=== PATIENT | female | born 1960 | race African-American/Black ===

== ENCOUNTER → 2016-05-02 | Day surgery (SDC) | payer OTHER ==
[2016-04-26 07:40] VITALS: BMI 45.0
[~2016-05-02] VITALS: Ht 152.4 cm; Wt 113.5 kg
[~2016-05-02] MED LIST: ATOR10TA88 PO; GABA800T2 PO; GLC500 PO; HYDR-3124 PO; LIDOCAINE HCL 2% 2 ML VIAL (20MG/ML) ONE; LISI10TA PO; MIDAZOLAM HCL 1 MG/ML 2ML VIAL ONE; MORP30TA PO; OXYC-164 PO; PROPOFOL IV EMULSION 10 MG/ML 20 ML VIAL IV ONE; SODIUM CHLORIDE 0.9% 500ML 500 ML IV ONE; TRAV0.00 OPB
[2016-05-02 07:58] VITALS: Ht 152.4 cm; Wt 113.5 kg
[2016-05-02 08:17] VITALS: TEMP 36.1
--- NOTE | 2016-05-02 08:39 | Endo History and Physical ---
History & Physical Date of Service: May 02, 2016. Chief Complaint: SCREENING Referring Physician: DR. SANDOVAL History of Present Illness 55 yo AAF who presents for screening colonoscopy. Past Medical History Diabetes, Arthritis, High Cholesterol, Hypertension Past Surgical History Hx Cardiac Surgery: No Hx Internal Defibrillator: No Hx Pacemaker: No Hx Abdominal Surgery: Yes (HIATAL HERNIA REPAIR, HERNIA REPAIR X3, HYSTER, UTERINE MYOMECTOMY) Hx of Implantable Prosthesis: No Hx Post-Op Nausea and Vomiting: No Hx Cancer Surgery: No Hx Thoracic Surgery: Yes (CYST REMOVAL FROM "CHEST AREA") Hx Orthopedic: Yes (RT/LT HAMMER TOE SURGERY X2, LT FOOT SURGERY) Hx Urinary Tract Surgery: No Family History Colon CA Social History Smoking Status: Current Every Day Smoker Hx Substance Use: Yes (SEE MED LIST) Hx Alcohol Use: No Allergies Coded Allergies: No Known Allergies (Verified , 05/02/16) Current Medications Reported Home Medications Medications Dose Route/Sig Max Daily Dose Days Date Category Travatan Z (Travoprost) 0.004 % Obdulio 1 Drops OPB HS 04/26/16 Reported Atarax (Hydroxyzine Hcl) 25 Mg Tab 25 Mg PO HS PRN 04/26/16 Reported Morphine Sulfate Ir (Morphine Sulfate) 30 Mg Tab 30 Mg PO BID PRN 04/26/16 Reported Oxycodone Hcl 10 Mg Tab 1 Tab PO DAILY PRN 04/26/16 Reported Neurontin (Gabapentin) 800 Mg Tab 800 Mg PO HS 04/26/16 Reported Prinivil (Lisinopril) 10 Mg Tab 10 Mg PO QAM 03/29/15 Reported Metformin HCl 500 Mg Tab 500 Mg PO BID 01/09/15 Reported Lipitor (Atorvastatin Calcium) 10 Mg Tab 10 Mg PO QAM 11/08/14 Reported Vital Signs Weight (Kilograms): 113.5 Height (Feet): 5 Height (Inches): 0 Date Time Temp Pulse Resp B/P Pulse Ox O2 Delivery O2 Flow Rate FiO2 05/02/16 08:17 36.1 80 20 168/97 100 Room Air Physical Exam General Appearance: WD/WN, no apparent distress Respiratory/Chest: Auscultation: breath sounds normal Cardiovascular: Heart Auscultation: RRR Abdomen: Bowel Sounds: normal Inspection & Palpation: soft, non-distended, no tenderness, guarding & rebound Assessment and Plan Assessment: 55 yo AAF who presents for screening colonoscopy. Plan: Proceed with colonoscopy.
--- NOTE | 2016-05-02 09:30 | GI REPORT ---
Procedure Date: 05/02/2016 8:43 AM Procedure: Colonoscopy Indications: Screening for colorectal malignant neoplasm Medicines: Monitored Anesthesia Care Complications: No immediate complications. Estimated Blood Loss: Estimated blood loss: none. Procedure: Pre-Anesthesia Assessment: - Prior to the procedure, a History and Physical was performed, and patient medications and allergies were reviewed. The patient's tolerance of previous anesthesia was also reviewed. The risks and benefits of the procedure and the sedation options and risks were discussed with the patient. All questions were answered, and informed consent was obtained. Prior Anticoagulants: The patient has taken no previous anticoagulant or antiplatelet agents. ASA Grade Assessment: III - A patient with severe systemic disease. After reviewing the risks and benefits, the patient was deemed in satisfactory condition to undergo the procedure. After I obtained informed consent, the scope was passed under direct vision. Throughout the procedure, the patient's blood pressure, pulse, and oxygen saturations were monitored continuously. The On-site loaner was introduced through the anus and advanced to the cecum, identified by appendiceal orifice and ileocecal valve. The colonoscopy was performed without difficulty. The patient tolerated the procedure well. The quality of the bowel preparation was good. The ileocecal valve, appendiceal orifice, and rectum were photographed. Findings: Multiple small-mouthed diverticula were found in the sigmoid colon. Non-bleeding internal hemorrhoids were found during retroflexion. The hemorrhoids were small. Impression: - Diverticulosis in the sigmoid colon. - Non-bleeding internal hemorrhoids. - No specimens collected. Recommendation: - Resume previous diet. - Continue present medications. - Repeat colonoscopy in 10 years for surveillance. - Return to primary care physician as previously scheduled. Ilir Eid, DO 05/02/2016 9:29:53 AM This report has been signed electronically. Note Initiated On: 05/02/2016 8:43 AM I attest to the content of the Intraoperative Record and orders documented therein, exceptions below
--- NOTE | 2016-05-02 09:31 | Discharge Instructions ---
Endoscopy Patient Instructions Date / Procedure(s) Performed May 02, 2016. Colonoscopy Allergy Information Coded Allergies: No Known Allergies (Verified , 05/02/16) Discharge Date / Findings May 02, 2016. Diverticulosis Internal hemorrhoids Medication Instructions OK to resume all medications today as prescribed Reported Home Medications Medications Dose Route/Sig Max Daily Dose Days Date Category Travatan Z (Travoprost) 0.004 % Obdulio 1 Drops OPB HS 04/26/16 Reported Atarax (Hydroxyzine Hcl) 25 Mg Tab 25 Mg PO HS PRN 04/26/16 Reported Morphine Sulfate Ir (Morphine Sulfate) 30 Mg Tab 30 Mg PO BID PRN 04/26/16 Reported Oxycodone Hcl 10 Mg Tab 1 Tab PO DAILY PRN 04/26/16 Reported Neurontin (Gabapentin) 800 Mg Tab 800 Mg PO HS 04/26/16 Reported Prinivil (Lisinopril) 10 Mg Tab 10 Mg PO QAM 03/29/15 Reported Metformin HCl 500 Mg Tab 500 Mg PO BID 01/09/15 Reported Lipitor (Atorvastatin Calcium) 10 Mg Tab 10 Mg PO QAM 11/08/14 Reported Provider Instructions Activity Restrictions - No exercising or heavy lifting for 24 hours. - Do not drink alcohol the day of the procedure. - Do not drive a car or operate machinery until the day after the procedure. - Do not make any important decisions or sign important papers in 24 hours after the procedure. Following Day: - Return to full activity which may include returning to work/school. Diet Start your diet with liquids and light foods (jello, soup, juice, toast). Then eat your usual diet if not nauseated. Treatment For Common After Affects For mild abdominal pain, bloating, or excessive gas: - Rest - Eat lightly - Lie on right side Follow-Up Information Follow-up with DR. SANDOVAL as scheduled Anesthesia Information What You Should Know You have had a procedure that required some medicine to reduce anxiety and discomfort. This treatment is called moderate sedation. After receiving the treatment, you may be sleepy, but you will be able to breathe on your own. The effects of the treatment may last for several hours. Follow these instructions along with Activity/Diet recommendations noted above: * Do NOT do anything where dizziness or clumsiness would be dangerous. * Rest quietly at home today, then you can be up and about tomorrow. * Have a responsible person stay with you the rest of today. * You may have had an I.V. today. If so, you may take the dressing off later today. Recommendations Call your doctor if: * Trouble breathing * Continuous vomiting for more than 24 hours * Temperature above 101 degrees * Severe abdominal pain or bloating * Pain not relieved by pain medicine ordered * There is increased drainage or redness from any incision * A large amount of rectal bleeding greater than 2-3 tablespoons. (If you had a polyp/s removed or have hemorrhoids, a small amount of blood - from the rectum is to be expected.) * You have any unanswered questions or concerns. IN THE EVENT OF A SERIOUS EMERGENCY, GO TO THE NEAREST EMERGENCY ROOM Your discharge instructions were prepared by provider Ilir Eid. Patient Instructions Signature Page Tamela Weinberg Patient (or Guardian) Signature/Date: I have read and understand the instructions given to me by my caregivers. Caregiver/RN/Doctor Signature/Date: The above-named patient and/or guardian has received patient instructions on this date. + Original Patient Signature Page (only) stays with chart. Please make copy for patient.
[2016-05-02 09:44] VITALS: BP 116/62; PULSE 79; O2SAT 94
--- NOTE | 2016-05-02 15:19 | Anesthesiology Progress Note ---
Anesthesia Post Op Note Date & Time May 02, 2016 at 15:18 Vital Signs Pain Intensity: 0 Vital Signs Past 12 Hours Date Time Temp Pulse Resp B/P Pulse Ox O2 Delivery O2 Flow Rate FiO2 05/02/16 09:44 79 20 116/62 94 Room Air 05/02/16 09:36 92 20 110/56 96 Room Air 05/02/16 09:25 100 22 167/81 96 Nasal Cannula 05/02/16 08:17 36.1 80 20 168/97 100 Room Air Notes Mental Status: alert / awake / arousable, participated in evaluation Pt Amnestic to Procedure: Yes Nausea / Vomiting: adequately controlled Pain: adequately controlled Airway Patency, RR, SpO2: stable & adequate BP & HR: stable & adequate Hydration State: stable & adequate Anesthetic Complications: no major complications apparent
== END | disposition home or self-care (01) ==
LOC: C.GI 07:27
PROVIDERS: ATTEND Internal Medicine
DX: Z12.11 Encounter for screening for malignant neoplasm of colon (principal); K57.30 Diverticulosis of large intestine without perforation or abscess without bleeding; K64.8 Other hemorrhoids; I10 Essential (primary) hypertension; E11.9 Type 2 diabetes mellitus without complications; E78.00 Pure hypercholesterolemia, unspecified; H40.9 Unspecified glaucoma; M19.90 Unspecified osteoarthritis, unspecified site; Z98.890 Other specified postprocedural states; F17.200 Nicotine dependence, unspecified, uncomplicated; Z68.42 Body mass index [BMI] 45.0-49.9, adult; Z80.0 Family history of malignant neoplasm of digestive organs

== ENCOUNTER 2017-10-15 12:55 | Emergency (ER) | payer OTHER ==
[~2017-10-15] VITALS: Ht 152.4 cm; Wt 113.3 kg
[~2017-10-15 12:55] MED LIST changes: +ATOR10TA82 PO; -ATOR10TA88 PO; -LIDOCAINE HCL 2% 2 ML VIAL (20MG/ML) ONE; -MIDAZOLAM HCL 1 MG/ML 2ML VIAL ONE; -PROPOFOL IV EMULSION 10 MG/ML 20 ML VIAL IV ONE; -SODIUM CHLORIDE 0.9% 500ML 500 ML IV ONE
[2017-10-15 12:59] VITALS: TEMP 36.8; Ht 152.4 cm; Wt 113.3 kg
[2017-10-15] MEDS ORDERED: OPTIRAY 320 IV PRN (13:30)
[2017-10-15] MEDS ORDERED: KETOROLAC TROMETHAMINE 30 MG/ML VIAL IV STA (13:56)
[2017-10-15 14:05] LABS: HEMATOCRIT 44.5 % (37-47); HEMOGLOBIN 14.6 g/dL (12.0-16.0); MEAN CELL VOLUME 86.6 fL (80-100); MEAN CORPUSCULAR HEMOGLOBIN 28.4 pg (25-34); MEAN CORPUSCULAR HGB CONC 32.8 g/dl (32-36); MEAN PLATELET VOLUME 10.4 fL (7.4-10.4); PLATELET COUNT 299 K/uL (130-400); RED CELL DISTRIBUTION WIDTH CV 14.9 % (11.5-14.5); RED CELL DISTRIBUTION WIDTH SD 47.8 fL (36.4-46.3); WHITE BLOOD COUNT 7.97 K/uL (4.8-10.8)
[2017-10-15 14:24] LABS: CALCIUM 9.5 mg/dl (8.5-10.1); CREATININE 0.67 mg/dl (0.60-1.20)
[2017-10-15 14:26] LABS: POTASSIUM 4.3 mmol/L (3.5-5.1)
--- NOTE | 2017-10-15 14:55 | DIAGNOSTIC IMAGING REPORT ---
CT (CHEST) THORAX WITH CT DOSE: 1043.58 mGy.cm HISTORY: Pain severe L rib pain after fall. morb obese TECHNIQUE: Multiaxial CT images of the chest were performed following the intravenous administration of contrast. A dose lowering technique was utilized adhering to the principles of ALARA. COMPARISON: None. FINDINGS: There are several bilateral axillary nodes measuring up to 1.5 cm. The mediastinal and hilar regions show no significant nodes although pretracheal nodes measuring to 11 mm are present. There is no significant or bulky adenopathy. Lungs are clear. No focal infiltrate. Major vertebral bodies show no evidence for compression deformity. IMPRESSION: 1. No acute process of the chest. 2. No well-defined rib fractures or other anomaly. 3. Several indeterminate nodes in the axillary regions measuring up to 1.5 cm. The above report was generated using voice recognition software. It may contain grammatical, syntax or spelling errors. Electronically signed by: Howard Juares M.D. 10/15/2017 2:54 PM Dictated Date/Time: 10/15/2017 2:45 PM
[2017-10-15 15:23] VITALS: BP 127/97; PULSE 67; O2SAT 93
--- NOTE | 2017-10-15 17:27 | EMERGENCY ROOM VISIT NOTE ---
History Report prepared by Alisha: Srinath Castro Under the Supervision of: Dr. El Vasquez D.O. First contact with patient: 13:06 Chief Complaint: RIB PAIN Stated Complaint: RIB PAIN RAN INTO THE ARM OF CHAIR History of Present Illness The patient is a 57 year old female who presents to the Emergency Room with complaints of constant left-sided pain in the area of the ribs beginning after a fall last night. The patient reports that she fell into the hard arm of a chair, and notes that it hit her left side. The patient denies hitting her head or losing consciousness. She states that all of her pain is on her left side where it hit. She notes that the pain is worsened with movement. She notes that she does not take blood thinners. Pain worsens with breathing, twisting turning and palpation. Pain is sharp stabbing with palpation. If she does not move she does not have the pain. Pt denies headache, change in vision, fevers, chest pain, shortness of breath, nausea, vomiting, diarrhea, and pain with urination. Source of History: patient Onset: last night Position: other (left side in the area of the ribs) Quality: other (pain after fall) Modifying Factors (Worsening): movement Associated Symptoms: No LOC Review of Systems See HPI for pertinent positives & negatives. A total of 10 systems reviewed and were otherwise negative. Past Medical & Surgical Medical Problems: (1) Chronic back pain (2) Diabetes (3) Hypertension (4) Umbilical hernia Surgical Problems: (1) H/O foot surgery (2) H/O hernia repair (3) H/O: hysterectomy (4) History of ventricular septal myectomy Family History Cancer Diabetes mellitus Hypertension Kidney disease Kidney stones Social History Smoking Status: Current Every Day Smoker Alcohol Use: none Drug Use: none Marital Status: single Housing Status: lives with family Occupation Status: disabled Current/Historical Medications Scheduled Atorvastatin (Lipitor), 10 MG PO QAM Gabapentin (Neurontin), 800 MG PO TID Lisinopril (Prinivil), 10 MG PO QAM Metformin HCl (Metformin HCl), 500 MG PO BID Travoprost (Travatan Z), 1 DROPS OPB HS Scheduled PRN Hydroxyzine Hcl (Atarax), 25 MG PO HS PRN for INSOMNIA AND ITCHING Allergies Coded Allergies: No Known Allergies (Verified , 10/15/17) Physical Exam Vital Signs Date Time Temp Pulse Resp B/P (MAP) Pulse Ox O2 Delivery O2 Flow Rate FiO2 10/15/17 15:23 67 18 127/97 93 Room Air 10/15/17 12:59 36.8 79 12 98/65 99 Room Air Physical Exam GENERAL: Morbidly obese, sitting at bed, disheveled-appearing, non-toxic HEAD: normal cephalic, atraumatic EYE EXAM: normal conjunctiva, PERRL and EOM's grossly intact OROPHARYNX: no exudate, no erythema, lips, buccal mucosa, and tongue normal and mucous membranes are moist NECK: supple, no nuchal rigidity, no adenopathy, non-tender CHEST: stable to compression anteriorly and posteriorly, pain on palpation of the left ribs tracking under her breast. Skin is intact no bruising. LUNGS: clear to auscultation. Normal chest wall mechanics HEART: no murmurs, S1 normal and S2 normal ABDOMEN: abdomen soft, non-tender, normo-active bowel sounds, no masses, no rebound or guarding. PELVIS: stable to compression anteriorly and posteriorly BACK: Back is symmetrical on inspection and there is no deformity, no midline tenderness, no CVA tenderness. UPPER EXTREMITIES: full active and passive range of motion of all joints without tenderness to palpation LOWER EXTREMITIES: full active and passive range of motion of all joints without tenderness to palpation NEURO EXAM: Normal sensorium, cranial nerves II-XII grossly intact, normal speech, no gross weakness of arms, no gross weakness of legs. GCS: 15. Medical Decision & Procedures ER Provider Diagnostic Interpretation: Radiology results as stated below per my review and the radiologist's interpretation: CT (CHEST) THORAX WITH CT DOSE: 1043.58 mGy.cm HISTORY: Pain severe L rib pain after fall. morb obese TECHNIQUE: Multiaxial CT images of the chest were performed following the intravenous administration of contrast. A dose lowering technique was utilized adhering to the principles of ALARA. COMPARISON: None. FINDINGS: There are several bilateral axillary nodes measuring up to 1.5 cm. The mediastinal and hilar regions show no significant nodes although pretracheal nodes measuring to 11 mm are present. There is no significant or bulky adenopathy. Lungs are clear. No focal infiltrate. Major vertebral bodies show no evidence for compression deformity. IMPRESSION: 1. No acute process of the chest. 2. No well-defined rib fractures or other anomaly. 3. Several indeterminate nodes in the axillary regions measuring up to 1.5 cm. The above report was generated using voice recognition software. It may contain grammatical, syntax or spelling errors. Electronically signed by: Howard Juares M.D. 10/15/2017 2:54 PM Dictated Date/Time: 10/15/2017 2:45 PM Laboratory Results 10/15/17 13:54 Red Blood Count 5.14, Mean Corpuscular Volume 86.6, Mean Corpuscular Hemoglobin 28.4, Mean Corpuscular Hemoglobin Concent 32.8, Mean Platelet Volume 10.4 10/15/17 13:54 Test 10/15/17 13:54 White Blood Count 7.97 K/uL (4.8-10.8) Red Blood Count 5.14 M/uL (4.2-5.4) Hemoglobin 14.6 g/dL (12.0-16.0) Hematocrit 44.5 % (37-47) Mean Corpuscular Volume 86.6 fL (80-100) Mean Corpuscular Hemoglobin 28.4 pg (25-34) Mean Corpuscular Hemoglobin Concent 32.8 g/dl (32-36) Platelet Count 299 K/uL (130-400) Mean Platelet Volume 10.4 fL (7.4-10.4) RDW Standard Deviation 47.8 fL (36.4-46.3) RDW Coefficient of Variation 14.9 % (11.5-14.5) Neutrophils % (Manual) 35.7 % Lymphocytes % (Manual) 25.9 % Variant Lymphocytes % (manual) 26.8 % Monocytes % (Manual) 8.0 % Eosinophils % (Manual) 2.7 % Basophils % (Manual) 0.9 % Neutrophils # (Manual) 2.85 K/uL (1.4-6.5) Total Absolute Neutrophils 2.85 K/uL (1.4-6.5) Lymphocytes # (Manual) 2.06 K/uL (1.2-3.4) Absolute Variant Lymphocytes 2.14 K/uL Total Absolute Lymphocytes 4.20 K/uL (1.2-3.4) Monocytes # (Manual) 0.64 K/uL (0.11-0.59) Eosinophils # (Manual) 0.22 K/uL (0-0.5) Basophils # (Manual) 0.07 K/uL (0-0.2) Anion Gap 7.0 mmol/L (3-11) Est Creatinine Clear Calc Drug Dose 103.6 ml/min Estimated GFR () 111.5 Estimated GFR (Non- 96.2 BUN/Creatinine Ratio 12.6 (10-20) Calcium Level 9.5 mg/dl (8.5-10.1) Laboratory results per my review. Medications Administered Medications (Trade) Dose Ordered Sig/Iván Route Start Time Stop Time Status Last Admin Dose Admin Ketorolac Tromethamine (Toradol Inj) 30 mg NOW STAT IV 10/15/17 13:56 10/15/17 13:57 DC 10/15/17 14:01 30 MG ED Course ED COURSE: Vital signs were reviewed and showed normal vital signs The patients medical record was reviewed The above diagnostic studies were performed and reviewed. ED treatments and interventions as stated above. 1317: The patient was evaluated in room A4B. A complete history and physical examination was performed. 1528: Upon reevaluation, the patient is resting. I discussed my findings with the patient and she understands and agrees with the treatment plan. Based on the patients age, coexisting illnesses, exam and lab findings the decision to treat as an outpatient was made. The patient remained stable while under my care. The patient appeared well at the time of discharge. Medical Decision Differential diagnoses include major intracranial, cervical, spinal, thoracic, abdominal, pelvic and neurologic injury. Fracture, contusion, sprain, strain, laceration, abrasions included as well. Patient is a 57-year-old female after mechanical fall last night into an arm chair where she hit her left chest wall who presents for pain in the same spot. CBC and BMP was unremarkable. She takes no blood thinners. CT of the chest shows no rib fractures, or pleural effusion. Do favor symptoms are likely secondary to rib contusions. She was given IV Toradol and did have improvement of her symptoms. She is resting/sleeping on reevaluation. Instructed at bedside discharged to take Tylenol or Motrin as an outpatient. Discussed with Pt concerning signs and symptoms to watch out for. Pt was instructed to follow up with their PCP and discussed with the patient their option to return to the ED at anytime for persistent or worsening symptoms. The appropriate anticipatory guidance and out-patient management, including indications for return to the emergency department, were explained at length to the patient and understood. Medication Reconcilliation Current Medication List: was personally reviewed by me Blood Pressure Screening Patient's blood pressure: Normal blood pressure Blood pressure disposition: Did not require urgent referral Impression Primary Impression: Contusion of rib on left side Scribe Attestation The scribe's documentation has been prepared under my direction and personally reviewed by me in its entirety. I confirm that the note above accurately reflects all work, treatment, procedures, and medical decision making performed by me. Departure Information Dispostion Home / Self-Care Referrals Ana Figueredo D.O. (PCP) Forms HOME CARE DOCUMENTATION FORM, IMPORTANT VISIT INFORMATION, WORK / SCHOOL INSTRUCTIONS Patient Instructions My [facility] Additional Instructions Please follow up with your primary care doctor with in the next 24 hours. Any worsening of your symptoms, please return to the ED immediately. This includes any fevers greater than 100.4, worsening pain, chest pain, shortness breath, persistent nausea, vomiting, unable to eat or drink, or any other concerning signs or symptoms from your standpoint. Please take Motrin or Tylenol as needed for pain. Pain will continue over the course the next 2 weeks. Problem Qualifiers Primary Impression: Contusion of rib on left side Encounter type: initial encounter Qualified Codes: S20.212A - Contusion of left front wall of thorax, initial encounter
== END 2017-10-15 15:36 | disposition home or self-care (01) ==
LOC: C.EDB 12:57 → C.EDA 15:36
DX: S20.212A Contusion of left front wall of thorax, initial encounter (principal); W01.190A Fall on same level from slipping, tripping and stumbling with subsequent striking against furniture, initial encounter; E11.9 Type 2 diabetes mellitus without complications; I10 Essential (primary) hypertension; G89.29 Other chronic pain; F17.200 Nicotine dependence, unspecified, uncomplicated; Z79.84 Long term (current) use of oral hypoglycemic drugs

== ENCOUNTER 2019-01-08 17:04 | Inpatient (IN) ==
[2019-01-08] MEDS ORDERED: ASPIRIN CHEW 324 MG PO STA (17:28)
[2019-01-08 18:02] LABS: Basophils # (auto) 0.02 K/uL (0-0.2); Basophils % (auto) 0.2 %; Eosinophils # (auto) 0.08 K/uL (0-0.5); Hematocrit (blood only) 45.9 % (37-47); Hemoglobin 14.9 g/dL (12.0-16.0); Immature Granulocytes # (auto) 0.02 K/uL (0.00-0.02); Immature Granulocytes % (auto) 0.2 %; Lymphocytes # (auto) 3.15 K/uL (1.2-3.4); Lymphocytes % (auto) 38.2 %; Mean Corpuscular Hemoglobin 28.2 pg (25-34); Mean Corpuscular Hgb Conc 32.5 g/dL (32-36); Mean Corpuscular Volume 86.8 fL (80-100); Mean Platelet Volume 10.7 fL (7.4-10.4); Monocytes # (auto) 0.87 K/uL (0.11-0.59); Monocytes % (auto) 10.6 %; Neutrophils % (auto) 49.8 %; Platelet Count 240 K/uL (130-400); RDW Coefficient of Variation 14.9 % (11.5-14.5); RDW Standard Deviation 47.2 fL (36.4-46.3); Red Blood Count 5.29 M/uL (4.2-5.4); White Blood Count 8.24 K/uL (4.8-10.8)
[2019-01-08 18:06] LABS: Base Excess VBG 9.5 mEq/L; Oxygen Saturation VBG 62.3 %; pH VBG 7.42 (7.36-7.41)
[2019-01-08 18:19] LABS: Prothrombin Time 10.3 Seconds (9.0-12.0)
[2019-01-08 18:21] LABS: Albumin Level 3.5 gm/dl (3.4-5.0); BUN Creatinine Ratio 11.8 (10-20); Bilirubin Direct 0.2 mg/dl (0-0.2); Calcium 9.8 mg/dl (8.5-10.1); Creatinine Clr Calc Pharmacy 98.2 ml/min; Est GFR (African American) 105.5; Magnesium 2.1 mg/dl (1.8-2.4); Potassium 4.3 mmol/L (3.5-5.1)
[2019-01-08 18:26] LABS: Bilirubin,Total 0.5 mg/dl (0.2-1); Total Protein 8.3 gm/dl (6.4-8.2); Troponin I 0.032 ng/ml (0-0.045)
[2019-01-08 18:49] LABS: Influenza A virus by PCR Neg for Influ A (Neg); Influenza B virus by PCR Neg for Influ B (Neg)
--- NOTE | 2019-01-08 18:55 | XRay Report ---
TWO VIEW CHEST CLINICAL HISTORY: Cough and dyspnea. CHF. FINDINGS: PA and lateral chest radiographs are compared to study dated 08/07/2018 and correlated with c hest CT dated 10/15/2017. The PA view is degraded by patient rotation. The heart is enlarged noting at herosclerotic calcification of the thoracic aorta. There is mild pulmonary vascular congestion. No ai rspace consolidation or large pleural effusion is identified. Bibasilar atelectasis is noted. There i s no pneumothorax. The skeletal structures are osteopenic. The bony thorax appears intact. IMPRESSION: Cardiomegaly with evidence of mild congestive failure. Electronically signed by: Zoran Blount M.D. 01/08/2019 6:54 PM
[2019-01-08] MEDS ORDERED: FUROSEMIDE 40 MG/4 ML VIAL IV STA (19:37)
--- NOTE | 2019-01-08 20:52 | History & Physical Report ---
Date of Service January 08, 2019 Assessment & Plan (1) CHF (congestive heart failure): Ms. Weinberg is a 58 year old female with a past medical history of type 2 diabetes mellitus, hypertension, osteoarthritis, and lower back pain who presents to the emergency department due to left-sided flank pain and shortness of breath. ED course: 324 mg of p.o. aspirin, 40 mg IV Lasix Congestive heart failure -Admit to telemetry -Patient's chest x-ray shows cardiomegaly with evidence of mild congestive failure - this is a new diagnosis for the patient -Echo ordered -40 mg IV Lasix given in emergency department, monitor response -Daily weights, measure I/Os Elevated troponin -Troponin 0.032 -No chest pain, EKG without ischemic changes -Trend troponin every 6 hours -N.p.o. at midnight, in case cardiac intervention is necessary Left-sided flank pain -Improving by the time of my examination -UA negative -Potentially MSK in origin, continue to monitor. Consider further imaging if pain recurs Chronic cough/wheeze -Patient reports a history of long-standing cough and wheeze, and has a significant smoking history (1 pack/day for over 30 years) -Chest x-ray without evidence for infection, patient afebrile with normal white cell count -Saturating well on room air -Negative PCR for influenza -DuoNebs ordered as needed for wheeze -Recommend outpatient PFTs - patient likely has COPD -Also recommend outpatient sleep study Tobacco abuse -Nicotine patch ordered -Smoking cessation counseling Hypertension -Patient reports not taking lisinopril at home, however given elevated blood pressure, will restart this medication Type 2 diabetes mellitus -Patient reports she has not been taking her metformin at home -BSG AC/HS ordered with ISS -HbA1c ordered with AM labs Lower back pain -Patient has a history of chronic lower back pain, but states that she is not currently taking any medications for this at home (namely her celecoxib and Lyrica) -Continue PRN Tylenol with codeine CODE STATUS: Full DVT prophylaxis: Heparin 5000 units SQ twice daily Disposition: Admit to telemetry (2) Type 2 diabetes mellitus: (3) Lower back pain: (4) Exertional dyspnea: (5) Morbid obesity: (6) SOB (shortness of breath): (7) Osteoarthritis: History of Present Illness Chief Complaint: Left sided flank pain, SOB Primary Care Provider: Arielle Aguilar MD Ms. Weinberg is a 58 year old female with a past medical history of type 2 diabetes mellitus, hypertension, osteoarthritis, and lower back pain who presents to the emergency department due to left-sided flank pain and shortness of breath. With regards to the flank pain, she stated it started this morning, and came on gradually. She states the pain has occurred in waves, and has been as bad as 8/10. She does report improvement in her pain over the day. She denies associated fever, chills, dysuria, or hematuria. She states that she does not have a history of kidney stones. She does report chronic back pain, however states that this pain is different from her typical back pain. She does not report worsening pain with movement. With regards to her shortness of breath, she states that she has had shortness of breath with exertion for the past year. She was concerned due to the fact that she has recently been experiencing shortness of breath with lying flat, which she states is new. She does report that she has shortness of breath with minimal exertion, such as bending over to tie her shoes, or making a trip to the restroom. She denies any pain or swelling in her legs. She does report that she has gained approximately 50 pounds over the past few months. She does report that she is a smoker, and has smoked 1 pack/day for approx 30 years. She states that her last cigarette was 2 days ago. She reports that she has a chronic cough and wheeze, and a physician had suggested to her that she may have asthma, however she was never tested for this. She does not have any inhalers at home. She does report that she has been coughing more recently, and states that her nephew is also ill with a viral URI. With regards to her cardiac history, she has no prior history of CT or CHF. She was meant to have a stress test in the past, however never completed this. She denies any chest pain. She does note that she is no longer taking any of her prescribed medications, including her Metformin and lisinopril. She states that she was not having any side effects from these, however decided to stop taking them by herself. Allergies Allergy/AdvReac Type Severity Reaction Status Date / Time No Known Allergies Allergy Verified 01/08/19 17:57 Home Medications Home Medications Medication Instructions Recorded Confirmed Type hydroxyzine HCl 25 mg tablet 25 mg PO TID PRN tab 10/02/18 01/08/19 History lisinopril 10 mg tablet 10 mg PO DAILY 10/02/18 01/08/19 History metformin 500 mg tablet 500 mg PO DAILY tab 10/02/18 01/08/19 History trazodone 150 mg tablet 150 mg PO HS #90 tab 10/23/18 01/08/19 Rx gabapentin 800 mg tablet 800 mg PO TID #90 tab 11/25/18 01/08/19 Rx acetaminophen-codeine 1 tab PO TID PRN 01/08/19 01/08/19 History [Tylenol-Codeine #3] celecoxib [Celebrex] 200 mg PO QAM 01/08/19 01/08/19 History pregabalin 150 mg PO BID 01/08/19 01/08/19 History Past Med/Surg History Medical History Type 2 diabetes mellitus (Chronic) Glaucoma (Chronic) Diverticular disease (Chronic) H/O DIVERTICULITIS ~2yrs ago, [place] WITH ABX Internal hemorrhoid (Chronic) Insomnia (Chronic) Lower back pain (Chronic) Morbid obesity (Chronic) Hypertension (Chronic) Stable problem on Lisinopril Osteoarthritis (Chronic) Surgical History Hx of carpal tunnel repair right Hx of colonoscopy Hx of foot surgery left 10/2015 [facility]. MAC 3, ETT 7.0. ATRAUMATIC X 1. Hx of hernia repair 2015 [facility], NO ISSUES PER ANESTHESIA RECORD Hx of tooth extraction Family History Mother Family history of diabetes mellitus Arthritis Other Cancer Congestive heart failure FHx: breast cancer FHx: prostate cancer Social History Preferred Language: Serbian Communication Ability: Effective Visual Impairment: No Limitations Beliefs That Will Affect Care: None Current Living Situation: Family Other Information That Helps Us Care for You: No Feels Safe at Home: Yes Safety Concerns: Feels Safe At This Time Smoking Status: Former smoker Tobacco Type: cigarettes ; Cigarettes Per Day: 10 ; Smoking End Date: 01-05-19 ; Hx Alcohol Use: No Hx Substance Use: No Review of Systems Constitutional: + fatigue; no fever, no chills and no anorexia Ear, Nose, Mouth, Throat: + nasal congestion Respiratory: + cough, + chest congestion, + dyspnea on exertion and + wheezing; no dyspnea Cardiovascular: no chest pain, no palpitations, no syncope, no edema and no calf pain Gastrointestinal: no abdominal pain, no nausea, no vomiting and no change in bowel habits Genitourinary: + urinary frequency, + urinary incontinence and + flank pain; no dysuria, no difficulty urinating and no urinary urgency Integumentary: no rash and no lesions Dry skin, worst over bilateral legs Physical Exam Constitutional: WD/WN, vitals as above + morbidly obese; no acute distress Eyes: PERRL, conjunctivae normal, anicteric sclerae ENMT: external ear and nose normal, oropharynx normal Respiratory: no respiratory distress Auscultation: + diminished lung sounds, + crackles and + wheezes Cardiovascular: RRR, no murmur, no edema Gastrointestinal (Abdomen): Inspection/Auscultation: + abdomen distended Percussion/Palpation: abdomen soft; abdomen nontender, no guarding and abdomen not rigid Musculoskeletal: no cyanosis or clubbing, extremities motor strength 5/5 No flank pain bilaterally Skin: Dry skin on bilateral legs Neurologic: PERRL, EOMI, accommodation nl, no face palsy, no dysarthria moves all extremities; no focal motor deficits Gait normal Psychiatric: A+Ox3, euthymic affect Results & Data Vital Signs (Past 12 Hours) Vital Signs Temp Pulse Pulse Resp BP BP Pulse Ox 01/08/19 19:59 88 18 155/102 H 96 01/08/19 18:59 66 18 194/98 H 95 01/08/19 18:07 93 01/08/19 17:11 37.1 C 77 24 196/110 H 93 Code Status & VTE Plan VTE Prophylaxis Plan VTE Prophylaxis will be ordered: Yes Supervising Physician Co-Signing Physician Notes Patient was seen and examined by me personally. I reviewed the chart, the orders and discussed the case in detail with Dr. Batsheva Johnson MD . I read this H&P and agree with its contents to entirety. Resident Activity Tracking Resident Involvement: Resident Care Provided Care Provided: Adult Hospital Medicine (1) CHF (congestive heart failure) Heart failure chronicity: unspecified Heart failure type: unspecified Qualified Code(s): I50.9 - Heart failure, unspecified
[2019-01-08 21:18] LABS: Appearance Urine Cloudy (Clear); Bacteria Urine Automated Negative (Negative); Bilirubin Urine Negative (Negative); Blood Urine Negative (Negative); Cast Urine Automated 0 /lpf (0-5); Color Urine Yellow; Epithelial Cell Urine Auto 0-5 /lpf (0-5); Glucose Urine UA Negative (Negative); Ketones Urine Negative (Negative); Leukocyte Esterase Urine Negative (Negative); Nitrite Urine Negative (Negative); Protein Urine Negative (Negative); RBC Urine Automated 0-4 /hpf (0-4); Specific Gravity Urine 1.008 (1.000-1.030); Urobilinogen Urine Negative (Negative); WBC Urine Automated 0 /hpf (0-5)
[2019-01-08] MEDS ORDERED: ACETAMINOPHEN 325 MG TAB PO PRN (21:56)
[2019-01-08] MEDS ORDERED: MAGNESIUM HYDROXIDE SUSP 30 ML UDC PO PRN (21:56)
[2019-01-08] MEDS ORDERED: DEXTROSE 50% 50 ML SYRINGE IV PRN (21:56)
[2019-01-08] MEDS ORDERED: POLYETHYLENE (MIRALAX) 17 GM PACK PO PRN (21:56)
[2019-01-08] MEDS ORDERED: ALBUT/IPRATROP 3MG/0.5MG NEB 3 ML VIAL NEB PRN (21:56)
[2019-01-08] MEDS ORDERED: ONDANSETRON INJ 2 MG/ML 2 ML VIAL IV PRN (21:56)
[2019-01-08] MEDS ORDERED: GLUCOSE 40% GEL 15 GM TUBE PO PRN (21:56)
[2019-01-08] MEDS ORDERED: GLUCOSE 10 TABS/TUBE PO PRN (21:56)
[2019-01-08] MEDS ORDERED: GLUCAGON FOR INJ 1 MG VIAL SQ PRN (21:56)
[2019-01-08] MEDS ORDERED: CARBOHYDRATES FOR HYPOGLYCEMIA PO PRN (21:56)
[2019-01-08] MEDS ORDERED: ALUMINUM/MAGNESIUM SUSP 30 ML UDC PO PRN (21:56)
[2019-01-08] MEDS: NICOTINE 14 MG/24 HR PATCH TD SCH (23:15)
[2019-01-08] MEDS: HEPARIN SOD 5,000 UNIT/0.5 ML VIAL SQ SCH (23:19)
[2019-01-08] MEDS: INSULIN ASPART 100 UNITS/ML 3 ML PEN SC SCH (23:19)
--- NOTE | 2019-01-08 23:22 | Emergency Department Note ---
Entered by Rubi Sotelo acting as a scribe for History of Present Illness General Chief complaint: Flank Pain Stated complaint: LEFT SIDE PAIN Time Seen by Provider: 01/08/19 17:20 History of Present Illness Provider complaint: shortness of breath Onset (ago): day(s) 3 Pain Consistency: + other (episode) Maximum Pain Intensity: 9 Quality: + other (shortness of breath) Exacerbated By: + movement and + other (laying flat) Associated symptoms: + denies other symptoms (recent long travel, coughing up blood, recent surgeries, trauma) and + other (weight on chest is crushing her and makes it difficult to fall asleep, recent weight gain, left upper abdominal pain started today, struggling with maintainance of diabetes, wetting bed at night with "urine that feels like it has sugar in it"); no chest pain The patient is a 58 year old female who presents to the ED with complaints of an episode of shortness of breath that started 3 days ago. The patient states that the shortness of breath worsens when she is laying down flat or moving around. The patient notes that she has gained weight recently. The patient states that it feels like the weight on her chest is crushing her which makes it difficult to sleep. The patient states that she also has upper left sided abdominal pain that started today. The patient notes that she has been struggling with main taining her diabetes and has been wetting the bed at night with urine that feels like it has sugar in it. The patient denies chest pain, recent long travel, coughing up blood, and recent surgeries or trauma. She states she has no history of CHF however she does have a family history of many cardiac problems. Home Medications Home Medications Medication Instructions Recorded Confirmed Type hydroxyzine HCl 25 mg tablet 25 mg PO TID PRN tab 10/02/18 01/08/19 History lisinopril 10 mg tablet 10 mg PO DAILY 10/02/18 01/08/19 History metformin 500 mg tablet 500 mg PO DAILY tab 10/02/18 01/08/19 History trazodone 150 mg tablet 150 mg PO HS #90 tab 10/23/18 01/08/19 Rx gabapentin 800 mg tablet 800 mg PO TID #90 tab 11/25/18 01/08/19 Rx acetaminophen-codeine 1 tab PO TID PRN 01/08/19 01/08/19 History [Tylenol-Codeine #3] celecoxib [Celebrex] 200 mg PO QAM 01/08/19 01/08/19 History pregabalin 150 mg PO BID 01/08/19 01/08/19 History Allergies Allergy/AdvReac Type Severity Reaction Status Date / Time No Known Allergies Allergy Verified 01/08/19 17:57 Past Med/Surg History Medical History Type 2 diabetes mellitus (Chronic) Glaucoma (Chronic) Diverticular disease (Chronic) H/O DIVERTICULITIS ~2yrs ago, [place] WITH ABX Internal hemorrhoid (Chronic) Insomnia (Chronic) Lower back pain (Chronic) Morbid obesity (Chronic) Hypertension (Chronic) Stable problem on Lisinopril Osteoarthritis (Chronic) Surgical History Hx of carpal tunnel repair right Hx of colonoscopy Hx of foot surgery left 10/2015 [facility]. MAC 3, ETT 7.0. ATRAUMATIC X 1. Hx of hernia repair 2015 [facility], NO ISSUES PER ANESTHESIA RECORD Hx of tooth extraction Family History Mother Family history of diabetes mellitus Arthritis Other Cancer Congestive heart failure FHx: breast cancer FHx: prostate cancer Social History Preferred Language: Albanian Communication Ability: Effective Visual Impairment: No Limitations Beliefs That Will Affect Care: None Current Living Situation: Family Other Information That Helps Us Care for You: No Feels Safe at Home: Yes Safety Concerns: Feels Safe At This Time Smoking Status: Former smoker Tobacco Type: cigarettes ; Cigarettes Per Day: 10 ; Smoking End Date: 01-05-19 ; Hx Alcohol Use: No Hx Substance Use: No Review of Systems See HPI for pertinent positives & negatives. and A total of 10 systems reviewed and were otherwise negative Physical Exam Vital Signs Vital Signs - 24 hr 01/08/19 17:11 01/08/19 18:07 01/08/19 18:59 Temperature 37.1 C Temperature Source Oral Sepsis Recent Fever Within 48 Hours No Sepsis New/Unexplained Change in Mental Status No Sepsis Action Taken by Nursing No Action Required Pulse Rate 77 Pulse Rate [Finger] 66 Pulse Rhythm [Finger] Pulse Strength [Finger] Respiratory Rate 24 18 Respiratory Effort / Characteristics Non-Labored Spontaneous Respiratory Depth Normal Respiratory Pattern Regular Blood Pressure 196/110 H Blood Pressure [Right Arm] 194/98 H Blood Pressure Mean 138 Blood Pressure Mean [Right Arm] 130 Blood Pressure Position Sitting Blood Pressure Position [Right Arm] Pulse Oximetry 93 93 95 Oxygen Delivery Method Room Air Room Air 01/08/19 19:59 Temperature Temperature Source Sepsis Recent Fever Within 48 Hours Sepsis New/Unexplained Change in Mental Status Sepsis Action Taken by Nursing Pulse Rate Pulse Rate [Finger] 88 Pulse Rhythm [Finger] Regular Pulse Strength [Finger] Normal Respiratory Rate 18 Respiratory Effort / Characteristics Non-Labored Respiratory Depth Normal Respiratory Pattern Regular Blood Pressure Blood Pressure [Right Arm] 155/102 H Blood Pressure Mean Blood Pressure Mean [Right Arm] 119 Blood Pressure Position Blood Pressure Position [Right Arm] Lying Pulse Oximetry 96 Oxygen Delivery Method Room Air GENERAL: She is oriented to person, place, and time. She appears well-developed and well-nourished. She does not appear distressed. HENT: Exam performed. -Head: Normocephalic and atraumatic. -Right Ear: External ear normal. No mastoid tenderness. -Left Ear: External ear normal. No mastoid tenderness. -Mouth/Throat: The oropharynx is clear and moist. No trismus in the jaw. No dental abscesses or uvula swelling. No oropharyngeal exudate or tonsillar abscesses. EYES: Conjunctivae and EOM are normal. Pupils are equal, round, and reactive to light. Right eye exhibits no discharge. Left eye exhibits no discharge. No scleral icterus. NECK: Normal range of motion. Neck supple. No JVD present. No spinous process tenderness present. No carotid bruit present. No rigidity. No tracheal deviation and normal range of motion present. No Brudzinski's sign and no Kernig's sign noted. CV: Normal rate, regular rhythm, normal heart sounds and intact distal pulses. 1+ bilateral pitting edema. Palpable radial pulses bue. PULM/CHEST: Effort normal and breath sounds normal. No respiratory distress. No stridor. She has no wheezes. Rales present at base of lungs. 1+ bilateral pitting edema. Chest Wall: She exhibits no tenderness. ABD: The abdomen is soft. Bowel sounds are normal. She has no distension. No mass is present. There is no tenderness. There is no rebound, no guarding, no Craven's sign and no tenderness at McBurney's point. Rovsig negative MUSC/SKEL: Normal range of motion. There is no peripheral edema, tenderness or deformity. LYMPH: No cervical adenopathy. NEURO: She is alert and oriented to person, place, and time. She has normal strength. No cranial nerve deficit or sensory deficit. Coordination and gait normal. GCS eye subscore is 4. GCS verbal subscore is 5. GCS motor subscore is 6. cerbellar tests wnl. SKIN: Skin is warm and dry. She is not diaphoretic. PSYCH: She has a normal mood and affect. Her behavior is normal. Judgment and thought content normal. Course 1724: Past medical records reviewed. The patient was evaluated in room B02. A complete history and physical exam was performed. 190: Patient remains hypertensive in ED. She states that it is hard to lay flat or take a deep breath. Imaging shows cardiomegaly and fluid overload which is consistent with CHF. Patient notes that she has a family history of heart problems, diuresis, including CHF. I told her it would be in her best interest to stay for an echo, and cardiology consult. Patient states that she does not want to stay as she is raising her nephew at home. She states that she will call her family members now. 1935: Patient spoke with her family. She states that she is OK with admission but she wants a food and a shower. 1940: I discussed the patient's case with Dr. Reyes [facility] Hospitalist. He will evaluate the patient for further management. Consultations Consultation #1: I discussed the patient's case with Dr. Reyes [facility] Hospitalist. He will evaluate the patient for further management. Time: 19:40 Administered Medications Heparin Sodium (Porcine) (Heparin Sodium (Porcine)) 5,000 units SQ Q12 JUAN PABLO Stop: 02/07/19 22:29 Last Admin: 01/08/19 23:19 Dose: 5,000 units Documented by: [id number] Cosigned by: [id number] Insulin Aspart (Novolog Flexpen) 0 units SC ACHS JUAN PABLO Stop: 02/07/19 22:29 Last Admin: 01/08/19 23:19 Dose: Not Given Documented by: [id number] Cosigned by: [id number] Nicotine (Nicoderm Cq) 14 mg TD QAM JUAN PABLO Stop: 02/07/19 22:29 Last Admin: 11/06/19 23:15 Dose: 14 mg Documented by: [id number] Discontinued Medications Aspirin (Aspirin) 324 mg PO NOW STA Stop: 01/08/19 17:29 Last Admin: 01/08/19 18:02 Dose: 324 mg Documented by: [id number] Furosemide (Lasix) 40 mg IV NOW STA Stop: 01/08/19 19:38 Last Admin: 01/08/19 19:52 Dose: 40 mg Documented by: [id number] Medical Decision Making Medical Records Attestation: I reviewed the patient's medical records. Home Medications Current Medication List: was personally reviewed by [place] Laboratory Data Attestation: I reviewed the patient's lab results. Result diagrams: 01/08/19 17:53 01/08/19 17:51 Lab Results 01/08/19 01/08/19 01/08/19 Range/Units 17:51 17:51 17:53 WBC 8.24 (4.8-10.8) K/uL RBC 5.29 (4.2-5.4) M/uL Hgb 14.9 (12.0-16.0) g/dL Hct 45.9 (37-47) % MCV 86.8 (80-100) fL MCH 28.2 (25-34) pg MCHC 32.5 (32-36) g/dL RDW Std Deviation 47.2 H (36.4-46.3) fL RDW Coeff of Hiral 14.9 H (11.5-14.5) % Plt Count 240 (130-400) K/uL MPV 10.7 H (7.4-10.4) fL Immature Gran % (Auto) 0.2 % Neut % (Auto) 49.8 % Lymph % (Auto) 38.2 % Dickey % (Auto) 10.6 % Eos % (Auto) 1.0 % Baso % (Auto) 0.2 % Immature Gran # (Auto) 0.02 (0.00-0.02) K/uL Neut # (Auto) 4.10 (1.4-6.5) K/uL Lymph # (Auto) 3.15 (1.2-3.4) K/uL Dickey # (Auto) 0.87 H (0.11-0.59) K/uL Eos # (Auto) 0.08 (0-0.5) K/uL Baso # (Auto) 0.02 (0-0.2) K/uL PT (9.0-12.0) Seconds INR (0.9-1.1) APTT PTT Ratio VBG pH 7.42 H (7.36-7.41) VBG pCO2 57 H (38-50) mmHg VBG pO2 30 mmHg VBG HCO3 36 mmol/L VBG O2 Saturation 62.3 % VBG Base Excess 9.5 mEq/L Barometric Pressure 739.4 mm/Hg Sodium 137 (136-145) mmol/L Potassium 4.3 (3.5-5.1) mmol/L Chloride 101 (98-107) mmol/L Carbon Dioxide 33 H (21-32) mmol/L Anion Gap 3.0 (3-11) BUN 9 (7-18) mg/dl Creatinine 0.72 (0.6-1.2) mg/dl Est Cr Clr Drug Dosing 98.2 ml/min Est GFR ( Amer) 105.5 Est GFR (Non-Af Amer) 91.0 BUN/Creatinine Ratio 11.8 (10-20) Glucose 85 (70-99) mg/dl Calcium 9.8 (8.5-10.1) mg/dl Magnesium 2.1 (1.8-2.4) mg/dl Total Bilirubin 0.5 (0.2-1) mg/dl Direct Bilirubin 0.2 (0-0.2) mg/dl AST 21 (15-37) U/L ALT 27 (12-78) U/L Alkaline Phosphatase 131 H (45-117) U/L Troponin I 0.032 (0-0.045) ng/ml NT-Pro-B Natriuret Pep 126 (0-900) pg/ml Total Protein 8.3 H (6.4-8.2) gm/dl Albumin 3.5 (3.4-5.0) gm/dl Lipase 89 (73-393) U/L Influenza Type A (PCR) (Neg) Influenza Type B (PCR) (Neg) 01/08/19 01/08/19 01/08/19 Range/Units 17:53 17:53 18:09 WBC (4.8-10.8) K/uL RBC (4.2-5.4) M/uL Hgb (12.0-16.0) g/dL Hct (37-47) % MCV (80-100) fL MCH (25-34) pg MCHC (32-36) g/dL RDW Std Deviation (36.4-46.3) fL RDW Coeff of Hiral (11.5-14.5) % Plt Count (130-400) K/uL MPV (7.4-10.4) fL Immature Gran % (Auto) % Neut % (Auto) % Lymph % (Auto) % Dickey % (Auto) % Eos % (Auto) % Baso % (Auto) % Immature Gran # (Auto) (0.00-0.02) K/uL Neut # (Auto) (1.4-6.5) K/uL Lymph # (Auto) (1.2-3.4) K/uL Dickey # (Auto) (0.11-0.59) K/uL Eos # (Auto) (0-0.5) K/uL Baso # (Auto) (0-0.2) K/uL PT 10.3 (9.0-12.0) Seconds INR 1.0 (0.9-1.1) APTT Cancelled 26.0 PTT Ratio Cancelled 1.0 VBG pH (7.36-7.41) VBG pCO2 (38-50) mmHg VBG pO2 mmHg VBG HCO3 mmol/L VBG O2 Saturation % VBG Base Excess mEq/L Barometric Pressure mm/Hg Sodium (136-145) mmol/L Potassium (3.5-5.1) mmol/L Chloride (98-107) mmol/L Carbon Dioxide (21-32) mmol/L Anion Gap (3-11) BUN (7-18) mg/dl Creatinine (0.6-1.2) mg/dl Est Cr Clr Drug Dosing ml/min Est GFR ( Amer) Est GFR (Non-Af Amer) BUN/Creatinine Ratio (10-20) Glucose (70-99) mg/dl Calcium (8.5-10.1) mg/dl Magnesium (1.8-2.4) mg/dl Total Bilirubin (0.2-1) mg/dl Direct Bilirubin (0-0.2) mg/dl AST (15-37) U/L ALT (12-78) U/L Alkaline Phosphatase (45-117) U/L Troponin I (0-0.045) ng/ml NT-Pro-B Natriuret Pep (0-900) pg/ml Total Protein (6.4-8.2) gm/dl Albumin (3.4-5.0) gm/dl Lipase (73-393) U/L Influenza Type A (PCR) Neg for Influ A (Neg) Influenza Type B (PCR) Neg for Influ B (Neg) Imaging Data Radiologist's Impression: Radiology results as stated below per my review and the radiologist's interpretation: TWO VIEW CHEST CLINICAL HISTORY: Cough and dyspnea. CHF. FINDINGS: PA and lateral chest radiographs are compared to study dated 08/07/2018 and correlated with chest CT dated 10/15/2017. The PA view is degraded by patient rotation. The heart is enlarged noting atherosclerotic calcification of the thoracic aorta. There is mild pulmonary vascular congestion. No airspace consolidation or large pleural effusion is identified. Bibasilar atelectasis is noted. There is no pneumothorax. The skeletal structures are osteopenic. The bony thorax appears intact. IMPRESSION: Cardiomegaly with evidence of mild congestive failure. Electronically signed by: Zoran Blount M.D. 01/08/2019 6:54 PM ECG Data Attestation: I personally reviewed and interpreted this ECG as follows: Indication: + SOB/dyspnea Rate (beats per minute): 76 Rhythm: + sinus rhythm ECG Intervals/blocks: + Normal QRS ECG ST segments: no ST depression and no ST elevation ECG Findings: + Other (CA and QTC within normal limits) Blood Pressure Blood Pressure Findings: Elevated blood pressure Blood Pressure Disposition: further management by hospitalist [facility] Narrative 1724: Past medical records reviewed. The patient was evaluated in room B02. A complete history and physical exam was performed. 1909: Patient remains hypertensive in ED. She states that it is hard to lay flat or take a deep breath. Imaging shows cardiomegaly and fluid overload which is consistent with CHF. Patient notes that she has a family history of heart problems, diuresis, including CHF. I told her it would be in her best interest to stay for an echo, and cardiology consult. Patient states that she does not want to stay as she is raising her nephew at home. She states that she will call her family members now. 1936: Patient spoke with her family. She states that she is OK with admission but she wants a food and a shower. 1940: I discussed the patient's case with Dr. Chávez- [facility] Hospitalist. He will evaluate the patient for further management. Impression & Plan CHF (congestive heart failure) Discharge Plan Visit Data *Final* Discharge Date/Time: 01/08/19 21:24 Chief Complaint: Flank Pain Stated Complaint: LEFT SIDE PAIN ED Provider: Santana Bermeo Discharge Problem: CHF (congestive heart failure) Patient Disposition: Admitted As Inpatient Discharge Instructions Interventions: ED Discharge Assessment Last Done: 01/08/19 21:24 Discharge Problem: CHF (congestive heart failure) Qualifiers: Heart failure type: unspecified Heart failure chronicity: unspecified Qualified Code(s): I50.9 - Heart failure, unspecified The scribe's documentation has been prepared under my direction and personally r eviewed by me in its entirety. I confirm that the note above accurately reflects all work, treatment, procedures, and medical decision making performed by me.
[2019-01-09] MEDS ORDERED: HydrALAZINE HCL 20 MG/ML VIAL IV PRN (00:03)
[2019-01-09] MEDS: TRAZODONE HCL 50 MG TAB PO PRN ×2 (03:21→23:39)
[2019-01-09 07:38] LABS: Estimated Average Glucose 157 mg/dl; Hemoglobin A1C 7.1 % (4.5-5.6)
[2019-01-09] MEDS: NICOTINE 14 MG/24 HR PATCH TD SCH (07:57)
[2019-01-09] MEDS: HEPARIN SOD 5,000 UNIT/0.5 ML VIAL SQ SCH ×2 (07:57→20:34)
[2019-01-09] MEDS: LISINOPRIL 10 MG TAB PO SCH (07:57)
[2019-01-09] MEDS ORDERED: PERFLUTREN LIPID MICROSPHERE (DEFINITY) IV ONE (09:10)
[2019-01-09] MEDS: INSULIN ASPART 100 UNITS/ML 3 ML PEN SC SCH ×4 (09:25→20:39)
--- NOTE | 2019-01-09 16:24 | Billing Data ---
Coding Level of Care Code 15932 Initial Inpt Care Lvl 3
--- NOTE | 2019-01-09 16:49 | Hospitalist Progress Note ---
Date of Service January 09, 2019 Assessment & Plan (1) CHF (congestive heart failure): Admit to PCU on telemetry Vital signs every 4 hours Strict in and out Daily weight Low-sodium diet Free fluid restriction to 1200 cc p.o. daily Patient does not take diuretic at home, started Lasix 20 mg IV twice daily. Patient already received Lasix 40 mg IV in the ER. Monitor in and out and electrolytes Replenish electrolytes as needed Troponin x2 negative. 0.032, 0.022. Third troponin pending. DVT prophylaxis: Heparin sodium 5000 units subcu every 12 hours. Full code Present on Admission?: Yes (2) Type 2 diabetes mellitus: Hold metformin while patient is in the hospital due to possible hypoglycemic affect and kidney injury if patient is going to have CT study with contrast. Patient hemoglobin A1c is 7.1. Accu-Cheks before meals and at bedtime and sliding scale insulin. Glycemic control per pharmacy. Present on Admission?: Yes (3) Lower back pain: Resolved Present on Admission?: Yes (4) Exertional dyspnea: Resolved Present on Admission?: Yes (5) Morbid obesity: Advised to watch her diet and increase daily activity and exercises. Strongly recommend to join weight watchers and try to lose weight by other means. Patient BMI is 52.0 which puts her in the category of morbid obesity. Patient was also advised to follow-up with her PCP for possible consideration of gastric bypass surgery. Present on Admission?: Yes (6) SOB (shortness of breath): Resolved most likely due to CHF and COPD. Present on Admission?: Yes (7) Osteoarthritis: Chronic issue. Continue home medicine. Pregabalin 150 mg p.o. twice daily. Present on Admission?: Yes (8) Hypertension: Continue his lisinopril 10 mg p.o. daily Present on Admission?: Yes (9) Diabetic neuropathy: Continue gabapentin 800 mg p.o. 3 times daily. Pregabalin 150 mg p.o. twice daily. Present on Admission?: Yes (10) Acute exacerbation of COPD with asthma: (11) COPD with acute exacerbation: Continue duo nebs every 4 hours Symbicort 2 puffs twice a day Will not offer steroids at this time since patient also in CHF exacerbation. Patient advised to stop smoking and continue abstaining from smoking. Offered nicotine patch. Present on Admission?: Yes (12) Nicotine dependence: Patient advised to to continue abstaining from smoking. Offered nicotine patch. Present on Admission?: Yes Subjective Patient was seen and examined at the bedside. Patient says she is slowly improving and feels less short of breath patient is right now on room air above 91%. At that she stopped smoking 1 pack every 2 days 3 days ago. Patient denies at this time shortness of breath, fever, chills, chest pain, abdominal pain, frequency, urgency. Her left side and flank pain resolved. Patient is afebrile. Good p.o. intake. Review of Systems Review of Systems: All systems reviewed & are unremarkable except as noted in HPI & below Physical Exam Constitutional: WD/WN, vitals as above well developed and + morbidly obese Eyes: PERRL, conjunctivae normal, anicteric sclerae ENMT: external ear and nose normal, oropharynx normal Neck: trachea midline, no thyromegaly Respiratory: Auscultation: + wheezes Cardiovascular: Heart Sounds: normal S1 and normal S2 Palpation: + palpable S3 Vessels: + JVD and dorsalis pedis pulses present Extremities: + pedal edema Gastrointestinal (Abdomen): normal bowel sounds, soft, nontender, no hepatosplenomegaly Musculoskeletal: no cyanosis or clubbing, extremities motor strength 5/5 Skin: no rashes, warm and dry Neurologic: patellar DTR's 2+ bilat, sensation intact Psychiatric: A+Ox3, euthymic affect Lymphatic: no cervical or axillary lymphadenopathy Results & Data Vital Signs (Past 12 Hours) Vital Signs Temp Pulse Pulse Resp BP Pulse Ox 01/09/19 15:05 36.8 C 77 22 144/83 H 91 01/09/19 13:51 76 149/89 H 01/09/19 11:27 36.9 C 69 20 161/76 H 91 01/09/19 08:25 74 01/09/19 07:06 36.4 C L 75 20 174/96 H 92 PG Care Time/CCT Total # of Minutes Spent Total Time Spent with Patient: Total time spent is greater than 50% in coordination of care (as documented) at patient's floor/unit and/or counseling patient: (1) CHF (congestive heart failure) Heart failure chronicity: unspecified Heart failure type: unspecified Qualified Code(s): I50.9 - Heart failure, unspecified
[2019-01-09] MEDS ORDERED: NICOTINE 14 MG/24 HR PATCH TD PRN (17:27)
[2019-01-09 17:46] LABS: Thyroid Stimulating Hormone 3.5 uIu/ml (0.300-4.500)
[2019-01-09] MEDS ORDERED: PHARMACY GLYCEMIC MGMT CONSULT PRN (18:01)
[2019-01-09] MEDS: FUROSEMIDE 20 MG in SYRINGE 0 ML IV SCH (18:56)
[2019-01-09] MEDS: ASPIRIN 81 MG ECTAB PO SCH (18:56)
[2019-01-09] MEDS: ACETAMINOPHEN W/CODEINE #3 1 TAB PO PRN (18:59)
[2019-01-09] MEDS: METOPROLOL TARTRATE 25 MG TAB PO SCH (20:33)
[2019-01-09] MEDS: BUDESONIDE/FORMOTEROL FUMARATE 160/4.5 60 PUFFS/INHALER INH SCH (20:33)
[2019-01-10 07:32] LABS: Albumin Level 3.2 gm/dl (3.4-5.0); Calcium 9.4 mg/dl (8.5-10.1); Creatinine Clr Calc Pharmacy 85.1 ml/min; Est GFR (African American) 87.6; Est GFR (Non-African American) 75.5; Potassium 3.8 mmol/L (3.5-5.1)
[2019-01-10 07:34] LABS: Albumin Globulin Ratio 0.7 (0.9-2); Bilirubin,Total 0.8 mg/dl (0.2-1); Globulin 4.4 gm/dl (2.5-4.0); Total Protein 7.6 gm/dl (6.4-8.2)
[2019-01-10] MEDS: ACETAMINOPHEN W/CODEINE #3 1 TAB PO PRN ×2 (08:13→15:48)
[2019-01-10] MEDS: POTASSIUM CHLORIDE 20 MEQ TABCR PO SCH (08:14)
[2019-01-10] MEDS: ASPIRIN 81 MG ECTAB PO SCH (08:14)
[2019-01-10] MEDS: METOPROLOL TARTRATE 25 MG TAB PO SCH ×2 (08:15→20:42)
[2019-01-10] MEDS: NICOTINE 14 MG/24 HR PATCH TD SCH (08:15)
[2019-01-10] MEDS: LISINOPRIL 10 MG TAB PO SCH (08:16)
[2019-01-10] MEDS: FUROSEMIDE 20 MG in SYRINGE 0 ML IV SCH (08:16)
[2019-01-10] MEDS: BUDESONIDE/FORMOTEROL FUMARATE 160/4.5 60 PUFFS/INHALER INH SCH ×2 (08:16→20:40)
[2019-01-10] MEDS: INSULIN ASPART 100 UNITS/ML 3 ML PEN SC SCH ×4 (08:17→20:42)
[2019-01-10] MEDS: HEPARIN SOD 5,000 UNIT/0.5 ML VIAL SQ SCH ×2 (08:17→20:41)
--- NOTE | 2019-01-10 10:09 | Pharmacy Report ---
Glycemic Control Consultation - Date of Service January 10, 2019 - Scope Scope: Glycemic Pharmacist consulted for glycemic control and to write orders per [facility] inpatient glycemic control protocol - Objective Weight: 121 kg Accuchecks BSG (last 24hrs): 01/09/19 01/09/19 01/09/19 11:25 16:22 20:38 Glucose POC Glucose 131 H 87 87 01/10/19 01/10/19 06:36 07:25 Glucose 131 H POC Glucose 173 H Laboratory Data (last 24hrs): 01/10/19 06:36 Potassium 3.8 Carbon Dioxide 28 Anion Gap 5.0 Creatinine 0.84 Est Cr Clr Drug Dosing 85.1 HbA1c: Hemoglobin A1c 7.1 % (4.5-5.6) H 01/09/19 06:18 - Recent Pertinent Medications Outpatient Anti-diabetic Regimen: * metformin Risk Factors for Insulin Resistance: * Diet - Assessment & Plan Assessment & Plan: ASSESSMENT: * 58yo T2DM male with adequate outpatient control per A1c. Possible non- compliance with metformin as an outpatient- may need to explore other options for patient to increase adherence? * Pt is maintained on oral antidiabetic agents as an outpatient * Oral agents are not recommended for inpatient use d/t drug interactions, changing PO intake, and difficulty titrating for acute hyper/hypoglycemia. ADA recommends re-initiating outpatient oral agents 1-2 days prior to discharge if/when appropriate if they were held on admission. * Will hold oral agents for admission and utilize SQ basal bolus insulin regimen which is the recommended regimen for inpatient glycemic control. * Will initiate weight based insulin dosing for insulin corrina patient and titrate based on BSG trends. * Basal insulin may not be needed based on A1c and minimal risk factors for insulin resistance. Will initiate if BSG >180 and titrate based on BSG trends. PLAN FOR INPATIENT GLYCEMIC CONTROL: * Holding outpatient oral diabetes medications * Basal insulin * N/A for now, will initiate ~0.2 units/kg (adj BW d/t BMI >35) if BSG >180 * Bolus insulin * NovoLog per scale ACHS or Q6hrs while NPO * Goal Range: Low 110 mg/dL - High 140 mg/dL * Correction Factor: 35 mg/dL/unit * Nutritional / Prandial insulin per carb ratio of 1 unit per 12 grams CHO consumed * Please note that the plan above was derived based on current level of insulin resistance and hospital stress. These recommendations are appropriate for inpatient admission only. Plan of care upon discharge will need to be reassessed to avoid potential outpatient hypo/hyperglycemia. Thank you.
--- NOTE | 2019-01-10 11:09 | XRay Report ---
XR chest 1V portable CLINICAL HISTORY: left flank pain flank pain COMPARISON STUDY: 01/08/2019 FINDINGS: The bones soft tissues and hemidiaphragms are normal. The cardiomediastinal silhouette is n ormal. The lungs are clear. The pulmonary vasculature is normal. IMPRESSION: Negative chest. The above report was generated using voice recognition software. It may contain grammatical, syntax or spelling errors. Electronically signed by: Howard Juares M.D. 01/10/2019 11:07 AM
--- NOTE | 2019-01-10 11:10 | XRay Report ---
XR KUB/Abdomen 1 view CLINICAL HISTORY: left flank pain flank pain COMPARISON STUDY: 02/22/2015 FINDINGS: The soft tissues, psoas shadows, renal outlines and intestinal gas pattern appear normal. T here is no evidence for bowel obstruction. No abnormal abdominal calcifications are seen. IMPRESSION: Negative study within body habitus limitations. The above report was generated using voice recognition software. It may contain grammatical, syntax or spelling errors. Electronically signed by: Howard Juares M.D. 01/10/2019 11:08 AM
--- NOTE | 2019-01-10 17:33 | Hospitalist Progress Note ---
Date of Service January 10, 2019 Assessment & Plan (1) Fever of unknown origin: Continue admit to PCU on telemetry Patient had fever of 37.7 today Unknown origin of infection. Ordered lactic acid, procalcitonin, blood cultures and urine analysis. Given Tylenol. Started ceftriaxone 2 g IV every 24 and doxycycline 100 mg twice daily p.o. empirically. Present on Admission?: Yes (2) COPD with acute exacerbation: Continue duo nebs every 4 hours Symbicort 2 puffs twice a day Patient advised to stop smoking and continue abstaining from smoking. Offered nicotine patch. (3) Cardiomyopathy: Patient does not appear to have congestive heart failure but rather cardiomyopathy. Appears to be euvolemic. Started metoprolol tartrate 12.5 mg p.o. twice daily. Vital signs every 4 hours Discontinue Lasix 20 mg p.o. IV. Need to follow-up with cardiology as an outpatient for cardiomyopathy. Monitor in and out and electrolytes Replenish electrolytes as needed Troponin x3 negative. DVT prophylaxis: Heparin sodium 5000 units subcu every 12 hours. Full code Present on Admission?: Yes (4) Lower back pain: Be repeated today because patient was complaining of left flank pain. After receiving Tylenol with codeine pain resolved. (5) Type 2 diabetes mellitus: Hold metformin while patient is in the hospital due to possible hypoglycemic affect and kidney injury if patient is going to have CT study with contrast. Patient hemoglobin A1c is 7.1. Accu-Cheks before meals and at bedtime and sliding scale insulin. Glycemic control per pharmacy. (6) Exertional dyspnea: Resolved (7) Morbid obesity: Advised to watch her diet and increase daily activity and exercises. Strongly recommend to join weight watchers and try to lose weight by other means. Patient BMI is 52.0 which puts her in the category of morbid obesity. Patient was also advised to follow-up with her PCP for possible consideration of gastric bypass surgery. (8) SOB (shortness of breath): Resolved most likely due to CHF and COPD. (9) Osteoarthritis: Chronic issue. Continue home medicine. Pregabalin 150 mg p.o. twice daily. (10) Hypertension: Continue his lisinopril 10 mg p.o. daily (11) Diabetic neuropathy: Continue gabapentin 800 mg p.o. 3 times daily. Pregabalin 150 mg p.o. twice daily. (12) Nicotine dependence: Patient advised to to continue abstaining from smoking. Offered nicotine patch. Subjective Patient was seen and examined at the bedside. Oxygenate patient says breathing is much better and shortness of breath improved. She is now 93% on room air. She does not need any supplemental oxygen to oxygenate above 92%. Patient had fever today 37.7. It is not clear origin we did chest x-rays with were uneventful. KUB also did not show any inflammatory process. Urine analysis pending blood cultures are pending and procalcitonin including lactic acid. Patient was avid tobacco smoker. Patient says she will never smoke again. Patient denies at this time shortness of breath, fever, chills, chest pain, abdominal pain, frequency, urgency.Good p.o. intake. Review of Systems Review of Systems: All systems reviewed & are unremarkable except as noted in HPI & below Physical Exam Constitutional: WD/WN, vitals as above well developed and + morbidly obese Eyes: PERRL, conjunctivae normal, anicteric sclerae ENMT: external ear and nose normal, oropharynx normal Neck: trachea midline, no thyromegaly Respiratory: Auscultation: + wheezes Cardiovascular: Heart Sounds: normal S1 and normal S2 Palpation: + palpable S3 Vessels: + JVD and dorsalis pedis pulses present Extremities: + pedal edema Gastrointestinal (Abdomen): normal bowel sounds, soft, nontender, no hepatosplenomegaly Musculoskeletal: no cyanosis or clubbing, extremities motor strength 5/5 Skin: no rashes, warm and dry Neurologic: patellar DTR's 2+ bilat, sensation intact Psychiatric: A+Ox3, euthymic affect Lymphatic: no cervical or axillary lymphadenopathy Results & Data Vital Signs (Past 12 Hours) Vital Signs Temp Pulse Resp BP BP Pulse Ox 01/10/19 16:00 93 01/10/19 15:29 37.7 C H 75 20 123/76 86 L 01/10/19 11:09 36.8 C 72 20 138/72 90 01/10/19 09:48 36.9 C 01/10/19 07:28 38.5 C H 92 H 22 134/84 95 PG Care Time/CCT Total # of Minutes Spent Total Time Spent with Patient: Total time spent is greater than 50% in coordination of care (as documented) at patient's floor/unit and/or counseling patient:
[2019-01-10] MEDS ORDERED: cefTRIAXone SODIUM 2,000 MG/70 ML BAG IV STA (17:34)
[2019-01-10] MEDS: DOXYCYCLINE HYCLATE 100 MG CAP PO SCH (19:37)
[2019-01-10] MEDS: BACLOFEN 10 MG TAB PO SCH (20:42)
[2019-01-10 20:56] LABS: Appearance Urine Clear (Clear); Bacteria Urine Automated Negative (Negative); Bilirubin Urine Negative (Negative); Blood Urine Negative (Negative); Color Urine Dark Yellow; Epithelial Cell Urine Auto >30 /lpf (0-5); Glucose Urine UA Negative (Negative); Ketones Urine Trace (Negative); Leukocyte Esterase Urine Trace (Negative); Nitrite Urine Negative (Negative); Protein Urine Negative (Negative); RBC Urine Automated 0-4 /hpf (0-4); Specific Gravity Urine 1.025 (1.000-1.030); Urobilinogen Urine Negative (Negative); pH Urine 6.5 (4.5-7.5)
[2019-01-11 06:53] LABS: Hematocrit (blood only) 47.6 % (37-47); Hemoglobin 15.3 g/dL (12.0-16.0); Mean Corpuscular Hemoglobin 27.6 pg (25-34); Mean Corpuscular Hgb Conc 32.1 g/dL (32-36); Mean Corpuscular Volume 85.9 fL (80-100); Mean Platelet Volume 10.7 fL (7.4-10.4); Platelet Count 227 K/uL (130-400); RDW Coefficient of Variation 15.3 % (11.5-14.5); RDW Standard Deviation 47.6 fL (36.4-46.3); Red Blood Count 5.54 M/uL (4.2-5.4)
[2019-01-11 07:25] LABS: Albumin Level 3.1 gm/dl (3.4-5.0); BUN Creatinine Ratio 11.1 (10-20); Calcium 9.5 mg/dl (8.5-10.1); Creatinine Clr Calc Pharmacy 75.3 ml/min; Est GFR (African American) 76.4; Est GFR (Non-African American) 65.9; Potassium 3.8 mmol/L (3.5-5.1)
[2019-01-11 07:28] LABS: Albumin Globulin Ratio 0.7 (0.9-2); Bilirubin,Total 0.3 mg/dl (0.2-1); Globulin 4.6 gm/dl (2.5-4.0); Total Protein 7.7 gm/dl (6.4-8.2)
[2019-01-11 08:13] LABS: Albumin Level 3.1 gm/dl (3.4-5.0); Bilirubin Direct 0.1 mg/dl (0-0.2); Bilirubin,Total 0.3 mg/dl (0.2-1); Total Protein 7.8 gm/dl (6.4-8.2)
[2019-01-11] MEDS: DOXYCYCLINE HYCLATE 100 MG CAP PO SCH ×2 (09:11→21:03)
[2019-01-11] MEDS: METOPROLOL TARTRATE 25 MG TAB PO SCH ×2 (09:11→21:02)
[2019-01-11] MEDS: ASPIRIN 81 MG ECTAB PO SCH (09:12)
[2019-01-11] MEDS: LISINOPRIL 10 MG TAB PO SCH (09:12)
[2019-01-11] MEDS: BACLOFEN 10 MG TAB PO SCH ×2 (09:12→21:02)
[2019-01-11] MEDS: NICOTINE 14 MG/24 HR PATCH TD SCH (09:13)
[2019-01-11] MEDS: HEPARIN SOD 5,000 UNIT/0.5 ML VIAL SQ SCH ×2 (09:14→21:01)
[2019-01-11] MEDS: POTASSIUM CHLORIDE 20 MEQ TABCR PO SCH (09:14)
[2019-01-11] MEDS: INSULIN ASPART 100 UNITS/ML 3 ML PEN SC SCH ×4 (09:14→21:02)
[2019-01-11] MEDS: BUDESONIDE/FORMOTEROL FUMARATE 160/4.5 60 PUFFS/INHALER INH SCH ×2 (09:15→21:03)
[2019-01-11] MEDS: ACETAMINOPHEN W/CODEINE #3 1 TAB PO PRN ×2 (09:27→21:16)
--- NOTE | 2019-01-11 14:07 | Ultrasound Report ---
US liver CLINICAL HISTORY: transaminitis COMPARISON STUDY: CT scan dated 11/29/2017 FINDINGS: Visualization of the pancreas is limited due to the patient's large body habitus. The gallbladder appears sonographically normal. There is no ductal dilatation. The common bile duct measured 6 mm. The liver was increased hepatic echogenicity a nonspecific finding most often secondary to hepatic st eatosis IMPRESSION: 1. Technically difficult study due to the patient's large body habitus 2. Increased hepatic echogenicity, a nonspecific finding most often seen in hepatic steatosis 3. No gallstones identified. No ductal dilatation. Electronically signed by: Preston Toribio M.D. 01/11/2019 2:05 PM
--- NOTE | 2019-01-11 16:26 | Hospitalist Progress Note ---
Date of Service January 11, 2019 Assessment & Plan (1) Fever of unknown origin: Continue admit to PCU on telemetry Fever of unknown origin resolved. Labs negative: Ordered lactic acid 1.4, procalcitonin negative, blood cultures pending so far and urine analysis trace LE, but not a clean catch, a lots of epithelial cells. Patient denies any dysuria. Given Tylenol. Plan to complete 48 hours of ceftriaxone 2 g IV every 24 and doxycycline 100 mg twice daily p.o. empirically, since still not clear what caused the fever. (2) COPD with acute exacerbation: Continue duo nebs every 4 hours Symbicort 2 puffs twice a day Patient advised to stop smoking and continue abstaining from smoking. Offered nicotine patch. (3) Cardiomyopathy: Patient does not appear to have congestive heart failure but rather cardi omyopathy. Appears to be euvolemic. Started metoprolol tartrate 12.5 mg p.o. twice daily. Vital signs every 4 hours Discontinue Lasix 20 mg p.o. IV. Need to follow-up with cardiology as an outpatient for cardiomyopathy. Monitor in and out and electrolytes Replenish electrolytes as needed Troponin x3 negative. DVT prophylaxis: Heparin sodium 5000 units subcu every 12 hours. Full code (4) Lower back pain: Be repeated today because patient was complaining of left flank pain. After receiving Tylenol with codeine pain resolved. (5) Type 2 diabetes mellitus: Hold metformin while patient is in the hospital due to possible hypoglycemic affect and kidney injury if patient is going to have CT study with contrast. Patient hemoglobin A1c is 7.1. Accu-Cheks before meals and at bedtime and sliding scale insulin. Glycemic control per pharmacy. (6) Exertional dyspnea: Resolved (7) Morbid obesity: Advised to watch her diet and increase daily activity and exercises. Strongly recommend to join weight watchers and try to lose weight by other means. Patient BMI is 52.0 which puts her in the category of morbid obesity. Patient was also advised to follow-up with her PCP for possible consideration of gastric bypass surgery. (8) SOB (shortness of breath): Resolved most likely due to CHF and COPD. (9) Osteoarthritis: Chronic issue. Continue home medicine. Pregabalin 150 mg p.o. twice daily. (10) Hypertension: Continue his lisinopril 10 mg p.o. daily (11) Diabetic neuropathy: Continue gabapentin 800 mg p.o. 3 times daily. Pregabalin 150 mg p.o. twice daily. (12) Nicotine dependence: Patient advised to to continue abstaining from smoking. Offered nicotine patch. (13) Transaminitis: AST 72, ALT 47, mildly elevated AST. Trend down liver enzymes. Liver so no significant for hepatic steatosis. No gallstones identified. No actual dilatation. Hepatitis panel pending Present on Admission?: Yes Subjective Patient was seen and examined at the bedside. Oxygenate patient says breathing is much better and shortness of breath improved. She is now 93% on room air. She does not need any supplemental oxygen to oxygenate above 92%.Pt is afebrile .Patient was avid tobacco smoker. Patient says she will never smoke again. Patient denies at this time shortness of breath, fever, chills, chest pain, abdominal pain, frequency, urgency.Good p.o. intake. Review of Systems Review of Systems: All systems reviewed & are unremarkable except as noted in HPI & below Physical Exam Constitutional: WD/WN, vitals as above well developed and + morbidly obese Eyes: PERRL, conjunctivae normal, anicteric sclerae ENMT: external ear and nose normal, oropharynx normal Neck: trachea midline, no thyromegaly Respiratory: Auscultation: + wheezes Cardiovascular: Heart Sounds: normal S1 and normal S2 Palpation: + palpable S3 Vessels: + JVD and dorsalis pedis pulses present Extremities: + pedal edema Gastrointestinal (Abdomen): normal bowel sounds, soft, nontender, no hepatosplenomegaly Musculoskeletal: no cyanosis or clubbing, extremities motor strength 5/5 Skin: no rashes, warm and dry Neurologic: patellar DTR's 2+ bilat, sensation intact Psychiatric: A+Ox3, euthymic affect Lymphatic: no cervical or axillary lymphadenopathy Results & Data Vital Signs (Past 12 Hours) Vital Signs Temp Pulse Resp BP BP Pulse Ox 01/11/19 15:32 36.6 C 66 18 120/79 93 01/11/19 11:28 36.7 C 82 18 159/80 H 93 01/11/19 07:38 37.4 C 78 18 150/92 H 100 PG Care Time/CCT Total # of Minutes Spent Total Time Spent with Patient: Total time spent is greater than 50% in coordination of care (as documented) at patient's floor/unit and/or counseling patient:
[2019-01-12] MEDS: ACETAMINOPHEN W/CODEINE #3 1 TAB PO PRN (05:20)
[2019-01-12 06:43] LABS: BUN Creatinine Ratio 14.3 (10-20); Calcium 9.7 mg/dl (8.5-10.1); Creatinine Clr Calc Pharmacy 73.8 ml/min; Est GFR (African American) 74.5; Est GFR (Non-African American) 64.3; Potassium 3.5 mmol/L (3.5-5.1)
[2019-01-12 06:46] LABS: Albumin Globulin Ratio 0.7 (0.9-2); Bilirubin,Total 0.3 mg/dl (0.2-1); Globulin 4.5 gm/dl (2.5-4.0); Total Protein 7.5 gm/dl (6.4-8.2)
[2019-01-12] MEDS: INSULIN ASPART 100 UNITS/ML 3 ML PEN SC SCH ×3 (08:29→16:50)
[2019-01-12] MEDS: DOXYCYCLINE HYCLATE 100 MG CAP PO SCH (08:30)
[2019-01-12] MEDS: LISINOPRIL 10 MG TAB PO SCH (08:30)
[2019-01-12] MEDS: ASPIRIN 81 MG ECTAB PO SCH (08:30)
[2019-01-12] MEDS: BACLOFEN 10 MG TAB PO SCH (08:31)
[2019-01-12] MEDS: METOPROLOL TARTRATE 25 MG TAB PO SCH (08:32)
[2019-01-12] MEDS: BUDESONIDE/FORMOTEROL FUMARATE 160/4.5 60 PUFFS/INHALER INH SCH (08:33)
[2019-01-12] MEDS: HEPARIN SOD 5,000 UNIT/0.5 ML VIAL SQ SCH (08:33)
[2019-01-12] MEDS: POTASSIUM CHLORIDE 20 MEQ TABCR PO SCH (08:33)
[2019-01-12] MEDS: NICOTINE 14 MG/24 HR PATCH TD SCH (08:33)
[2019-01-12] MEDS ORDERED: LANTUS PER UNIT CHARGE SQ SCH (09:00)
[2019-01-12 11:22] LABS: Basophils # (auto) 0.01 K/uL (0-0.2); Basophils % (auto) 0.1 %; Eosinophils % (auto) 1.4 %; Hematocrit (blood only) 47.6 % (37-47); Hemoglobin 15.3 g/dL (12.0-16.0); Lymphocytes # (auto) 3.19 K/uL (1.2-3.4); Lymphocytes % (auto) 45.5 %; Mean Corpuscular Hemoglobin 27.7 pg (25-34); Mean Corpuscular Volume 86.1 fL (80-100); Mean Platelet Volume 11.2 fL (7.4-10.4); Monocytes % (auto) 14.3 %; Neutrophils # (auto) 2.71 K/uL (1.4-6.5); Neutrophils % (auto) 38.7 %; Platelet Count 246 K/uL (130-400); RDW Coefficient of Variation 15.2 % (11.5-14.5); RDW Standard Deviation 48.1 fL (36.4-46.3); Red Blood Count 5.53 M/uL (4.2-5.4); White Blood Count 7.01 K/uL (4.8-10.8)
[2019-01-12 11:25] LABS: Mean Corpuscular Hgb Conc 32.1 g/dL (32-36)
[2019-01-12 12:06] LABS: Albumin Globulin Ratio 0.7 (0.9-2); Albumin Level 3.2 gm/dl (3.4-5.0); BUN Creatinine Ratio 17.1 (10-20); Bilirubin,Total 0.3 mg/dl (0.2-1); Calcium 10.1 mg/dl (8.5-10.1); Creatinine Clr Calc Pharmacy 85.3 ml/min; Est GFR (African American) 88.8; Est GFR (Non-African American) 76.6; Globulin 4.6 gm/dl (2.5-4.0); Potassium 4.1 mmol/L (3.5-5.1); Total Protein 7.8 gm/dl (6.4-8.2)
--- NOTE | 2019-01-12 14:29 | Pharmacy Report ---
Glycemic Control Progress Note - Date of Service January 12, 2019 - Scope Glycemic Pharmacist consulted for glycemic control to write orders per [facility] inpatient glycemic control protocol. - Objective Accuchecks BSG(last 24 hours):: 01/11/19 01/11/19 01/12/19 16:18 20:17 05:58 Glucose 177 H POC Glucose 162 H 109 H 01/12/19 01/12/19 01/12/19 07:27 11:09 11:25 Glucose 105 H POC Glucose 74 98 HbA1c:: Hemoglobin A1c 7.1 % (4.5-5.6) H 01/09/19 06:18 - Recent Pertinent Medications The patient is currently receiving: * Basal insulin: Lantus -- units every -- hours * Correctional Insulin: Novolog Correction per scale ACHS Goal Range: Low 110 mg/dL - High 140 mg/dL Correction Factor: 35 mg/dL/unit * Prandial insulin: Per carb ratio of 1 unit per 15 grams CHO consumed - Outpatient Anti-Diabetic Meds noncompliant - Assessment & Plan ASSESSMENT: * See progress note from 01/10/19 for more background info, in short: * Pt receiving SQ basal bolus insulin regimen for hyperglycemia secondary to baseline DM (outpatient regimen on hold). Patient admitted with HF exacerbation. * Patient is currently receiving an average of 5 units of insulin per day * 0 units of basal insulin * 5 units of prandial/correctional insulin * BSGs ranging 82 - 162 mg/dl over the past 24hrs * Changes needed to insulin regimen: * AM Fasting BSG = 177 mg/dl on PRP and 74 mg/dL on POC. Goal for patient is between 110-140 mg/dL so per the PRP the patient's fasting is above goal range. Fasting continues to climb (131 mg/dL on 01/10; 155 mg/dL on 01/11/19; 177 mg/dL on 01/12/19) therefore give small dose of 5 units of Lantus (as this is all the patient received yesterday). Unsure if CHF status is affecting the POC which is 100 points lower than PRP. * Post-prandial BSGs appear well controlled to continue current regimen. * Total daily dose = <10 units. PLAN FOR INPATIENT GLYCEMIC CONTROL: * STARTING Lantus 5 units SQ qAM x1 * Continuing correction factor of 35 mg/dl/unit * Continuing carb ratio of 1 unit per 12 grams CHO consumed * Continuing goal range of Low 110 mg/dL - High 140 mg/dL RECOMMENDATIONS FOR DISCHARGE: * First line therapy recommend for diabetes is metformin. * if this is not tolerated and patient has HF then recommend SFLT2 inhibitor which can help reduce HF progression. Can choose agent on the patient's insurance formulary. * Please note that the plan above was derived based on current level of insulin resistance and hospital stress. These recommendations are appropriate for inpatient admission only. Plan of care upon discharge will need to be reassessed to avoid potential outpatient hypo/hyperglycemia. Thank you.
[2019-01-12 15:20] VITALS: PULSE 66; TEMP 97.9; O2SAT 94
--- NOTE | 2019-01-12 16:30 | Hospitalist Progress Note ---
Date of Service January 12, 2019 Assessment & Plan (1) Fever of unknown origin: Patient requested to be discharged home. Her shortness of breath is significantly improve and she is right now on room air. Patient agrees to follow-up with her primary care physician within 7 days. She also agrees to have labs done at that time specifically CMP for transaminases and CBC. She agrees that she will follow-up with sleep study of the study and cardiology for stress echocardiogram. She will also follow-up with cardiology for her cardiomyopathy. Patient with follow-up with her PCP for diabetes mellitus type 2 and hemoglobin A1c of 7.1. Patient was advised to lose at least 10 pounds which would improve her diabetes as well as fatty liver. Patient advised to continue abstaining from tobacco smoking. She understands that she is going home with doxycycline 100 mg p.o. twice a day and cefdinir 300 mg p.o. twice a day for 5 days and inhalers as directed. (2) COPD with acute exacerbation: As above (3) Cardiomyopathy: As above (4) Lower back pain: Resolved (5) Type 2 diabetes mellitus: As discussed. (6) Exertional dyspnea: Resolved (7) Morbid obesity: Advised to watch her diet and increase daily activity and exercises. Str ongly recommend to join weight watchers and try to lose weight by other means. Patient BMI is 52.0 which puts her in the category of morbid obesity. Patient was also advised to follow-up with her PCP for possible consideration of gastric bypass surgery. (8) SOB (shortness of breath): Resolved most likely due acute COPD. (9) Osteoarthritis: Chronic issue. Continue home medicine. Pregabalin 150 mg p.o. twice daily. (10) Hypertension: Continue his lisinopril 10 mg p.o. daily (11) Diabetic neuropathy: Continue gabapentin 800 mg p.o. 3 times daily. Pregabalin 150 mg p.o. twice daily. (12) Nicotine dependence: Patient advised to to continue abstaining from smoking. Offered nicotine patch. (13) Transaminitis: AST mildly elevated 42-->47. ALT normal. Hepatitis panel results pending. Patient advised to follow-up with her primary care physician with the results. Subjective Patient was seen and examined at the bedside. Patient requested to be discharged home. Her shortness of breath is significantly improve and she is right now on room air. Patient agrees to follow-up with her primary care physician within 7 days. She also agrees to have labs done at that time specifically CMP for transaminases and CBC. She agrees that she will follow-up with sleep study of the study and cardiology for stress echocardiogram. She will also follow-up with cardiology for her cardiomyopathy. Patient with follow-up with her PCP for diabetes mellitus type 2 and hemoglobin A1c of 7.1. Patient was advised to lose at least 10 pounds which would improve her diabetes as well as fatty liver. Patient advised to continue abstaining from tobacco smoking. She understands that she is going home with doxycycline 100 mg p.o. twice a day and cefdinir 300 mg p.o. twice a day for 5 days and inhalers as directed. Patient denies at this time shortness of breath, fever, chills, chest pain, abdominal pain, frequency, urgency.Good p.o. intake. Review of Systems Review of Systems: All systems reviewed & are unremarkable except as noted in HPI & below Physical Exam Constitutional: WD/WN, vitals as above well developed and + morbidly obese Eyes: PERRL, conjunctivae normal, anicteric sclerae ENMT: external ear and nose normal, oropharynx normal Neck: trachea midline, no thyromegaly Respiratory: normal respiratory effort, lungs clear to auscultation Cardiovascular: Heart Sounds: normal S1 and normal S2 Palpation: + palpable S3 Vessels: dorsalis pedis pulses present Gastrointestinal (Abdomen): normal bowel sounds, soft, nontender, no hepatosplenomegaly Musculoskeletal: no cyanosis or clubbing, extremities motor strength 5/5 Skin: no rashes, warm and dry Neurologic: patellar DTR's 2+ bilat, sensation intact Psychiatric: A+Ox3, euthymic affect Lymphatic: no cervical or axillary lymphadenopathy Results & Data Vital Signs (Past 12 Hours) Vital Signs Temp Pulse Pulse Resp BP BP Pulse Ox 01/12/19 15:19 36.6 C 66 18 167/99 H 94 01/12/19 11:27 36.5 C 67 22 136/86 97 01/12/19 08:00 71 01/12/19 07:15 36.5 C 71 18 115/74 94 PG Care Time/CCT Total # of Minutes Spent Total Time Spent with Patient: Total time spent is greater than 50% in coordination of care (as documented) at patient's floor/unit and/or counseling patient:
[2019-01-12 16:50] LABS: Hepatitis B Surface Antigen Neg (Neg)
--- NOTE | 2019-01-12 16:52 | Discharge Summary ---
Date of Service January 12, 2019 Admission HPI Per Admitting Provider Ms. Weinberg is a 58 year old female with a past medical history of type 2 diabetes mellitus, hypertension, osteoarthritis, and lower back pain who presents to the emergency department due to left-sided flank pain and shortness of breath. With regards to the flank pain, she stated it started this morning, and came on gradually. She states the pain has occurred in waves, and has been as bad as 8/10. She does report improvement in her pain over the day. She denies associated fever, chills, dysuria, or hematuria. She states that she does not have a history of kidney stones. She does report chronic back pain, however states that this pain is different from her typical back pain. She does not report worsening pain with movement. With regards to her shortness of breath, she states that she has had shortness of breath with exertion for the past year. She was concerned due to the fact that she has recently been experiencing shortness of breath with lying flat, which she states is new. She does report that she has shortness of breath with minimal exertion, such as bending over to tie her shoes, or making a trip to the restroom. She denies any pain or swelling in her legs. She does report that s he has gained approximately 50 pounds over the past few months. She does report that she is a smoker, and has smoked 1 pack/day for approx 30 years. She states that her last cigarette was 2 days ago. She reports that she has a chronic cough and wheeze, and a physician had suggested to her that she may have asthma, however she was never tested for this. She does not have any inhalers at home. She does report that she has been coughing more recently, and states that her nephew is also ill with a viral URI. With regards to her cardiac history, she has no prior history of NC or CHF. She was meant to have a stress test in the past, however never completed this. She denies any chest pain. She does note that she is no longer taking any of her prescribed medications, including her Metformin and lisinopril. She states that she was not having any side effects from these, however decided to stop taking them by herself. Principal Diagnosis none Discharge Exam Constitutional WD/WN, vitals as above well developed and + morbidly obese Eyes PERRL, conjunctivae normal, anicteric sclerae ENMT external ear and nose normal, oropharynx normal Neck trachea midline, no thyromegaly Respiratory normal respiratory effort, lungs clear to auscultation Cardiovascular Heart Sounds: normal S1 and normal S2 Palpation: + palpable S3 Vessels: dorsalis pedis pulses present Extremities: + pedal edema Gastrointestinal (Abdomen) normal bowel sounds, soft, nontender, no hepatosplenomegaly Musculoskeletal no cyanosis or clubbing, extremities motor strength 5/5 Skin no rashes, warm and dry Neurologic patellar DTR's 2+ bilat, sensation intact Psychiatric A+Ox3, euthymic affect Lymphatic no cervical or axillary lymphadenopathy Discharge Data Allergies Allergy/AdvReac Type Severity Reaction Status Date / Time No Known Allergies Allergy Verified 01/08/19 17:57 Consultations 01/08/19 19:37 ED Decision to Admit Stat Ordered Studies 01/11/19 07:26 US liver Stat Hospital Course (1) Fever of unknown origin: Patient requested to be discharged home. Her shortness of breath is significantly improve and she is right now on room air. Patient agrees to follow-up with her primary care physician within 7 days. She also agrees to have labs done at that time specifically CMP for transaminases and CBC. She agrees that she will follow-up with sleep study of the study and cardiology for stress echocardiogram. She will also follow-up with cardiology for her cardiomyopathy. Patient with follow-up with her PCP for diabetes mellitus type 2 and hemoglobin A1c of 7.1. Patient was advised to lose at least 10 pounds wh ich would improve her diabetes as well as fatty liver. Patient advised to continue abstaining from tobacco smoking. She understands that she is going home with doxycycline 100 mg p.o. twice a day and cefdinir 300 mg p.o. twice a day for 5 days and inhalers as directed. (2) COPD with acute exacerbation: As above (3) Cardiomyopathy: As above (4) Lower back pain: Resolved (5) Type 2 diabetes mellitus: As discussed. (6) Exertional dyspnea: Resolved (7) Morbid obesity: Advised to watch her diet and increase daily activity and exercises. Candelario ayala recommend to join weight watchers and try to lose weight by other means. Patient BMI is 52.0 which puts her in the category of morbid obesity. Patient was also advised to follow-up with her PCP for possible consideration of gastric bypass surgery. (8) SOB (shortness of breath): Resolved most likely due acute COPD. (9) Osteoarthritis: Chronic issue. Continue home medicine. Pregabalin 150 mg p.o. twice daily. (10) Hypertension: Continue his lisinopril 10 mg p.o. daily (11) Diabetic neuropathy: Continue gabapentin 800 mg p.o. 3 times daily. Pregabalin 150 mg p.o. twice daily. (12) Nicotine dependence: Patient advised to to continue abstaining from smoking. Offered nicotine patch. (13) Transaminitis: AST mildly elevated 42-->47. ALT normal. Hepatitis panel results pending. Patient advised to follow-up with her primary care physician with the results. Total Time Total Time Spent Total Time Spent (In Minutes): over 30 min Discharge Plan Discharge Items Patient Disposition: Home - Self-Care Reason For Visit: CHF, ELEVATED TROP, LEFT FLANK PAIN Discharge Diagnosis: COPD, LEFT FLANK PAIN Condition on Discharge: Good Activity: As commented below Lifting: Gradually increase as tolerated Non-emergency contact: Primary Care Provider, Specialist and Grounds Cleaner Call non-emergency contact if: you have any medication questions, your symptoms worsen, your pain is not controlled, your pain is worsening, your pain is unusual for you, your pain is concerning for you, you have a fever, your temperature is above 101, your temperature is above 101.5 and your wound has increased redness Follow-up/Referrals: Arielle Aguilar MD [Primary Care Provider] - 01/17/19 2:00 pm (You are scheduled for a hospital follow-up appointment with Dr. Arielle Aguilar on 01/17/2019 at 2:00pm. If this date and time does not work for you or if you have any questions, please call their office #[phone].) Diet: Carb Consistent or DM2, Heart Healthy and Low Sodium (2gm) Addtl Attending Provider Instructions: Please follow-up with automobile body worker for echo stress test as an outpatient in 1 to 2 weeks and appointment with automobile body worker for cardiomyopathy. We recommend to have sleep study at your earliest convenience for possible obstructive sleep apnea. Your hemoglobin A1c is 7.1. We recommend to follow-up follow-up your A1c in 3 months with your primary care physician, to have appointment with dietitian, lose at least 10 pounds. Your Hepatitis panel is still pending. Please follow up result with your PCP and also recheck your CMP for elevated liver enzymes.You will continue Cefdinir 300 mg PO BID and Doxycycline 100 mg PO BID for 5 more days for pneumonia. Continue abstaining from smoking tobacco.Continue inhalers as directed. Pending Studies at Discharge: Yes Studies:: Hepatitis panel Stand-Alone Forms: My [facility], Smoking Cessation Medications and DC Order Prescriptions: New doxycycline hyclate 100 mg Capsule 100 mg PO BID Qty: 10 RF: 0 nicotine 7 mg/24 hr Patch 24 Hour 14 mg transdermal QAM Qty: 14 RF: 0 metoprolol tartrate 25 mg Tablet 12.5 mg PO BID Qty: 60 RF: 0 aspirin [Ecotrin Low Strength] 81 mg Tablet,Delayed Release (Dr/Ec) 81 mg PO DAILY Qty: 30 RF: 0 Symbicort 160-4.5 mcg/actuation Hfa Aerosol Inhaler 2 puff inhalation BID Qty: 10.2 RF: 0 cefdinir 300 mg capsule 300 mg PO BID 5 Days Qty: 10 RF: 0 albuterol sulfate 90 mcg/actuation aerosol powdr breath activated 2 puffs INH Q6H PRN (Reason: shortness of breath or wheezing) Qty: 1 RF: 0 Continued lisinopril 10 mg tablet 10 mg PO DAILY RF: 0 metformin 500 mg tablet 500 mg PO DAILY RF: 0 trazodone 150 mg tablet 150 mg PO HS Qty: 90 RF: 3 gabapentin 800 mg tablet 800 mg PO TID Qty: 90 RF: 2 celecoxib [Celebrex] 200 mg capsule 200 mg PO QAM RF: 0 acetaminophen-codeine [Tylenol-Codeine #3] 300-30 mg tablet 1 tab PO TID PRN (Reason: Pain) RF: 0 pregabalin 150 mg capsule 150 mg PO BID RF: 0 hydroxyzine HCl 25 mg tablet 25 mg PO TID PRN (Reason: Itching) RF: 0 Discharge Orders: Discharge Order (Routine); Ordered 01/12/19 Ordered By: Manuel Scott/Other Patient Handouts: Diabetes [facility] Complications, Diabetes Resources, Diabetes Healthy Meals, Diabetes Exercise Benefits, Diabetes Activity Tips Admission Data Admit Date/Time: 01/08/19 20:51 Attending Provider: Manuel Solomon Admit Provider: Batsheva Johnson Primary Care Provider: Arielle Aguilar Other Providers: Yung Chávez
[2019-01-12 16:55] VITALS: BP 115/74
[2019-01-12 17:01] LABS: Hepatitis C IgG 13Yrs+Old_Rflx Neg (Neg)
[2019-01-14 04:45] LABS: Hepatitis A Antibody IgM NON-REACTIVE (NON-REACTIVE); Hepatitis B Core Antibody IgM NON-REACTIVE (NON-REACTIVE)
== END 2019-01-12 17:40 | disposition home or self-care (01) | DRG 191 ==
LOC: ED 17:04 → SUATTDRO 20:51 → 2S 20:51

== ENCOUNTER 2019-03-23 21:30 | Inpatient (IN) ==
[2019-03-23 22:01] LABS: Basophils # (auto) 0.02 K/uL (0-0.2); Basophils % (auto) 0.2 %; Eosinophils # (auto) 0.07 K/uL (0-0.5); Eosinophils % (auto) 0.6 %; Hematocrit (blood only) 43.8 % (37-47); Hemoglobin 14.3 g/dL (12.0-16.0); Immature Granulocytes # (auto) 0.03 K/uL (0.00-0.02); Immature Granulocytes % (auto) 0.3 %; Lymphocytes # (auto) 3.52 K/uL (1.2-3.4); Lymphocytes % (auto) 31.9 %; Mean Corpuscular Hemoglobin 27.7 pg (25-34); Mean Corpuscular Hgb Conc 32.6 g/dL (32-36); Mean Corpuscular Volume 84.9 fL (80-100); Mean Platelet Volume 10.8 fL (7.4-10.4); Monocytes # (auto) 0.81 K/uL (0.11-0.59); Monocytes % (auto) 7.3 %; Neutrophils # (auto) 6.58 K/uL (1.4-6.5); Neutrophils % (auto) 59.7 %; Platelet Count 261 K/uL (130-400); RDW Coefficient of Variation 16.8 % (11.5-14.5); RDW Standard Deviation 51.8 fL (36.4-46.3); Red Blood Count 5.16 M/uL (4.2-5.4); White Blood Count 11.03 K/uL (4.8-10.8)
[2019-03-23 22:11] LABS: Partial Thromboplastin Ratio 0.9; Partial Thromboplastin Time 24.4 Seconds (21.0-31.0); Prothrombin Time 10.5 Seconds (9.0-12.0)
[2019-03-23 22:18] LABS: Albumin Level 3.2 gm/dl (3.4-5.0); BUN Creatinine Ratio 8.4 (10-20); Calcium 9.7 mg/dl (8.5-10.1); Creatinine Clr Calc Pharmacy 76.9 ml/min; Est GFR (African American) 76.4; Est GFR (Non-African American) 65.9; Potassium 3.7 mmol/L (3.5-5.1)
[2019-03-23 22:21] LABS: Albumin Globulin Ratio 0.7 (0.9-2); Bilirubin,Total 0.5 mg/dl (0.2-1); Globulin 4.6 gm/dl (2.5-4.0); Total Protein 7.8 gm/dl (6.4-8.2)
--- NOTE | 2019-03-23 23:51 | History & Physical Report ---
Date of Service March 23, 2019 Assessment & Plan (1) Diverticulitis: 58 yo F with PMH of DM2 w/ neuropathy, HTN, HLD, osteoarthritis, COPD, morbid obesity re-presents with concerns of ongoing BRBPR found to have diverticulosis of the proximal sigmoid colon on initial CT Abd/Pelvis and small external hemorrhoids on PE. Diverticulosis/LGIB -Abd/Pelvis CT: No direct CT evidence of gastrointestinal hemorrhage. Mild diverticulosis of the proximal sigmoid colon -FOBT Positive -CBC q8h. H/H has been stable -Not diverticulitis so deferring coverage of gram-negative rods and anaerobic organisms at present -IVF NSS at 100 -Pain control with Tylenol. Well controlled at present -NPO in case of any GI intervention -Appreciate GI Consult HTN/?HLD -Cont diltiazem 120 mg once daily , Lisinopril 10 mg -Lipid Panel in AM DM2 -holding home Metformin -BSG AC/HS ordered with ISS -A1C in AM Asymmetric left ventricular hypertrophy -Concerning for possible hypertrophic cardiomyopathy without obstruction on ECHO Jan 2019 -EF >70% -Cardiac MRI recommended for further evaluation, pt to get done at [facility] -Given that LV was significantly hyperdynamic, Cardiology recommend diltiazem 120 mg once daily as above Tobacco abuse/Probable COPD -Saturating well on room air -Recommend outpatient PFTs -Cont home albuterol/symbicort -DuoNebs ordered as needed for wheeze -significant smoking history (1 pack/day for over 30 years) -Nicotine patch ordered -Smoking cessation counseling Insomnia/Daytime Hypersomnia/Probable KIEL - outpatient sleep study in the works, per pt -cont trazodone 150 mg Lower back pain/Neuropathy -Gabapentin 800 mg TID. Hold Celecoxib 200 mg -Continue PRN Tylenol with codeine FEN/GI: NSS at 100. NPO DVT Prophylaxis: Defer pharmacologic tx 2/2 GI bleed. SCD's. Full Code Dispo: Med Tele History of Present Illness Chief Complaint: GI bleeding Primary Care Provider: Arielle Aguilar MD 58 yo F with PMH of DM2 w/ neuropathy, HTN, HLD, osteoarthritis, COPD, morbid obesity presents to [facility] with concerns of ongoing GI bleeding. Pt was seen and discharged earlier today from the ED. Around 1PM, pt had an episode of a rectal bleed. Pt notes that she got out of bed, and on the way to the bathroom thought she had passed gas. When she went to take her PJ's off, she noticed that there was BRB already there. She further notes there was blood on the toilet paper and in her toilet. In ER, noted small external hemorrhoids. Pt given Cipro/Flagyl 500 mg PO x1 in the ER and NSS and discharged home on Augmentin 875 mgBID x7 days. When pt got home, she ate dinner around 7 PM and then around 8 PM had another episode of BRBPR. Both instances similar, with clots. Pt otherwise denies any F/N/V/D, chills, consitipation, decreased appetite, rectal pain, abd pain, sick contacts, intake of any suspicious foods, CP, SOB, AGUSTIN, lightheadedness/dizziness, weakness, cough. Pt further denies a history of rectal bleeding and blood transfusions. Pt with no other acute concerns or complaints. EKG: Normal sinus rhythm. When compared with ECG of 08-JAN-2019 no significant changes found Abd/Pelvis CT (from initial ER visit): No direct CT evidence of gastrointestinal hemorrhage. Mild diverticulosis of the proximal sigmoid colon. Labs: Largely Unremarkable No significant ER Course Family Hx: Mother- DM, Arthritis. FHx: breast/prostate cancer Social: Current every day smoker; Cigarettes Per Day: 10. Denies alcohol/illicit drug use. Surgical Hx: Carpal tunnel repair, foot surgery, hernia repair Allergies Allergy/AdvReac Type Severity Reaction Status Date / Time No Known Allergies Allergy Verified 03/23/19 22:15 Home Medications Home Medications Medication Instructions Recorded Confirmed Type celecoxib [Celebrex] 200 mg PO QAM 01/08/19 03/23/19 History trazodone 150 mg tablet 150 mg PO HS #90 tab 01/16/19 03/23/19 Rx acetaminophen 300 mg-codeine 30 mg 1 tab PO TID PRN #90 tab 01/21/19 03/23/19 Rx tablet albuterol sulfate 90 mcg/actuation 2 puffs INH Q6H PRN #18 gm 01/23/19 03/23/19 Rx aerosol inhaler gabapentin 800 mg tablet 800 mg PO TID #90 tab 03/03/19 03/23/19 Rx amoxicillin-pot clavulanate 1 tab PO BID #14 tab 03/23/19 03/23/19 Rx [Augmentin] aspirin [Ecotrin Low Strength] 81 mg PO QAM 03/23/19 03/23/19 History budesonide-formoterol [Symbicort] 2 puff INHALATION BID PRN 03/23/19 03/23/19 History diltiazem HCl [DILT-XR] 120 mg PO QAM 03/23/19 03/23/19 History hydroxyzine HCl 25 mg PO HS 03/23/19 03/23/19 History lisinopril 10 mg PO QAM 03/23/19 03/23/19 History metformin 500 mg PO QAM 03/23/19 03/23/19 History Past Med/Surg History Medical History Asthma Asymmetric septal hypertrophy COPD (chronic obstructive pulmonary disease) Diabetic neuropathy Diverticular disease (Resolved) H/O DIVERTICULITIS ~2yrs ago, TX WITH ABX Glaucoma (Chronic) Hypertension Insomnia (Chronic) Internal hemorrhoid (Inactive) Lower back pain (Chronic) Morbid obesity (Chronic) Osteoarthritis (Chronic) Type 2 diabetes mellitus (Chronic) Surgical History Hx of carpal tunnel repair right Hx of colonoscopy Hx of foot surgery left 10/2015 [facility]. MAC 3, ETT 7.0. ATRAUMATIC X 1. Hx of hernia repair 2015 [facility], NO ISSUES PER ANESTHESIA RECORD Hx of tooth extraction Family History Mother Family history of diabetes mellitus Arthritis Other Cancer Congestive heart failure FHx: breast cancer FHx: prostate cancer Social History Preferred Language: Somali Communication Ability: Effective Visual Impairment: No Limitations Beliefs That Will Affect Care: None Current Living Situation: Family Other Information That Helps Us Care for You: No Feels Safe at Home: Yes Safety Concerns: Feels Safe At This Time Smoking Status: Current every day smoker Tobacco Type: cigarettes ; Cigarettes Per Day: 10 ; Hx Alcohol Use: No Hx Substance Use: No Review of Systems Review of Systems: All systems reviewed & are unremarkable except as noted in HPI & below Physical Exam Constitutional: WD/WN, vitals as above + morbidly obese Eyes: PERRL, conjunctivae normal, anicteric sclerae ENMT: external ear and nose normal, oropharynx normal Respiratory: normal respiratory effort, lungs clear to auscultation Cardiovascular: RRR, no murmur, no edema Gastrointestinal (Abdomen): normal bowel sounds, soft, nontender, no hepatosplenomegaly Skin: no rashes, warm and dry Psychiatric: A+Ox3, euthymic affect Results & Data Vital Signs (Past 12 Hours) Vital Signs Temp Pulse Pulse Resp BP BP Pulse Ox 03/23/19 22:53 84 18 149/87 H 99 03/23/19 21:50 95 03/23/19 21:32 36.7 C 98 H 24 203/118 H 91 Laboratory Results Laboratory Results - last 24 hr 03/23/19 03/23/19 03/23/19 21:48 21:48 21:48 WBC 11.03 H RBC 5.16 Hgb 14.3 Hct 43.8 MCV 84.9 MCH 27.7 MCHC 32.6 RDW Std Deviation 51.8 H RDW Coeff of Hiral 16.8 H Plt Count 261 MPV 10.8 H Immature Gran % (Auto) 0.3 Neut % (Auto) 59.7 Lymph % (Auto) 31.9 [place] % (Auto) 7.3 Eos % (Auto) 0.6 Baso % (Auto) 0.2 Immature Gran # (Auto) 0.03 H Neut # (Auto) 6.58 H Lymph # (Auto) 3.52 H [place] # (Auto) 0.81 H Eos # (Auto) 0.07 Baso # (Auto) 0.02 PT 10.5 INR 1.0 APTT 24.4 PTT Ratio 0.9 Sodium 140 Potassium 3.7 Chloride 103 Carbon Dioxide 34 H Anion Gap 3.0 BUN 8 Creatinine 0.94 Est Cr Clr Drug Dosing 76.9 Est GFR ( Amer) 76.4 Est GFR (Non-Af Amer) 65.9 BUN/Creatinine Ratio 8.4 L Glucose 118 H Calcium 9.7 Total Bilirubin 0.5 AST 16 ALT 17 Alkaline Phosphatase 115 Total Protein 7.8 Albumin 3.2 L Globulin 4.6 H Albumin/Globulin Ratio 0.7 L POC Stool Occult Blood 03/23/19 21:50 WBC RBC Hgb Hct MCV MCH MCHC RDW Std Deviation RDW Coeff of Hiral Plt Count MPV Immature Gran % (Auto) Neut % (Auto) Lymph % (Auto) [place] % (Auto) Eos % (Auto) Baso % (Auto) Immature Gran # (Auto) Neut # (Auto) Lymph # (Auto) [place] # (Auto) Eos # (Auto) Baso # (Auto) PT INR APTT PTT Ratio Sodium Potassium Chloride Carbon Dioxide Anion Gap BUN Creatinine Est Cr Clr Drug Dosing Est GFR ( Amer) Est GFR (Non-Af Amer) BUN/Creatinine Ratio Glucose Calcium Total Bilirubin AST ALT Alkaline Phosphatase Total Protein Albumin Globulin Albumin/Globulin Ratio POC Stool Occult Blood Positive A Supervising Physician Co-Signing Physician Notes Patient seen and examined, chart reviewed, case discussed with Dr. Conner and I agree with his assessment and plan as documented above. Briefly, patient is a 58yo AA female with history of DM/HTN/COPD/morbid obesity and diverticulosis presenting with LGIB. Patient reports passing bright red blood multiple times today. Denies pain with BM, diarrhea, fevers/chills/abdominal pain. Denies CP/palpitations/SOB/dizziness. On exam she is afebrile, hypertensive otherwise HD stable, NAD, resting comfortably in bedside chair Skin - warm, dry, intact, no rashes/lesions HEENT- NC/AT, PERRL, EOMI, MMM, neck supple Heart - +S1/S2, regular, no m/r/g Lungs - CTA, no rales/rhonchi/wheezes Abd - obese, soft, NT/ND Ext - warm, 2+ pulses, no clubbing/cyanosis/edema Neuro - nonfocal Labs and images reviewed. Hgb=14.3, Hct=43.8. BUN normal at 8. FOBT+ CT with diverticulosis Assessment/Plan - 58yo AA female presenting with LGIB. Suspect diverticular source vs hemorrhoidal bleed. She is hemodynamically stable, H/H acceptable -Admit to medical floor -Trend H/H -NPO for now -GI consultation appreciated -Remainder of plan as above Resident Activity Tracking Resident Involvement: Resident Care Provided Care Provided: Adult Hospital Medicine
--- NOTE | 2019-03-24 00:46 | Emergency Department Note ---
Entered by Celena Peterson acting as a scribe for Beau Burgos MD History of Present Illness General Chief complaint: Rectal Bleed Stated complaint: RECTAL BLEEDING Time Seen by Provider: 03/23/19 21:36 Source: patient History of Present Illness Onset (ago): hour(s) (just prior to arrival) Location: abdomen Severity: similar to prior episodes Pain Consistency: + other (worsening) Quality: + other (rectal bleeding) Associated symptoms: + denies other symptoms The patient is a 58 year old female who presents to the Emergency Room with complaints of worsening rectal bleeding that began just prior to arrival. The patient states that she was in the ED earlier today for similar symptoms, but states that after going home and having dinner she had an episode of rectal bleeding that was much worse than her previous. The patient states that she was found to have diverticulitis when in the ED earlier today. She states that she last had a colonoscopy 4 years ago. Home Medications Home Medications Medication Instructions Recorded Confirmed Type celecoxib [Celebrex] 200 mg PO QAM 01/08/19 03/23/19 History trazodone 150 mg tablet 150 mg PO HS #90 tab 01/16/19 03/23/19 Rx acetaminophen 300 mg-codeine 30 mg 1 tab PO TID PRN #90 tab 01/21/19 03/23/19 Rx tablet albuterol sulfate 90 mcg/actuation 2 puffs INH Q6H PRN #18 gm 01/23/19 03/23/19 Rx aerosol inhaler gabapentin 800 mg tablet 800 mg PO TID #90 tab 03/03/19 03/23/19 Rx amoxicillin-pot clavulanate 1 tab PO BID #14 tab 03/23/19 03/23/19 Rx [Augmentin] aspirin [Ecotrin Low Strength] 81 mg PO QAM 03/23/19 03/23/19 History budesonide-formoterol [Symbicort] 2 puff INHALATION BID PRN 03/23/19 03/23/19 History diltiazem HCl [DILT-XR] 120 mg PO QAM 03/23/19 03/23/19 History hydroxyzine HCl 25 mg PO HS 03/23/19 03/23/19 History lisinopril 10 mg PO QAM 03/23/19 03/23/19 History metformin 500 mg PO QAM 03/23/19 03/23/19 History Allergies Allergy/AdvReac Type Severity Reaction Status Date / Time No Known Allergies Allergy Verified 03/23/19 22:15 Past Med/Surg History Medical History Asthma Asymmetric septal hypertrophy COPD (chronic obstructive pulmonary disease) Diabetic neuropathy Diverticular disease (Resolved) H/O DIVERTICULITIS ~2yrs ago, [place] WITH ABX Glaucoma (Chronic) Hypertension Insomnia (Chronic) Internal hemorrhoid (Inactive) Lower back pain (Chronic) Morbid obesity (Chronic) Osteoarthritis (Chronic) Type 2 diabetes mellitus (Chronic) Surgical History Hx of carpal tunnel repair right Hx of colonoscopy Hx of foot surgery left 10/2015 [facility]. MAC 3, ETT 7.0. ATRAUMATIC X 1. Hx of hernia repair 2015 [facility], NO ISSUES PER ANESTHESIA RECORD Hx of tooth extraction Family History Mother Family history of diabetes mellitus Arthritis Other Cancer Congestive heart failure FHx: breast cancer FHx: prostate cancer Social History Preferred Language: Setswana Communication Ability: Effective Visual Impairment: No Limitations Beliefs That Will Affect Care: None Current Living Situation: Family Other Information That Helps Us Care for You: No Feels Safe at Home: Yes Safety Concerns: Feels Safe At This Time Smoking Status: Current every day smoker Tobacco Type: cigarettes ; Cigarettes Per Day: 10 ; Hx Alcohol Use: No Hx Substance Use: No Review of Systems See HPI for pertinent positives & negatives. and A total of 10 systems reviewed and were otherwise negative Physical Exam Vital Signs Vital Signs - 24 hr 03/23/19 21:32 03/23/19 21:50 03/23/19 22:53 Temperature 36.7 C Temperature Source Oral Pulse Rate 98 H Pulse Rate [Right Finger] 84 Respiratory Rate 24 18 Respiratory Effort / Characteristics Non-Labored Spontaneous Non-Labored Spontaneous Respiratory Depth Normal Normal Respiratory Pattern Regular Blood Pressure 203/118 H Blood Pressure [Right Arm] 149/87 H Blood Pressure Mean 146 Blood Pressure Mean [Right Arm] 107 Blood Pressure Position [Right Arm] Lying Pulse Oximetry 91 95 99 Oxygen Delivery Method Room Air Room Air Room Air Sepsis Action Taken by Nursing No Action Required GENERAL: Awake, alert, well-appearing, in no acute distress HENT: Normocephalic, atraumatic. Oropharynx unremarkable. EYES: Normal conjunctiva. Sclera non-icteric. NECK: Supple. No nuchal rigidity. FROM. No JVD. RESPIRATORY: Clear to auscultation. CARDIAC: Regular rate, normal rhythm. Extremities warm and well perfused. Pulses equal. ABDOMEN: Soft, non-distended. No tenderness to palpation. No rebound or guarding. No masses. RECTAL: Bright red blood per rectum. MUSCULOSKELETAL: Chest examination reveals no tenderness. The back is symmetrical on inspection without obvious abnormality. There is no CVA tenderness to palpation. No joint edema. LOWER EXTREMITIES: Calves are equal size bilaterally and non-tender. No edema. No discoloration. NEURO: Normal sensorium. No sensory or motor deficits noted. SKIN: No rash or jaundice noted. Course Course 2146: Past medical records reviewed. The patient was evaluated in room B10. A complete history and physical exam was performed. 2240: I discussed the case with Dr. Heath-[facility] Hospitalist who accepts the patient for further evaluation. Administered Medications Acetaminophen/Codeine Phosphate (Tylenol W/Codeine #3) 1 tab PO TID PRN PRN Reason: Pain Stop: 04/23/19 02:47 Last Admin: 03/24/19 21:45 Dose: 1 tab Documented by: [id number] Admin: 03/24/19 03:04 Dose: 1 tab Documented by: [id number] Diltiazem HCl (Dilacor Xr) 120 mg PO DAILY [facility] Stop: 04/23/19 08:59 Last Admin: 03/24/19 09:32 Dose: 120 mg Documented by: [id number] Fluticasone/Vilanterol (Breo Ellipta 200/25 Mcg Inh) 1 puffs INH DAILY [facility] Stop: 04/23/19 08:59 Last Admin: 03/24/19 09:31 Dose: 1 puffs Documented by: [id number] Gabapentin (Neurontin) 800 mg PO TID [facility] Stop: 04/23/19 02:47 Last Admin: 03/24/19 21:46 Dose: 800 mg Documented by: [id number] Admin: 03/24/19 13:57 Dose: 800 mg Documented by: [id number] Admin: 03/24/19 09:40 Dose: 800 mg Documented by: [id number] Admin: 03/24/19 03:18 Dose: 800 mg Documented by: [id number] Hydrocortisone (Proctozone Hc 2.5%) 1 appln EXT BID [facility] Stop: 04/23/19 20:59 Last Admin: 03/24/19 21:46 Dose: 1 appln Documented by: [id number] Hydroxyzine HCl (Vistaril) 25 mg PO HS [facility] Stop: 04/23/19 20:59 Last Admin: 03/24/19 21:46 Dose: 25 mg Documented by: [id number] Insulin Aspart (Novolog Flexpen) 0 units SC ACHS [facility] Stop: 04/23/19 07:29 Last Admin: 03/24/19 20:30 Dose: Not Given Documented by: [id number] Cosigned by: [id number] Admin: 03/24/19 17:36 Dose: 17 units Documented by: [id number] Cosigned by: [id number] Admin: 03/24/19 13:00 Dose: Not Given Documented by: [id number] Cosigned by: [id number] Admin: 03/24/19 09:32 Dose: Not Given Documented by: [id number] Cosigned by: [id number] Lisinopril (Zestril) 10 mg PO QAM [facility] Stop: 04/23/19 08:59 Last Admin: 03/24/19 09:31 Dose: 10 mg Documented by: [id number] Miscellaneous (Remove Nicoderm Patch) 1 ea N/A DAILY@0859 [facility] Stop: 04/23/19 08:58 Last Admin: 03/24/19 09:32 Dose: Not Given Documented by: [id number] Nicotine (Nicoderm Cq) 14 mg TD QAM [facility] Stop: 04/23/19 08:59 Last Admin: 03/24/19 09:31 Dose: 14 mg Documented by: [id number] Trazodone HCl (Desyrel) 150 mg PO [facility] Stop: 04/23/19 20:59 Last Admin: 03/24/19 21:46 Dose: 150 mg Documented by: [id number] Discontinued Medications Sodium Chloride (Nss 1000ml) 1,000 mls @ 100 mls/hr IV .Q10H [facility] Stop: 04/23/19 02:47 Last Infusion: 03/24/19 19:37 Dose: 0 mls/hr Documented by: [id number] Admin: 03/24/19 13:56 Dose: 100 mls/hr Documented by: [id number] Infusion: 03/24/19 13:05 Dose: 100 mls/hr Documented by: [id number] Admin: 03/24/19 03:05 Dose: 100 mls/hr Documented by: [id number] Insulin Glargine (Lantus Solostar Pen) 21 units SC BID [facility] Stop: 04/23/19 08:59 Last Admin: 03/24/19 09:34 Dose: Not Given Documented by: [id number] Insulin Glargine (Lantus Per Unit) 15 units SQ 0945 ONE Stop: 03/24/19 09:46 Last Admin: 03/24/19 09:44 Dose: 15 units Documented by: [id number] Cosigned by: [id number] Medical Decision Making Differential Diagnosis Differential diagnosis includes etiologies such as diverticulosis, AVM, coagulopathy, colitis, inflammatory bowel disease, malignancy, Rose-Wright tear, esophagitis, peptic ulcer disease, variceal bleed, gastritis, epistaxis, fissure, hemorrhoids, as well as others were entertained. Medical Records Attestation: I reviewed the patient's medical records. Home Medications Current Medication List: was personally reviewed by me Laboratory Data Attestation: I reviewed the patient's lab results. Result diagrams: 03/24/19 21:47 03/24/19 06:09 Lab Results 03/23/19 03/23/19 03/23/19 Range/Units 21:48 21:48 21:48 WBC 11.03 H (4.8-10.8) K/uL RBC 5.16 (4.2-5.4) M/uL Hgb 14.3 (12.0-16.0) g/dL Hct 43.8 (37-47) % MCV 84.9 (80-100) fL MCH 27.7 (25-34) pg MCHC 32.6 (32-36) g/dL RDW Std Deviation 51.8 H (36.4-46.3) fL RDW Coeff of Hiral 16.8 H (11.5-14.5) % Plt Count 261 (130-400) K/uL MPV 10.8 H (7.4-10.4) fL Immature Gran % (Auto) 0.3 % Neut % (Auto) 59.7 % Lymph % (Auto) 31.9 % Churchill % (Auto) 7.3 % Eos % (Auto) 0.6 % Baso % (Auto) 0.2 % Immature Gran # (Auto) 0.03 H (0.00-0.02) K/uL Neut # (Auto) 6.58 H (1.4-6.5) K/uL Lymph # (Auto) 3.52 H (1.2-3.4) K/uL Churchill # (Auto) 0.81 H (0.11-0.59) K/uL Eos # (Auto) 0.07 (0-0.5) K/uL Baso # (Auto) 0.02 (0-0.2) K/uL PT 10.5 (9.0-12.0) Seconds INR 1.0 (0.9-1.1) APTT 24.4 (21.0-31.0) Seconds PTT Ratio 0.9 Sodium 140 (136-145) mmol/L Potassium 3.7 (3.5-5.1) mmol/L Chloride 103 (98-107) mmol/L Carbon Dioxide 34 H (21-32) mmol/L Anion Gap 3.0 (3-11) BUN 8 (7-18) mg/dl Creatinine 0.94 (0.6-1.2) mg/dl Est Cr Clr Drug Dosing 76.9 ml/min Est GFR ( Amer) 76.4 Est GFR (Non-Af Amer) 65.9 BUN/Creatinine Ratio 8.4 L (10-20) Glucose 118 H (70-99) mg/dl Calcium 9.7 (8.5-10.1) mg/dl Total Bilirubin 0.5 (0.2-1) mg/dl AST 16 (15-37) U/L ALT 17 (12-78) U/L Alkaline Phosphatase 115 (45-117) U/L Total Protein 7.8 (6.4-8.2) gm/dl Albumin 3.2 L (3.4-5.0) gm/dl Globulin 4.6 H (2.5-4.0) gm/dl Albumin/Globulin Ratio 0.7 L (0.9-2) POC Stool Occult Blood (Negative) 03/23/19 Range/Units 21:50 WBC (4.8-10.8) K/uL RBC (4.2-5.4) M/uL Hgb (12.0-16.0) g/dL Hct (37-47) % MCV (80-100) fL MCH (25-34) pg MCHC (32-36) g/dL RDW Std Deviation (36.4-46.3) fL RDW Coeff of Hiral (11.5-14.5) % Plt Count (130-400) K/uL MPV (7.4-10.4) fL Immature Gran % (Auto) % Neut % (Auto) % Lymph % (Auto) % Churchill % (Auto) % Eos % (Auto) % Baso % (Auto) % Immature Gran # (Auto) (0.00-0.02) K/uL Neut # (Auto) (1.4-6.5) K/uL Lymph # (Auto) (1.2-3.4) K/uL Churchill # (Auto) (0.11-0.59) K/uL Eos # (Auto) (0-0.5) K/uL Baso # (Auto) (0-0.2) K/uL PT (9.0-12.0) Seconds INR (0.9-1.1) APTT (21.0-31.0) Seconds PTT Ratio Sodium (136-145) mmol/L Potassium (3.5-5.1) mmol/L Chloride (98-107) mmol/L Carbon Dioxide (21-32) mmol/L Anion Gap (3-11) BUN (7-18) mg/dl Creatinine (0.6-1.2) mg/dl Est Cr Clr Drug Dosing ml/min Est GFR ( Amer) Est GFR (Non-Af Amer) BUN/Creatinine Ratio (10-20) Glucose (70-99) mg/dl Calcium (8.5-10.1) mg/dl Total Bilirubin (0.2-1) mg/dl AST (15-37) U/L ALT (12-78) U/L Alkaline Phosphatase (45-117) U/L Total Protein (6.4-8.2) gm/dl Albumin (3.4-5.0) gm/dl Globulin (2.5-4.0) gm/dl Albumin/Globulin Ratio (0.9-2) POC Stool Occult Blood Positive A (Negative) ECG Data Attestation: I personally reviewed and interpreted this ECG as follows: Indication: + abdominal pain Rate (beats per minute): 90 Rhythm: + normal sinus ECG Intervals/blocks: + Normal QT-c (459) ECG [place]: + Normal ECG ST segments: no ST depression and no ST elevation Blood Pressure Blood Pressure Findings: Elevated blood pressure Blood Pressure Disposition: further management by hospitalist MDM Narrative This is a 58-year-old female who presents back to the emergency department over concerns of more rectal bleeding. Patient was diagnosed with diverticulitis earlier today. Her hemoglobin is stable however the patient does not wish to be discharged back home. I therefore did discuss the case with the hospitalist service who did agree to admit the patient. Patient family were in agreement with the treatment plan. Impression & Plan Lower gastrointestinal hemorrhage, Diverticulitis Discharge Plan Visit Data *Final* Discharge Date/Time: 03/24/19 01:40 Chief Complaint: Rectal Bleed Stated Complaint: RECTAL BLEEDING ED Provider: Beau Burgos Discharge Problem: Lower gastrointestinal hemorrhage, Diverticulitis Patient Disposition: Admitted As Inpatient Discharge Instructions Interventions: ED Discharge Assessment Last Done: 03/24/19 01:40 The scribe's documentation has been prepared under my direction and personally reviewed by me in its entirety. I confirm that the note above accurately reflects all work, treatment, procedures, and medical decision making performed by me.
[2019-03-24] MEDS ORDERED: ONDANSETRON INJ 2 MG/ML 2 ML VIAL IV PRN (02:48)
[2019-03-24] MEDS ORDERED: GLUCAGON FOR INJ 1 MG VIAL SQ PRN (02:48)
[2019-03-24] MEDS ORDERED: CARBOHYDRATES FOR HYPOGLYCEMIA PO PRN (02:48)
[2019-03-24] MEDS ORDERED: DEXTROSE 50% 50 ML SYRINGE IV PRN (02:48)
[2019-03-24] MEDS ORDERED: GLUCOSE 40% GEL 15 GM TUBE PO PRN (02:48)
[2019-03-24] MEDS ORDERED: ALBUT/IPRATROP 3MG/0.5MG NEB 3 ML VIAL NEB PRN (02:48)
[2019-03-24] MEDS ORDERED: ALUMINUM/MAGNESIUM SUSP 30 ML UDC PO PRN (02:48)
[2019-03-24] MEDS ORDERED: GLUCOSE 10 TABS/TUBE PO PRN (02:48)
[2019-03-24] MEDS ORDERED: ALBUTEROL HFA 8 GM INHALER INH PRN (02:48)
[2019-03-24] MEDS: ACETAMINOPHEN W/CODEINE #3 1 TAB PO PRN ×2 (03:04→21:45)
[2019-03-24] MEDS: SODIUM CHLORIDE 0.9% 1000ML 1,000 ML IV SCH ×2 (03:05→13:56)
[2019-03-24] MEDS: GABAPENTIN 800 MG TAB PO SCH ×4 (03:18→21:46)
--- NOTE | 2019-03-24 05:33 | Billing Data ---
Date of Service March 24, 2019 Coding Level of Care Code 06602 Initial Inpt Care Lvl 3
[2019-03-24 06:25] LABS: Basophils # (auto) 0.02 K/uL (0-0.2); Basophils % (auto) 0.2 %; Eosinophils # (auto) 0.09 K/uL (0-0.5); Eosinophils % (auto) 0.8 %; Hematocrit (blood only) 41.8 % (37-47); Hemoglobin 13.3 g/dL (12.0-16.0); Immature Granulocytes # (auto) 0.01 K/uL (0.00-0.02); Immature Granulocytes % (auto) 0.1 %; Lymphocytes # (auto) 3.91 K/uL (1.2-3.4); Lymphocytes % (auto) 36.5 %; Mean Corpuscular Hemoglobin 27.1 pg (25-34); Mean Corpuscular Hgb Conc 31.8 g/dL (32-36); Mean Corpuscular Volume 85.1 fL (80-100); Mean Platelet Volume 10.6 fL (7.4-10.4); Monocytes # (auto) 0.83 K/uL (0.11-0.59); Monocytes % (auto) 7.8 %; Neutrophils # (auto) 5.84 K/uL (1.4-6.5); Neutrophils % (auto) 54.6 %; Platelet Count 264 K/uL (130-400); RDW Standard Deviation 52.5 fL (36.4-46.3); Red Blood Count 4.91 M/uL (4.2-5.4)
[2019-03-24 06:51] LABS: BUN Creatinine Ratio 13.2 (10-20); Calcium 9.3 mg/dl (8.5-10.1); Creatinine Clr Calc Pharmacy 122.3 ml/min; Est GFR (African American) 115.5; Est GFR (Non-African American) 99.6; Potassium 3.6 mmol/L (3.5-5.1)
[2019-03-24 06:56] LABS: Estimated Average Glucose 163 mg/dl; Hemoglobin A1C 7.3 % (4.5-5.6)
[2019-03-24] MEDS ORDERED: FLUTICASONE/VILANTEROL 200/25MCG 14 PUFFS/INHALER INH ONE (09:00)
[2019-03-24] MEDS ORDERED: INSULIN GLARGINE SOLOSTAR 100 UNITS/ML 3 ML PEN SC SCH (09:00)
[2019-03-24] MEDS: lisinopriL 10 MG TAB PO SCH (09:31)
[2019-03-24] MEDS: FLUTICASONE/VILANTEROL 200/25MCG 14 PUFFS/INHALER INH SCH (09:31)
[2019-03-24] MEDS: NICOTINE 14 MG/24 HR PATCH TD SCH (09:31)
[2019-03-24] MEDS: INSULIN ASPART 100 UNITS/ML 3 ML PEN SC SCH ×4 (09:32→20:30)
[2019-03-24] MEDS ORDERED: LANTUS PER UNIT CHARGE SQ ONE (09:45)
--- NOTE | 2019-03-24 13:04 | Gastrointestinal Consultation ---
Date of Consultation March 24, 2019 Assessment & Plan (1) BRBPR (bright red blood per rectum): likely related to her hemorrhoids and diverticulosis. currently with normal vitals and hgb and BUN. last colonoscopy with Dr. Eid without any polyps. Recs: 1. anusol cream BID for her hemorrhoids 2. strict avoidance of NSAIDs as these can precipitate recurrent diverticular bleeding 3. supportive care, advance diet as tolerated 4. no plans for endoscopic procedures at this time 5.patient can follow up with Dr. Eid as an outpatient after discharge Thank you for allowing me to participate in the care of this patient. (2) Hemorrhoids: (3) Diverticulosis: History of Present Illness Attending Physician: Tulio Nix MD 58 yo female with hx DM2 with neuropathy, HTN, HLD, COPD, obesity who is here for evaluation of GI bleeding. She was in the ER yesterday with hematochezia and discharged when hgb found to be normal, returned as she continued to have bleeding. She notes hematochezia with clots, painless without any fevers, chills, abdominal pains, diarrhea, n/v. Has never had rectal bleeding before. She denies NSAID use. Last colonoscopy was done by Dr. Eid 5 years ago without any polyps at the time. Patient has a family hx of colon cancer in her uncle at unknown age of diagnosis. She denies syncope nor dizziness. CT A/P showed mild sigmoid diverticulosis and hepatic steatosis. Labs reviewed, hgb wnl as well as BUN. Allergies Allergy/AdvReac Type Severity Reaction Status Date / Time No Known Allergies Allergy Verified 03/23/19 22:15 Home Medications Home Medications Medication Instructions Recorded Confirmed Type celecoxib [Celebrex] 200 mg PO QAM 01/08/19 03/23/19 History trazodone 150 mg tablet 150 mg PO HS #90 tab 01/16/19 03/23/19 Rx acetaminophen 300 mg-codeine 30 mg 1 tab PO TID PRN #90 tab 01/21/19 03/23/19 Rx tablet albuterol sulfate 90 mcg/actuation 2 puffs INH Q6H PRN #18 gm 01/23/19 03/23/19 Rx aerosol inhaler gabapentin 800 mg tablet 800 mg PO TID #90 tab 03/03/19 03/23/19 Rx amoxicillin-pot clavulanate 1 tab PO BID #14 tab 03/23/19 03/23/19 Rx [Augmentin] aspirin [Ecotrin Low Strength] 81 mg PO QAM 03/23/19 03/23/19 History budesonide-formoterol [Symbicort] 2 puff INHALATION BID PRN 03/23/19 03/23/19 History diltiazem HCl [DILT-XR] 120 mg PO QAM 03/23/19 03/23/19 History hydroxyzine HCl 25 mg PO HS 03/23/19 03/23/19 History lisinopril 10 mg PO QAM 03/23/19 03/23/19 History metformin 500 mg PO QAM 03/23/19 03/23/19 History Patient History Medical History Asthma Asymmetric septal hypertrophy COPD (chronic obstructive pulmonary disease) Diabetic neuropathy Diverticular disease (Resolved) H/O DIVERTICULITIS ~2yrs ago, [place] WITH ABX Glaucoma (Chronic) Hypertension Insomnia (Chronic) Internal hemorrhoid (Inactive) Lower back pain (Chronic) Morbid obesity (Chronic) Osteoarthritis (Chronic) Type 2 diabetes mellitus (Chronic) Surgical History Hx of carpal tunnel repair right Hx of colonoscopy Hx of foot surgery left 10/2015 [facility]. MAC 3, ETT 7.0. ATRAUMATIC X 1. Hx of hernia repair 2015 [facility], NO ISSUES PER ANESTHESIA RECORD Hx of tooth extraction Family History Mother Family history of diabetes mellitus Arthritis Other Cancer Congestive heart failure FHx: breast cancer FHx: prostate cancer Social History Preferred Language: Tajik Communication Ability: Effective Visual Impairment: No Limitations Beliefs That Will Affect Care: None Current Living Situation: Family Other Information That Helps Us Care for You: No Feels Safe at Home: Yes Safety Concerns: Feels Safe At This Time Smoking Status: Current every day smoker Tobacco Type: cigarettes ; Cigarettes Per Day: 10 ; Hx Alcohol Use: No Hx Substance Use: No Review of Systems Constitutional: no fever, no chills and no weight loss Eyes: as per Subjective / HPI Ear, Nose, Mouth, Throat: as per Subjective / HPI Respiratory: no dyspnea and no dyspnea on exertion Cardiovascular: no chest pain and no palpitations Gastrointestinal: as per Subjective / HPI Musculoskeletal: no joint pain and no swelling Integumentary: no rash and no lesions Neurologic: no numbness and no paresthesia Psychiatric: no depression and no anxiety Endocrine: no fatigue Hematologic / Lymphatic: no easy bleeding and no easy bruising Physical Exam Constitutional: WD/WN, vitals as above Eyes: EOM intact bilaterally Neck: normal visual inspection Respiratory: normal respiratory effort, lungs clear to auscultation Cardiovascular: RRR, no murmur, no edema Gastrointestinal (Abdomen): Inspection/Auscultation: abdomen normal to inspection; abdomen not distended Percussion/Palpation: abdomen soft; abdomen nontender and no hepatosplenomegaly external hemorrhoids on rectal exam Musculoskeletal: Extremities: no cyanosis Gait: normal gait Skin: no rashes, warm and dry Neurologic: moves all extremities Psychiatric: A+Ox3, euthymic affect Results & Data Vital Signs (Past 12 Hours) Vital Signs Temp Pulse Pulse Resp BP BP Pulse Ox 03/24/19 11:31 36.6 C 83 18 154/67 H 90 03/24/19 08:45 36.9 C 78 19 169/73 H 90 03/24/19 07:00 80 03/24/19 04:14 79 03/24/19 02:48 36.7 C 84 20 164/96 H 94 03/24/19 01:50 36.9 C 81 18 172/110 H 96 03/24/19 01:40 94 H 18 132/85 97 PG Care Time/CCT Total # of Minutes Spent Total Time Spent with Patient: Total time spent is greater than 50% in coordination of care (as documented) at patient's floor/unit and/or counseling patient:
[2019-03-24 14:09] LABS: Basophils # (auto) 0.02 K/uL (0-0.2); Basophils % (auto) 0.2 %; Eosinophils % (auto) 1.2 %; Hematocrit (blood only) 42.8 % (37-47); Immature Granulocytes # (auto) 0.01 K/uL (0.00-0.02); Immature Granulocytes % (auto) 0.1 %; Lymphocytes # (auto) 3.76 K/uL (1.2-3.4); Lymphocytes % (auto) 43.9 %; Mean Corpuscular Hemoglobin 27.8 pg (25-34); Mean Corpuscular Hgb Conc 32.7 g/dL (32-36); Mean Corpuscular Volume 85.1 fL (80-100); Mean Platelet Volume 10.6 fL (7.4-10.4); Monocytes # (auto) 0.71 K/uL (0.11-0.59); Monocytes % (auto) 8.3 %; Neutrophils # (auto) 3.97 K/uL (1.4-6.5); Neutrophils % (auto) 46.3 %; Platelet Count 272 K/uL (130-400); RDW Coefficient of Variation 17.1 % (11.5-14.5); RDW Standard Deviation 52.8 fL (36.4-46.3); Red Blood Count 5.03 M/uL (4.2-5.4); White Blood Count 8.57 K/uL (4.8-10.8)
--- NOTE | 2019-03-24 15:46 | Hospitalist Progress Note ---
Date of Service March 24, 2019 Assessment & Plan (1) Diverticulosis: No diverticulitis; just diverticulosis. - Seen by GI with feeling her bleeding is hemorrhoids/diverticulosis - Monitor hgb - Anusol for hemorrhoids - Avoid NSAIDs (2) COPD (chronic obstructive pulmonary disease): Wheezing on exam today, but she reports she is at her baseline. - Continue home Breo - DuoNebs PRN (3) Hypertension: BP ok today. - Continue home meds (4) Type 2 diabetes mellitus: A1c was 7.3% this admission. - Sliding scale insulin - Continue gabapentin (5) DVT prophylaxis: SCDs - Low DVT risk per admission calculator & also for bleeding Subjective Feels like she is doing well overall. No further BMs. Notes she only has blood when she has a BM. Reports no fevers/chills, chest pain, shortness of breath, abdominal pain, nausea, or vomiting. Physical Exam Constitutional: WD/WN, vitals as above + obese Eyes: EOM intact bilaterally; no conjunctival abnormality ENMT: external ear and nose normal, oropharynx normal Neck: trachea midline, no thyromegaly normal visual inspection Respiratory: no respiratory distress and no labored breathing Auscultation: + wheezes (Diffuse, mild) Cardiovascular: RRR, no murmur, no edema Gastrointestinal (Abdomen): Inspection/Auscultation: abdomen normal to inspection; abdomen not distended Musculoskeletal: no cyanosis or clubbing, extremities motor strength 5/5 Skin: no rashes, warm and dry Neurologic: moves all extremities and awake Psychiatric: Orientation: alert, oriented to person and cooperative Results & Data Vital Signs (Past 12 Hours) Vital Signs Temp Pulse Pulse Resp BP BP Pulse Ox 03/24/19 15:20 36.8 C 77 20 125/67 93 03/24/19 11:31 36.6 C 83 18 154/67 H 90 03/24/19 08:45 36.9 C 78 19 169/73 H 90 03/24/19 07:00 80 03/24/19 04:14 79 PG Care Time/CCT Total # of Minutes Spent Total Time Spent with Patient: Total time spent is greater than 50% in coordination of care (as documented) at patient's floor/unit and/or counseling patient:
[2019-03-24] MEDS ORDERED: TRAZODONE HCL 50 MG TAB PO SCH (21:00)
[2019-03-24] MEDS: HYDROCORTISONE HC 2.5% CRM 30GM TUBE EXT SCH (21:46)
[2019-03-24 21:59] LABS: Basophils # (auto) 0.01 K/uL (0-0.2); Basophils % (auto) 0.1 %; Hematocrit (blood only) 42.5 % (37-47); Hemoglobin 13.7 g/dL (12.0-16.0); Immature Granulocytes # (auto) 0.02 K/uL (0.00-0.02); Immature Granulocytes % (auto) 0.2 %; Lymphocytes # (auto) 3.53 K/uL (1.2-3.4); Lymphocytes % (auto) 35.7 %; Mean Corpuscular Hemoglobin 27.6 pg (25-34); Mean Corpuscular Hgb Conc 32.2 g/dL (32-36); Mean Corpuscular Volume 85.5 fL (80-100); Mean Platelet Volume 10.4 fL (7.4-10.4); Monocytes # (auto) 0.83 K/uL (0.11-0.59); Monocytes % (auto) 8.4 %; Neutrophils # (auto) 5.39 K/uL (1.4-6.5); Neutrophils % (auto) 54.6 %; Platelet Count 267 K/uL (130-400); RDW Coefficient of Variation 17.2 % (11.5-14.5); RDW Standard Deviation 53.4 fL (36.4-46.3); Red Blood Count 4.97 M/uL (4.2-5.4); White Blood Count 9.88 K/uL (4.8-10.8)
--- NOTE | 2019-03-24 22:09 | Electrocardiogram Report ---
Test Reason : Blood Pressure : / mmHG Vent. Rate : 090 BPM Atrial Rate : 090 BPM P-R Int : 146 ms QRS Dur : 086 ms QT Int : 376 ms P-R-T Axes : 070 073 074 degrees QTc Int : 459 ms Normal sinus rhythm Normal ECG When compared with ECG of 23-MAR-2019 15:01, No significant change was found Confirmed by Jeff Antoine ([id number]) on 03/24/2019 10:08:49 PM Referred By: REFERRED SELF Confirmed By:Jeff Antoine
[2019-03-25 05:45] LABS: Hematocrit (blood only) 42.6 % (37-47); Hemoglobin 13.7 g/dL (12.0-16.0); Mean Corpuscular Hemoglobin 27.6 pg (25-34); Mean Corpuscular Hgb Conc 32.2 g/dL (32-36); Mean Corpuscular Volume 85.9 fL (80-100); Mean Platelet Volume 10.6 fL (7.4-10.4); Platelet Count 259 K/uL (130-400); RDW Coefficient of Variation 17.2 % (11.5-14.5); RDW Standard Deviation 53.7 fL (36.4-46.3); Red Blood Count 4.96 M/uL (4.2-5.4); White Blood Count 8.15 K/uL (4.8-10.8)
[2019-03-25] MEDS: ACETAMINOPHEN W/CODEINE #3 1 TAB PO PRN (08:04)
[2019-03-25] MEDS: NICOTINE 14 MG/24 HR PATCH TD SCH (08:05)
[2019-03-25] MEDS: GABAPENTIN 800 MG TAB PO SCH (08:05)
[2019-03-25] MEDS: lisinopriL 10 MG TAB PO SCH (08:07)
[2019-03-25] MEDS: FLUTICASONE/VILANTEROL 200/25MCG 14 PUFFS/INHALER INH SCH (08:07)
[2019-03-25] MEDS: HYDROCORTISONE HC 2.5% CRM 30GM TUBE EXT SCH (08:46)
[2019-03-25] MEDS: INSULIN ASPART 100 UNITS/ML 3 ML PEN SC SCH (09:12)
--- NOTE | 2019-03-25 15:44 | Discharge Summary ---
Date of Service March 25, 2019 Admission HPI Per Admitting Provider 58 yo F with PMH of DM2 w/ neuropathy, HTN, HLD, osteoarthritis, COPD, morbid obesity presents to [facility] with concerns of ongoing GI bleeding. Pt was seen and discharged earlier today from the ED. Around 1PM, pt had an episode of a rectal bleed. Pt notes that she got out of bed, and on the way to the bathroom thought she had passed gas. When she went to take her PJ's off, she noticed that there was BRB already there. She further notes there was blood on the toilet paper and in her toilet. In ER, noted small external hemorrhoids. Pt given Cipro/Flagyl 500 mg PO x1 in the ER and NSS and discharged home on Augmentin 875 mgBID x7 days. When pt got home, she ate dinner around 7 PM and then around 8 PM had another episode of BRBPR. Both instances similar, with clots. Pt otherwise denies any F/N/V/D, chills, consitipation, decreased appetite, rectal pain, abd pain, sick contacts, intake of any suspicious foods, CP, SOB, AGUSTIN, lightheadedness/dizziness, weakness, cough. Pt further denies a history of rectal bleeding and blood transfusions. Pt with no other acute concerns or complaints. EKG: Normal sinus rhythm. When compared with ECG of 08-JAN-2019 no significant changes found Abd/Pelvis CT (from initial ER visit): No direct CT evidence of gastrointestinal hemorrhage. Mild diverticulosis of the proximal sigmoid colon. Labs: Largely Unremarkable No significant ER Course Family Hx: Mother- DM, Arthritis. FHx: breast/prostate cancer Social: Current every day smoker; Cigarettes Per Day: 10. Denies alcohol/illicit drug use. Surgical Hx: Carpal tunnel repair, foot surgery, hernia repair Principal Diagnosis Diverticular bleed Discharge Exam Constitutional WD/WN, vitals as above Eyes EOM intact bilaterally; no conjunctival abnormality ENMT external ear and nose normal, oropharynx normal Neck trachea midline, no thyromegaly normal visual inspection Respiratory normal respiratory effort, lungs clear to auscultation no respiratory distress Cardiovascular RRR, no murmur, no edema Gastrointestinal (Abdomen) Inspection/Auscultation: abdomen normal to inspection; abdomen not distended Musculoskeletal no cyanosis or clubbing, extremities motor strength 5/5 Skin no rashes, warm and dry Neurologic moves all extremities and awake Psychiatric Orientation: alert, oriented to person and cooperative Discharge Data Allergies Allergy/AdvReac Type Severity Reaction Status Date / Time No Known Allergies Allergy Verified 03/23/19 22:15 Consultations 03/24/19 00:35 ED Decision to Admit Stat 03/24/19 02:48 Consult Gastroenterology Routine Hospital Course (1) Diverticulosis: No diverticulitis; just diverticulosis. - Seen by GI with feeling her bleeding is hemorrhoids/diverticulosis - Monitor hgb - Stable at 13.7 on discharge. This is lower than her baseline of ~15, but not by much. - Anusol for hemorrhoids - Avoid NSAIDs - Follow up with Dr. Eid for colonoscopy in 4-6 weeks. (2) COPD (chronic obstructive pulmonary disease): Wheezing on exam today, but she reports she is at her baseline. - Continued home Breo - DuoNebs PRN (3) Hypertension: BP ok while inpatient. Was 150/70 on discharge. - Continue home meds (4) Type 2 diabetes mellitus: A1c was 7.3% this admission. - Sliding scale insulin - Continue gabapentin (5) DVT prophylaxis: SCDs - Low DVT risk per admission calculator & also for bleeding Total Time Total Time Spent Total Time Spent (In Minutes): 35 Discharge Plan Discharge Items Patient Disposition: Home - Self-Care Reason For Visit: GI BLEED Discharge Diagnosis: Diverticulosis bleed and hemorrhoids Activity: Resume your previous activity Non-emergency contact: Primary Care Provider Call non-emergency contact if: your symptoms worsen Follow-up/Referrals: Ilir Eid DO [Physician] - 04/14/19 2:45 pm (Please, follow up at Dr. Eid's office with his associate, Sherin FOFANA, on SundayApril 14 at 2:45 pm. *If you need to change this appointment, call the office at [phone].) Arielle Aguilar MD [Primary Care Provider] - 04/01/19 2:00 pm (Please, follow up with Dr. Aguilar on SundayApril 01 at 2:00 pm. *If you need to change this appointment, call the office at [phone].) Diet: Carb Consistent or DM2 and Heart Healthy Addtl Attending Provider Instructions: You were admitted to the hospital with bleeding when you had a bowel movement. The GI doctor saw you and felt this was due to 2 causes. First, you have some hemorrhoids that can bleed when passing stool. Second, you have some small diverticuli (out pouchings) of your large intestine (colon) which can sometimes bleed a little. The good thing is that both of these issues are usually non-life threatening. Your bleeding was mild enough that your red blood cells (hemoglobin) was stable the entire time you were in the hospital. Dr. Platt put you on hemorrhoid cream to help shrink the hemorrhoids and keep them from bleeding again. He also req uests that you *not* use any ibuprofen, Motrin, Aleve, naproxen, or other NSAIDs to prevent bleeding. For pain, please use Tylenol or acetaminophen instead. Please hold your aspirin for 1 week and see your PCP before restarting it. Please hold your Celebrex and talk with your PCP about alternative pain medications that will not increase your risk of bleeding. Please follow up with Dr. Eid in 3-4 weeks or sooner if you have more bleeding. Pending Studies at Discharge: No Stand-Alone Forms: My [facility] Comply[employer], Smoking Cessation Medications and DC Order Prescriptions: New hydrocortisone [Proctosol HC] 2.5 % Cream With Perineal Applicator 1 applic EXT BID Qty: 28 RF: 0 Continued trazodone 150 mg tablet 150 mg PO HS Qty: 90 RF: 3 acetaminophen-codeine [Tylenol-Codeine #3] 300-30 mg tablet 1 tab PO TID PRN (Reason: Pain) Qty: 90 RF: 2 albuterol sulfate [Ventolin HFA] 90 mcg/actuation HFA aerosol inhaler 2 puffs INH Q6H PRN (Reason: shortness of breath or wheezing) Qty: 18 RF: 3 gabapentin 800 mg tablet 800 mg PO TID Qty: 90 RF: 3 metformin 500 mg tablet 500 mg PO QAM RF: 0 lisinopril 10 mg tablet 10 mg PO QAM RF: 0 diltiazem HCl [DILT-XR] 120 mg capsule,ext.rel 24h degradable 120 mg PO QAM RF: 0 Symbicort 160-4.5 mcg/actuation HFA aerosol inhaler 2 puff inhalation BID PRN (Reason: Shortness Of Breath Or Wheezing) RF: 0 hydroxyzine HCl 25 mg tablet 25 mg PO HS RF: 0 Discontinued celecoxib [Celebrex] 200 mg capsule 200 mg PO QAM RF: 0 aspirin [Ecotrin Low Strength] 81 mg tablet,delayed release (DR/EC) 81 mg PO QAM RF: 0 amoxicillin-pot clavulanate [Augmentin] 875-125 mg tablet 1 tab PO BID Qty: 14 RF: 0 No Action (DME) OneTouch Verio Strip See Rx Instructions .ROUTE .MEDSUPPLY Qty: 50 RF: 3 (DME) lancets Misc See Rx Instructions .ROUTE .MEDSUPPLY Qty: 50 RF: 2 Discharge Orders: Discharge Order (Routine); Ordered 03/25/19 Ordered By: Tulio Scott/Other Patient Handouts: Diabetes Type 2 Coping, Diabetes Healthy Meals, Diabetes Meal Planning Admission Data Admit Date/Time: 03/24/19 00:52 Attending Provider: Tulio Nix Admit Provider: David Conner Primary Care Provider: Arielle Aguilar Other Providers: Ilir Eid ; Tulio Nix Other Interventions: Discharge Summary Assessment (RN) Last Done: 03/25/19 10:49 DC Date/Time DO NOT enter until pt leaves facility: 03/25/19 11:33
== END 2019-03-25 11:33 | disposition home or self-care (01) | DRG 378 ==
LOC: ED 21:30 → 2N 03-24 00:52 → SUATTDRO 03-24 00:52 → 2N 03-24 01:40

== ENCOUNTER 2019-05-14 14:54 | Inpatient (IN) ==
[2019-05-14] MEDS ORDERED: ALBUT/IPRATROP 3MG/0.5MG NEB 3 ML VIAL NEB STA (15:22)
--- NOTE | 2019-05-14 15:28 | Emergency Department Note ---
History of Present Illness General Chief Complaint: Swelling/Edema to Extremity Stated Complaint: LT FOOT INTO KNEE AND LITTLE IN LT ARM Source: patient Mode of arrival: ambulatory Limitations: no limitations History of Present Illness Provider Complaint: shortness of breath Onset (ago): week(s) (2-3) Severity: moderate Consistency/Duration: + progressively worsening Maximum Pain Intensity: 7 Current Pain Intensity: 7 Relieved By: + upright position Exacerbated By: + lying flat, + exertion, + movement and + deep breaths Context: + recent illness (hospital admission for COPD) Known history of: COPD and diabetes Associated symptoms: + cough, + wheezing, + orthopnea and + lower extremity pain Treatment prior to arrival: none HPI Narrative: This 58-year-old female patient with significant past medical history of diabetes, COPD, hypertension, and obesity, recently admitted to the hospital for COPD, presents to the emergency today, ambulatory, complaining of dyspnea, left lower extremity pain and swelling, as well as left arm pain. The patient reports some swelling in the right leg, but has noticed the left has been much worse. She states 1 month ago, she was admitted for with was initially thought to be CHF, but later turned out to be COPD. The patient has followed with Dr. Conley and is scheduled to have a sleep study completed in July. The patient states she is getting out of breath with dressing herself. She has noticed some orthopnea for the past 3 to 4 months, and sleeps on 3-4 pillows every night. She states she feels that the dyspnea has been progressively worsening over the past few weeks. She has taken no medications, but does take "a heart pill and a fluid pill". The patient states she is also on inhalers, which she has been using as prescribed. She denies any chest pain or productive cough. She denies any hemoptysis. She denies any history of DVT or PE. She denies any numbness, tingling, weakness, nausea, vomiting, abdominal pain, or flank pain. Related Data Home oxygen amount: none Home Medications Home Medications Medication Instructions Recorded Confirmed Type trazodone 150 mg tablet 150 mg PO HS #90 tab 01/16/19 05/14/19 Rx albuterol sulfate 90 mcg/actuation 2 puffs INH Q6H PRN #18 gm 01/23/19 05/14/19 Rx aerosol inhaler gabapentin 800 mg tablet 800 mg PO TID #90 tab 12/30/19 03/11/20 Rx budesonide-formoterol [Symbicort] 2 puff INHALATION BID PRN 03/23/19 05/14/19 History diltiazem HCl [DILT-XR] 120 mg PO QAM 03/23/19 05/14/19 History hydroxyzine HCl 25 mg PO HS 03/23/19 05/14/19 History lisinopril 10 mg PO QAM 03/23/19 05/14/19 History metformin 500 mg PO QAM 03/23/19 05/14/19 History hydrocortisone [Proctosol HC] 1 applic EXT BID #28 gm 03/25/19 05/14/19 Rx furosemide 20 mg tablet 20 mg PO DAILY #30 tab 04/15/19 05/14/19 Rx tiotropium bromide 2.5 2 puffs INH DAILY #4 gm 04/15/19 05/14/19 Rx mcg/actuation mist for inhalation acetaminophen-codeine 1 tab PO TID PRN 05/14/19 05/14/19 History [Tylenol-Codeine #3] Allergies Allergy/AdvReac Type Severity Reaction Status Date / Time No Known Allergies Allergy Verified 05/14/19 19:37 Past Med/Surg History Medical History Asthma Asymmetric septal hypertrophy COPD (chronic obstructive pulmonary disease) Diabetic neuropathy Diverticular disease (Resolved) H/O DIVERTICULITIS ~2yrs ago, [place] WITH ABX Glaucoma (Chronic) Hemorrhoids Hyperlipidemia (Acute) Hypertension Insomnia (Chronic) Lower back pain (Chronic) Morbid obesity (Chronic) Nicotine dependence Osteoarthritis (Chronic) Type 2 diabetes mellitus (Chronic) Urinary incontinence Surgical History Hx of carpal tunnel repair right Hx of colonoscopy Hx of foot surgery left 10/2015 [facility]. MAC 3, ETT 7.0. ATRAUMATIC X 1. Hx of hernia repair 2015 [facility], NO ISSUES PER ANESTHESIA RECORD Hx of tooth extraction Social History Preferred Language: Norwegian Communication Ability: Effective Visual Impairment: No Limitations Inseam Trimmer Required: No Beliefs That Will Affect Care: None Current Living Situation: Family Other Information That Helps Us Care for You: No Feels Safe at Home: Yes Safety Concerns: Feels Safe At This Time Smoking Status: Current every day smoker Tobacco Type: cigarettes ; Cigarettes Per Day: 10 ; Do You Dip or Chew Tobacco: No ; Second Hand Exposure: Yes ; Tobacco Cessation Education Requested by Patient: No Hx Alcohol Use: No Hx Substance Use: No Review of Systems A total of 10 systems reviewed and were otherwise negative Physical Exam Vital Signs: Vital Signs - 24 hr 05/14/19 15:00 05/14/19 15:23 05/14/19 15:40 Temperature 36.6 C Temperature Source Oral Pulse Rate 95 H 86 Pulse Rate from Sp O2 Sensor Respiratory Rate 20 22 24 Respiratory Effort / Characteristics Non-Labored Respiratory Depth Normal Blood Pressure 195/93 H 181/99 H Blood Pressure Monse n 127 123 Pulse Oximetry 93 96 Oxygen Delivery Me thod Room Air Room Air Oxygen Flow Rate Sepsis Recent Feve r Within 48 Hours No Sepsis Action Take n by Nursing No Action Required 05/14/19 15:42 05/14/19 15:44 05/14/19 15:51 Temperature Temperature Source Pulse Rate 86 Pulse Rate from Sp O2 Sensor Respiratory Rate 28 H 22 Respiratory Effort / Characteristics Respiratory Depth Blood Pressure Blood Pressure Monse n Pulse Oximetry 98 97 Oxygen Delivery Me thod Room Air Oxygen Flow Rate 3 Sepsis Recent Feve r Within 48 Hours Sepsis Action Take n by Nursing 05/14/19 16:00 05/14/19 17:10 05/14/19 18:00 Temperature Temperature Source Pulse Rate 83 Pulse Rate from Sp O2 Sensor 91 H 90 84 Respiratory Rate 22 Respiratory Effort / Characteristics Respiratory Depth Blood Pressure Blood Pressure Monse n Pulse Oximetry 93 97 89 L Oxygen Delivery Me thod Oxygen Flow Rate Sepsis Recent Feve r Within 48 Hours Sepsis Action Take n by Nursing 05/14/19 18:10 Temperature Temperature Source Pulse Rate 87 Pulse Rate from Sp O2 Sensor Respiratory Rate 32 H Respiratory Effort / Characteristics Respiratory Depth Blood Pressure 180/88 H Blood Pressure Monse n 118 Pulse Oximetry 98 Oxygen Delivery Me thod Oxygen Flow Rate Sepsis Recent Feve r Within 48 Hours Sepsis Action Take n by Nursing Physical Exam: VITALS: Vitals are noted on the nurse's note and reviewed by myself. Patient is hypertensive, borderline tachycardic with a heart rate at 95, and borderline hypoxic with an O2 saturation of 93%. GENERAL: This is a 58-year-old obese black female, sitting upright, unable to lie flat, in no acute distress, nondiaphoretic, well-developed well-nourished. SKIN: The skin was without rashes, erythema, edema, or bruising. There is no tenting of the skin. Capillary refill less than 2 seconds. HEAD: Normocephalic atraumatic. EARS: External auditory canals clear, tympanic membranes pearly torrez without erythema or effusion bilaterally. EYES: Pupils equal round and reactive to light and accommodation. Conjunctivae without injection, sclerae without icterus. NOSE: Patent, turbinates without inflammation or discharge. No sinus tenderness. MOUTH: Mucous membranes moist. Tonsils are not enlarged. Pharynx without erythema or exudate. Uvula midline. Airway patent. Tongue does not deviate. NECK: Supple without nuchal rigidity. No lymphadenopathy. Cervical spine is nontender. No JVD. HEART: Regular rate and rhythm without murmurs gallops or rubs. LUNGS: Diffuse wheezing throughout. No retractions or accessory muscle use. ABDOMEN: Positive bowel sounds x 4. Normal tympanic percussion. Soft, nontender, without masses or organomegaly. No guarding or rebound tenderness. No CVA tenderness bilaterally. MUSCULOSKELETAL: 1+ pitting edema in the right lower extremity. 2+ pitting edema in the left lower extremity. Positive Homans sign on the left. Otherwise, no muscle atrophy, erythema, or edema noted. Full range of motion without joint tenderness in all extremities. No tenderness to palpation. Normal gait. Strength 5/5 throughout. NEURO: Patient was alert and oriented to person place and time. Normal sensation to light and sharp touch. Deep tendon reflexes 2+ throughout. No focal neurological deficits. Course Course The patient was seen and evaluated as above. Pt. placed on continuous child monitor which showed a normal sinus rhythm at a rate of 85 bpm. IV access obtained, labs drawn. Patient medicated with DuoNeb treatment. Imaging performed and reviewed by myself and radiologist as noted. Labs reviewed by myself. I discussed the findings with the patient at bedside. She was feeling better. Lung sounds have improved. I discussed the case with the manager poker. Discussed the case with the [facility], Dr. Castillo for admission. I then discussed the case with Abby Dominguez PA-C with the [facility] service. She did agree to see and evaluate the patient. Please see her dictation regarding ongoing management care of this patient. Administered Medications Acetaminophen/Codeine Phosphate (Tylenol W/Codeine #3) 1 tab PO TID PRN PRN Reason: Pain Stop: 06/13/19 21:40 Last Admin: 05/14/19 22:08 Dose: 1 tab Documented by: [id number] Gabapentin (Neurontin) 800 mg PO TID JUAN PABLO Stop: 06/13/19 20:59 Last Admin: 05/14/19 20:55 Dose: 800 mg Documented by: [id number] Heparin Sodium (Porcine) (Heparin Sodium (Porcine)) 5,000 units SQ Q8 JUAN PABLO Stop: 06/13/19 21:59 Last Admin: 05/14/19 20:58 Dose: 5,000 units Documented by: [id number] Cosigned by: [id number] Hydroxyzine HCl (Vistaril) 25 mg PO HS JUAN PABLO Stop: 06/13/19 20:59 Last Admin: 05/14/19 20:55 Dose: 25 mg Documented by: [id number] Insulin Aspart (Novolog Flexpen) 0 units SC ACHS JUAN PABLO Stop: 06/13/19 20:59 Last Admin: 05/14/19 20:57 Dose: 6 units Documented by: [id number] Cosigned by: [id number] Trazodone HCl (Desyrel) 150 mg PO HS JUAN PABLO Stop: 06/13/19 20:59 Last Admin: 05/14/19 22:08 Dose: 150 mg Documented by: [id number] Discontinued Medications Albuterol (Duoneb) 3 ml NEB NOW STA Stop: 05/14/19 15:23 Last Admin: 05/14/19 15:49 Dose: 3 ml Documented by: [id number] Furosemide (Lasix) Confirm Administered Dose 40 mg IV .STK-MED ONE Stop: 05/14/19 19:33 Last Admin: 05/14/19 19:34 Dose: 40 mg Documented by: [id number] Ioversol (Optiray 320 125ml) 120 ml IV ONCE PRN PRN Reason: Interaction Checking Stop: 05/18/19 17:10 Last Admin: 05/14/19 17:12 Dose: 120 ml Documented by: [id number] Medical Decision Making Differential Diagnosis + acute exacerbation of chronic obstructive airways disease, + congestive heart failure, + community acquired pneumonia, + asthma with exacerbation, + pulmonary embolism, + COPD, + bronchitis, + pneumothorax, + pneumonia, + pleural effusion, + CHF, + ACS and + aspiration Home Medications Current Medication List: was personally reviewed by me Laboratory Data Attestation: I reviewed the patient's lab results. No leukocytosis, anemia, thrombocytopenia. Renal, hepatic function, and electrolytes without significant abnormality. Coags normal. Troponin elevated 0.057. BNP 89. Lipase 147. Result diagrams: 05/14/19 15:40 05/14/19 15:40 Lab Results 05/14/19 05/14/19 05/14/19 Range/Units 15:40 15:40 15:40 WBC 9.27 (4.8-10.8) K/uL RBC 5.32 (4.2-5.4) M/uL Hgb 13.8 (12.0-16.0) g/dL Hct 45.0 (37-47) % MCV 84.6 (80-100) fL MCH 25.9 (25-34) pg MCHC 30.7 L (32-36) g/dL RDW Std Deviation 52.1 H (36.4-46.3) fL RDW Coeff of Hiral 16.9 H (11.5-14.5) % Plt Count 336 (130-400) K/uL MPV 9.9 (7.4-10.4) fL Immature Gran % (Auto) 0.4 % Neut % (Auto) 52.8 % Lymph % (Auto) 36.7 % Daniels % (Auto) 8.8 % Eos % (Auto) 1.1 % Baso % (Auto) 0.2 % Immature Gran # (Auto) 0.04 H (0.00-0.02) K/uL Neut # (Auto) 4.89 (1.4-6.5) K/uL Lymph # (Auto) 3.40 (1.2-3.4) K/uL Daniels # (Auto) 0.82 H (0.11-0.59) K/uL Eos # (Auto) 0.10 (0-0.5) K/uL Baso # (Auto) 0.02 (0-0.2) K/uL Absolute Nucleated RBC 0.02 H (0-0) K/uL Nucleated RBC % (auto) 0.2 % PT 10.3 (9.0-12.0) Seconds INR 1.0 (0.9-1.1) APTT 26.2 (21.0-31.0) Seconds PTT Ratio 0.9 Sodium 141 (136-145) mmol/L Potassium 4.0 (3.5-5.1) mmol/L Chloride 104 (98-107) mmol/L Carbon Dioxide 37 H (21-32) mmol/L Anion Gap -1.0 L (3-11) BUN 6 L (7-18) mg/dl Creatinine 0.66 (0.6-1.2) mg/dl Est Cr Clr Drug Dosing Not Reportable Est GFR ( Amer) 111.3 Est GFR (Non-Af Amer) 96.0 BUN/Creatinine Ratio 9.0 L (10-20) Glucose 114 H (70-99) mg/dl Calcium 9.4 (8.5-10.1) mg/dl Magnesium 2.3 (1.8-2.4) mg/dl Total Bilirubin 0.2 (0.2-1) mg/dl AST 13 L (15-37) U/L ALT 17 (12-78) U/L Alkaline Phosphatase 115 (45-117) U/L Troponin I 0.057 H* (0-0.045) ng/ml NT-Pro-B Natriuret Pep 89 (0-900) pg/ml Total Protein 8.2 (6.4-8.2) gm/dl Albumin 3.1 L (3.4-5.0) gm/dl Globulin 5.1 H (2.5-4.0) gm/dl Albumin/Globulin Ratio 0.6 L (0.9-2) Lipase 147 (73-393) U/L Imaging Data Radiologist's Impression: XR chest 1V portable CLINICAL HISTORY: 58 years-old Female presenting with dyspnea. TECHNIQUE: Portable upright AP view of the chest was obtained. COMPARISON: 01/10/2019. FINDINGS: Atherosclerosis of the aortic arch. Cardiac silhouette enlarged. Pulmonary vascular prominence new from prior. Mild interstitial prominence. Added density at the lung bases most focally at the right paramediastinal lung base. No large effusion or pneumothorax. Degenerative changes of the thoracic spine. Upper abdomen normal. IMPRESSION: 1. Megaly with volume overload and congestive change. Suspected developing/mild pulmonary edema. ACT 112: Negative or not required by law. Electronically signed by: Porfirio Ortega M.D. 05/14/2019 4:10 PM US venous doppler LE LT CLINICAL HISTORY: left calf pain/swelling PAIN. EDEMA. COMPARISON STUDY: No previous studies for comparison. FINDINGS: Real-time and color flow Doppler imaging were performed. Flow was seen within the femoral, popliteal and calf veins with no intraluminal thrombus demonstrated. The saphenous vein is patent. IMPRESSION: No evidence of deep venous thrombosis. ACT 112: Negative or not required by law. The above report was generated using voice recognition software. It may contain grammatical, syntax or spelling errors. Electronically signed by: Howard Juares M.D. 05/14/2019 4:[address] angio chest PE protocol CLINICAL HISTORY: 58 years-old Female presenting with atypical chest pain, dyspnea, leg swelling, clinical concern for pulmonary embolus. TECHNIQUE: Multidetector CT angiography of the chest was performed after administration of intravenous contrast. 3-D volumetric and/or maximum intensity projection (MIP) images were subsequently reconstructed for review. IV contrast: 120 mL of Optiray 320. One or more dose lowering techniques were used consistent with the principles of ALARA (as low as reasonably achievable), including automatic exposure control, mA or kV adjustment to individual patient size, and/or use of iterative reconstruction. COMPARISON: Contrast-enhanced chest CT from 10/15/2017. CT DOSE (mGy.cm): The estimated cumulative dose is 534.62 mGycm. FINDINGS: Spray Gun Operator topogram: Unremarkable. Pulmonary vasculature: The study is suboptimal for the assessment of the pulmonary vascular tree secondary to timing of the contrast bolus and patient body habitus. Allowing for limited image quality, no central filling defect to suggest pulmonary embolus. Main pulmonary artery is not enlarged. No flattening of the interventricular septum. No intracardiac filling defect. Reflux of contrast into the IVC and hepatic veins. This likely indicates elevated right heart pressure. Remaining chest: Soft tissues: Several nodules within the thyroid gland. No axillary, supraclavicular, mediastinal, or hilar lymphadenopathy. Normal aorta. Normal heart size. No pericardial or pleural effusion. Upper abdomen normal. Lungs and airways: No pneumothorax. Central airways patent. Pulmonary arteries are not significantly enlarged relative to adjacent bronchi. No interlobular septal thickening. Minimal dependent changes likely atelectasis. Musculoskeletal: Normal osseous structures. IMPRESSION: 1. Allowing for suboptimal image quality, no evidence of pulmonary embolus. No acute intrathoracic pathology. 2. Reflux of contrast into the hepatic veins may suggest elevated right heart pressure. ACT 112: Negative or not required by law. Electronically signed by: Porfirio Ortega M.D. 05/14/2019 5:16 PM ECG Data Attestation: I personally reviewed and interpreted this ECG as follows: Prior ECG tracings: available for review Interpretation: Normal sinus rhythm with a ventricular rate of [address] elevation or depression. No T wave inversion. No acute ischemic change. No significant change when compared to EKG performed March 2019. Blood Pressure Blood Pressure Findings: Elevated blood pressure MDM Narrative This 58-year-old female patient presents to the emergency department today for evaluation of edema, arm pain, and dyspnea. Symptoms have been progressively worsening over the past several months, but more particularly over the past 2 to 3 weeks. She was recently admitted to the hospital. I was concerned initially for DVT/PE, prompting the work-up with ultrasound and CTA. Ultrasound did not show any evidence of DVT. She does have coarse lung sounds with diffuse wheezing. There is some edema in the bilateral lower extremities, left greater than right. Work-up here in the ED shows an elevated troponin. Concerning signs for right heart strain on imaging studies. Cardiomegaly with volume overload and congestive changes on x-ray. Given the new right heart strain and patient's history, I did recommend admission to the hospitalist service for further evaluation and management. Please see their dictation regarding ongoing care. The chart was completed utilizing [employer] Speech voice recognition software. Grammatical errors, random word insertions, pronoun errors, and incomplete sentences are an occasional consequence of this system due to software limitations, ambient noise, and hardware issues. Any formal questions or concerns about the content, text, or information contained within the body of this dictation should be directly addressed to the provider for clarification. Impression & Plan Shortness of breath, COPD (chronic obstructive pulmonary disease), LVH (left ventricular hypertrophy), Edema Discharge Plan Visit Data *Final* Discharge Date/Time: 05/14/19 20:11 Chief Complaint: Swelling/Edema to Extremity Stated Complaint: LT FOOT INTO KNEE AND LITTLE IN LT ARM ED Provider: Mishock,Beau ED Midlevel Provider: Rachael Harper Discharge Problem: Shortness of breath, COPD (chronic obstructive pulmonary disease), LVH (left ventricular hypertrophy), Edema Patient Disposition: Admitted As Inpatient Discharge Instructions Interventions: ED Discharge Assessment Last Done: 05/14/19 20:11
[2019-05-14 15:48] LABS: Basophils # (auto) 0.02 K/uL (0-0.2); Basophils % (auto) 0.2 %; Eosinophils % (auto) 1.1 %; Hemoglobin 13.8 g/dL (12.0-16.0); Immature Granulocytes # (auto) 0.04 K/uL (0.00-0.02); Immature Granulocytes % (auto) 0.4 %; Lymphocytes % (auto) 36.7 %; Mean Corpuscular Hemoglobin 25.9 pg (25-34); Mean Corpuscular Hgb Conc 30.7 g/dL (32-36); Mean Corpuscular Volume 84.6 fL (80-100); Mean Platelet Volume 9.9 fL (7.4-10.4); Monocytes # (auto) 0.82 K/uL (0.11-0.59); Monocytes % (auto) 8.8 %; Neutrophils # (auto) 4.89 K/uL (1.4-6.5); Neutrophils % (auto) 52.8 %; Nucleated RBC # (auto) 0.02 K/uL (0-0); Nucleated RBC % (auto) 0.2 %; Platelet Count 336 K/uL (130-400); RDW Coefficient of Variation 16.9 % (11.5-14.5); RDW Standard Deviation 52.1 fL (36.4-46.3); Red Blood Count 5.32 M/uL (4.2-5.4); White Blood Count 9.27 K/uL (4.8-10.8)
[2019-05-14 15:59] LABS: Partial Thromboplastin Ratio 0.9; Partial Thromboplastin Time 26.2 Seconds (21.0-31.0); Prothrombin Time 10.3 Seconds (9.0-12.0)
[2019-05-14 16:06] LABS: Alanine Aminotransferase 17 U/L (12-78); Albumin Level 3.1 gm/dl (3.4-5.0); Aspartate Aminotransferase 13 U/L (15-37); Blood Urea Nitrogen 6 mg/dl (7-18); Calcium 9.4 mg/dl (8.5-10.1); Carbon Dioxide 37 mmol/L (21-32); Chloride 104 mmol/L (98-107); Est GFR (African American) 111.3; Glucose 114 mg/dl (70-99); Lipase 147 U/L (73-393); Magnesium 2.3 mg/dl (1.8-2.4); Sodium 141 mmol/L (136-145)
--- NOTE | 2019-05-14 16:12 | XRay Report ---
XR chest 1V portable CLINICAL HISTORY: 58 years-old Female presenting with dyspnea. TECHNIQUE: Portable upright AP view of the chest was obtained. COMPARISON: 01/10/2019. FINDINGS: Atherosclerosis of the aortic arch. Cardiac silhouette enlarged. Pulmonary vascular prominence new fr om prior. Mild interstitial prominence. Added density at the lung bases most focally at the right par amediastinal lung base. No large effusion or pneumothorax. Degenerative changes of the thoracic spine . Upper abdomen normal. IMPRESSION: 1. Megaly with volume overload and congestive change. Suspected developing/mild pulmonary edema. ACT 112: Negative or not required by law. Electronically signed by: Porfirio Ortega M.D. 05/14/2019 4:10 PM
[2019-05-14 16:18] LABS: Albumin Globulin Ratio 0.6 (0.9-2); Alkaline Phosphatase 115 U/L (45-117); Bilirubin,Total 0.2 mg/dl (0.2-1); Globulin 5.1 gm/dl (2.5-4.0); NT Pro B Type Natriuretic Pept 89 pg/ml (0-900); Total Protein 8.2 gm/dl (6.4-8.2); Troponin I 0.057 ng/ml (0-0.045)
--- NOTE | 2019-05-14 16:27 | Electrocardiogram Report ---
Test Reason : Blood Pressure : / mmHG Vent. Rate : 083 BPM Atrial Rate : 083 BPM P-R Int : 148 ms QRS Dur : 082 ms QT Int : 374 ms P-R-T Axes : 052 053 039 degrees QTc Int : 439 ms Normal sinus rhythm Normal ECG When compared with ECG of 23-MAR-2019 22:00, No significant change Confirmed by Julian Grissom ([id number]) on 05/14/2019 4:27:22 PM Referred By: Confirmed By:Julian Grissom
--- NOTE | 2019-05-14 16:41 | Ultrasound Report ---
US venous doppler LE LT CLINICAL HISTORY: left calf pain/swelling PAIN. EDEMA. COMPARISON STUDY: No previous studies for comparison. FINDINGS: Real-time and color flow Doppler imaging were performed. Flow was seen within the femoral, popliteal and calf veins with no intraluminal thrombus demonstrated. The saphenous vein is patent. IMPRESSION: No evidence of deep venous thrombosis. ACT 112: Negative or not required by law. The above report was generated using voice recognition software. It may contain grammatical, syntax or spelling errors. Electronically signed by: Howard Juares M.D. 05/14/2019 4:40 PM
[2019-05-14] MEDS ORDERED: OPTIRAY 320 125ml IV PRN (17:11)
--- NOTE | 2019-05-14 17:17 | CT Scan Report ---
CT angio chest PE protocol CLINICAL HISTORY: 58 years-old Female presenting with atypical chest pain, dyspnea, leg swelling, cli nical concern for pulmonary embolus. TECHNIQUE: Multidetector CT angiography of the chest was performed after administration of intravenou s contrast. 3-D volumetric and/or maximum intensity projection (MIP) images were subsequently reconst ructed for review. IV contrast: 120 mL of Optiray 320. One or more dose lowering techniques were used consistent with the principles of ALARA (as low as reasonably achievable), including automatic expos ure control, mA or kV adjustment to individual patient size, and/or use of iterative reconstruction. COMPARISON: Contrast-enhanced chest CT from 10/15/2017. CT DOSE (mGy.cm): The estimated cumulative dose is 534.62 mGycm. FINDINGS: Conservation Assistant topogram: Unremarkable. Pulmonary vasculature: The study is suboptimal for the assessment of the pulmonary vascular tree secondary to timing of the contrast bolus and patient body habitus. Allowing for limited image quality, no central filling defec t to suggest pulmonary embolus. Main pulmonary artery is not enlarged. No flattening of the intervent ricular septum. No intracardiac filling defect. Reflux of contrast into the IVC and hepatic veins. Th is likely indicates elevated right heart pressure. Remaining chest: Soft tissues: Several nodules within the thyroid gland. No axillary, supraclavicular, mediastinal, or hilar lymphadenopathy. Normal aorta. Normal heart size. No pericardial or pleural effusion. Upper ab domen normal. Lungs and airways: No pneumothorax. Central airways patent. Pulmonary arteries are not significantly enlarged relative to adjacent bronchi. No interlobular septal thickening. Minimal dependent changes l ikely atelectasis. Musculoskeletal: Normal osseous structures. IMPRESSION: 1. Allowing for suboptimal image quality, no evidence of pulmonary embolus. No acute intrathoracic p athology. 2. Reflux of contrast into the hepatic veins may suggest elevated right heart pressure. ACT 112: Negative or not required by law. Electronically signed by: Porfirio Ortega M.D. 05/14/2019 5:16 PM
--- NOTE | 2019-05-14 18:18 | History & Physical Report ---
Date of Service May 14, 2019 Assessment & Plan (1) Shortness of breath: - Admit to med surg with tele - Has followed with Dr. Antoine as an outpatient, cardiology -Concern for Possible Hypertrophic cardiomyopathy without obstruction on recent echo. Cardiac MRI recommended for further evaluation.-Appears that this has not been done yet -Cardiology consulted -Does not wear O2 at baseline-working with PCP to get oxygen arranged, CM to assist during hospital stay -Continues to use tobacco products but reports she has cut down to 1/2 PPD compared to 1 PPD -EKG reviewed as above -Last echocardiogram done 01/09/2019: Normal left ventricular size and hyperdynamic systolic function, EF >70%. No regional wall motion abnormalities. Severe asymmetric hypertrophy of the anterior septum. Mild concentric LVH. No significant valvular abnormalities. Normal estimated right ventricular systolic pressure -Repeat echo -Troponin slightly elevated today at 0.057, trend x2 more sets -XR reviewed showing mild pulmonary edema, will administer Lasix IV 40 mg now, strict I's/O's, daily weights, fluid restriction of 1500 mL/day -Venous Dopplers conducted negative for DVT -CTA conducted negative for PE -Hold lisinopril and metformin with contrast given as well as aggressive diuresis (2) LVH (left ventricular hypertrophy): -Follow repeat echo -Cardiology consulted (3) Hypertension: -Continue on diltiazem 120 mg daily, lisinopril 10 mg daily -Lasix 20 mg daily (giving IV dose now, monitor fluid status and possibly order IV vs po) (4) Type 2 diabetes mellitus: -Last A1c = 7.3 on 03/24/2019 -ISS with Accu-Cheks AC at bedtime -Hold metformin (5) Morbid obesity: -BMI 58.6, diet and exercise to be encouraged upon discharge -Heart healthy/diabetic diet (6) COPD (chronic obstructive pulmonary disease): -Patient scheduled to have sleep study conducted-has seen Dr. Regan as an outpatient -It was thought that she would likely have a mixed restrictive/obstructive changes on PFTs. Likely that she would need BiPAP at night and may also need oxygen at baseline. (7) Tobacco abuse: -Cessation encouraged, nicotine patch offered, patient reports reducing smoking to one half PPD -Continue Symbicort, Tiotropium bromide -Received DuoNeb in the ER, did not notice significant symptom improvement, will work on diuresis, can consider addition of DuoNebs as needed (8) DVT prophylaxis: -Teds, heparin subcu CODE STATUS: Disposition: Patient from home, to assist with discharge planning History of Present Illness Primary Care Provider: Arielle Aguilar MD This is a 58 yo F with PMHx of DM2 w/ neuropathy, HTN, HLD, osteoarthritis, COPD, morbid obesity, tobacco abuse who presents with increased edema in bilateral LE, specifically the left, and shortness of breath. The patient was recently admitted at the end of March for suspected CHF exacerbation but then turned out to be COPD exacerbation. At that point in time she was placed on oral Lasix. She reports that she has gained approximately 10 pounds within the last 2 days as she has been weighing herself daily.She reports a low salt diet however admits to large amounts of snacking. She has not been limiting her fluid intake at all. She reports that she was unable to take 10 steps today without becoming significantly winded. She used a nebulizer once getting to the ER however provided minimal symptom relief. She took all her morning antihypertensives including Lasix 20 mg p.o. Patient has followed with Dr. Antoine as an outpatient with work-up for possible hypertrophic cardiomyopathy. She has also in the process of getting supplemental O2 at home by her PCP. She recently has seen Dr. Conley and a sleep study has been ordered however not completed yet. Allergies Allergy/AdvReac Type Severity Reaction Status Date / Time No Known Allergies Allergy Verified 03/23/19 22:15 Home Medications Home Medications Medication Instructions Recorded Confirmed Type trazodone 150 mg tablet 150 mg PO HS #90 tab 01/16/19 03/26/19 Rx albuterol sulfate 90 mcg/actuation 2 puffs INH Q6H PRN #18 gm 01/23/19 03/26/19 Rx aerosol inhaler gabapentin 800 mg tablet 800 mg PO TID #90 tab 03/03/19 03/26/19 Rx Symbicort 2 puff INHALATION BID PRN 03/23/19 03/26/19 History diltiazem HCl [DILT-XR] 120 mg PO QAM 03/23/19 03/26/19 History hydroxyzine HCl 25 mg PO HS 03/23/19 03/26/19 History lisinopril 10 mg PO QAM 03/23/19 03/26/19 History metformin 500 mg PO QAM 03/23/19 03/26/19 History blood sugar diagnostic #50 ea 03/25/19 03/26/19 Rx hydrocortisone [Proctosol HC] 1 applic EXT BID #28 gm 03/25/19 03/26/19 Rx lancets #50 ea 03/25/19 03/26/19 Rx acetaminophen 300 mg-codeine 30 mg 1 tab PO QID PRN #120 tab 03/26/19 03/26/19 Rx tablet furosemide 20 mg tablet 20 mg PO DAILY #30 tab 04/15/19 04/15/19 Rx tiotropium bromide 2.5 2 puffs INH DAILY #4 gm 04/15/19 04/15/19 Rx mcg/actuation mist for inhalation Past Med/Surg History Medical History Asthma Asymmetric septal hypertrophy COPD (chronic obstructive pulmonary disease) Diabetic neuropathy Diverticular disease (Resolved) H/O DIVERTICULITIS ~2yrs ago, [place] WITH ABX Glaucoma (Chronic) Hemorrhoids Hyperlipidemia (Acute) Hypertension Insomnia (Chronic) Lower back pain (Chronic) Morbid obesity (Chronic) Nicotine dependence Osteoarthritis (Chronic) Type 2 diabetes mellitus (Chronic) Urinary incontinence Surgical History Hx of carpal tunnel repair right Hx of colonoscopy Hx of foot surgery left 10/2015 [facility]. MAC 3, ETT 7.0. ATRAUMATIC X 1. Hx of hernia repair 2015 [facility], NO ISSUES PER ANESTHESIA RECORD Hx of tooth extraction Social History Preferred Language: Norwegian Communication Ability: Effective Visual Impairment: No Limitations Beliefs That Will Affect Care: None Current Living Situation: Family Feels Safe at Home: Yes Smoking Status: Current every day smoker Tobacco Type: cigarettes ; Cigarettes Per Day: 10 ; Hx Alcohol Use: No Hx Substance Use: No Review of Systems Review of Systems: Constitutional: No fever, sweats or chills Eyes: No diplopia, no worsening or blurred vision ENT: normal hearing, no trouble swallowing Respiratory: + DAVIS, + orthopnea, sleeps with head against the headboard of her bed, no sputum, cannot walk more than 10 feet without SOB. Cardiovascular: No chest pain, tightness or palpitations Abdomen: No pain, nausea, vomiting, diarrhea or constipation Musculoskeletal: No joint pain, calf pain, + bilateral lower leg swelling, left is worse than the right Neurologic: No weakness, numbness/tingling, or balance problems Psychiatric: No anxiety or depression Skin: No rash or itch Physical Exam Physical Exam: General: awake, alert, no apparent distress, + -H[place] female, BMI 58.6 Head: Normocephalic, atraumatic ENT: PERRL, EOMI, no pharyngeal exudate, mucous membranes moist Chest: Clear to auscultation, on room air, no adventitious breath sounds Cardiac: Regular rate and rhythm, no murmur, JVD is unable to be assessed secondary to body habitus,, normal peripheral pulses, good capillary refill Abdominal: NABS x 4 quadrants, soft, nondistended, nontender to palpation, no rebound, guarding or tenderness Extremities: Normal inspection, + 2 pitting peripheral edema BLE, left greater than right, no erythema, calfs nontender to palpation Psych: Normal mood and affect Neuro: AAO x 3, strength intact bilaterally and rated 5/5, no motor deficits, speech is clear, no peripheral sensory deficits Skin: no rash or erythema Constitutional: WD/WN, vitals as above Eyes: normal visual rodriguez by confrontation and + anicteric sclerae Neck: normal visual inspection and trachea midline Respiratory: normal respiratory effort; no respiratory distress Auscultation: + crackles (scant in bases); no wheezes Cardiovascular: Rate/Rhythm: regular rate and regular rhythm Gastrointestinal (Abdomen): Inspection/Auscultation: abdomen not distended Percussion/Palpation: abdomen soft; abdomen nontender Musculoskeletal: Head/Neck/Chest: normocephalic and head atraumatic 2+ pitting edema peripheral LE edema, + pedal pulses Skin: no rashes, warm and dry Neurologic: awake; not confused Speech / Cognition: normal speech Psychiatric: A+Ox3, euthymic affect Lymphatic: Exam as done by Ayana Castillo DO Results & Data Vital Signs (Past 12 Hours) Vital Signs Temp Pulse Resp BP Pulse Ox 05/14/19 15:51 22 97 05/14/19 15:23 22 96 05/14/19 15:00 36.6 C 95 H 20 195/93 H 93 Diagnostic Findings US venous doppler LE LT CLINICAL HISTORY: left calf pain/swelling PAIN. EDEMA. COMPARISON STUDY: No previous studies for comparison. FINDINGS: Real-time and color flow Doppler imaging were performed. Flow was seen within the femoral, popliteal and calf veins with no intraluminal thrombus demonstrated. The saphenous vein is patent. IMPRESSION: No evidence of deep venous thrombosis. ACT 112: Negative or not required by law. The above report was generated using voice recognition software. It may contain grammatical, syntax or spelling errors. Electronically signed by: Howard Juares M.D. 05/14/2019 4:[address] angio chest PE protocol CLINICAL HISTORY: 58 years-old Female presenting with atypical chest pain, dyspnea, leg swelling, clinical concern for pulmonary embolus. TECHNIQUE: Multidetector CT angiography of the chest was performed after administration of intravenous contrast. 3-D volumetric and/or maximum intensity projection (MIP) images were subsequently reconstructed for review. IV contrast: 120 mL of Optiray 320. One or more dose lowering techniques were used consistent with the principles of ALARA (as low as reasonably achievable), including automatic exposure control, mA or kV adjustment to individual patient size, and/or use of iterative reconstruction. COMPARISON: Contrast-enhanced chest CT from 10/15/2017. CT DOSE (mGy.cm): The estimated cumulative dose is 534.62 mGycm. 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 Pulmonary vasculature: The study is suboptimal for the assessment of the pulmonary vascular tree secondary to timing of the contrast bolus and patient body habitus. Allowing for limited image quality, no central filling defect to suggest pulmonary embolus. Main pulmonary artery is not enlarged. No flattening of the interventricular septum. No intracardiac filling defect. Reflux of contrast into the IVC and hepatic veins. This likely indicates elevated right heart pressure. Remaining chest: Soft tissues: Several nodules within the thyroid gland. No axillary, supraclavicular, mediastinal, or hilar lymphadenopathy. Normal aorta. Normal heart size. No pericardial or pleural effusion. Upper abdomen normal. Lungs and airways: No pneumothorax. Central airways patent. Pulmonary arteries are not significantly enlarged relative to adjacent bronchi. No interlobular septal thickening. Minimal dependent changes likely atelectasis. Musculoskeletal: Normal osseous structures. IMPRESSION: 1. Allowing for suboptimal image quality, no evidence of pulmonary embolus. No acute intrathoracic pathology. 2. Reflux of contrast into the hepatic veins may suggest elevated right heart pressure. ACT 112: Negative or not required by law. Electronically signed by: Porfirio Ortega M.D. 05/14/2019 5:16 PM XR chest 1V portable CLINICAL HISTORY: 58 years-old Female presenting with dyspnea. TECHNIQUE: Portable upright AP view of the chest was obtained. COMPARISON: 01/10/2019. FINDINGS: Atherosclerosis of the aortic arch. Cardiac silhouette enlarged. Pulmonary vascular prominence new from prior. Mild interstitial prominence. Added density at the lung bases most focally at the right paramediastinal lung base. No large effusion or pneumothorax. Degenerative changes of the thoracic spine. Upper abdomen normal. IMPRESSION: 1. Megaly with volume overload and congestive change. Suspected developing/mild pulmonary edema. ACT 112: Negative or not required by law. Electronically signed by: Porfirio Ortega M.D. 05/14/2019 4:10 PM ECG Additional Comments: 14-MAY-2019 15:32:38 [facility]-EDSTAT ROUTINE RETRIEVAL Normal sinus rhythm Normal ECG When compared with ECG of 23-MAR-2019 22:00, No significant change Confirmed by Julian Grissom ([id number]) on 05/14/2019 4:27:22 PM 25mm/s 10mm/mV 150Hz 9.0.9 12SL 241 BING: 15 Confirmed By: Julian Nguyen. rate 83 BPM [place] interval 148 ms QRS duration 82 ms QT/QTc 374/439 ms P-R-T axes 52 53 39 Code Status & VTE Plan Code Status Full code-discussed with the patient at bedside Supervising Physician Co-Signing Physician Notes Pt seen and examined by me. Denies chest pain. Tolerating PO without issue. States she has been sleeping in a recliner the last 3 weeks. States she was started on lasix either this week or last and it was a new medication for her. Pt states she feels her breathing is improved s/p current interventions, but still does not feel that she can lie flat. Agree with HPI/ROS as noted by PA See above for my exam in PE section Agree with plan as outlined above LE swelling, SOB Neg for DVT/PE CHF exacerbation ECHO 01/2019, now with R heart strain on CTA Repeat ECHO Has been working with Dr. Antoine on possible hypertrophic cardiomyopathy, awaiting cardiac MRI Holter 04/22/2019 neg for acute States increased life stressors recently Trop 0.057, serials pending EKG neg for acute PG Care Time/CCT Total # of Minutes Spent Total Time Spent with Patient: Total time spent is greater than 50% in coor dination of care (as documented) at patient's floor/unit and/or counseling patient: Coding Level of Care Code 47646 Initial Inpt Care Lvl 3 Diagnoses Shortness of breath R06.02 LVH (left ventricular hypertrophy) I51.7 Hypertension I10 Type 2 diabetes mellitus E11.9 Morbid obesity E66.01 COPD (chronic obstructive pulmonary disease) J44.9 Tobacco abuse Z72.0 DVT prophylaxis Z29.9
[2019-05-14] MEDS ORDERED: FUROSEMIDE 40 MG/4 ML VIAL IV STA (18:43)
[2019-05-14] MEDS ORDERED: FUROSEMIDE 40 MG/4 ML VIAL IV ONE (19:32)
[2019-05-14 19:56] LABS: Appearance Urine Clear (Clear); Bilirubin Urine Negative (Negative); Blood Urine Negative (Negative); Color Urine Yellow; Glucose Urine UA Negative (Negative); Ketones Urine Negative (Negative); Leukocyte Esterase Urine Negative (Negative); Nitrite Urine Negative (Negative); Protein Urine Negative (Negative); Specific Gravity Urine 1.022 (1.000-1.030); Urobilinogen Urine Negative (Negative); pH Urine 7.5 (4.5-7.5)
[2019-05-14] MEDS ORDERED: GLUCOSE 40% GEL 15 GM TUBE PO PRN (20:12)
[2019-05-14] MEDS ORDERED: ALBUTEROL HFA 8 GM INHALER INH PRN (20:12)
[2019-05-14] MEDS ORDERED: ACETAMINOPHEN 325 MG TAB PO PRN (20:12)
[2019-05-14] MEDS ORDERED: CARBOHYDRATES FOR HYPOGLYCEMIA PO PRN (20:12)
[2019-05-14] MEDS ORDERED: GLUCOSE 10 TABS/TUBE PO PRN (20:12)
[2019-05-14] MEDS ORDERED: DEXTROSE 50% 50 ML SYRINGE IV PRN (20:12)
[2019-05-14] MEDS ORDERED: ONDANSETRON INJ 2 MG/ML 2 ML VIAL IV PRN (20:12)
[2019-05-14] MEDS ORDERED: GLUCAGON FOR INJ 1 MG VIAL SQ PRN (20:12)
[2019-05-14] MEDS: GABAPENTIN 800 MG TAB PO SCH (20:55)
[2019-05-14] MEDS: INSULIN ASPART 100 UNITS/ML 3 ML PEN SC SCH (20:57)
[2019-05-14] MEDS: HEPARIN SOD 5,000 UNIT/0.5 ML VIAL SQ SCH (20:58)
[2019-05-14] MEDS: ACETAMINOPHEN W/CODEINE #3 1 TAB PO PRN (22:08)
[2019-05-14] MEDS: TRAZODONE HCL 50 MG TAB PO SCH (22:08)
[2019-05-15] MEDS: HEPARIN SOD 5,000 UNIT/0.5 ML VIAL SQ SCH ×3 (05:44→20:07)
[2019-05-15 05:49] LABS: Hematocrit (blood only) 44.7 % (37-47); Hemoglobin 13.5 g/dL (12.0-16.0); Mean Corpuscular Hemoglobin 25.9 pg (25-34); Mean Corpuscular Hgb Conc 30.2 g/dL (32-36); Mean Corpuscular Volume 85.8 fL (80-100); Mean Platelet Volume 9.9 fL (7.4-10.4); Platelet Count 313 K/uL (130-400); RDW Coefficient of Variation 16.9 % (11.5-14.5); RDW Standard Deviation 53.6 fL (36.4-46.3); Red Blood Count 5.21 M/uL (4.2-5.4); White Blood Count 8.67 K/uL (4.8-10.8)
[2019-05-15 06:26] LABS: BUN Creatinine Ratio 9.3 (10-20); Creatinine Clr Calc Pharmacy 110.1 ml/min; Est GFR (African American) 110.7; Est GFR (Non-African American) 95.5; Potassium 3.7 mmol/L (3.5-5.1)
[2019-05-15 06:31] LABS: Albumin Globulin Ratio 0.6 (0.9-2); Bilirubin,Total 0.4 mg/dl (0.2-1); Globulin 4.7 gm/dl (2.5-4.0); Total Protein 7.7 gm/dl (6.4-8.2); Troponin I 0.06 ng/ml (0-0.045)
[2019-05-15] MEDS ORDERED: FUROSEMIDE 20 MG in SYRINGE 0 ML IV ONE ×2 (08:14→16:15)
[2019-05-15] MEDS ORDERED: FLUTICASONE/VILANTEROL 100/25MCG 14 PUFFS/INHALER INH PRN (09:00)
[2019-05-15] MEDS: GABAPENTIN 800 MG TAB PO SCH ×3 (09:01→20:07)
[2019-05-15] MEDS: INSULIN ASPART 100 UNITS/ML 3 ML PEN SC SCH ×4 (09:02→20:48)
[2019-05-15] MEDS: POTASSIUM CHLORIDE 20 MEQ TABCR PO SCH ×2 (09:05→20:07)
[2019-05-15] MEDS: ACETAMINOPHEN W/CODEINE #3 1 TAB PO PRN ×2 (09:11→19:38)
--- NOTE | 2019-05-15 12:19 | XCELERA ---
[id number] \\[email or web address]\[id number]}___[id number]
--- NOTE | 2019-05-15 12:33 | Cardiology Consultation ---
Date of Consultation May 15, 2019 Assessment & Plan (1) Elevated troponin: Minor troponin elevation with flat curve (no peak and decay) and normal ECG in patient with no chest pain is most consistent with supply/demand mismatch due to the physiologic stress of acute respiratory distress/bronchospasm. Treatment is management of her underlying pulmonary disease as well as blood pressure control. Case discussed with Dr. Hirsch. (2) Hypervolemia: She does appear mildly hypervolemic and this may be contributing to her bronchospasm through an irritative process with mild pulmonary edema. Right heart findings on echocardiogram are not dramatic, therefore suspect she would tolerate volume unloading well and might note decreased respiratory effort. Agree with routine furosemide to achieve a 3 to 5 pound weight loss with volume unloading. Upon discharge, recommend sliding scale diuretic regimen based on her daily weight. Had a long discussion with her regarding the importance of salt abstinence/sodium restriction. (3) Acute bronchospasm: Multifactorial. As noted, volume unloading may be helpful, but doubt that congestion is the primary cause of her respiratory decompensation. 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 (5) Severe left ventricular hypertrophy: To my eye, review of the echocardiogram today suggest concentric left ventricular hypertrophy rather than an asymmetric septal process consistent with hypertrophic cardiomyopathy. Specifically, the marked septal thickening appears to be in part due to right ventricular trabecular attachments rather than actual left ventricular septal hypertrophy (best seen on views with Definity contrast). Either way, she has not been demonstrating any obstructive phenomenon. (6) Morbid obesity: (7) Hypertension: Monitor BP as she is volume unloaded, if it remains elevated and she is not bradycardic could increase her dosing of long-acting diltiazem. History of Present Illness Reason for Consultation: Right heart strain. Requesting Physician: Abiodun Hirsch Attending Physician: Abiodun Hirsch History of Present Illness 58-year-old woman with hypertension/severe left ventricular hypertrophy, morbid obesity (BMI 58.6), and mixed restrictive/obstructive pulmonary disease (still smoking), but no known coronary disease or dysrhythmias, who was admitted 05/14/2019 with progressive dyspnea on exertion, wheezing, and increasing leg ed paco. She chronically sleeps sitting up, denies any paroxysmal nocturnal dyspnea. No chest pain at any time. No subjective palpitations, presyncope, or syncope. Her cardiac history is notable for an earlier echocardiogram suggesting asymmetric septal hypertrophy and thereby raising the possibility of hypertrophic cardiomyopathy. There was no suggestion of obstructive cardiomyopathy. Cardiac MRI was recommended. However, on her current echocardiogram she appears to have only severe concentric left ventricular hypertrophy. Although there is marked thickening of the septum in some views, i t appears to be due to right ventricular trabeculae (particularly on the Definity injection studies, since the density appears different than the left ventricular wall). As noted, no other cardiac history. At the time of my evaluation this morning, the patient had no complaints at rest. She did note dyspnea with minimal exertion and had ongoing wheezing. Allergies Allergy/AdvReac Type Severity Reaction Status Date / Time No Known Allergies Allergy Verified 05/14/19 19:37 Home Medications Home Medications Medication Instructions Recorded Confirmed Type trazodone 150 mg tablet 150 mg PO HS #90 tab 01/16/19 05/14/19 Rx albuterol sulfate 90 mcg/actuation 2 puffs INH Q6H PRN #18 gm 01/23/19 05/14/19 Rx aerosol inhaler gabapentin 800 mg tablet 800 mg PO TID #90 tab 03/03/19 05/14/19 Rx budesonide-formoterol [Symbicort] 2 puff INHALATION BID PRN 03/23/19 05/14/19 History diltiazem HCl [DILT-XR] 120 mg PO QAM 03/23/19 05/14/19 History hydroxyzine HCl 25 mg PO HS 03/23/19 05/14/19 History lisinopril 10 mg PO QAM 03/23/19 05/14/19 History metformin 500 mg PO QAM 03/23/19 05/14/19 History hydrocortisone [Proctosol HC] 1 applic EXT BID #28 gm 03/25/19 05/14/19 Rx furosemide 20 mg tablet 20 mg PO DAILY #30 tab 04/15/19 05/14/19 Rx tiotropium bromide 2.5 2 puffs INH DAILY #4 gm 04/15/19 05/14/19 Rx mcg/actuation mist for inhalation acetaminophen-codeine 1 tab PO TID PRN 05/14/19 05/14/19 History [Tylenol-Codeine #3] Patient History Medical History Asthma Asymmetric septal hypertrophy COPD (chronic obstructive pulmonary disease) (Acute) Diabetic neuropathy Diverticular disease (Resolved) H/O DIVERTICULITIS ~2yrs ago, [place] WITH ABX Glaucoma (Chronic) Hemorrhoids Hypertension Insomnia (Chronic) Lower back pain (Chronic) Morbid obesity (Chronic) Nicotine dependence Osteoarthritis (Chronic) Type 2 diabetes mellitus (Chronic) Urinary incontinence Surgical History Hx of carpal tunnel repair right Hx of colonoscopy Hx of foot surgery left 10/2015 [facility]. MAC 3, ETT 7.0. ATRAUMATIC X 1. Hx of hernia repair 2015 [facility], NO ISSUES PER ANESTHESIA RECORD Hx of tooth extraction Family History FHx: prostate cancer FHx: breast cancer Family history of diabetes mellitus Mother Congestive heart failure Arthritis Mother Cancer Social History Preferred Language: Kinyarwanda Communication Ability: Effective Visual Impairment: No Limitations Chief Enterprise Architect Required: No Beliefs That Will Affect Care: None Current Living Situation: Family Other Information That Helps Us Care for You: No Feels Safe at Home: Yes Safety Concerns: Feels Safe At This Time Smoking Status: Current every day smoker Tobacco Type: cigarettes ; Cigarettes Per Day: 10 ; Do You Dip or Chew Tobacco: No ; Second Hand Exposure: Yes ; Tobacco Cessation Education Requested by Patient: No Hx Alcohol Use: No Hx Substance Use: No Review of Systems Constitutional: + fatigue and + weight gain; no fever, no chills and no weight loss Eyes: no problem reported Ear, Nose, Mouth, Throat: no problem reported Respiratory: + dyspnea; no cough Cardiovascular: as per Subjective / HPI Gastrointestinal: no abdominal pain and no change in stools Genitourinary: no problem reported Musculoskeletal: no myalgia Integumentary: no rash and no new lesions Neurologic: no falls and no syncope Psychiatric: no problem reported Hematologic / Lymphatic: no easy bleeding and no easy bruising Physical Exam Physical Exam: Morbidly obese middle-aged black female in no distress. BP mild to moderately hypertensive. Pulse 60-98 bpm. Respirations 1832/min. Skin: No ecchymoses or generalized lesions. HEENT: Unremarkable. Neck: Jugular venous pulse with increased respiratory variation, appears to be two th[address] the way to the angle of the jaw at 70 degrees. No carotid bruits. Lungs: Diffuse expiratory wheezing. No obvious crackles. No nasal flaring, intercostal retraction, or abdominal paradox. Cardiac: Regular rhythm with increased pulmonic component to S2, 2/6 left upper sternal border systolic murmur which is nonradiating. No diastolic murmur or S3 gallop. Abdomen: Soft and nontender. Extremities: 1+ partially pitting pretibial edema. Peripheral pulses intact. Neurologic: Pleasant affect, grossly nonfocal. Results & Data ([facility]) Laboratory Results 05/14/19 05/14/19 05/15/19 15:40 20:56 05:35 BUN 6 L Creatinine 0.67 Troponin I 0.057 H* 0.064 H* 0.060 H* Diagnostic Findings ECG on admission showed sinus rhythm at 83 bpm and was completely unremarkable. Chest x-ray showed cardiomegaly with mild interstitial prominence consistent with volume overload/congestive change. Chest CT showed no pulmonary embolism. There was minimally dependent changes which were likely atelectatic. Echocardiogram today (05/15/2019) was mildly technically limited but showed normal left ventricular size with severe concentric LVH, normal systolic function (EF 65 to 70%), and no regional wall motion abnormalities. The right ventricle is mildly dilated with mildly reduced systolic function and moderate pulmonary hypertension was seen. Compared with January 2019 study, right heart now appears mildly dilated with mildly reduced systolic function and moderate pulmonary hypertension is now seen. Otherwise no significant change. PG Care Time/CCT Total # of Minutes Spent Total Time Spent with Patient: Total time spent is greater than 50% in coordination of care (as documented) at patient's floor/unit and/or counseling patient: Coding Level of Care Code 66836 Inpt Consult Level 4 Diagnoses Elevated troponin R79.89 Hypervolemia E87.70 Acute bronchospasm J98.01 Mixed restrictive and obstructive lung disease J43.9; J98.4 Severe left ventricular hypertrophy I51.7 Morbid obesity E66.01 Hypertension I10
[2019-05-15] MEDS: UMECLIDINIUM BROMIDE 62.5MCG/BLISTER 7 PUFFS/INHALER INH SCH (14:20)
[2019-05-15] MEDS: TRAZODONE HCL 50 MG TAB PO SCH (20:07)
[2019-05-15] MEDS ORDERED: TRAZODONE HCL 50 MG TAB PO SCH (21:00)
--- NOTE | 2019-05-15 21:42 | Hospitalist Progress Note ---
Date of Service May 15, 2019 Assessment & Plan (1) Acute right ventricular heart failure: echo reviewed. RV systolic dysfunction present with pulmonary HTN. this may be 2nd to her significant COPD. she appears decompensated. continue lasix 20mg IV BID. appreciate cardiology consultation. BP control needed. agree with cardiology recs. daily BMP. counseled re: dietary compliance (low salt), etc. 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 long-standing smoker add duonebs q6h mucinex BID consider steroids systemically if wheezing persists (some wheezing could be from pulm edema) (4) Tobacco abuse: baby counselor to quit (5) Snoring: sleep study needed consider overnight oximetry study while here (6) COPD (chronic obstructive pulmonary disease): see above in "mixed restrictive/obstruction..." cont inhalers pulmonary toilet nebs consider steroids (7) Asymmetric septal hypertrophy: (8) Hypertension: increase diltiazem to 180mg daily add back her lisinopril 10mg daily (9) Type 2 diabetes mellitus: BSGs acceptable cont novolog ac/hs low threshold for basal coverage (10) Morbid obesity: BMI 53 (11) DVT prophylaxis: heparin 5000 TID Admission and Anticipated Discharge Date Admission Date: May 14, 2019 Subjective patient reports 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 still quite dyspneic but improved relative to yesterday. ongoing cough/congestion. has upcoming sleep study in July - wants something done sooner than that though. no fever. good appetite. moving bowels. tele overnight wnl. Review of Systems Constitutional: no fever and no chills Respiratory: + cough, + dyspnea, + dyspnea on exertion and + wheezing Cardiovascular: + orthopnea; no chest pain Gastrointestinal: no abdominal pain Physical Exam Constitutional: + morbidly obese; no acute distress and no altered mental status ENMT: external ear and nose normal, oropharynx normal Respiratory: no respiratory distress Auscultation: + crackles (b/l basilar) and + wheezes (extensive - b/l ) Cardiovascular: Rate/Rhythm: regular rate and regular rhythm Heart Sounds: normal S1 and normal S2; no murmur Vessels: + JVD, posterior tibial pulses present and dorsalis pedis pulses present Extremities: no edema Gastrointestinal (Abdomen): normal bowel sounds, soft, nontender, no hepatospl enomegaly Psychiatric: A+Ox3, euthymic affect Results & Data ([facility]) Vital Signs (Past 12 Hours) Vital Signs Temp Pulse Pulse Resp BP Pulse Ox 05/15/19 19:47 37.1 C 80 20 161/114 H 90 05/15/19 16:43 72 05/15/19 15:00 36.5 C 78 20 154/84 H 91 05/15/19 12:00 36.8 C 61 20 163/90 H 98 labs reviewed - CBC, BMP wnl Cr wnl PG Care Time/CCT Total # of Minutes Spent Total Time Spent with Patient: Total time spent is greater than 50% in coordination of care (as documented) at patient's floor/unit and/or counseling patient: Coding Level of Care Code 94997 Subseq Hosp Care Lvl 2 Diagnoses Acute right ventricular heart failure I50.811 Acute diastolic CHF (congestive heart failure) I50.31 Mixed restrictive and obstructive lung disease J43.9; J98.4 Tobacco abuse Z72.0 Snoring R06.83 COPD (chronic obstructive pulmonary disease) J44.9 COPD type: unspecified COPD Asymmetric septal hypertrophy I42.2 Hypertension I10 Hypertension type: essential hypertension Type 2 diabetes mellitus E11.9 Morbid obesity E66.01 DVT prophylaxis Z29.9 (1) COPD (chronic obstructive pulmonary disease) COPD type: unspecified COPD Qualified Code(s): J44.9 - Chronic obstructive pulmonary disease, unspecified (2) Hypertension Hypertension type: essential hypertension Qualified Code(s): I10 - Essential (primary) hypertension
[2019-05-16] MEDS: HEPARIN SOD 5,000 UNIT/0.5 ML VIAL SQ SCH ×3 (06:00→20:40)
[2019-05-16 07:12] LABS: Hematocrit (blood only) 46.5 % (37-47); Hemoglobin 14.5 g/dL (12.0-16.0); Mean Corpuscular Hemoglobin 26.2 pg (25-34); Mean Corpuscular Hgb Conc 31.2 g/dL (32-36); Mean Corpuscular Volume 84.1 fL (80-100); Mean Platelet Volume 10.4 fL (7.4-10.4); Platelet Count 358 K/uL (130-400); RDW Coefficient of Variation 16.9 % (11.5-14.5); RDW Standard Deviation 51.9 fL (36.4-46.3); Red Blood Count 5.53 M/uL (4.2-5.4); White Blood Count 9.19 K/uL (4.8-10.8)
[2019-05-16 07:48] LABS: Albumin Globulin Ratio 0.7 (0.9-2); Albumin Level 3.2 gm/dl (3.4-5.0); BUN Creatinine Ratio 11.6 (10-20); Bilirubin,Total 0.6 mg/dl (0.2-1); Calcium 9.4 mg/dl (8.5-10.1); Creatinine Clr Calc Pharmacy 100.8 ml/min; Est GFR (African American) 105.5; Globulin 4.8 gm/dl (2.5-4.0); Potassium 3.8 mmol/L (3.5-5.1)
[2019-05-16] MEDS: ALBUT/IPRATROP 3MG/0.5MG NEB 3 ML VIAL NEB SCH ×4 (08:21→19:41)
[2019-05-16] MEDS: FUROSEMIDE 20 MG in SYRINGE 0 ML IV SCH ×2 (08:45→16:53)
[2019-05-16] MEDS: UMECLIDINIUM BROMIDE 62.5MCG/BLISTER 7 PUFFS/INHALER INH SCH (08:45)
[2019-05-16] MEDS: INSULIN ASPART 100 UNITS/ML 3 ML PEN SC SCH ×4 (08:46→20:36)
[2019-05-16] MEDS: POTASSIUM CHLORIDE 20 MEQ TABCR PO SCH ×2 (08:48→20:38)
[2019-05-16] MEDS: GABAPENTIN 800 MG TAB PO SCH ×3 (08:48→20:38)
[2019-05-16] MEDS: guaiFENesin 600 MG TABCR PO SCH ×2 (08:52→20:37)
[2019-05-16] MEDS: lisinopriL 10 MG TAB PO SCH (08:52)
[2019-05-16] MEDS: dilTIAZem HCL 180 MG CAPCR PO SCH (08:53)
[2019-05-16] MEDS: methylPREDNISolone 60 MG in SYRINGE 0 ML IV SCH ×2 (10:07→20:39)
[2019-05-16] MEDS: INSULIN GLARGINE SOLOSTAR 100 UNITS/ML 3 ML PEN SC SCH ×2 (10:07→20:37)
--- NOTE | 2019-05-16 12:09 | Cardiology Progress Note ---
Date of Service May 16, 2019 Assessment & Plan (1) Acute diastolic CHF (congestive heart failure): As previously noted, her primary respiratory difficulty appears to be bronchospasm superimposed on restrictive/obstructive lung disease. However, suspect there is a significant volume component which would benefit from diuresis as well as follow-up in heart failure clinic. Patient met Judy Stewart PA-C today, and the patient did express an interest in regular follow-up to have her volume status reassessed. Emphasized once again the importance of a no salt/low sodium diet. Agree with ongoing diuresis, she still appears hypervolemic. (2) Acute bronchospasm: (3) Mixed restrictive and obstructive lung disease: (4) Severe left ventricular hypertrophy: As previously noted, suspect severe LVH rather than hypertrophic cardiomyopathy. No evidence of obstructive phenomenon. (5) Hypertension: Continue to monitor BP as she volume unloads and her physiologic stress of respiratory difficulty diminishes. Minor hypertension currently is expected and does not require aggressive titration of medications. Admission and Anticipated Discharge Date Admission Date: May 14, 2019 Subjective Notes that she had a rough night, still has difficulty breathing. Needs to sit upright, otherwise short of breath. No chest pain, palpitations, or lightheadedness. States that her breathing is about the same as yesterday, still short of breath. Weight down 4 pounds. BP mildly hypertensive, heart rate 65-88 bpm, respirations 1820/minute. Physical Exam Physical Exam: Appears uncomfortable but not acutely distressed. Vitals as noted in HPI. Skin: No ecchymoses or generalized lesions. HEENT: Unremarkable. Neck: Jugular venous pulse with increased respiratory variation, appears to be near the angle of the jaw at 90 degrees. No carotid bruits. Lungs: Decreased breath sounds but fairly clear on quiet respiration, however marked wheezing on forced exhalation. No obvious crackles. No nasal flaring, intercostal retraction, or abdominal paradox. Cardiac: Regular rhythm with increased pulmonic component to S2, 2/6 left upper sternal border systolic murmur which is nonradiating. No diastolic murmur or S3 gallop. Abdomen: Soft and nontender. Extremities: 1+ partially pitting pretibial edema. Peripheral pulses intact. Neurologic: Normal affect, grossly nonfocal. Results & Data ([facility]) Laboratory Results 05/16/19 06:56 BUN 8 Creatinine 0.72 PG Care Time/CCT Total # of Minutes Spent Total Time Spent with Patient: Total time spent is greater than 50% in coordination of care (as documented) at patient's floor/unit and/or counseling patient: Coding Level of Care Code 30195 Subseq Hosp Care Lvl 3 Diagnoses Acute diastolic CHF (congestive heart failure) I50.31 Acute bronchospasm J98.01 Mixed restrictive and obstructive lung disease J43.9; J98.4 Severe left ventricular hypertrophy I51.7 Hypertension I10 Hypertension type: essential hypertension (1) Hypertension Hypertension type: essential hypertension Qualified Code(s): I10 - Essential (primary) hypertension
[2019-05-16] MEDS: ACETAMINOPHEN W/CODEINE #3 1 TAB PO PRN ×2 (14:07→22:21)
--- NOTE | 2019-05-16 18:32 | Hospitalist Progress Note ---
Date of Service May 16, 2019 Assessment & Plan (1) Acute right ventricular heart failure: echo reviewed. RV systolic dysfunction present with pulmonary HTN. latter may be 2nd to her significant COPD. improving, but still appears hypervolemic. continue lasix 20mg IV BID. daily BMP; daily weight. appreciate cardiology consultation. titrate meds for BP control. needs formal sleep study as outpatient. 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 (5) Snoring: sleep study needed consider overnight oximetry study prior to d/c (6) COPD (chronic obstructive pulmonary disease): see above in "mixed restrictive/obstruction..." cont inhalers pulmonary toilet nebs add steroids as above (7) Asymmetric septal hypertrophy: prior concern about hypertrophic cardiomyopathy (8) Hypertension: increased her diltiazem to 180mg daily added back her lisinopril 10mg daily BPs slowly improving may need additional titration (9) Type 2 diabetes mellitus: BSGs acceptable cont novolog ac/hs add basal coverage since she will be on steroids and hyperglycemia is likely (10) Morbid obesity: BMI 53 (11) DVT prophylaxis: heparin 5000 TID progressing Admission and Anticipated Discharge Date Admission Date: May 14, 2019 Subjective maybe feels a "bit better." still coughing, wheezing and having orthopnea. tele stable overnight. no new complaints. Review of Systems Constitutional: no fever, no chills and no anorexia Respiratory: + dyspnea on exertion; no hemoptysis Cardiovascular: + orthopnea, + paroxysmal nocturnal dyspnea and + edema; no chest pain Gastrointestinal: no abdominal pain Physical Exam Constitutional: + morbidly obese; no acute distress and no altered mental status ENMT: external ear and nose normal, oropharynx normal Respiratory: no respiratory distress Auscultation: + crackles (b/l basilar but improved) and + wheezes (extensive - b/l - no change) Cardiovascular: Rate/Rhythm: regular rate and regular rhythm Heart Sounds: normal S1 and normal S2; no murmur Vessels: + JVD (improved today, however), posterior tibial pulses present and dorsalis pedis pulses present Extremities: + edema (<1+ b/l ) Gastrointestinal (Abdomen): normal bowel sounds, soft, nontender, no hepatosplenomegaly Psychiatric: A+Ox3, euthymic affect Results & Data ([facility]) Vital Signs (Past 12 Hours) Vital Signs Temp Pulse Pulse Resp BP BP Pulse Ox 05/16/19 15:59 81 18 93 05/16/19 15:29 36.6 C 76 18 176/84 H 90 05/16/19 11:11 36.6 C 86 18 153/97 H 100 05/16/19 10:42 71 18 91 05/16/19 08:21 88 18 97 05/16/19 07:37 36.7 C 79 20 178/95 H 90 05/16/19 07:33 77 Laboratory Results Laboratory Results - last 24 hr 05/16/19 05/16/19 05/16/19 06:56 06:56 07:22 WBC 9.19 RBC 5.53 H Hgb 14.5 Hct 46.5 MCV 84.1 MCH 26.2 MCHC 31.2 L RDW Std Deviation 51.9 H RDW Coeff of Hiral 16.9 H Plt Count 358 MPV 10.4 Sodium 138 Potassium 3.8 Chloride 101 Carbon Dioxide 35 H Anion Gap 2.0 L BUN 8 Creatinine 0.72 Est Cr Clr Drug Dosing 100.8 Est GFR ( Amer) 105.5 Est GFR (Non-Af Amer) 91.0 BUN/Creatinine Ratio 11.6 Glucose 142 H POC Glucose 138 H Calcium 9.4 Total Bilirubin 0.6 AST 11 L ALT 16 Alkaline Phosphatase 118 H Total Protein 8.0 Albumin 3.2 L Globulin 4.8 H Albumin/Globulin Ratio 0.7 L 05/16/19 05/16/19 05/16/19 11:38 16:49 20:24 WBC RBC Hgb Hct MCV MCH MCHC RDW Std Deviation RDW Coeff of Hiral Plt Count MPV Sodium Potassium Chloride Carbon Dioxide Anion Gap BUN Creatinine Est Cr Clr Drug Dosing Est GFR ( Amer) Est GFR (Non-Af Amer) BUN/Creatinine Ratio Glucose POC Glucose 115 H 167 H 214 H Calcium Total Bilirubin AST ALT Alkaline Phosphatase Total Protein Albumin Globulin Albumin/Globulin Ratio PG Care Time/CCT Total # of Minutes Spent Total Time Spent with Patient: Total time spent is greater than 50% in coordination of care (as documented) at patient's floor/unit and/or counseling patient: Coding Level of Care Code 40916 Subseq Hosp Care Lvl 2 Diagnoses Acute right ventricular heart failure I50.811 Acute diastolic CHF (congestive heart failure) I50.31 Mixed restrictive and obstructive lung disease J43.9; J98.4 Tobacco abuse Z72.0 Snoring R06.83 COPD (chronic obstructive pulmonary disease) J44.9 COPD type: unspecified COPD Asymmetric septal hypertrophy I42.2 Hypertension I10 Hypertension type: essential hypertension Type 2 diabetes mellitus E11.9 Morbid obesity E66.01 DVT prophylaxis Z29.9 (1) COPD (chronic obstructive pulmonary disease) COPD type: unspecified COPD Qualified Code(s): J44.9 - Chronic obstructive pulmonary disease, unspecified (2) Hypertension Hypertension type: essential hypertension Qualified Code(s): I10 - Essential (primary) hypertension
[2019-05-16] MEDS: TRAZODONE HCL 50 MG TAB PO SCH (20:39)
[2019-05-17] MEDS: HEPARIN SOD 5,000 UNIT/0.5 ML VIAL SQ SCH ×3 (05:40→22:42)
[2019-05-17 06:04] LABS: Hematocrit (blood only) 46.9 % (37-47); Hemoglobin 14.7 g/dL (12.0-16.0); Mean Corpuscular Hemoglobin 26.3 pg (25-34); Mean Corpuscular Hgb Conc 31.3 g/dL (32-36); Mean Corpuscular Volume 83.8 fL (80-100); Mean Platelet Volume 10.5 fL (7.4-10.4); Platelet Count 385 K/uL (130-400); RDW Coefficient of Variation 16.8 % (11.5-14.5); RDW Standard Deviation 52.1 fL (36.4-46.3); White Blood Count 13.77 K/uL (4.8-10.8)
[2019-05-17 06:41] LABS: Albumin Level 3.2 gm/dl (3.4-5.0); BUN Creatinine Ratio 17.4 (10-20); Calcium 9.9 mg/dl (8.5-10.1); Creatinine Clr Calc Pharmacy 91.8 ml/min; Est GFR (African American) 94.3; Est GFR (Non-African American) 81.4; Potassium 4.8 mmol/L (3.5-5.1)
[2019-05-17 06:42] LABS: Albumin Globulin Ratio 0.6 (0.9-2); Bilirubin,Total 0.5 mg/dl (0.2-1); Globulin 5.2 gm/dl (2.5-4.0); Total Protein 8.4 gm/dl (6.4-8.2)
[2019-05-17] MEDS: ALBUT/IPRATROP 3MG/0.5MG NEB 3 ML VIAL NEB SCH ×4 (07:26→19:14)
[2019-05-17] MEDS: UMECLIDINIUM BROMIDE 62.5MCG/BLISTER 7 PUFFS/INHALER INH SCH (09:02)
[2019-05-17] MEDS: GABAPENTIN 800 MG TAB PO SCH ×3 (09:03→22:40)
[2019-05-17] MEDS: POTASSIUM CHLORIDE 20 MEQ TABCR PO SCH ×2 (09:04→22:41)
[2019-05-17] MEDS: FUROSEMIDE 20 MG in SYRINGE 0 ML IV SCH ×2 (09:04→18:01)
[2019-05-17] MEDS: guaiFENesin 600 MG TABCR PO SCH ×2 (09:05→22:40)
[2019-05-17] MEDS: methylPREDNISolone 60 MG in SYRINGE 0 ML IV SCH (09:05)
[2019-05-17] MEDS: dilTIAZem HCL 180 MG CAPCR PO SCH (09:06)
[2019-05-17] MEDS: lisinopriL 10 MG TAB PO SCH (09:06)
[2019-05-17] MEDS: INSULIN GLARGINE SOLOSTAR 100 UNITS/ML 3 ML PEN SC SCH ×2 (09:07→22:43)
[2019-05-17] MEDS: INSULIN ASPART 100 UNITS/ML 3 ML PEN SC SCH ×4 (09:08→22:43)
--- NOTE | 2019-05-17 16:12 | Cardiology Progress Note ---
Date of Service May 17, 2019 Assessment & Plan (1) Acute diastolic CHF (congestive heart failure): She does seem to be responding to volume unloading, in the absence of hypotension or azotemia would continue current regimen. Upon discharge, would utilize sliding scale diuretic based on weight and have her follow-up in heart failure clinic. . (2) Acute bronchospasm: Markedly improved today. (3) Mixed restrictive and obstructive lung disease: (4) Severe left ventricular hypertrophy: As previously noted, suspect severe LVH rather than hypertrophic cardiomyopathy. No evidence of obstructive phenomenon. (5) Hypertension: BP improving with volume unloading. Admission and Anticipated Discharge Date Admission Date: May 14, 2019 Subjective Patient slept much better last night, sat upright (as she does habitually) but had no paroxysmal nocturnal dyspnea. No chest pain, palpitations, or lightheadedness. States that her breathing is significantly improved today. Weight down 3 pounds further. BP still mildly hypertensive but improving, heart rate 60-80 bpm, respirations 1820/minute. Physical Exam Physical Exam: Appears more comfortable today. Vitals as noted in HPI. Skin: No ecchymoses or generalized lesions. HEENT: Unremarkable. Neck: Jugular venous pulse improved, only chcf to the angle of the jaw at 90 degrees. No carotid bruits. Lungs: Decreased breath sounds but fairly clear on quiet respiration, wheezing again noted on forced exhalation. No obvious crackles. No nasal flaring, intercostal retraction, or abdominal paradox. Cardiac: Regular rhythm with increased pulmonic component to S2, 2/6 left upper sternal border systolic murmur which is nonradiating. No diastolic murmur or S3 gallop. Abdomen: Soft and nontender. Extremities: 1+ partially pitting pretibial edema. Peripheral pulses intact. Neurologic: Normal affect, grossly nonfocal. PG Care Time/CCT Total # of Minutes Spent Total Time Spent with Patient: Total time spent is greater than 50% in coordination of care (as documented) at patient's floor/unit and/or counseling patient: Coding Level of Care Code 22772 Subseq Hosp Care Lvl 3 Diagnoses Acute diastolic CHF (congestive heart failure) I50.31 Acute bronchospasm J98.01 Mixed restrictive and obstructive lung disease J43.9; J98.4 Severe left ventricular hypertrophy I51.7 Hypertension I10 Hypertension type: essential hypertension (1) Hypertension Hypertension type: essential hypertension Qualified Code(s): I10 - Essential (primary) hypertension
--- NOTE | 2019-05-17 19:40 | Hospitalist Progress Note ---
Date of Service May 17, 2019 Assessment & Plan (1) Acute right ventricular heart failure: improving with intact BUN and Cr. continue lasix 20mg IV BID. daily BMP; daily weight. appreciate cardiology consultation. Blood pressure control much improved. Cor pulmonale - 2nd to significant COPD? 2nd to untreated KIEL? both? needs formal sleep study as outpatient. (2) Acute diastolic CHF (congestive heart failure): see above in RV CHF improving cont lasix BMP am (3) Mixed restrictive and obstructive lung disease: COPD with exacerbation long-standing smoker cont duonebs q6h mucinex BID cont solumedrol but lower dose to 40mg IV q12h (4) Tobacco abuse: patient stated today that "she has quit!" I congratulated her (5) Snoring: formal sleep study needed consider overnight oximetry study prior to d/c (6) COPD (chronic obstructive pulmonary disease): see above in "mixed restrictive/obstruction..." with exacerbation cont inhalers pulmonary toilet nebs IV steroids as above (7) Asymmetric septal hypertrophy: prior concern about hypertrophic cardiomyopathy (8) Hypertension: cont cardizem 180mg daily cont lisinopril 10mg daily BPs improved (9) Type 2 diabetes mellitus: uncontrolled 2nd steroids increase lantus titrate novolog coverage (10) Morbid obesity: BMI 52 (11) DVT prophylaxis: heparin 5000 TID progressing nicely Admission and Anticipated Discharge Date Admission Date: May 14, 2019 Anticipated date of discharge: 05/19/19 Subjective "I feel so much better" orthopnea improved cough/wheezing improved DAVIS also better eating fine tele normal she is pleased by her forward progress Review of Systems Constitutional: no fever Respiratory: + wheezing; no hemoptysis Cardiovascular: + edema (but improving ); no chest pain, no orthopnea and no paroxysmal nocturnal dyspnea Gastrointestinal: no abdominal pain Physical Exam Constitutional: + morbidly obese; no acute distress and no altered mental status ENMT: external ear and nose normal, oropharynx normal Respiratory: no respiratory distress Auscultation: + crackles (minimal bases ) and + wheezes (much improved today ) Cardiovascular: Rate/Rhythm: regular rate and regular rhythm Heart Sounds: normal S1 and normal S2; no murmur Vessels: posterior tibial pulses present and dorsalis pedis pulses present; no JVD Extremities: + edema (trace R; <1+ L ) Gastrointestinal (Abdomen): normal bowel sounds, soft, nontender, no hepatosplenomegaly Psychiatric: A+Ox3, euthymic affect Results & Data ([facility]) Vital Signs (Past 12 Hours) Vital Signs Temp Pulse Pulse Pulse Resp BP Pulse Ox 05/17/19 19:16 80 16 95 05/17/19 16:29 71 05/17/19 15:16 79 20 96 05/17/19 15:14 36.7 C 64 20 146/73 H 94 05/17/19 11:23 36.7 C 82 18 131/66 94 05/17/19 10:53 20 93 05/17/19 08:00 75 Laboratory Results Laboratory Results - last 24 hr 05/16/19 05/17/19 05/17/19 20:24 05:24 05:24 WBC 13.77 H RBC 5.60 H Hgb 14.7 Hct 46.9 MCV 83.8 MCH 26.3 MCHC 31.3 L RDW Std Deviation 52.1 H RDW Coeff of Hiral 16.8 H Plt Count 385 MPV 10.5 H Sodium 136 Potassium 4.8 D Chloride 101 Carbon Dioxide 33 H Anion Gap 2.0 L BUN 14 D Creatinine 0.79 Est Cr Clr Drug Dosing 91.8 Est GFR ( Amer) 94.3 Est GFR (Non-Af Amer) 81.4 BUN/Creatinine Ratio 17.4 Glucose 189 H POC Glucose 214 H Calcium 9.9 Total Bilirubin 0.5 AST 10 L ALT 16 Alkaline Phosphatase 118 H Total Protein 8.4 H Albumin 3.2 L Globulin 5.2 H Albumin/Globulin Ratio 0.6 L 05/17/19 05/17/19 05/17/19 07:46 11:36 17:07 WBC RBC Hgb Hct MCV MCH MCHC RDW Std Deviation RDW Coeff of Hiral Plt Count MPV Sodium Potassium Chloride Carbon Dioxide Anion Gap BUN Creatinine Est Cr Clr Drug Dosing Est GFR ( Amer) Est GFR (Non-Af Amer) BUN/Creatinine Ratio Glucose POC Glucose 160 H 244 H 168 H Calcium Total Bilirubin AST ALT Alkaline Phosphatase Total Protein Albumin Globulin Albumin/Globulin Ratio PG Care Time/CCT Total # of Minutes Spent Total Time Spent with Patient: Total time spent is greater than 50% in coordination of care (as documented) at patient's floor/unit and/or counseling patient: Coding Level of Care Code 90091 Subseq Hosp Care Lvl 2 Diagnoses Acute right ventricular heart failure I50.811 Acute diastolic CHF (congestive heart failure) I50.31 Mixed restrictive and obstructive lung disease J43.9; J98.4 Tobacco abuse Z72.0 Snoring R06.83 COPD (chronic obstructive pulmonary disease) J44.9 COPD type: unspecified COPD Asymmetric septal hypertrophy I42.2 Hypertension I10 Hypertension type: essential hypertension Type 2 diabetes mellitus E11.9 Morbid obesity E66.01 DVT prophylaxis Z29.9 (1) COPD (chronic obstructive pulmonary disease) COPD type: unspecified COPD Qualified Code(s): J44.9 - Chronic obstructive pulmonary disease, unspecified (2) Hypertension Hypertension type: essential hypertension Qualified Code(s): I10 - Essential (primary) hypertension
[2019-05-17] MEDS: methylPREDNISolone 40 MG in SYRINGE 0 ML IV SCH (22:40)
[2019-05-17] MEDS: TRAZODONE HCL 50 MG TAB PO SCH (22:41)
[2019-05-18 06:23] LABS: BUN Creatinine Ratio 22.9 (10-20); Calcium 9.9 mg/dl (8.5-10.1); Est GFR (African American) 86.3; Est GFR (Non-African American) 74.5; Magnesium 2.6 mg/dl (1.8-2.4); Potassium 5.3 mmol/L (3.5-5.1)
[2019-05-18] MEDS: HEPARIN SOD 5,000 UNIT/0.5 ML VIAL SQ SCH ×3 (06:38→22:05)
[2019-05-18] MEDS: ALBUT/IPRATROP 3MG/0.5MG NEB 3 ML VIAL NEB SCH ×4 (07:33→19:54)
[2019-05-18] MEDS: INSULIN ASPART 100 UNITS/ML 3 ML PEN SC SCH ×4 (09:40→22:05)
[2019-05-18] MEDS: INSULIN GLARGINE SOLOSTAR 100 UNITS/ML 3 ML PEN SC SCH ×2 (11:12→21:59)
[2019-05-18] MEDS: dilTIAZem HCL 180 MG CAPCR PO SCH (11:13)
[2019-05-18] MEDS: guaiFENesin 600 MG TABCR PO SCH ×2 (11:13→22:01)
[2019-05-18] MEDS: lisinopriL 10 MG TAB PO SCH (11:13)
[2019-05-18] MEDS: FUROSEMIDE 20 MG in SYRINGE 0 ML IV SCH ×2 (11:14→18:00)
[2019-05-18] MEDS: UMECLIDINIUM BROMIDE 62.5MCG/BLISTER 7 PUFFS/INHALER INH SCH (11:14)
[2019-05-18] MEDS: GABAPENTIN 800 MG TAB PO SCH ×3 (11:14→22:03)
[2019-05-18] MEDS: methylPREDNISolone 40 MG in SYRINGE 0 ML IV SCH (11:14)
--- NOTE | 2019-05-18 11:19 | Hospitalist Progress Note ---
Date of Service May 18, 2019 Assessment & Plan (1) Acute right ventricular heart failure: continues to improve. BUN/Cr largely unchanged. continue lasix 20mg IV BID. suspect we are approaching euvolemia and can transition to PO lasix tomorrow, perhaps on prn basis as recommended by Dr Grissom. daily BMP; daily weight. appreciate cardiology consultation. Blood pressure control much improved. Cor pulmonale - 2nd to significant COPD? 2nd to untreated KIEL? both? needs formal sleep study as outpatient. (2) Acute diastolic CHF (congestive heart failure): see above in RV CHF improving cont lasix IV until tomorrow then reassess for ongoing diuresis BMP am (3) Hypercarbia: 2nd to COPD/untreated (suspected) KIEL. BIPAP for naps/HS use. Will attempt to qualify her for home BIPAP with overnight oximetry study and AM ABG. Patient is on trazodone/gabapentin chronically - these can sedate - but again has been on them chronically. 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 long-standing smoker cont duonebs q6h mucinex BID cont solumedrol but lower dose to 30mg IV q12h; suspect we can transition to PO prednisone on Sunday (5) Tobacco abuse: patient vowed to remain smoke-free post-discharge (6) Snoring: formal sleep study needed however, in light of hypercarbia on VBG in setting of severe COPD will attempt to qualify her for BIPAP perform overnight oximetry study tonight ABG in am (7) COPD (chronic obstructive pulmonary disease): see above in "mixed restrictive/obstruction..." with exacerbation cont inhalers pulmonary toilet nebs IV steroids as above wean again today (8) Asymmetric septal hypertrophy: prior concern about hypertrophic cardiomyopathy (9) Hypertension: cont cardizem 180mg daily cont lisinopril 10mg daily BPs improved (10) Type 2 diabetes mellitus: control improved with lantus/novolog adjustments (11) Morbid obesity: BMI 52 (12) DVT prophylaxis: heparin 5000 TID progressing nicely home tomorrow if felt to be euvolemic?? Admission and Anticipated Discharge Date Admission Date: May 14, 2019 Anticipated date of discharge: 05/19/19 Subjective patient quite sleepy today. staff report she was up until 3am talking on the phone. I was able to arouse her and she could answer all questions. she said "I'm feeling so much better". orthopnea markedly improved. following my visit I ordered VBG - this showed mild resp acidosis / hypercarbia. BIPAP ordered. she wore it most of the afternoon. I went and visited her at 7pm tonight - she was awake, alert, oriented at baseline. she tolerated the BIPAP w/o difficulty. she again reiterated how good she is feeling. Review of Systems Constitutional: no fever and no chills Respiratory: + cough and + wheezing; no hemoptysis and no sputum production Cardiovascular: no chest pain Gastrointestinal: no abdominal pain, no nausea and no vomiting Physical Exam Constitutional: + morbidly obese; no acute distress sleepy, but oriented x 3 ENMT: external ear and nose normal, oropharynx normal Respiratory: no respiratory distress Auscultation: + crackles (minimal bases ) and + wheezes (again improved today ) Cardiovascular: Rate/Rhythm: regular rate and regular rhythm Heart Sounds: normal S1 and normal S2; no murmur Vessels: posterior tibial pulses present and dorsalis pedis pulses present; no JVD Extremities: no edema Gastrointestinal (Abdomen): normal bowel sounds, soft, nontender, no hepatosplenomegaly Psychiatric: A+Ox3, euthymic affect Results & Data ([facility]) Vital Signs (Past 12 Hours) Vital Signs Temp Pulse Pulse Resp BP BP Pulse Ox 05/18/19 11:06 74 20 190/83 H 91 05/18/19 07:45 37.0 C 69 20 161/83 H 91 05/18/19 07:36 67 18 98 05/18/19 07:27 75 05/18/19 04:00 37.1 C 74 20 160/83 H 92 Laboratory Results Laboratory Results - last 24 hr 05/17/19 05/17/19 05/17/19 11:36 17:07 20:18 Sodium Potassium Chloride Carbon Dioxide Anion Gap BUN Creatinine Est Cr Clr Drug Dosing Est GFR ( Amer) Est GFR (Non-Af Amer) BUN/Creatinine Ratio Glucose POC Glucose 244 H 168 H 159 H Calcium Magnesium 05/18/19 05/18/19 05/18/19 05:37 07:42 11:12 Sodium 134 L Potassium 5.3 H Chloride 101 Carbon Dioxide 33 H Anion Gap 0 L BUN 20 H Creatinine 0.85 Est Cr Clr Drug Dosing 85.0 Est GFR ( Amer) 86.3 Est GFR (Non-Af Amer) 74.5 BUN/Creatinine Ratio 22.9 H Glucose 186 H POC Glucose 158 H 173 H Calcium 9.9 Magnesium 2.6 H PG Care Time/CCT Total # of Minutes Spent Total Time Spent with Patient: Total time spent is greater than 50% in coordination of care (as documented) at patient's floor/unit and/or counseling patient: Coding Level of Care Code 47747 Subseq Hosp Care Lvl 3 Diagnoses Acute right ventricular heart failure I50.811 Acute diastolic CHF (congestive heart failure) I50.31 Hypercarbia R06.89 Mixed restrictive and obstructive lung disease J43.9; J98.4 Tobacco abuse Z72.0 Snoring R06.83 COPD (chronic obstructive pulmonary disease) J44.9 COPD type: unspecified COPD Asymmetric septal hypertrophy I42.2 Hypertension I10 Hypertension type: essential hypertension Type 2 diabetes mellitus E11.9 Morbid obesity E66.01 DVT prophylaxis Z29.9 (1) COPD (chronic obstructive pulmonary disease) COPD type: unspecified COPD Qualified Code(s): J44.9 - Chronic obstructive pulmonary disease, unspecified (2) Hypertension Hypertension type: essential hypertension Qualified Code(s): I10 - Essential (primary) hypertension
[2019-05-18 13:04] LABS: BUN Creatinine Ratio 23.4 (10-20); Calcium 9.7 mg/dl (8.5-10.1); Creatinine Clr Calc Pharmacy 83.1 ml/min; Est GFR (African American) 83.9; Est GFR (Non-African American) 72.4; Potassium 4.8 mmol/L (3.5-5.1)
[2019-05-18 13:18] LABS: Base Excess VBG 8.7 mEq/L; HCO3 VBG 38 mmol/L; Oxygen Saturation VBG < 60.0 %; PCO2 VBG 75 mmHg (38-50); PO2 VBG 30 mmHg; pH VBG 7.32 (7.36-7.41)
--- NOTE | 2019-05-18 18:56 | Cardiology Progress Note ---
Date of Service May 18, 2019 Assessment & Plan (1) Acute diastolic CHF (congestive heart failure): Continued clinical improvement, approaching euvolemia, in the absence of hypotension or azotemia would continue current regimen. Upon discharge, would utilize sliding scale diuretic based on weight and have her follow-up in heart failure clinic. . (2) Acute bronchospasm: Resolved. (3) Mixed restrictive and obstructive lung disease: (4) Severe left ventricular hypertrophy: As previously noted, suspect severe LVH rather than hypertrophic cardiomyopathy. No evidence of obstructive phenomenon. Defer further evaluation to her primary roof fixer, Dr. Antoine. (5) Hypertension: BP still elevated despite volume unloading, consider increasing lisinopril from 10 mg daily to 20 mg daily. Admission and Anticipated Discharge Date Admission Date: May 14, 2019 Anticipated date of discharge: 05/19/19 Subjective Patient feeling significantly better, slept well. Walking short distances without dyspnea. No dyspnea at rest. No chest pain. Input/output negative 2 L but weight up 2 lb. Still hypertensive. Telemetry benign. Physical Exam Physical Exam: Appears comfortable today. Skin: No ecchymoses or generalized lesions. HEENT: Unremarkable. Neck: Jugular venous pulse improved, only 1[address] the angle of the jaw at 90 degrees. No carotid bruits. Lungs: Mildly decreased breath sounds, clear. No obvious crackles. No nasal flaring, intercostal retraction, or abdominal paradox. Cardiac: Regular rhythm with increased pulmonic component to S2, 2/6 left upper sternal border systolic murmur which is nonradiating. No diastolic murmur or S3 gallop. Abdomen: Soft and nontender. Extremities: Trace partially pitting pretibial edema. Peripheral pulses intact. Neurologic: Normal affect, grossly nonfocal. Results & Data ([facility]) Vital Signs (Past 12 Hours) Vital Signs Temp Pulse Pulse Resp BP BP Pulse Ox 05/18/19 16:36 81 05/18/19 15:21 80 20 149/78 H 91 05/18/19 14:57 20 91 05/18/19 11:36 84 19 97 05/18/19 11:06 74 20 190/83 H 91 05/18/19 07:45 98.6 F 69 20 161/83 H 91 05/18/19 07:36 67 18 98 05/18/19 07:27 75 PG Care Time/CCT Total # of Minutes Spent Total Time Spent with Patient: Total time spent is greater than 50% in coordination of care (as documented) at patient's floor/unit and/or counseling patient: Coding Level of Care Code 20814 Subseq Hosp Care Lvl 3 Diagnoses Acute diastolic CHF (congestive heart failure) I50.31 Acute bronchospasm J98.01 Mixed restrictive and obstructive lung disease J43.9; J98.4 Severe left ventricular hypertrophy I51.7 Hypertension I10 Hypertension type: essential hypertension (1) Hypertension Hypertension type: essential hypertension Qualified Code(s): I10 - Essential (primary) hypertension
[2019-05-18] MEDS: TRAZODONE HCL 50 MG TAB PO SCH (21:58)
[2019-05-18] MEDS: methylPREDNISolone 30 MG in SYRINGE 0 ML IV SCH (22:08)
[2019-05-19] MEDS: HEPARIN SOD 5,000 UNIT/0.5 ML VIAL SQ SCH ×2 (06:52→12:49)
[2019-05-19] MEDS: ALBUT/IPRATROP 3MG/0.5MG NEB 3 ML VIAL NEB SCH ×3 (07:03→15:09)
[2019-05-19 07:23] LABS: Base Excess ABG 7.8 mEq/L (-9-1.8); HCO3 ABG 36 mmol/L (19-24); Oxygen Saturation ABG 93.4 % (90-95); PCO2 ABG 65 mmHg (35-46); PO2 ABG 68 mmHg (80-95); pH ABG 7.36 (7.35-7.45)
[2019-05-19 07:30] LABS: Allen Test Pos (Pos)
[2019-05-19 07:46] LABS: BUN Creatinine Ratio 27.5 (10-20); Calcium 10.1 mg/dl (8.5-10.1); Creatinine Clr Calc Pharmacy 84.5 ml/min; Est GFR (African American) 85.1; Est GFR (Non-African American) 73.4; Potassium 4.6 mmol/L (3.5-5.1)
[2019-05-19] MEDS: FUROSEMIDE 20 MG in SYRINGE 0 ML IV SCH (08:08)
[2019-05-19] MEDS: lisinopriL 10 MG TAB PO SCH (08:08)
[2019-05-19] MEDS: dilTIAZem HCL 180 MG CAPCR PO SCH (08:08)
[2019-05-19] MEDS: UMECLIDINIUM BROMIDE 62.5MCG/BLISTER 7 PUFFS/INHALER INH SCH (08:08)
[2019-05-19] MEDS: methylPREDNISolone 30 MG in SYRINGE 0 ML IV SCH (08:08)
[2019-05-19] MEDS: GABAPENTIN 800 MG TAB PO SCH ×2 (08:08→12:49)
[2019-05-19] MEDS: INSULIN ASPART 100 UNITS/ML 3 ML PEN SC SCH ×2 (08:09→12:48)
[2019-05-19] MEDS: INSULIN GLARGINE SOLOSTAR 100 UNITS/ML 3 ML PEN SC SCH (08:10)
[2019-05-19] MEDS: guaiFENesin 600 MG TABCR PO SCH (08:11)
--- NOTE | 2019-05-19 11:17 | Cardiology Progress Note ---
Date of Service May 19, 2019 Assessment & Plan (1) Acute diastolic CHF (congestive heart failure): Approaching euvolemic volume status, since she is breathing well could use her current weight as a target for sliding scale diuretic use as outpatient. Discharge on furosemide 40 mg daily, Melody Stewart PA-C will be in touch with the patient for daily further sliding scale adjustments based on the patient's weight. . (2) Acute bronchospasm: Resolved. (3) Mixed restrictive and obstructive lung disease: (4) Severe left ventricular hypertrophy: (5) Hypertension: Admission and Anticipated Discharge Date Admission Date: May 14, 2019 Anticipated date of discharge: 05/19/19 Subjective Doing well, breathing better than at any time since admission. She will go home on supplemental oxygen with BiPAP. Input/output is negative by 1600 cc. Weight down 5 pounds further (down about 12 pounds from admission). BP normal to mildly hypertensive, heart rate appropriate. Patient was comfortable with no complaint. Physical Exam Physical Exam: Appears comfortable today. Skin: No ecchymoses or generalized lesions. HEENT: Unremarkable. Neck: Jugular venous pulse improved, less than 1/[address] to the angle of the jaw at 90 degrees. No carotid bruits. Lungs: Mildly decreased breath sounds, clear. No obvious crackles. No nasal flaring, intercostal retraction, or abdominal paradox. Cardiac: Regular rhythm with increased pulmonic component to S2, 2/6 left upper sternal border systolic murmur which is nonradiating. No diastolic murmur or S3 gallop. Abdomen: Soft and nontender. Extremities: Trace partially pitting pretibial edema. Peripheral pulses intact. Neurologic: Normal affect, grossly nonfocal. Results & Data ([facility]) Laboratory Results 05/19/19 07:10 BUN 24 H Creatinine 0.86 PG Care Time/CCT Total # of Minutes Spent Total Time Spent with Patient: Total time spent is greater than 50% in coordination of care (as documented) at patient's floor/unit and/or counseling patient: Coding Level of Care Code 61569 Subseq Hosp Care Lvl 3 Diagnoses Acute diastolic CHF (congestive heart failure) I50.31 Acute bronchospasm J98.01 Mixed restrictive and obstructive lung disease J43.9; J98.4 Severe left ventricular hypertrophy I51.7 Hypertension I10 Hypertension type: essential hypertension (1) Hypertension Hypertension type: essential hypertension Qualified Code(s): I10 - Essential (primary) hypertension
--- NOTE | 2019-05-19 14:19 | Heart Failure Progress Note ---
Date of Service May 19, 2019 Assessment & Plan (1) Acute diastolic CHF (congestive heart failure): Patient as been referred to the [facility] heart failure program for more intense volume management and counseling. She was evaluated today for discharge planning. She will be discharged on Lasix [address] Grissom's recommendations. She was instructed to begin consistent, daily standing weights at home. She should notify the heart failure program of 2+ lb weight gain overnight or 5+ lb in 1 week. She should follow a low sodium diet, less than 2,000 mg daily. She should notify the heart failure program of any worsening symptoms. Follow up with the heart failure program has been arranged for 05/23/19 at 12:00 pm. Subjective Patient is feeling improved today. Her breathing is more consistent with her typical baseline. She denies worsening orthopnea, PND, or edema. She is diuresing adequately on Lasix 20 mg IV BID. She is net negative 6 L. Discharge is anticipated for later today. Results & Data Vital Signs (Past 12 Hours) Vital Signs Temp Pulse Pulse Pulse Pulse Pulse Resp 05/19/19 11:28 98.1 F 62 20 05/19/19 11:07 90 94 H 75 05/19/19 11:05 86 18 05/19/19 08:00 75 05/19/19 07:34 98.4 F 66 16 05/19/19 07:24 70 18 05/19/19 07:03 85 18 05/19/19 05:13 76 05/19/19 04:00 98.4 F 05/19/19 03:51 74 Resp Resp Resp BP BP Pulse Ox Pulse Ox 05/19/19 11:28 136/85 98 05/19/19 11:07 21 19 16 89 L 05/19/19 11:05 97 05/19/19 08:00 05/19/19 07:34 121/77 95 05/19/19 07:24 92 05/19/19 07:03 91 05/19/19 05:13 05/19/19 04:00 168/93 H 05/19/19 03:51 Pulse Ox Pulse Ox 05/19/19 11:28 05/19/19 11:07 98 96 05/19/19 11:05 05/19/19 08:00 05/19/19 07:34 05/19/19 07:24 05/19/19 07:03 05/19/19 05:13 91 05/19/19 04:00 05/19/19 03:51 95 PG Care Time/CCT Total # of Minutes Spent Total Time Spent with Patient: Total time spent is greater than 50% in coordination of care (as documented) at patient's floor/unit and/or counseling patient: Coding Level of Care Code None Diagnoses Acute diastolic CHF (congestive heart failure) I50.31
--- NOTE | 2019-05-19 15:20 | Discharge Summary ---
Date of Service May 19, 2019 Admission HPI Per Admitting Provider This is a 58 yo F with PMHx of DM2 w/ neuropathy, HTN, HLD, osteoarthritis, COPD, morbid obesity, tobacco abuse who presents with increased edema in bilateral LE, specifically the left, and shortness of breath. The patient was recently admitted at the end of March for suspected CHF exacerbation but then turned out to be COPD exacerbation. At that point in time she was placed on oral Lasix. She reports that she has gained approximately 10 pounds within the last 2 days as she has been weighing herself daily.She reports a low salt diet however admits to large amounts of snacking. She has not been limiting her fluid intake at all. She reports that she was unable to take 10 steps today without becoming significantly winded. She used a nebulizer once getting to the ER however provided minimal symptom relief. She took all her morning antihypertensives including Lasix 20 mg p.o. Patient has followed with Dr. Antoine as an outpatient with work-up for possible hypertrophic cardiomyopathy. She has also in the process of getting supplemental O2 at home by her PCP. She recently has seen Dr. Conley and a sleep study has been ordered however not completed yet. Principal Diagnosis Acute on chronic right sided and diastolic heart failure Discharge Exam Constitutional WD/WN, vitals as above + overweight Eyes PERRL, conjunctivae normal, anicteric sclerae ENMT external ear and nose normal, oropharynx normal Neck trachea midline, no thyromegaly Respiratory normal respiratory effort, lungs clear to auscultation Cardiovascular RRR, no murmur, no edema Gastrointestinal (Abdomen) normal bowel sounds, soft, nontender, no hepatosplenomegaly Musculoskeletal no cyanosis or clubbing, extremities motor strength 5/5 Skin no rashes, warm and dry Neurologic patellar DTR's 2+ bilat, sensation intact and PERRL, EOMI, accommodation nl, no face palsy, no dysarthria Psychiatric A+Ox3, euthymic affect Lymphatic no cervical or axillary lymphadenopathy Discharge Data Allergies Allergy/AdvReac Type Severity Reaction Status Date / Time No Known Allergies Allergy Verified 05/14/19 19:37 Consultations 05/14/19 17:44 ED Decision to Admit Stat 05/14/19 20:12 Consult Cardiology Routine Consult Case Management - Discharge Planning Routine Ordered Studies 05/14/19 15:22 US venous doppler LE LT Stat 05/14/19 15:23 CT angio chest PE protocol Stat Hospital Course (1) Acute right ventricular heart failure: markedly improved with diuresis BUN/Cr largely unchanged. treated with lasix 20mg IV BID for several days (home dose was Lasix 20mg PO d aily) approaching euvolemia and can transition to PO lasix on discharge will d/c home on Lasix 40mg PO daily weight is down 13lb, negative 6.5 liters provided with detailed CHF instructions, asked her to weigh herself daily close follow up arranged with heart failure clinic Cor pulmonale - 2nd to significant COPD? 2nd to untreated KIEL? both? needs formal sleep study as outpatient. (2) Acute diastolic CHF (congestive heart failure): see above in RV CHF much improved, close to euvolemic d/c home on Lasix 40mg PO daily blood pressure control CHF clinic follow up (3) Hypercarbia: 2nd to COPD/untreated (suspected) KIEL. BIPAP for naps/HS use. Will attempt to qualify her for home BIPAP with overnight oximetry study and AM ABG. unfortunately she did not qualify based on her numbers Patient is on trazodone/gabapentin chronically - these can sedate - but again has been on them chronically. should have dedicated sleep study as outpatient 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 long-standing smoker cont duonebs q6h mucinex BID treated with solumedrol, minimal wheezing, no distress change to Prednisone 30mg, quick taper over 6 days follow up arranged with the COPD clinic needs PFT, sleep study (5) Tobacco abuse: patient vowed to remain smoke-free post-discharge (6) Snoring: formal sleep study needed perform overnight oximetry study tonight ABG in am did not qualify for home BIPAP at this time (7) COPD (chronic obstructive pulmonary disease): see above in "mixed restrictive/obstruction..." with exacerbation cont inhalers pulmonary toilet nebs Prednisone on discharge (8) Asymmetric septal hypertrophy: prior concern about hypertrophic cardiomyopathy (9) Hypertension: cont cardizem 180mg daily (increased dose) cont lisinopril 10mg daily BPs improved (10) Type 2 diabetes mellitus: control improved with lantus/novolog adjustments (11) Morbid obesity: BMI 52 Total Time Total Time Spent Total Time Spent (In Minutes): 36 minutes Total Time Includes: Examination of the Patient, Discharge Planning, Medication Reconciliation and Communication With Other Providers (Dr. Grissom) Discharge Plan Discharge Items Patient Disposition: Home - Home Health Services Reason For Visit: SHORTNESS OF BREATH,EDEMA,R HEART STRAIN Discharge Diagnosis: Acute on chronic right heart failure COPD/restrictive lung disease Acute hypoxic respiratory failure, resolved Condition on Discharge: Good Goals: control heart failure by checking weight EVERY morning follow up closely with Kristi Stewart with the heart failure clinic follow up with the COPD clinic Activity: Resume your previous activity Non-emergency contact: Primary Care Provider and Global Implementation Manager Call non-emergency contact if: you have any medication questions, your symptoms worsen and you have a fever Follow-up/Referrals: Arielle Aguilar MD [Primary Care Provider] - 05/21/19 2:00 pm (WITH RORY FOFANA) Giuliana Chase CRNP [Nurse Practitioner] - 05/27/19 2:00 pm (Please, follow up at [facility] Pulmonology Office with Giuliana FOFANA on SundayMay 26 at 2:00 pm. *The office is located in [address] of [facility], next to [facility]. If you need to change this appointment, call the office at [phone].) Kristi Stewart PA-C [Physician Die Fitter] - 05/23/19 12:00 pm (Please, follow up at the [facility] Cardiology Office with Melody Stewart PA-C on SundayMay 22 at 12:00 noon. *The office is located in [address] of [facility], next to [facility]. If you need to change this appointment, call the office at [phone].) Diet: Carb Consistent or DM2, Heart Healthy and Low Sodium (2gm) Fluids: 1800ml (7 cups) Addtl Attending Provider Instructions: Medications: - FUROSEMIDE: dose increased to 40mg daily from 20mg daily Kristi Stewart will give you further instruction on dosing based on weight - DILTIAZEM: dose increased to 180mg from 120mg, new script provided - MUCINEX: take for 7 more days - PREDNISONE: follow a brief taper, 30mg (three tablets) daily x 2 days, 20mg daily x 2 days and 10mg daily x 2 days then stop Acute on chronic right heart failure, diastolic heart failure improved with Lasix IV, negative 6.5 liters and weight down 13 lbs will continue with increased dose of Lasix 40mg daily on discharge see the CHF instructions below please weigh yourself EVERY morning and record the weight Kristi DUONG will contact you to discuss dosing of Lasix please follow a fluid restriction of 1800mL daily (this is all fluid) please follow a sodium restriction of less than 2gm a day, read food labels closely COPD, restrictive lung disease, bronchospasm you were treated with nebulizers and Solu Medrol IV change to Prednisone on discharge with very quick taper, 6 days follow up arranged with the COPD clinic you did not qualify for home BiPAP at this time but you may need a dedicated sleep study to better determine your nighttime needs Call 911 and go to the Emergency Room if: * You have tightness or pain in your chest that does not go away with rest or Nitroglycerin * You are very short of breath even with rest Call your doctor if any of the following symptoms or problems start or get worse: * Shortness of breath or difficulty breathing * Wake up at night short of breath * Chest pain * Cough * Swelling of your hands, fee, or legs * More fatigued or tired with your normal activity * Palpitations - sudden fast heart beats WEIGHT * Weigh yourself every morning after using the bathroom. * Use the same scale. * Wear the same amount of clothing. * Write your weight down on your chart. * Call your doctor if you gain more than 2-3 pounds in 1-2 days. MEDICATIONS * Use this discharge instruction sheet for instructions. * Take your medications at the time your doctor ordered. * Do not skip a dose of your medicines. * If you miss a dose of medicine, take as soon as possible, but DO NOT DOUBLE A DOSE. * Read your medicine information when you get home. * Know all of the side effects of your medicine. * Call your doctor's office if you have any side effects. * Be sure all of your doctors know what medicine and herbs you take (including cold, flu, and herbal medicine). * Pain Medicine: If you do not get relief from your pain, please call your doctor for help. Take the following with you to your follow-up doctor appointments: * Weight Chart * Medication List * List of questions Do not drink excessive alcohol, beer or wine. Pending Studies at Discharge: No Stand-Alone Forms: [facility] RunAlong, Smoking Cessation Medications and DC Order Prescriptions: New diltiazem HCl 180 mg Capsule,Extended Release 24hr 180 mg PO QAM 30 Days Qty: 30 RF: 1 guaifenesin [Mucinex] 600 mg Tablet Extended Release 12hr 1,200 mg PO Q12 7 Days Qty: 28 RF: 0 furosemide 40 mg tablet 40 mg PO DAILY Qty: 30 RF: 1 prednisone 10 mg tablet 10 mg PO UD 6 Days Qty: 12 RF: 0 Continued trazodone 150 mg tablet 150 mg PO HS Qty: 90 RF: 3 albuterol sulfate [Ventolin HFA] 90 mcg/actuation HFA aerosol inhaler 2 puffs INH Q6H PRN (Reason: shortness of breath or wheezing) Qty: 18 RF: 3 gabapentin 800 mg tablet 800 mg PO TID Qty: 90 RF: 3 Spiriva Respimat 2.5 mcg/actuation mist 2 puffs INH DAILY Qty: 4 RF: 2 metformin 500 mg tablet 500 mg PO QAM RF: 0 lisinopril 10 mg tablet 10 mg PO QAM RF: 0 budesonide-formoterol [Symbicort] 160-4.5 mcg/actuation HFA aerosol inhaler 2 puff inhalation BID PRN (Reason: Shortness Of Breath Or Wheezing) RF: 0 hydroxyzine HCl 25 mg tablet 25 mg PO HS RF: 0 hydrocortisone [Proctosol HC] 2.5 % Cream With Perineal Applicator 1 applic EXT BID Qty: 28 RF: 0 acetaminophen-codeine [Tylenol-Codeine #3] 300-30 mg tablet 1 tab PO TID PRN (Reason: Pain) RF: 0 Discontinued furosemide [Lasix] 20 mg tablet 20 mg PO DAILY Qty: 30 RF: 0 diltiazem HCl [DILT-XR] 120 mg capsule,ext.rel 24h degradable 120 mg PO QAM RF: 0 Discharge Orders: Discharge Order (Routine); Ordered 05/19/19 Ordered By: Juan Manuel Lewis Admission Data Admit Date/Time: 05/14/19 18:25 Attending Provider: Juan Manuel Lewis Admit Provider: Ayana Castillo Primary Care Provider: Arielle Aguilar Other Providers: Ayana Castillo ; Fabricio Martell ; Arthur,Home [facility] Other Interventions: Discharge Summary Assessment (RN) Last Done: 05/19/19 15:28 DC Date/Time DO NOT enter until pt leaves facility: 05/19/19 16:38 Coding Level of Care Code D/C Day Management >30 mins Diagnoses Acute right ventricular heart failure I50.811 Acute diastolic CHF (congestive heart failure) I50.31 Hypercarbia R06.89 Mixed restrictive and obstructive lung disease J43.9; J98.4 Tobacco abuse Z72.0 Snoring R06.83 COPD (chronic obstructive pulmonary disease) J44.9 COPD type: unspecified COPD Asymmetric septal hypertrophy I42.2 Hypertension I10 Hypertension type: essential hypertension Type 2 diabetes mellitus E11.9 Morbid obesity E66.01
== END 2019-05-19 16:38 | disposition home health service (06) | DRG 292 ==
LOC: ED 14:54 → 2N 18:25 → SUATTDRO 18:25 → 2N 20:11

== ENCOUNTER 2021-10-26 05:13 | Observation (INO) ==
--- NOTE | 2021-09-26 09:39 | PAT Medication Instructions ---
Medication Instructions Date of Service September 26, 2021 Home Medications Medication Instructions Recorded albuterol sulfate 90 mcg/actuation 2 puffs inhalation Q6H PRN 08/27/19 aerosol inhaler (Ventolin HFA) shortness of breath or wheezing #18 grams Oxygen Home #1 ea 08/28/19 nebulizers (Compact Compressor #1 ea 08/28/19 Nebulizer) Miscellaneous Pulmonary Supply #1 ea 09/01/19 CPAP Machine #1 ea 10/09/19 Portable Oxygen #1 ea 10/14/19 trazodone 150 mg tablet 150 mg PO HS #90 tabs 12/09/20 nystatin 100,000 unit/gram topical 1 applic topical BID #60 grams 02/10/21 powder metformin 1,000 mg tablet 1,000 mg PO BID #180 tabs 02/16/21 gabapentin 800 mg tablet 800 mg PO TID #90 tabs 02/21/21 Wheeled Walker #1 ea 03/17/21 nicotine 21 mg/24 hr daily 1 patch transdermal DAILY #28 ea 03/30/21 transdermal patch acetaminophen 300 mg-codeine 30 mg 1 tab PO TID PRN Pain #120 tabs 04/28/21 tablet hydroxyzine pamoate 100 mg capsule 100 mg PO HS #60 caps 06/06/21 bupropion HCl 150 mg 24 hr tablet, 150 mg PO QAM #90 tabs 07/15/21 extended release clindamycin phosphate 1 % topical 1 applic topical BID #30 grams 07/27/21 gel doxycycline hyclate 100 mg capsule 100 mg PO BID #14 caps 07/27/21 cyclobenzaprine 10 mg tablet 10 mg PO TID PRN muscle spasm #90 08/17/21 tabs 3-in-1 Commode #1 ea 09/01/21 Wheeled Walker #1 ea 09/01/21 3-in-1 Commode #1 ea 09/08/21 Wheeled Walker #1 ea 09/08/21 hydrocortisone acetate 25 mg 25 mg ND BID 2 weeks #12 ea 09/25/21 rectal suppository (Anusol-HC) albuterol sulfate 90 mcg/actuation aerosol inhaler (Ventolin HFA) 2 puffs inhalation Q6H PRN Oxygen Home nebulizers (Compact Compressor Nebulizer) Miscellaneous Pulmonary Supply CPAP Machine Portable Oxygen trazodone 150 mg tablet 150 mg PO HS nystatin 100,000 unit/gram topical powder 1 applic topical BID metformin 1,000 mg tablet 1,000 mg PO BID gabapentin 800 mg tablet 800 mg PO TID Wheeled Walker nicotine 21 mg/24 hr daily transdermal patch 1 patch transdermal DAILY acetaminophen 300 mg-codeine 30 mg tablet 1 tab PO TID PRN hydroxyzine pamoate 100 mg capsule 100 mg PO HS bupropion HCl 150 mg 24 hr tablet, extended release 150 mg PO QAM clindamycin phosphate 1 % topical gel 1 applic topical BID doxycycline hyclate 100 mg capsule 100 mg PO BID cyclobenzaprine 10 mg tablet 10 mg PO TID PRN 3-in-1 Commode Wheeled Walker 3-in-1 Commode Wheeled Walker hydrocortisone acetate 25 mg rectal suppository (Anusol-HC) 25 mg ND BID amlodipine 5 mg tablet 5 mg PO QAM fluoxetine 10 mg tablet 10 mg PO QAM furosemide 20 mg tablet (Lasix) 20 mg PO UD PRN ipratropium 0.5 mg-albuterol 3 mg (2.5 mg base)/3 mL nebulization soln 3 ml inhalation UD PRN lorazepam 0.5 mg tablet 0.5 - 1 mg PO UD PRN meloxicam 7.5 mg tablet 7.5 - 15 mg PO UD PRN miconazole nitrate 2 % topical powder 1 applic topical UD PRN Continue as directed doxycycline hyclate 100 mg capsule 100 mg PO BID ASK your surgeon for instructions meloxicam 7.5 mg tablet 7.5 - 15 mg PO UD PRN ASK your prescriber and surgeon nicotine 21 mg/24 hr daily transdermal patch 1 patch transdermal DAILY STOP taking 24 hours before surgery nystatin 100,000 unit/gram topical powder 1 applic topical BID clindamycin phosphate 1 % topical gel 1 applic topical BID miconazole nitrate 2 % topical powder 1 applic topical UD PRN DO NOT take the morning of surgery metformin 1,000 mg tablet 1,000 mg PO BID cyclobenzaprine 10 mg tablet 10 mg PO TID PRN hydrocortisone acetate 25 mg rectal suppository (Anusol-HC) 25 mg ND BID furosemide 20 mg tablet (Lasix) 20 mg PO UD PRN Take morning of surgery With a small sip of water, OTHERWISE NOTHING TO EAT OR DRINK AFTER MIDNIGHT: albuterol sulfate 90 mcg/actuation aerosol inhaler (Ventolin HFA) 2 puffs inhalation Q6H PRN(use if needed; please bring with you to hospital day of surgery if possible) gabapentin 800 mg tablet 800 mg PO TID acetaminophen 300 mg-codeine 30 mg tablet 1 tab PO TID PRN(if needed) bupropion HCl 150 mg 24 hr tablet, extended release 150 mg PO QAM amlodipine 5 mg tablet 5 mg PO QAM fluoxetine 10 mg tablet 10 mg PO QAM ipratropium 0.5 mg-albuterol 3 mg (2.5 mg base)/3 mL nebulization soln 3 ml inhalation UD PRN(if needed) lorazepam 0.5 mg tablet 0.5 - 1 mg PO UD PRN(if needed) Take evening before surgery albuterol sulfate 90 mcg/actuation aerosol inhaler (Ventolin HFA) 2 puffs inhalation Q6H PRN(if needed) trazodone 150 mg tablet 150 mg PO HS metformin 1,000 mg tablet 1,000 mg PO BID gabapentin 800 mg tablet 800 mg PO TID acetaminophen 300 mg-codeine 30 mg tablet 1 tab PO TID PRN(if needed) hydroxyzine pamoate 100 mg capsule 100 mg PO HS cyclobenzaprine 10 mg tablet 10 mg PO TID PRN(if needed) hydrocortisone acetate 25 mg rectal suppository (Anusol-HC) 25 mg ND BID Other Notes If you have any questions please call us at [phone] or [phone] or [phone] or [phone]
--- NOTE | 2021-09-29 13:45 | Anesthesiology Consultation ---
Date of Service September 29, 2021 Assessment & Plan (1) Encounter for pre-operative examination: - COVID screening: Per assessment on 09/29: No known COVID-19 positive contacts or current COVID-19 related symptoms. Travel screen- returned from travel 09/25 (Visiting [facility], [place]- Everyone vaccinated. No large groups or gathering). Patient vaccinated. Surgeon arranging preop COVID testing. Awaiting results. - Check BSG AM DOS - Case reviewed with Dr. Knapp. He feels patient acceptable risk to proceed with given surgery without further evaluation and/or testing prior to surgery from this perspective. Chart Review Chart Review: Acceptable Risk for Surgery (pending evaluation AM DOS) and Patient seen in Pre Admission Testing Teaching & Discussion Pre-Anesthesia Teaching/Discussion Notes: Instructed NPO after midnight before surgery,except medications with 15 cc of water. Medication instructions provided according to the PAT guidelines. History Surgery Operation Date: 10/18/21 09:00 Proposed Procedures p Right Total Knee Replacement - Fadi Heath MD Height/Weight Height: 5 ft Weight: 122.7 kg Allergies Allergy/AdvReac Type Severity Reaction Status Date / Time No Known Allergies Allergy Verified 09/26/21 08:27 Medications Home Medications Medication Instructions Recorded Confirmed Last Taken albuterol sulfate 90 mcg/actuation 2 puffs inhalation Q6H PRN 08/27/19 09/26/21 Unknown aerosol inhaler (Ventolin HFA) shortness of breath or wheezing #18 grams Oxygen Home #1 08/28/19 09/01/21 Unknown nebulizers (Compact Compressor #1 08/28/19 09/01/21 Unknown Nebulizer) Miscellaneous Pulmonary Supply #1 09/01/19 09/01/21 Unknown CPAP Machine #1 ea 10/09/19 09/01/21 Unknown Portable Oxygen #1 ea 10/14/19 09/01/21 Unknown trazodone 150 mg tablet 150 mg PO HS #90 tabs 12/09/20 09/26/21 Unknown nystatin 100,000 unit/gram topical 1 applic topical BID #60 grams 02/10/21 09/26/21 Unknown powder metformin 1,000 mg tablet 1,000 mg PO BID #180 tabs 02/16/21 09/26/21 Unknown gabapentin 800 mg tablet 800 mg PO TID #90 tabs 02/21/21 09/26/21 Unknown Wheeled Walker #1 ea 03/17/21 09/01/21 Unknown nicotine 21 mg/24 hr daily 1 patch transdermal DAILY #28 ea 03/30/21 09/26/21 Unknown transdermal patch acetaminophen 300 mg-codeine 30 mg 1 tab PO TID PRN Pain #120 tabs 04/28/21 09/26/21 Unknown tablet hydroxyzine pamoate 100 mg capsule 100 mg PO HS #60 caps 06/06/21 09/26/21 Unknown bupropion HCl 150 mg 24 hr tablet, 150 mg PO QAM #90 tabs 07/15/21 09/26/21 Unknown extended release clindamycin phosphate 1 % topical 1 applic topical BID #30 grams 07/27/21 09/26/21 Unknown gel doxycycline hyclate 100 mg capsule 100 mg PO BID #14 caps 07/27/21 09/26/21 Unknown cyclobenzaprine 10 mg tablet 10 mg PO TID PRN muscle spasm #90 08/17/21 09/26/21 Unknown tabs 3-in-1 Commode #1 ea 09/01/21 09/01/21 Unknown Wheeled Walker #1 ea 09/01/21 09/01/21 Unknown 3-in-1 Commode #1 ea 09/08/21 Unknown Wheeled Walker #1 ea 09/08/21 Unknown hydrocortisone acetate 25 mg 25 mg AR BID 2 weeks #12 ea 09/25/21 09/26/21 Unknown rectal suppository (Anusol-HC) amlodipine 5 mg tablet 5 mg PO QAM 09/26/21 09/26/21 Unknown fluoxetine 10 mg tablet 10 mg PO QAM 09/26/21 09/26/21 Unknown furosemide 20 mg tablet (Lasix) 20 mg PO UD PRN swelling 09/26/21 09/26/21 Unknown ipratropium 0.5 mg-albuterol 3 mg 3 ml inhalation UD PRN Wheezing 09/26/21 09/26/21 Unknown (2.5 mg base)/3 mL nebulization soln lorazepam 0.5 mg tablet 0.5 - 1 mg PO UD PRN anxiety 09/26/21 09/26/21 Unknown meloxicam 7.5 mg tablet 7.5 - 15 mg PO UD PRN pain 09/26/21 09/26/21 Unknown miconazole nitrate 2 % topical 1 applic topical UD PRN breast 07/25/22 07/25/22 Unknown powder fold cysts 3-in-1 Commode #1 ea 09/30/21 Unknown Wheeled Walker #1 ea 09/30/21 Unknown Past Medical History Medical History Chronic diastolic congestive heart failure COPD (chronic obstructive pulmonary disease) Stable Diabetic neuropathy Diverticular disease Hx diverticulitis approximately 2 years ago (tx with abx) Generalized anxiety disorder Glaucoma Hypertension Lower gastrointestinal hemorrhage 2 years ago Mixed restrictive and obstructive lung disease Morbid obesity Nocturnal hypoxemia Rectal bleeding [facility] ED 09/25. Pt reports felt r/t hemorrhoids- now resolved as of PAT visit 09/29/21. Severe obstructive sleep apnea CPAP (compliant) Type 2 diabetes mellitus NIDDM Exercise / Class Metabolic Activity II 4-5 Yardwork/Stairs/Walk up hill (one FS (no CP, no SOB)) Past Family History Family History Mother Family history of diabetes mellitus Arthritis Cancer Other Congestive heart failure FHx: breast cancer FHx: prostate cancer Past Surgical History Surgical History Hx of carpal tunnel repair Right Hx of colonoscopy Hx of foot surgery Left Hx of hernia repair 2015, 2017 Ventral hernia repair (01/10/18): Grade 2 view, MAC#3, ETT 7.5 at [facility]. No issues noted per post-op anesthesia progress note. Hx of tooth extraction Past Anesthesia History No Hx of Anesthesia Complications and No Family Hx of Anesthesia Complications History of PONV No Hx of PONV and No Hx of Motion Sickness Social History Smoking Status: Former smoker tobacco type: cigarettes Smoking cigarettes per day: Quit years ago Do You Dip or Chew Tobacco: No Smoking End Date: Quit years ago Hx Alcohol Use: No Hx Substance Use: No Review of Systems Patient denies chest pain, shortness of breath, dyspnea on exertion, fever, chills, cough, wheezing, palpitations. Physical Exam Vital Signs VITALS BP 163/87 P 84 TEMP 98.6 SP02 95%RA RESP 16 PHYSICAL Full cervical extension range of motion. Full TMJ range of motion. TMD 4 finger breaths Mallampati Score 1 (crowded airway/large tonsils) Dentition: upper/lower full dentures Lungs: clear throughout to auscultation Cardiac: regular rate and rhythm, no murmurs noted Spine: normal Carotid arteries: negative bruit Extremities: no edema Short neck Lab Results Anesthesia Preop Results Results Anesthesia Widget: WBC 8.59 K/ul (4.8-10.8) 09/29/21 Hgb 13.7 g/dl (12.0-16.0) 09/29/21 Hct 42.4 % (34.1-44.9) 09/29/21 Plt 267 K/uL (130-400) 09/29/21 Na 136 mmol/L (136-145) 09/25/21 K 3.8 mmol/L (3.5-5.1) 09/25/21 Cl 98 mmol/L (98-107) 09/25/21 CO2 33 mmol/L (21-32) H 09/25/21 BUN 7 mg/dl (6-23) 09/25/21 Creat 0.63 mg/dl (0.6-1.2) 09/25/21 Glucose Level 157 mg/dl (70-99(Fasting)) H 09/25/21 PT 10.7 Seconds (9.0-12.0) 09/25/21 PTT 27.3 Seconds (21.0-31.0) 09/25/21 INR 1.0 (0.9-1.1) 09/25/21 HA1c 8.8 % (4.5-5.6) H 09/29/21 Blood Type O Positive 09/25/21 Antibody Screen NEGATIVE 09/25/21 Testing Laboratory Results Surgeon's office made aware of elevated hgba1c* Electrocardiogram Date: 09/25/21 Sinus rhythm at 94 bpm. Nonspecific T wave abnormality. No significant change compared to 07/22/2020 per airline pilot flight instructor review. *Poor data quality. Echocardiogram Date: 05/15/19 EF 65-70%. No regional motion abnormality. Mild RVD. Mildly reduced RV systolic function. Mild TR. RVSP elevated at 40-50 mmHg. Severe concentric LVH. Other Testing Chest CT (03/30/21) Interval enlargement of bilateral axillary lymph nodes, of uncertain etiology. Lungs and pleura: A few scattered blebs are seen. There is atelectasis in the lingula. No suspicious pulmonary nodules are seen.
--- NOTE | 2021-10-15 11:24 | History and Physical Report ---
CHIEF COMPLAINT: Bilateral knee pain and discomfort, right side greater than left. HISTORY OF PRESENT ILLNESS: The patient is a 61-year-old female who presents for surgical treatment of her right knee. She has got a 10+ year history of bilateral knee pain and discomfort, right side being a bit worse than the left. We actually scheduled her for surgery in the past, but it was cance led. She has been to various medical managements of her knees without much relief recently. Pain is all the time. The more she is up and on her knees, the more they hurt and the more she limps. She is done with conservative care and would like to consider surgical intervention. PAST MEDICAL HISTORY: Significant for, 1. Sleep apnea with CPAP machine. 2. Asthma. 3. Diabetes x7 years. 4. Hypertension. 5. Obesity with a BMI of 52. PAST SURGICAL HISTORY: Includes, 1. Herniorrhaphy. 2. Left foot surgery. ALLERGIES: None. CURRENT MEDICATIONS: 1. Furosemide. 2. Amlodipine. 3. Meloxicam. 4. Cyclobenzaprine. 5. Gabapentin. 6. Tylenol. 7. Metformin. 8. Trazodone. 9. Hydroxyzine. SOCIAL HISTORY: A 61-year-old female. She is single. She lives with an adult child. Rare alcohol intake. Does not smoke. FAMILY HISTORY: Significant for diabetes. REVIEW OF SYSTEMS: Significant for diabetes. It has been fairly poorly controlled in the past, but she is trying to get this under better control. No chest pain or shortness of breath. No history of DVT or PE. No bleeding problems. PHYSICAL EXAMINATION: GENERAL: Shows a pleasant middle-aged black female. She looks to be in reasonably good health. HEENT: Benign. NECK: Supple. No lymphadenopathy. LUNGS: Clear to auscultation. HEART: Regular rate and rhythm. ABDOMEN: Soft, nontender, nondistended. EXTREMITIES: Grossly neurovascularly intact except as follows: Examination of the right knee reveal ed the patient ambulates with a waddling gait. Examination of the right knee reveals varus alignment to her knee. Moderate soft tissue envelope. She is tender with medial joint line. Range of motion about 5-115. No pain with hip motion. Negative straight leg raise. No instability. X-RAYS: X-rays of the right knee reveal advanced right knee DJD. She has complete loss of her media l joint space. She has a little bit of tibiofemoral subluxation. She has got tricompartment disease . ASSESSMENT: A 61-year-old female with multiple medical problems including obesity, diabetes, sleep a pnea, asthma, and hypertension with bilateral knee degenerative joint disease. She has failed conser vative treatment. She would like to proceed with right knee replacement. She had been scheduled pre viously, but canceled and now would like to proceed. PLAN: We will take her to the operating room and do right total knee replacement. The risks and mimi efits of this procedure were explained to the patient and include, but not limited to, DVT, PE, , infection, neurological injury, vascular injury, bleeding problem, pain, limited range of motion, s tiffness, failure to relieve her symptoms, incomplete relief of symptoms, need for further surgery in the future, etc. The patient understands and desires to proceed. Informed consent was obtained. As far as discharge plans, she is hoping to go to [facility]. She lives by herself with an adult chil d, will need some help. Will likely use oxycodone for pain control. She will bring her CPAP machine to the hospital. Job ID: [id number]
[~2021-10-26 05:13] MED LIST changes: +ACETAMINOPHEN 500 MG TAB PO SCH; -ATOR10TA82 PO; +BUPIVACAINE LIPOSOME/PF 266 MG, BUPIVACAINE/EPINEPHRINE 50 ML, SODIUM CHLORIDE 0.9% 30 ... INFIL SCH; +CeleBREX 200 MG CAP PO SCH; +FAMOTIDINE 20 MG TAB PO SCH; -GABA800T2 PO; -GLC500 PO; -HYDR-3124 PO; -LISI10TA PO; +LR 500ML BOLUS, THEN 15ML/HR IV SCH; +LR 60ML/HR IV SCH; -MORP30TA PO; -OXYC-164 PO; +Scopolamine 1 MG TDSY TD SCH; +Scopolamine CHECK PATCH PLACEMENT SCH; +TRANEXAMIC ACID 1,000 MG **IV Intra-op IV SCH; -TRAV0.00 OPB
[2021-10-26] MEDS ORDERED: ACETAMINOPHEN 500 MG TAB PO SCH (06:00)
[2021-10-26] MEDS ORDERED: LR 500ML BOLUS, THEN 15ML/HR IV SCH (06:00)
[2021-10-26] MEDS ORDERED: FAMOTIDINE 20 MG TAB PO SCH (06:00)
[2021-10-26] MEDS ORDERED: TRANEXAMIC ACID 1,000 MG **IV Intra-op IV SCH (06:00)
[2021-10-26] MEDS ORDERED: CeleBREX 200 MG CAP PO SCH (06:00)
[2021-10-26] MEDS ORDERED: ceFAZolin 2000MG 2,000 MG/15 ML SYR IV SCH (06:00)
[2021-10-26] MEDS ORDERED: BUPIVACAINE LIPOSOME/PF 266 MG, BUPIVACAINE/EPINEPHRINE 50 ML, SODIUM CHLORIDE 0.9% 30 ... INFIL SCH (06:00)
[2021-10-26] MEDS ORDERED: Scopolamine 1 MG TDSY TD SCH (06:00)
[2021-10-26] MEDS ORDERED: LR 60ML/HR IV SCH (06:00)
[2021-10-26] MEDS ORDERED: BUPIVACAINE 0.25% 30 ML VIAL ONE (06:26)
[2021-10-26] MEDS ORDERED: BUPIVACAINE 0.5 % 5 MG/1 ML PF 10ML VIAL ONE (06:26)
[2021-10-26] MEDS ORDERED: EPINEPHrine INJ 1 MG/ML AMP ONE (06:26)
[2021-10-26] MEDS ORDERED: DEXAMETHASONE SOD INJ 4 MG/ML VIAL ONE (06:26)
[2021-10-26] MEDS ORDERED: fentaNYL citrate 100 MCG/2 ML VIAL ONE (06:42)
[2021-10-26] MEDS ORDERED: MIDAZOLAM HCL 1 MG/ML 2ML VIAL ONE ×2 (06:42)
[2021-10-26] MEDS ORDERED: KETAMINE 50 MG/5 ML SYRINGE ONE (06:43)
--- NOTE | 2021-10-26 06:56 | History & Physical Bridge Note ---
Date of Service October 26, 2021 History & Physical Bridge Note I have examined the patient, reviewed the History & Physical and in the interval since the performance of the History & Physical I have noted the following changes of clinical significance: no changes noted
[2021-10-26] MEDS ORDERED: BUPIVACAINE/EPINEPHRINE 0.25% 1:200,000 30 ML VIAL ONE (06:57)
[2021-10-26] MEDS ORDERED: BUPIVACAINE LIPOSOME 1.3% 266 MG/20 ML VIAL ONE (06:58)
[2021-10-26] MEDS ORDERED: SODIUM CHLORIDE 0.9% PF 50 ML VIAL ONE (06:58)
[2021-10-26] MEDS ORDERED: ATROPINE SULFATE 0.1 MG/ML 10ML SYR IV PRN (07:34)
[2021-10-26] MEDS ORDERED: ONDANSETRON INJ 2 MG/ML 2 ML VIAL IV PRN ×2 (07:34→11:11)
[2021-10-26] MEDS ORDERED: ePHEDrine sulfate 50 MG/ML AMP IV PRN (07:34)
[2021-10-26] MEDS ORDERED: PROPOFOL IV EMULSION 10 MG/ML 20 ML VIAL IV ONE (07:53)
[2021-10-26] MEDS ORDERED: GLYCOPYRROLATE 0.2 MG/ML VIAL ONE (07:53)
[2021-10-26] MEDS ORDERED: ONDANSETRON INJ 2 MG/ML 2 ML VIAL ONE (07:53)
[2021-10-26] MEDS ORDERED: LIDOCAINE 2% MPF LOCAL 5 ML VIAL INFIL ONE (07:53)
[2021-10-26] MEDS ORDERED: PHENYLEPHRINE 100MCG/ML 5ML SYR ONE (08:05)
--- NOTE | 2021-10-26 09:16 | Operative Report ---
PG Post Operative Report Pre & Post Diagnosis Operation Date: 10/18/21 07:00 <No data on this case meets the specified criteria> Operation Date: 10/26/21 07:15 Pre-Op Diagnosis: Right Knee Osteoarthritis Post-Op Diagnosis: Right Knee Osteoarthritis I identified the patient and participated in the time-out.: Yes Procedure Operation Date: 10/18/21 07:00 <No data on this case meets the specified criteria> Operation Date: 10/26/21 07:15 Actual Procedures p Right Total Knee Arthroplasty(Right) - Fadi Heath MD Surgeon Fadi Heath MD Warehouse Unloader Venu Salcido PA-C Estimated Blood Loss 50 Findings Consistent with Post-Op Diagnosis Operative findings revealed advanced right knee DJD. She had extensive grade 4 [id number] disease of the medial and patellofemoral compartments. She had a varus deformity to her knee. Moderate soft tissue envelope. Moderate-sized knee effusion. Fluids 1500 cc Specimens Right knee sent for pathology Drains None Anesthesia Type Spinal MAC Complications none Disposition Accompanied Patient To Recovery: No Indications Patient is 61-year-old female female said a several year history of gradually progressive increasing right knee pain and discomfort is become less responsive conservative care over time. X-rays show advanced medial compartment arthritis. She elected proceed with surgical management. Description of Procedure Operative implants consist of: 1 Biomet Vanguard size 60 right posterior stabilized femoral component. 2. Biomet size 67 tibial tray. 3. 10 mm posterior stabilized polyethylene insert. 4. 28 x 8 all polypatella. The patient was taken the operating, identified, and placed on the operating table supine position protectors were properly padded. IV antibiotics tried by anesthesia team. Spinal anesthetic and abductor canal block had been provided in the holding area. Peters catheter was placed in sterile fashion. Right Tetrick was then placed in the right lower extremities then prepped and draped in usual sterile fashion. The right leg was elevated exsanguinated with use of an Esmarch and the tourniquet was set at 300 mmHg. An anterior approach of the right knee was then performed to longitudinal incision centered over the patella. Sharp dissection was carried through subcutaneous tissue down to the extensor mechanism. A medial parapatellar arthrotomy incision was made. Some subperiosteal still dissection was carried out medially. The fat pad was resected from Neath patella tendon. The lateral patellofemoral ligament was released. Patella subluxated laterally and the knee was flexed. The osteophyte taken off distal femur. ACL and PCL then released from the distal femur the tibia subluxated anteriorly. The external treatment line jig was then placed in the interface the tibia and adjusted 14 mm medially. The proximal tibial cut was made removed by a millimeter or 2 of bone from most deficient aspect medial tibial plateau. Some osteophytes taken off medial and posterior medially. The tibia sized to a size 67. Attention drawn the femur. The distal femur 0 the sharp drop with intramedullary canal was suction. A right 5 degree valgus cutting guide was placed. Distal femoral cutting block was pinned in place. Distal femoral cut was made to take an additional 3 mm bone off distal femur. The femur was then sized to a size 60. The AP cutting block was pinned parallel to the epicondylar axis which was 3 degrees of external rotation. Anterior cut, anterior chamfer, posterior cut, posterior chamfer cuts were made. The box cutting guide was placed in the just slight lateral box cut was made. The knee was flexed. The remnants of the medial and lateral menisci were excised. The osteophytes were taken off the posterior aspect of femur. A trial femoral component was placed. The tibial tray was pinned in maximum external rotation and the drill and stem punch used to create defect in proximal tibia for the tibial tray. Knee was then trialed and the 10 mm insert fit most appropriately. Attention drawn the patella. The patella was cleaned of all soft tissue. Patella thickness measured about 16 mm in thickness was cut down to 12. It was sized to a size 28 patella. The lug holes were drilled for the 28 patella. The lateral osteophyte was removed. Patella button was placed. Knee was taken through range of motion and the patella tracked nicely with no thumbs test. Attention drawn to placing permanent components. Nupathe all trial components removed. Bone plug was placed in the distal femur limit blood loss. A double batch Palacos G cement was mixed. Biomet Vanguard size 60 right posterior stabilized femoral component, a size 67 tibial tray, a 10 mm posterior stabilized polyethylene insert, and a 28 x 8 all Paller patella then cemented in place. Knee was bro ught out into full extension total cement hardened. Final cement check was then performed. Pericapsular tissues were injected with a total of 100 cc of combination of 20 cc of Exparel, 30 cc normal saline, 50 cc of quarter percent Marcaine with epinephrine. Patient did receive 1 g tranexamic acid. The tourniquet was then let down for final tourniquet time 53 minutes. Hemostasis reduced electrocautery. Extensor mechanism closed with combination 1 PDS suture and then 1 Vicryl suture in a [id number] fashion. Extensor mechanism checked found to be intact the subcutaneous tissue then closed with 2 Dexon suture in a buried interrupted fashion skin was closed skin michoacano. Legs then cleaned and dried a sterile dressing was Xeroform, 4 x 4's, sterile cast padding, Jeremiah bandage were applied. Patient then transferred to the recovery room in stable condition. Patient tolerated procedure well and there are no complications. Venu Salcido, my physician miner assistant, was present for the entire procedure. His assistance was essential and required for appropriate patient positioning, prepping and draping, surgical exposure, performing the technical details of the operation, placement the implants, closure of the wound, and placement of the sterile bandage. I attest to the content of the Intraoperative Record and any orders documented therein. Any exceptions are noted below.
--- NOTE | 2021-10-26 10:10 | XRay Report ---
XR knee RT 1 or 2V routine CLINICAL HISTORY: Postoperative evaluation. COMPARISON: Knee radiographs September 01, 2021. FINDINGS: Alignment of the total right knee arthroplasty is anatomic. There is no periprosthetic fra cture or unexpected radiopaque foreign body. There are skin michoacano. IMPRESSION: Expected findings following total right knee arthroplasty. ACT 112: Negative or not required by law. Electronically signed by: Stu Aguilar M.D. 10/26/2021 10:09 AM
[2021-10-26] MEDS: fentaNYL citrate 100 MCG/2 ML VIAL IV PRN ×3 (10:51→11:30)
[2021-10-26] MEDS ORDERED: GLUCOSE 10 TAB/TUBE PO PRN (11:11)
[2021-10-26] MEDS ORDERED: ALUMINUM/MAGNESIUM SUSP 30 ML UDC PO PRN (11:11)
[2021-10-26] MEDS ORDERED: CARBOHYDRATES FOR HYPOGLYCEMIA PO PRN (11:11)
[2021-10-26] MEDS ORDERED: DEXTROSE 50% 50 ML SYRINGE IV PRN (11:11)
[2021-10-26] MEDS ORDERED: diphenhydrAMINE Capsule 25 MG CAP PO PRN (11:11)
[2021-10-26] MEDS ORDERED: ALBUT/IPRATROP 3MG/0.5MG NEB 3 ML VIAL INH PRN (11:11)
[2021-10-26] MEDS ORDERED: METOCLOPRAMIDE HCL INJ 5 MG/ML 2 ML VIAL IV PRN (11:11)
[2021-10-26] MEDS ORDERED: LORazepam 0.5 MG TAB PO PRN (11:11)
[2021-10-26] MEDS ORDERED: NALOXONE HCL 0.4 MG/1 ML VIAL/CARP IV PRN (11:11)
[2021-10-26] MEDS ORDERED: HYDROmorphone INJ 0.5 MG/0.5 ML SYR IV PRN (11:11)
[2021-10-26] MEDS ORDERED: ALBUTEROL HFA 8 GM INHALER INH PRN (11:11)
[2021-10-26] MEDS ORDERED: CYCLOBENZAPRINE HCL 10 MG TAB PO PRN (11:11)
[2021-10-26] MEDS ORDERED: PHARMACY GLYCEMIC MGMT CONSULT PRN (11:11)
[2021-10-26] MEDS ORDERED: GLUCAGON FOR INJ 1 MG VIAL SQ PRN (11:11)
[2021-10-26] MEDS ORDERED: FUROSEMIDE 20 MG TAB PO PRN (11:11)
[2021-10-26] MEDS ORDERED: GLUCOSE 40% GEL 15 GM TUBE PO PRN (11:11)
[2021-10-26] MEDS ORDERED: MAGNESIUM HYDROXIDE SUSP 30 ML UDC PO PRN (11:11)
[2021-10-26] MEDS ORDERED: bisacodyL 10 MG SUPP PR PRN (11:11)
--- NOTE | 2021-10-26 11:53 | Pharmacy Report ---
Pharmacy Glycemic Short Note 2 - Date of Service October 26, 2021 - Glycemic Short BSG Results (Last 24 hours): 10/26/21 10/26/21 05:42 09:10 POC Glucose 158 H 157 H OUTPATIENT ANTIDIABETIC REGIMEN: * Metformin 1 gram PO BID * A1c 8.8% 09/29/21 ASSESSMENT: * 61 year old female, s/p Right TKA, confirmed w/ MACHINE ENGINEER, pt did NOT receive any IV Dexamethasone * Pt is maintained on oral antidiabetic agents as an outpatient * Oral agents are not recommended for inpatient use d/t drug interactions, changing PO intake, and difficulty titrating for acute hyper/hypoglycemia. ADA recommends re-initiating outpatient oral agents 1-2 days prior to discharge if/when appropriate if they were held on admission. * Hold oral agents for admission and utilize SQ basal bolus insulin regimen which is the recommended regimen for inpatient glycemic control. * Will initiate weight based insulin dosing for insulin corrina patient and titrate based on BSG trends. * Euglycemic at this time while NPO, starting diet at lunch, will add basal if BSGs elevate > 180mg/dl PLAN FOR INPATIENT GLYCEMIC CONTROL: * Hold outpatient oral diabetes medications * Basal insulin * Lantus 10 units SQ BID for BSG > 180mg/dl * Bolus insulin * NovoLog per scale ACHS or Q6hrs while NPO * Goal Range: Low 110 mg/dL - High 140 mg/dL * Correction Factor: 20 mg/dL/unit * Nutritional / Prandial insulin per carb ratio of 1 unit per 7 grams CHO consumed
[2021-10-26] MEDS: INSULIN ASPART PER UNIT SC SCH ×3 (12:35→21:14)
[2021-10-26] MEDS: SODIUM CHLORIDE 0.9% 1000ML 1,000 ML IV SCH ×2 (13:01→23:06)
[2021-10-26] MEDS: buPROPion XL 150 MG TABCR PO SCH (13:02)
[2021-10-26] MEDS: amLODIPine BESYLATE 5 MG TAB PO SCH (13:02)
[2021-10-26] MEDS: GABAPENTIN 800 MG TAB PO SCH ×3 (13:03→20:39)
[2021-10-26] MEDS: oxyCODONE HCL IR 5 MG TAB (IMMEDIATE RELEASE) PO PRN ×2 (13:12→19:39)
--- NOTE | 2021-10-26 13:27 | Anesthesiology Progress Note ---
Date of Service October 26, 2021 Anesthesia Post Procedure Vital Signs Vital Signs: Temp Pulse Pulse Resp BP BP Pulse Ox 10/26/21 13:07 36.3 C L 85 18 160/95 H 97 10/26/21 12:00 36.9 C 84 18 155/95 H 100 10/26/21 11:30 91 H 12 149/90 H 100 10/26/21 11:00 93 H 23 129/93 100 10/26/21 10:30 95 H 16 148/80 H 99 10/26/21 10:15 91 H 24 152/88 H 98 10/26/21 10:05 90 23 156/87 H 99 10/26/21 09:55 95 H 18 158/88 H 98 10/26/21 09:45 100 H 23 150/87 H 100 10/26/21 09:35 36.7 C 99 H 24 163/93 H 100 10/26/21 09:25 100 H 24 179/90 H 100 10/26/21 09:15 108 H 22 165/90 H 100 10/26/21 09:09 36.6 C 113 H 17 120/67 100 10/26/21 05:54 37.3 C 96 H 20 158/91 H 99 O2 Del Method O2 Flow Rate 10/26/21 13:07 Room Air 10/26/21 12:00 Room Air 10/26/21 11:30 Room Air 10/26/21 11:00 Room Air 10/26/21 10:30 Room Air 10/26/21 10:15 Room Air 10/26/21 10:05 Room Air 10/26/21 09:55 Room Air 10/26/21 09:45 Room Air 10/26/21 09:35 Room Air 10/26/21 09:25 Oxymask 3 10/26/21 09:15 Oxymask 6 10/26/21 09:09 Oxymask 6 10/26/21 05:54 Room Air Pain Intensity Right Knee: Pain Intensity: 9 Transfer of Care Handoff Completed per policy Notes Mental Status: alert / awake / arousable Patient Amnestic to Procedure: Yes Nausea / Vomiting: adequately controlled Pain: adequately controlled Airway Patency, RR, SpO2: stable & adequate BP & HR: stable & adequate Hydration State: stable & adequate Neuraxial Anesthesia: was administered and sensory block is resolving Anesthetic Complications: no major complications apparent and Pt Satisfied with anesthetic care
[2021-10-26] MEDS: ACETAMINOPHEN 500 MG TAB PO SCH ×2 (15:15→21:15)
[2021-10-26] MEDS ORDERED: TRANEXAMIC ACID / 0.7% NACL 1,000 MG/100 ML BAG IV SCH (15:30)
[2021-10-26] MEDS: Scopolamine CHECK PATCH PLACEMENT SCH (17:13)
[2021-10-26] MEDS: ceFAZolin 2000MG 2,000 MG/15 ML SYR IV SCH (17:14)
[2021-10-26] MEDS: ASCORBIC ACID 500 MG TAB PO SCH (18:19)
[2021-10-26] MEDS: KETOROLAC 30 MG/ML VIAL IV SCH (18:20)
[2021-10-26] MEDS: SENNA 8.6 MG TAB PO SCH (20:39)
[2021-10-26] MEDS: ASPIRIN 81 MG ECTAB PO SCH (20:40)
[2021-10-26] MEDS: DOCUSATE SODIUM 100 MG CAP PO SCH (20:44)
[2021-10-26] MEDS: TAPENTADOL HCL ER 50 MG TABCR PO SCH (20:44)
[2021-10-26] MEDS: traZODone HCL 50 MG TAB PO SCH (20:45)
[2021-10-26] MEDS: hydrOXYzine HCl 25 MG TAB PO SCH (20:45)
[2021-10-26] MEDS ORDERED: LANTUS PER UNIT CHARGE SQ SCH (21:00)
[2021-10-27] MEDS: KETOROLAC 30 MG/ML VIAL IV SCH ×5 (00:12→23:57)
[2021-10-27] MEDS: Scopolamine CHECK PATCH PLACEMENT SCH ×4 (00:12→23:55)
[2021-10-27] MEDS: ceFAZolin 2000MG 2,000 MG/15 ML SYR IV SCH (00:12)
[2021-10-27] MEDS: ACETAMINOPHEN 500 MG TAB PO SCH ×3 (06:19→22:00)
[2021-10-27 07:32] LABS: Hematocrit (blood only) 39.9 % (34.1-44.9); Hemoglobin 12.9 g/dl (12.0-16.0); Mean Corpuscular Hemoglobin 26.8 pg (25.0-34.0); Mean Corpuscular Hgb Conc 32.3 g/dL (32.0-36.0); Mean Corpuscular Volume 82.8 fL (80.0-100.0); Mean Platelet Volume 10.8 fL (9.4-12.3); Platelet Count 262 K/uL (130-400); RDW Coefficient of Variation 15.3 % (11.5-14.5); RDW Standard Deviation 46.5 fL (36.4-46.3); Red Blood Count 4.82 M/uL (3.93-5.22); White Blood Count 13.99 K/ul (4.8-10.8)
[2021-10-27 07:52] LABS: BUN Creatinine Ratio 16.5 (10-20); Calcium 9.8 mg/dl (8.5-10.1); Creatinine Clr Calc Pharmacy 86.3 ml/min; Est GFR (African American) 92.3 ml/min; Est GFR (Non-African American) 79.7 ml/min; Potassium 4.1 mmol/L (3.5-5.1)
[2021-10-27] MEDS: INSULIN ASPART PER UNIT SC SCH ×4 (08:57→22:03)
[2021-10-27] MEDS ORDERED: LANTUS PER UNIT CHARGE SQ SCH ×2 (09:00→21:00)
[2021-10-27] MEDS: NICOTINE 21 MG/24 HR TDSY TD SCH (09:03)
[2021-10-27] MEDS: amLODIPine BESYLATE 5 MG TAB PO SCH (09:04)
[2021-10-27] MEDS: GABAPENTIN 800 MG TAB PO SCH ×3 (09:04→21:55)
[2021-10-27] MEDS: FLUoxetine HCL 10 MG CAP PO SCH (09:05)
[2021-10-27] MEDS: ASPIRIN 81 MG ECTAB PO SCH ×2 (09:05→21:55)
[2021-10-27] MEDS: MULTIVITAMIN TAB PO SCH (09:05)
[2021-10-27] MEDS: buPROPion XL 150 MG TABCR PO SCH (09:05)
[2021-10-27] MEDS: ASCORBIC ACID 500 MG TAB PO SCH ×2 (09:06→16:39)
[2021-10-27] MEDS: FUROSEMIDE 20 MG TAB PO SCH (09:33)
[2021-10-27] MEDS: TAPENTADOL HCL ER 50 MG TABCR PO SCH ×2 (09:33→22:00)
[2021-10-27] MEDS: DOCUSATE SODIUM 100 MG CAP PO SCH ×2 (09:33→22:00)
--- NOTE | 2021-10-27 12:44 | Progress Notes ---
DATE OF SERVICE: 10/27/2021. SUBJECTIVE: A 61-year-old female postoperative day 1 from a right knee replacement. She is doing pr giuseppe well. Some pain, but manageable. No chest pain or shortness of breath. Not feeling dizzy or l ightheaded. OBJECTIVE: VITAL SIGNS: Temperature 36.5. Vital signs are stable. PHYSICAL EXAMINATION: GENERAL: Shows a pleasant middle-aged female. She is sitting up in her bedside, looks pretty comfor table. LUNGS: Clear to auscultation. HEART: Regular rate and rhythm. ABDOMEN: Soft, nontender, nondistended. EXTREMITIES: Grossly neurovascularly intact except as follows: Examination of the right leg reveals the dressing to be clean, dry and intact. No drainage. She can do a straight leg raise with some effort. She can dorsiflex and plantarflex her foot appropriately. She is neurologically intact. LABORATORY DATA: Hemoglobin 12.9. Hematocrit 39.9. Electrolytes are stable. ASSESSMENT: A 61-year-old female postoperative day 1 from right knee replacement, doing reasonably w ell. Pain is controlled. She is neurologically intact. She is hoping to go to rehabilitation. PLAN: 1. DVT prophylaxis includes thigh-high TEDs, SCDs, and aspirin twice a day. 2. PT, OT, weightbear as tolerated. Right total knee protocol. 3. Pain control, doing okay with current pain regimen. 4. Disposition: Plan is to discharge her to likely rehabilitation. She is hoping to go to [facility]. We are working on rehabilitation placement. Job ID: [id number]
--- NOTE | 2021-10-27 14:20 | Pharmacy Report ---
Pharmacy Glycemic Short Note 2 - Date of Service October 27, 2021 - Glycemic Short BSG Results (Last 24 hours): 10/26/21 10/26/21 10/27/21 16:55 20:41 06:53 Glucose 190 H POC Glucose 275 H 258 H 10/27/21 10/27/21 08:18 11:47 Glucose POC Glucose 192 H 253 H OUTPATIENT ANTIDIABETIC REGIMEN: * Metformin 1 gram PO BID * A1c 8.8% 09/29/21 ASSESSMENT: 10/27/21: * Patient received total of 31 units of insulin yesterday (10 units basal + 21 units bolus). * BSGs yesterday were [phone] mg/dl. Post prandial BSGs were all elevated above 200 mg/dl. * Fasting BSG today was 190 mg/dl. Basal insulin dose increased to 15 units this AM and added extra basal dose at HS depending on BSG. * Novolog parameters were tightened this AM to stress of 3 but since pre-lunch BSG was still elevated at 253 mg/dl, carb ratio tightened slightly again for lunch. Plan to loosen this if BSG trends down too much at pre-dinner. Background 10/26/21: * 61 year old female, s/p Right TKA, confirmed w/ OCCUPATIONAL MEDICINE SPECIALIST, pt did NOT receive any IV Dexamethasone * Pt is maintained on oral antidiabetic agents as an outpatient * Oral agents are not recommended for inpatient use d/t drug interactions, changing PO intake, and difficulty titrating for acute hyper/hypoglycemia. ADA recommends re-initiating outpatient oral agents 1-2 days prior to discharge if/when appropriate if they were held on admission. * Hold oral agents for admission and utilize SQ basal bolus insulin regimen which is the recommended regimen for inpatient glycemic control. * Will initiate weight based insulin dosing for insulin corrina patient and titrate based on BSG trends. * Euglycemic at this time while NPO, starting diet at lunch, will add basal if BSGs elevate > 180mg/dl PLAN FOR INPATIENT GLYCEMIC CONTROL: * Hold outpatient oral diabetes medications * Basal insulin * Lantus 15 units SQ QAM * Lantus 10-20 units SQ dose scale based on BSG at HS * Bolus insulin * NovoLog per scale ACHS or Q6hrs while NPO * Goal Range: Low 110 mg/dL - High 140 mg/dL * Correction Factor: 15 mg/dL/unit * Nutritional / Prandial insulin per carb ratio of 1 unit per 4.5 grams CHO consumed
[2021-10-27] MEDS: SENNA 8.6 MG TAB PO SCH (21:55)
[2021-10-27] MEDS: traZODone HCL 50 MG TAB PO SCH (22:00)
[2021-10-27] MEDS: hydrOXYzine HCl 25 MG TAB PO SCH (22:01)
[2021-10-28] MEDS: oxyCODONE HCL IR 5 MG TAB (IMMEDIATE RELEASE) PO PRN ×2 (04:36→13:30)
[2021-10-28] MEDS: ACETAMINOPHEN 500 MG TAB PO SCH (06:44)
[2021-10-28] MEDS: KETOROLAC 30 MG/ML VIAL IV SCH ×2 (06:46→13:11)
[2021-10-28 07:25] VITALS: BP 136/85; PULSE 94; TEMP 99.3; O2SAT 93
--- NOTE | 2021-10-28 08:08 | Progress Notes ---
DATE OF SERVICE: 10/28/2021. SUBJECTIVE: A 61-year-old female now postop day 2 from a right knee replacement. She is doing prett y well. Had a rough night, but doing a bit better this morning. No chest pain or shortness of breat h. Not feeling dizzy or lightheaded. Hoping to go to [facility]. OBJECTIVE: VITAL SIGNS: Temperature 36.9. Vital signs are stable. PHYSICAL EXAMINATION: GENERAL: Shows a pleasant middle-aged female. She is lying in bed, looks pretty comfortable this mo rning. EXTREMITIES: Examination of the right leg reveals the incision to be clean, dry and intact. Really fairly minimal swelling. No drainage. Calf is soft and supple. She is neurologically intact. ASSESSMENT: A 61-year-old female postop day 2 from right knee replacement, doing pretty well. She i s having intermittent bouts of pretty significant pain, which are not unusual. She seems to respond to the pain meds. She is neurologically intact. She does live by herself and would greatly benefit from some assistance. PLAN: 1. DVT prophylaxis includes thigh-high TEDs, SCDs, and aspirin twice a day. 2. PT, OT, weightbear as tolerated. Right total knee protocol. 3. Pain control, doing okay with current pain regimen. 4. Disposition: She is going to be discharged to [facility]. We are hoping to get approval garcia arreola. Job ID: [id number]
[2021-10-28] MEDS ORDERED: LANTUS PER UNIT CHARGE SQ SCH (09:00)
[2021-10-28] MEDS: TAPENTADOL HCL ER 50 MG TABCR PO SCH (09:23)
[2021-10-28] MEDS: INSULIN ASPART PER UNIT SC SCH ×2 (09:23→13:31)
[2021-10-28] MEDS: GABAPENTIN 800 MG TAB PO SCH (09:24)
[2021-10-28] MEDS: FUROSEMIDE 20 MG TAB PO SCH (09:24)
[2021-10-28] MEDS: ASPIRIN 81 MG ECTAB PO SCH (09:24)
[2021-10-28] MEDS: FLUoxetine HCL 10 MG CAP PO SCH (09:24)
[2021-10-28] MEDS: MULTIVITAMIN TAB PO SCH (09:24)
[2021-10-28] MEDS: buPROPion XL 150 MG TABCR PO SCH (09:24)
[2021-10-28] MEDS: amLODIPine BESYLATE 5 MG TAB PO SCH (09:24)
[2021-10-28] MEDS: ASCORBIC ACID 500 MG TAB PO SCH (09:24)
[2021-10-28] MEDS: DOCUSATE SODIUM 100 MG CAP PO SCH (09:26)
[2021-10-28] MEDS: Scopolamine CHECK PATCH PLACEMENT SCH (09:27)
[2021-10-28] MEDS: NICOTINE 21 MG/24 HR TDSY TD SCH (09:28)
--- NOTE | 2021-10-28 11:24 | Pharmacy Report ---
Pharmacy Glycemic Short Note 2 - Date of Service October 28, 2021 - Glycemic Short BSG Results (Last 24 hours): 10/27/21 10/27/21 10/27/21 11:47 17:15 20:45 POC Glucose 253 H 99 160 H 10/28/21 08:22 POC Glucose 172 H OUTPATIENT ANTIDIABETIC REGIMEN: * Metformin 1 gram PO BID * A1c 8.8% 09/29/21 ASSESSMENT: 10/28: * Tamela received 70 units of insulin yesterday (30 units basal + 40 units bolus). BSGs were labile: 420-556-19-160 mg/dL. * Fasting BSG was 172 mg/dL this AM which is improved but still above goal. Will increase basal by 30% today. * Tightened Novolog at breakfast this AM given persistent lunchtime hyperglycemia. May need to loosen coverage at lunch as patient had a BSG below goal at dinner last evening likely related to Novolog stacking. 10/27: * Patient received total of 31 units of insulin yesterday (10 units basal + 21 units bolus). * BSGs yesterday were [phone] mg/dl. Post prandial BSGs were all elevated above 200 mg/dl. * Fasting BSG today was 190 mg/dl. Basal insulin dose increased to 15 units this AM and added extra basal dose at HS depending on BSG. * Novolog parameters were tightened this AM to stress of 3 but since pre-lunch BSG was still elevated at 253 mg/dl, carb ratio tightened slightly again for lunch. Plan to loosen this if BSG trends down too much at pre-dinner. PLAN FOR INPATIENT GLYCEMIC CONTROL: * Hold outpatient oral diabetes medications * Basal insulin * Lantus 20 units SC BID * Bolus insulin * NovoLog per scale ACHS or Q6hrs while NPO * Goal Range: Low 110 mg/dL - High 140 mg/dL * Correction Factor: 15 mg/dL/unit * Nutritional / Prandial insulin per carb ratio of 1 unit per 5 grams CHO consumed
--- NOTE | 2021-10-31 10:26 | Discharge Summary ---
Date of Service October 31, 2021 Discharge Data Procedures Performed Operation Date: 10/18/21 07:00 <No data on this case meets the specified criteria> Operation Date: 10/26/21 07:15 Actual Procedures p Right Total Knee Arthroplasty(Right) - Fadi Heath MD Hospital Course (1) Status post total right knee replacement: This is a 61 year old patient admitted on 10/26/21 and underwent total knee arthroplasty. She tolerated the procedure well and there were no complications. Transferred to the PACU post op and later to the orthopedic floor for further care. She was given ancef for antibiotic prophylaxis. She was also given WAYNE stockings, SCDs, and aspirin for DVT prophylaxis. Hemoglobin, hematocrit, and vital signs were monitored during her hospital stay and remained stable. Did not require any blood transfusions. There were no complications during her hospital stay. By post op day #2 the patient was tolerating a diabetic diet, pain was reasonably controlled with oral pain medicine, and she was participating in physical therapy. On post op day #2 the patient was discharged home. She was given printed discharge instructions including prescriptions for extra strength tylenol, aspirin, zofran, and oxycodone. Continue physical therapy, weight bearing as tolerated. Continue WAYNE stockings. Follow up approximately 2 weeks post op or sooner if there are problems or concerns. Coding Level of Care Code None Diagnoses Status post total right knee replacement Z96.651
== END 2021-10-28 13:55 | disposition home or self-care (01) ==
LOC: PACUINP 05:13 → ASU 05:13 → 3E 12:40
DX: M17.11 Unilateral primary osteoarthritis, right knee; Z79.899 Other long term (current) drug therapy; Z79.84 Long term (current) use of oral hypoglycemic drugs; M17.12 Unilateral primary osteoarthritis, left knee

== ENCOUNTER 2024-11-23 14:31 | Inpatient (IN) ==
--- NOTE | 2024-11-23 14:53 | Emergency Department Note ---
History of Present Illness General Chief complaint: Pain (Generalized) Stated complaint: SHAKEY, BODY ACHES,THROW UP CLEAR LIQUIDS Time Seen by Provider: 11/23/24 14:39 History of Present Illness Provider complaint: Illness Maximum Pain Intensity: 9 64-year-old female presents emergency department for illness. Patient reports that for the last 2 days she has been feeling ill. She reports nausea vomiting. She reports vomiting clear liquid. She reports no hematemesis coffee-ground emesis or bilious vomiting. She reports body aches and chills. She reports chest pain in her left chest rating to her left arm. Home Medications Medication Instructions Recorded Confirmed Type Oxygen Home #1 ea 08/28/19 11/11/24 Rx nebulizers (Compact Compressor #1 ea 08/28/19 11/11/24 Rx Nebulizer) Miscellaneous Pulmonary Supply #1 ea 09/01/19 11/11/24 Rx pen needle, diabetic 32 gauge x #50 ea 08/04/22 11/11/24 Rx 1/4" (Novofine 32) blood sugar diagnostic (Accu-Chek #100 ea 05/08/23 11/11/24 Rx Guide test strips) lancets (Accu-Chek Fastclix Lancet #100 ea 05/08/23 11/11/24 Rx Drum) lancing device (lancing device #1 ea 05/08/23 11/11/24 Rx with lancets) blood-glucose meter (Accu-Chek #1 ea 05/28/23 11/11/24 Rx Guide Glucose Meter) lancing device with lancets kit #1 ea 05/28/23 11/11/24 Rx (Accu-Chek Softclix Lancing Device+Lancets kit) amlodipine 10 mg tablet 10 mg PO DAILY #90 tabs 04/22/24 11/11/24 Rx semaglutide 2 mg/dose (8 mg/3 mL) 2 mg (0.75 mL) subcut Q7D 90 days 07/10/24 11/11/24 Rx subcutaneous pen injector #9.75 mL meloxicam 7.5 mg tablet 7.5 - 15 mg (1 - 2 x 7.5 mg) PO 08/28/24 11/11/24 Rx DAILY PRN pain #180 tabs linaclotide 145 mcg capsule 145 mcg PO DAILY #30 caps 09/22/24 11/11/24 Rx (Linzess) gabapentin 800 mg tablet 800 mg PO TID #270 tabs 10/22/24 11/11/24 Rx rosuvastatin 5 mg tablet 5 mg PO DAILY #90 tabs 10/22/24 11/11/24 Rx tramadol 50 mg tablet 50 mg PO BID PRN pain #60 tabs 10/22/24 11/11/24 Rx cholecalciferol (vitamin D3) 125 125 mcg PO DAILY #30 caps 10/31/24 11/11/24 Rx mcg (5,000 unit) capsule eszopiclone 3 mg tablet (Lunesta) 3 mg PO HS PRN sleep #30 tabs 11/06/24 11/11/24 Rx CPAP Machine #1 ea 11/11/24 11/11/24 Rx Allergies Allergy/AdvReac Type Severity Reaction Status Date / Time No Known Allergies Allergy Verified 11/11/24 14:29 Past Med/Surg History Problem List (Updated 11/23/24 @ 20:47 by Callum Dubose MD) Diverticulitis large intestine MARGUERITE (acute kidney injury) Diverticular disease of intestine with perforation and abscess Sepsis (Acute) Chronic constipation (Chronic) Vitamin D deficiency (Chronic) Insomnia (Chronic) DODD (nonalcoholic steatohepatitis) (Chronic) Circadian rhythm sleep disorder, irregular sleep wake type (Chronic) Severe obstructive sleep apnea (Chronic) CPAP (compliant) Chronic diastolic congestive heart failure (Chronic) 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 Heath @ [facility] Hx of colonoscopy Hx of tooth extraction Hx of carpal tunnel repair Right Hx of hernia repair 2015, 2018 Ventral hernia repair (01/10/18): Grade 2 view, MAC#3, ETT 7.5 at [facility]. No issues noted per post-op anesthesia progress note. Hx of foot surgery Left Family History Mother Family history of diabetes mellitus Arthritis Cancer Other Congestive heart failure FHx: breast cancer FHx: prostate cancer Social History Smoking Status: Former smoker Tobacco Type: Cigarettes Age Started Using Tobacco: 16; packs per day: 1; Cigarettes Per Day: 10; Smoking End Date: 11/16/24; Second Hand Exposure: No; Do You Dip or Chew Tobacco: No; Tobacco Cessation Education Requested by Patient: No Hx Alcohol Use: Yes Alcohol type: wine Hx Substance Use: No Preferred Language: Romanian Communication Ability: Effective Visual Impairment: No Limitations Knife Edger Required: No Beliefs That Will Affect Care: None Current Living Situation: Family Current Living Situation Comment: lives with son Other Information That Helps Us Care for You: No Feels Safe at Home: Yes Safety Concerns: Feels Safe At This Time Diet: regular caffeine: No Physical Activity Frequency: Daily Physical Activity Frequency Comment: Walking Seatbelt Use: always Sunscreen Use: No Assistive Devices: CPAP and Glasses Physical Exam Vital Signs Vital Signs - 24 hr 11/23/24 14:33 11/23/24 14:45 11/23/24 14:48 Temperature 36.3 C L Temperature Source Temporal Artery Scan Pulse Rate 82 89 89 Pulse Rate from SpO2 Sensor 85 Respiratory Rate 16 20 Respiratory Effort / Characteristics Non-Labored Spontaneous Respiratory Depth Normal Respiratory Pattern Regular Blood Pressure 73/50 L 81/59 L Blood Pressure Mean 57 66 Pulse Oximetry 98 94 Oxygen Delivery Method Room Air Room Air Sepsis Recent Fever Within 48 Hours Yes Sepsis New/Unexplained Change in Mental Status N/A Sepsis Action Taken by Nursing No Action Required 11/23/24 15:07 11/23/24 15:15 11/23/24 15:19 Temperature Temperature Source Pulse Rate Pulse Rate from SpO2 Sensor Respiratory Rate 20 Respiratory Effort / Characteristics Non-Labored Respiratory Depth Normal Respiratory Pattern Blood Pressure 82/51 L Blood Pressure Mean 61 Pulse Oximetry 98 Oxygen Delivery Method Room Air Sepsis Recent Fever Within 48 Hours Sepsis New/Unexplained Change in Mental Status Sepsis Action Taken by Nursing 11/23/24 15:21 11/23/24 15:27 11/23/24 15:30 Temperature Temperature Source Pulse Rate 81 79 84 Pulse Rate from SpO2 Sensor 83 81 Respiratory Rate 18 21 18 Respiratory Effort / Characteristics Respiratory Depth Respiratory Pattern Blood Pressure 85/39 L 80/43 L 82/61 L Blood Pressure Mean 54 55 68 Pulse Oximetry 97 97 Oxygen Delivery Method Room Air Room Air Sepsis Recent Fever Within 48 Hours Sepsis New/Unexplained Change in Mental Status Sepsis Action Taken by Nursing 11/23/24 15:31 11/23/24 15:33 11/23/24 15:35 Temperature Temperature Source Pulse Rate 81 Pulse Rate from SpO2 Sensor 81 Respiratory Rate 21 Respiratory Effort / Characteristics Respiratory Depth Respiratory Pattern Blood Pressure 82/61 L 97/66 L Blood Pressure Mean 65 69 Pulse Oximetry 93 Oxygen Delivery Method Room Air Sepsis Recent Fever Within 48 Hours Sepsis New/Unexplained Change in Mental Status Sepsis Action Taken by Nursing 11/23/24 15:40 11/23/24 15:45 11/23/24 15:50 Temperature Temperature Source Pulse Rate 83 Pulse Rate from SpO2 Sensor Respiratory Rate 16 Respiratory Effort / Characteristics Respiratory Depth Respiratory Pattern Blood Pressure 89/54 L 93/63 L 97/59 L Blood Pressure Mean 72 69 62 Pulse Oximetry 93 Oxygen Delivery Method Room Air Sepsis Recent Fever Within 48 Hours Sepsis New/Unexplained Change in Mental Status Sepsis Action Taken by Nursing 11/23/24 16:01 11/23/24 16:06 11/23/24 16:17 Temperature Temperature Source Pulse Rate 86 88 86 Pulse Rate from SpO2 Sensor Respiratory Rate 22 24 25 H Respiratory Effort / Characteristics Respiratory Depth Respiratory Pattern Blood Pressure 95/52 L 85/53 L 94/61 L Blood Pressure Mean 71 65 72 Pulse Oximetry 96 98 97 Oxygen Delivery Method Room Air Room Air Room Air Sepsis Recent Fever Within 48 Hours Sepsis New/Unexplained Change in Mental Status Sepsis Action Taken by Nursing 11/23/24 16:25 11/23/24 16:31 11/23/24 16:36 Temperature Temperature Source Pulse Rate 78 81 81 Pulse Rate from SpO2 Sensor Respiratory Rate 16 20 22 Respiratory Effort / Characteristics Respiratory Depth Respiratory Pattern Blood Pressure 84/64 L 92/70 L 87/63 L Blood Pressure Mean 66 83 69 Pulse Oximetry 98 100 97 Oxygen Delivery Method Room Air Room Air Room Air Sepsis Recent Fever Within 48 Hours Sepsis New/Unexplained Change in Mental Status Sepsis Action Taken by Nursing 11/23/24 16:40 11/23/24 16:45 11/23/24 17:06 Temperature Temperature Source Pulse Rate 80 80 Pulse Rate from SpO2 Sensor 78 Respiratory Rate 16 18 Respiratory Effort / Characteristics Respiratory Depth Respiratory Pattern Blood Pressure 96/54 L 94/66 L 98/66 L Blood Pressure Mean 57 75 79 Pulse Oximetry 94 Oxygen Delivery Method Room Air Sepsis Recent Fever Within 48 Hours Sepsis New/Unexplained Change in Mental Status Sepsis Action Taken by Nursing 11/23/24 17:11 11/23/24 17:17 11/23/24 17:25 Temperature Temperature Source Pulse Rate 83 79 Pulse Rate from SpO2 Sensor Respiratory Rate 16 20 Respiratory Effort / Characteristics Respiratory Depth Respiratory Pattern Blood Pressure 84/69 L 91/68 L 98/67 L Blood Pressure Mean 74 75 72 Pulse Oximetry Oxygen Delivery Method Sepsis Recent Fever Within 48 Hours Sepsis New/Unexplained Change in Mental Status Sepsis Action Taken by Nursing 11/23/24 17:36 11/23/24 17:40 11/23/24 17:50 Temperature Temperature Source Pulse Rate 94 H 84 Pulse Rate from SpO2 Sensor Respiratory Rate 22 25 H Respiratory Effort / Characteristics Respiratory Depth Respiratory Pattern Blood Pressure 112/66 115/84 111/75 Blood Pressure Mean 73 90 87 Pulse Oximetry Oxygen Delivery Method Sepsis Recent Fever Within 48 Hours Sepsis New/Unexplained Change in Mental Status Sepsis Action Taken by Nursing 11/23/24 17:56 11/23/24 18:00 11/23/24 18:08 Temperature Temperature Source Pulse Rate 80 78 78 Pulse Rate from SpO2 Sensor 79 Respiratory Rate 22 18 17 Respiratory Effort / Characteristics Respiratory Depth Respiratory Pattern Blood Pressure 108/61 93/75 L Blood Pressure Mean 77 80 Pulse Oximetry 94 97 97 Oxygen Delivery Method Room Air Room Air Sepsis Recent Fever Within 48 Hours Sepsis New/Unexplained Change in Mental Status Sepsis Action Taken by Nursing 11/23/24 18:16 11/23/24 18:17 Temperature Temperature Source Pulse Rate 80 79 Pulse Rate from SpO2 Sensor 79 Respiratory Rate 21 Respiratory Effort / Characteristics Respiratory Depth Respiratory Pattern Blood Pressure 101/74 Blood Pressure Mean 83 Pulse Oximetry 91 Oxygen Delivery Method Sepsis Recent Fever Within 48 Hours Sepsis New/Unexplained Change in Mental Status Sepsis Action Taken by Nursing Physical Exam HENT: Exam performed. -Head: Normocephalic and atraumatic. -Right Ear: External ear normal. No mastoid erythema -Left Ear: External ear normal. No mastoid erythema -Mouth/Throat: The oropharynx is clear and moist. No trismus in the jaw. No dental abscesses or uvula swelling. No oropharyngeal exudate or tonsillar abscesses. EYES: Conjunctivae and EOM are normal. Pupils are equal, round, and reactive to light. Right eye exhibits no discharge. Left eye exhibits no discharge. No scleral icterus. NECK: Normal range of motion. Neck supple. No JVD present. No rigidity. No tracheal deviation and normal range of motion present. CV: Normal rate, regular rhythm, normal heart sounds and intact distal pulses. There is no peripheral edema. Palpable radial pulses bue. PULM/CHEST: Effort normal and breath sounds normal. No respiratory distress. No stridor. She has no wheezes. She has no rales. ABD: The abdomen is soft. Obese. There is no tenderness. There is no rebound, no guarding MUSC/SKEL: Normal range of motion. There is no peripheral edema, tenderness or deformity. LYMPH: No cervical adenopathy. NEURO: Motor and sensation grossly intact. Course Course 1439: The patient was evaluated in room A9. A complete history and physical exam was performed Cardiac monitoring: An order was placed for continuous cardiac monitoring. The monitor shows a rate of 80 with sinus rhythm interpreted by wv 1521: Patient's blood pressure is improving with IV fluids. Patient's lactic acid 3.3. 2 L normal saline ordered for the patient to accomplish 30 cc/kg normal saline bolus. Patient be treated with cefepime 2 g. Peters catheter will be placed on the patient. Creatinine is elevated. Will obtain CT of the abdomen pelvis without contrast. 1605: Vital signs improved with IV fluids. Labs are significant for leukocytosis 25.52. Procalcitonin greater than 100. High-sensitivity troponin 301. Lactic acid 3.3. Creatinine 3.26. Baseline creatinine usually runs around 0.6. Grossly urine appears infected and urine dip is also concerning. Chest x-ray is unremarkable. CT of the abdomen pelvis does make mention about a 4.2 cm structure in the left adnexa which could be prior diverticulitis or fistula or ovarian vein thrombosis sequela or possible ovarian neoplasm. Radiology recommended ultrasound. Patient's blood pressure is just improving and is not thought to be related to her sepsis. Patient will be admitted to the inpatient team and further imaging and workup on this ovarian lesion can be done while inpatient and being treated for her urosepsis. Discussed this with Dr. Nix who will evaluate the patient for admission. 1642: Vital signs stable. Urinalysis confirms urine being source of infection. [facility]. Administered Medications Norepinephrine Bitartrate (Levophed/D5w) 4 mg in 250 mls @ 3.548 mls/hr IV .Q24H JUAN PABLO; Protocol Stop: 12/23/24 18:59 Last Titration: 11/23/24 20:15 Dose: 0.01 mcg/kg/min, 3.5 mls/hr Documented By: [email or web address] Co-signed By: GEOFFREY Titration: 11/23/24 20:05 Dose: 0.03 mcg/kg/min, 10.6 mls/hr Documented By: rmt Co-signed By: GEOFFREY Admin: 11/23/24 19:04 Dose: 0.05 mcg/kg/min, 17.7 mls/hr Documented By: ANDREEA Co-signed By: JOE Miscellaneous (Icu Protocol For Hyperglycemia) 1 each N/A Q4H JUAN PABLO Stop: 11/25/24 19:29 Last Admin: 11/23/24 21:11 Dose: Not Given Documented By: [email or web address] Discontinued Medications Sodium Chloride (Nss) 1,000 mls @ 999 mls/hr IV .Q1H1M JUAN PABLO Stop: 11/23/24 15:45 Last Infusion: 11/23/24 15:49 Dose: Infused Documented By: Admin: 11/23/24 15:04 Dose: 999 mls/hr Documented By: ANDREEA Cefepime HCl (Maxipime 2000mg) 2,000 mg in 20 mls @ 5 mls/min IV NOW STA; Protocol Stop: 11/23/24 15:25 Last Admin: 11/23/24 15:43 Dose: 5 mls/min Documented By: ANDREEA Sodium Chloride (Nss) 1,000 mls @ 999 mls/hr IV .Q1H1M ONE Stop: 11/23/24 16:22 Last Infusion: 11/23/24 16:25 Dose: Infused Documented By: Admin: 11/23/24 15:37 Dose: 999 mls/hr Documented By: ANDREEA Sodium Chloride (Nss) 1,000 mls @ 125 mls/hr IV .Q8H JUAN PABLO Stop: 11/26/24 15:44 Last Admin: 11/23/24 15:54 Dose: 125 mls/hr Documented By: ANDREEA Sodium Chloride (Nss) 1,000 mls @ 999 mls/hr IV .Q1H1M JUAN PABLO Stop: 11/23/24 19:50 Last Admin: 11/23/24 18:59 Dose: 999 mls/hr Documented By: ANDREEA Piperacillin Sod/Tazobactam Sod (Zosyn) 4.5 gm in 100 mls @ 200 mls/hr IV NOW STA; Protocol Stop: 11/23/24 19:44 Last Admin: 11/23/24 19:22 Dose: 200 mls/hr Documented By: [email or web address] Co-signed By: JOE Lactated Ringer's (Lr) 500 mls @ 999 mls/hr IV .Q31M ONE Stop: 11/23/24 21:27 Last Admin: 11/23/24 21:06 Dose: 999 mls/hr Documented By: lalita Critical Care Time Critical Care Time: Yes Total Critical Care Time: 66 I have personally spent greater than 66 minutes of critical care time in the direct management of this patient. This includes bedside care, interpretation of diagnostic studies, and testing, discussion with consultants, patient, and family members, and other required patient management activities. This 66 minutes is in excess of all separately billable procedures. Medical Decision Making Medical Records Attestation: I reviewed the patient's medical records. Medical records reviewed. Echo from 2019 showed an ejection fraction of 65 to 70% with a normal left ventricular systolic function. There is a reduced systolic function on the right and moderate pulmonary hypertension. Laboratory Data Attestation: I reviewed the patient's lab results. 11/23/24 14:46 11/23/24 14:46 Lab Results 11/23/24 11/23/24 11/23/24 Range/Units 14:46 15:00 15:02 WBC 25.52 H (4.8-10.8) K/ul RBC 4.38 (4.20-5.40) M/uL Hgb 12.5 (12.0-16.0) g/dl POC Hgb 13.3 (12.0-16.0) g/dl Hct 36.6 L (37.0-47.0) % POC Hct 39 (37-47) % MCV 83.6 (80.0-100.0) fL MCH 28.5 (25.0-34.0) pg MCHC 34.2 (32.0-36.0) g/dL RDW Std Deviation 43.1 (36.4-46.3) fL RDW Coeff of Hiral 14.2 (11.5-14.5) % Plt Count 199 (130-400) K/uL MPV 10.8 (9.4-12.4) fL Immature Gran % (Auto) 0.7 % Neut % (Auto) 91.4 % Lymph % (Auto) 4.2 % Luce % (Auto) 2.9 % Eos % (Auto) 0.4 % Baso % (Auto) 0.4 % Neut # (Auto) 23.33 H (1.40-6.50) K/uL Lymph # (Auto) 1.07 L (1.20-3.40) K/uL Luce # (Auto) 0.75 H (0.11-0.59) K/uL Eos # (Auto) 0.09 (0.00-0.50) K/uL Baso # (Auto) 0.09 (0.00-0.20) K/uL Immature Gran # (Auto) 0.19 (0.01-0.20) K/uL Polychromasia 1+ PT 11.5 (9.0-12.0) Seconds INR 1.1 (0.9-1.1) APTT 35 H (21-31) Seconds PTT Ratio 1.3 VBG pH 7.38 (7.36-7.41) VBG pCO2 39 (38-50) mmHg VBG pO2 51 mmHg VBG HCO3 23 mmol/L VBG O2 Saturation 85.1 % VBG Base Excess -1.8 mEq/L POC Sodium 132 L (135-144) mmol/L Sodium 130 L (136-145) mmol/L POC Potassium 3.8 (3.3-5.0) mmol/L Potassium TNP POC Chloride 100 L (101-112) mmol/L Chloride 96 L (98-107) mmol/L Carbon Dioxide 22 (21-32) mmol/L POC Total CO2 22 L (24-31) mmol/L Anion Gap 12 H (3-11) POC Anion Gap 15.0 L (16-25) mmol/L POC BUN 35 H (7-18) mg/dl BUN 28 H (6-23) mg/dl Creatinine 3.26 H (0.6-1.2) mg/dl POC Creatinine 3.9 H (0.6-1.3) mg/dl Est Cr Clr Drug Dosing 17.5 ml/min eGFR 15.05 BUN/Creatinine Ratio 8.6 L (10-20) Glucose 151 H (70-99(Fasting)) mg/dl POC Glucose (other) 155 H (70-99) mg/dl Lactate 3.3 H* (0.4-2.0) mmol/L Calcium 10.0 (8.6-10.3) mg/dl POC Ioniz Calcium Kristy 1.17 (1.12-1.32) mmol/l Phosphorus (2.5-4.9) mg/dl Magnesium 2.0 (1.7-2.4) mg/dl Total Bilirubin 2.1 H (0.2-1.0) mg/dl Direct Bilirubin TNP AST TNP ALT 40 (7-52) U/L Alkaline Phosphatase 161 H (34-104) U/L Troponin I High Sens 301.5 H* (0-14) pg/ml Total Protein 7.7 (6.0-8.3) gm/dl Albumin 3.2 L (3.4-5.0) gm/dl Lipase 15 (11-82) U/L Procalcitonin > 100.00 H (0-0.5) ng/ml Urine Color Urine Appearance (Clear) Urine pH (4.5-7.5) Ur Specific Orma (1.000-1.030) Urine Protein (Negative) Urine Glucose (UA) (Negative) Urine Ketones (Negative) Urine Blood (Negative) Urine Nitrite (Negative) Urine Bilirubin (Negative) Urine Urobilinogen (Negative) Ur Leukocyte Esterase (Negative) Urine WBC (Auto) (0-5) /hpf Urine RBC (Auto) (0-2) /hpf U Hyaline Cast (Auto) (0-2) /lpf U Epithel Cells (Auto) (0-2) /hpf Urine Bacteria (Auto) (None Seen) Calcium Oxalate Crystal (None Prsent) Urine Comment Adenovirus (PCR) (NotDetected) B. pertussis DNA (PCR) (NotDetected) B.parapertussis DNA PCR (NotDetected) C. pneumoniae DNA (PCR) (NotDetected) Coronavirus OC43 (PCR) (NotDetected) Coronavirus HKU1 (PCR) (NotDetected) Coronavirus 229E (PCR) (NotDetected) SARS-CoV-2 (PCR) (NotDetected) Coronavirus NL63 (PCR) (NotDetected) Human Metapneumovir PCR (NotDetected) Influenza Type A (PCR) (NotDetected) Influenza Type B (PCR) (NotDetected) M. pneumoniae (PCR) (NotDetected) Parainfluenza 1 (PCR) (NotDetected) Parainfluenza 2 (PCR) (NotDetected) Parainfluenza 3 (PCR) (NotDetected) Parainfluenza 4 (PCR) (NotDetected) RSV (PCR) (NotDetected) Entero/Rhino (PCR) (NotDetected) 11/23/24 11/23/24 11/23/24 Range/Units 15:05 15:40 16:52 WBC (4.8-10.8) K/ul RBC (4.20-5.40) M/uL Hgb (12.0-16.0) g/dl POC Hgb (12.0-16.0) g/dl Hct (37.0-47.0) % POC Hct (37-47) % MCV (80.0-100.0) fL MCH (25.0-34.0) pg MCHC (32.0-36.0) g/dL RDW Std Deviation (36.4-46.3) fL RDW Coeff of Hiral (11.5-14.5) % Plt Count (130-400) K/uL MPV (9.4-12.4) fL Immature Gran % (Auto) % Neut % (Auto) % Lymph % (Auto) % Luce % (Auto) % Eos % (Auto) % Baso % (Auto) % Neut # (Auto) (1.40-6.50) K/uL Lymph # (Auto) (1.20-3.40) K/uL Luce # (Auto) (0.11-0.59) K/uL Eos # (Auto) (0.00-0.50) K/uL Baso # (Auto) (0.00-0.20) K/uL Immature Gran # (Auto) (0.01-0.20) K/uL Polychromasia PT (9.0-12.0) Seconds INR (0.9-1.1) APTT (21-31) Seconds PTT Ratio VBG pH (7.36-7.41) VBG pCO2 (38-50) mmHg VBG pO2 mmHg VBG HCO3 mmol/L VBG O2 Saturation % VBG Base Excess mEq/L POC Sodium (135-144) mmol/L Sodium (136-145) mmol/L POC Potassium (3.3-5.0) mmol/L Potassium POC Chloride (101-112) mmol/L Chloride (98-107) mmol/L Carbon Dioxide (21-32) mmol/L POC Total CO2 (24-31) mmol/L Anion Gap (3-11) POC Anion Gap (16-25) mmol/L POC BUN (7-18) mg/dl BUN (6-23) mg/dl Creatinine (0.6-1.2) mg/dl POC Creatinine (0.6-1.3) mg/dl Est Cr Clr Drug Dosing ml/min eGFR BUN/Creatinine Ratio (10-20) Glucose (70-99(Fasting)) mg/dl POC Glucose (other) (70-99) mg/dl Lactate 2.4 H* (0.4-2.0) mmol/L Calcium (8.6-10.3) mg/dl POC Ioniz Calcium Kristy (1.12-1.32) mmol/l Phosphorus 2.9 (2.5-4.9) mg/dl Magnesium (1.7-2.4) mg/dl Total Bilirubin (0.2-1.0) mg/dl Direct Bilirubin AST ALT (7-52) U/L Alkaline Phosphatase (34-104) U/L Troponin I High Sens 199.2 H* D (0-14) pg/ml Total Protein (6.0-8.3) gm/dl Albumin (3.4-5.0) gm/dl Lipase (11-82) U/L Procalcitonin (0-0.5) ng/ml Urine Color Dark Yellow Urine Appearance Turbid A (Clear) Urine pH 5.5 (4.5-7.5) Ur Specific Orma 1.016 (1.000-1.030) Urine Protein 3+ H (Negative) Urine Glucose (UA) Negative (Negative) Urine Ketones Trace H (Negative) Urine Blood 3+ H (Negative) Urine Nitrite Negative (Negative) Urine Bilirubin 2+ H (Negative) Urine Urobilinogen Positive H (Negative) Ur Leukocyte Esterase 1+ H (Negative) Urine WBC (Auto) 6-10 H (0-5) /hpf Urine RBC (Auto) >20 H (0-2) /hpf U Hyaline Cast (Auto) >20 H (0-2) /lpf U Epithel Cells (Auto) >20 H (0-2) /hpf Urine Bacteria (Auto) 2+ H (None Seen) Calcium Oxalate Crystal Present A (None Prsent) Urine Comment Adenovirus (PCR) Not Detected (NotDetected) B. pertussis DNA (PCR) Not Detected (NotDetected) B.parapertussis DNA PCR Not Detected (NotDetected) C. pneumoniae DNA (PCR) Not Detected (NotDetected) Coronavirus OC43 (PCR) Not Detected (NotDetected) Coronavirus HKU1 (PCR) Not Detected (NotDetected) Coronavirus 229E (PCR) Not Detected (NotDetected) SARS-CoV-2 (PCR) Not Detected (NotDetected) Coronavirus NL63 (PCR) Not Detected (NotDetected) Human Metapneumovir PCR Not Detected (NotDetected) Influenza Type A (PCR) Not Detected (NotDetected) Influenza Type B (PCR) Not Detected (NotDetected) M. pneumoniae (PCR) Not Detected (NotDetected) Parainfluenza 1 (PCR) Not Detected (NotDetected) Parainfluenza 2 (PCR) Not Detected (NotDetected) Parainfluenza 3 (PCR) Not Detected (NotDetected) Parainfluenza 4 (PCR) Not Detected (NotDetected) RSV (PCR) Not Detected (NotDetected) Entero/Rhino (PCR) Not Detected (NotDetected) Imaging Data Attestation: I personally reviewed and interpreted this imaging study as follows: My Impression: Chest x-ray negative. Airway clear. No pneumothorax. No consolidation. No cardiomegaly or cephalization.. No free air under the diaphragm. No fractures of the skeletal structures. Radiologist's Impression: Chest X-Ray 11/23/24 14:42 Chest radiograph, one view History: Cough Comparison: None Findings: Single AP view of the chest performed. No focal consolidation or pleural effusion. No pneumothorax. The cardiomediastinal silhouette is within normal limits. Normal pulmonary vascularity. No evidence for lymphadenopathy. No visualized bony or soft tissue abnormality. Impression: Normal chest radiograph Electronically signed by Ariel Larsen 11-23-2024 3:20 PM Abdomen/Pelvis CT 11/23/24 15:02 EXAMINATION: CT of the abdomen and pelvis performed without contrast TECHNIQUE: Helical CT images from the lung bases through the symphysis pubis were obtained without contrast. Coronal and sagittal reformatted images were generated at a workstation for further assessment. Dose reduction techniques were achieved by using automatic exposure control and/or adjustment of mA and/or kV according to patient size and/or use of iterative reconstruction technique. COMPARISON: 10/24/2024 HISTORY: Abdominal pain FINDINGS: Lower chest: No consolidation. No pleural effusion or pneumothorax. Liver: No suspicious liver lesions. Gallbladder: No gallstones. No evidence of acute cholecystitis. Spleen: Normal size. Pancreas: No suspicious pancreatic lesions. The pancreatic duct is not dilated. Adrenal glands: No adrenal nodules. Kidneys: No hydronephrosis or obstructing renal stones. Bladder / Pelvic organs: In the left adnexa is a rounded soft tissue structure measuring 4.2 x 4.1 cm, containing internal foci of air. There is loss of the fat plane between this structure and the adjacent sigmoid colon. There is not appear to be significant inflammatory fat stranding.. Bowel: No bowel obstruction. No abnormal bowel wall thickening. The appendix is unremarkable. There is sigmoid diverticulosis. Lymph nodes: No retroperitoneal, mesenteric, or pelvic lymphadenopathy. Peritoneum / Retroperitoneum: No free fluid or air within the abdomen. Vessels: No infrarenal aortic aneurysm. Bones and soft tissues: No suspicious lesion in the bones. IMPRESSION: A 4.2 cm soft tissue structure is seen in the left adnexa. This appears to contain air, and there is loss of fat plane between this structure in the late large bowel, suggesting bowel communication. This could represent sequelae of prior diverticulitis, and subsequent healing and organization with a patent fistula, sequelae of ovarian vein thrombosis, or possibly an ovarian neoplasm. Further follow-up with pelvic ultrasound may be helpful. Electronically signed by Ariel Larsen 11-23-2024 3:43 PM ECG Data Attestation: I personally reviewed and interpreted this ECG as follows: Rate (beats per minute): 80 Rhythm: + sinus with SA ECG Intervals/blocks: + Normal QRS, + Normal [place] and + Normal QT-c ECG ST segments: + Normal ST segments [facility] Narrative 1439: The patient was evaluated in room A9. A complete history and physical exam was performed Cardiac monitoring: An order was placed for continuous cardiac monitoring. The monitor shows a rate of 80 with sinus rhythm interpreted by me 1521: Patient's blood pressure is improving with IV fluids. Patient's lactic acid 3.3. 2 L normal saline ordered for the patient to accomplish 30 cc/kg normal saline bolus. Patient be treated with cefepime 2 g. Peters catheter will be placed on the patient. Creatinine is elevated. Will obtain CT of the abdomen pelvis without contrast. 1605: Vital signs improved with IV fluids. Labs are significant for leukocytosis 25.52. Procalcitonin greater than 100. High-sensitivity troponin 301. Lactic acid 3.3. Creatinine 3.26. Baseline creatinine usually runs around 0.6. Grossly urine appears infected and urine dip is also concerning. Chest x-ray is unremarkable. CT of the abdomen pelvis does make mention about a 4.2 cm structure in the left adnexa which could be prior diverticulitis or fistula or ovarian vein thrombosis sequela or possible ovarian neoplasm. Radiology recommended ultrasound. Patient's blood pressure is just improving and is not thought to be related to her sepsis. Patient will be admitted to the inpatient team and further imaging and workup on this ovarian lesion can be done while inpatient and being treated for her urosepsis. Discussed this with Dr. Nix who will evaluate the patient for admission. 1642: Vital signs stable. Urinalysis confirms urine being source of infection. [facility] Impression & Plan Sepsis Discharge Plan Visit Data Chief Complaint: Pain (Generalized) Stated Complaint: SHAKEY, BODY ACHES,THROW UP CLEAR LIQUIDS ED Provider: Santana Bermeo Discharge Problem: Sepsis Patient Disposition: Admitted As Inpatient Condition: Serious Discharge Instructions Interventions: ED Discharge Assessment Last Done: 11/23/24 19:31 Discharge Problem: Sepsis Qualifiers: Sepsis type: sepsis due to unspecified organism Sepsis acute organ dysfunction status: with acute organ dysfunction Severe sepsis acute organ dysfunction type: acute renal failure Acute renal failure type: unspecified Severe sepsis shock status: unspecified Qualified Code(s): A41.9 - Sepsis, unspecified organism
[2024-11-23] MEDS: SODIUM CHLORIDE 0.9% 1,000 ML IV SCH ×3 (15:04→18:59)
[2024-11-23 15:10] LABS: Base Excess VBG -1.8 mEq/L; HCO3 VBG 23 mmol/L; Oxygen Saturation VBG 85.1 %; PCO2 VBG 39 mmHg (38-50); PO2 VBG 51 mmHg; pH VBG 7.38 (7.36-7.41)
--- NOTE | 2024-11-23 15:20 | XRay Report ---
Chest radiograph, one view History: Cough Comparison: None Findings: Single AP view of the chest performed. No focal consolidation or pleural effusion. No pneumothorax. The cardiomediastinal silhouette is within normal limits. Normal pulmonary vascularity. No evidence for lymphadenopathy. No visualized bony or soft tissue abnormality. Impression: Normal chest radiograph Electronically signed by Ariel Larsen 11-23-2024 3:20 PM
[2024-11-23 15:34] LABS: Hematocrit (blood only) 36.6 % (37.0-47.0); Hemoglobin 12.5 g/dl (12.0-16.0); Immature Granulocytes # (auto) 0.19 K/uL (0.01-0.20); Immature Granulocytes % (auto) 0.7 %; Mean Corpuscular Hemoglobin 28.5 pg (25.0-34.0); Mean Corpuscular Volume 83.6 fL (80.0-100.0); Platelet Count 199 K/uL (130-400); Polychromasia 1+; RDW Standard Deviation 43.1 fL (36.4-46.3); Red Blood Count 4.38 M/uL (4.20-5.40); White Blood Count 25.52 K/ul (4.8-10.8)
[2024-11-23 15:36] LABS: Alanine Aminotransferase 40 U/L (7-52); Albumin Level 3.2 gm/dl (3.4-5.0); Alkaline Phosphatase 161 U/L (34-104); Anion Gap 12 (3-11); Bilirubin,Total 2.1 mg/dl (0.2-1.0); Blood Urea Nitrogen 28 mg/dl (6-23); Calcium 10.0 mg/dl (8.6-10.3); Carbon Dioxide 22 mmol/L (21-32); Chloride 96 mmol/L (98-107); Creatinine Clr Calc Pharmacy 17.5 ml/min; Glucose 151 mg/dl (70-99(Fasting)); Lipase 15 U/L (11-82); Magnesium 2.0 mg/dl (1.7-2.4); Sodium 130 mmol/L (136-145); Total Protein 7.7 gm/dl (6.0-8.3)
[2024-11-23] MEDS: SODIUM CHLORIDE 0.9% 1,000 ML IV ONE (15:37)
[2024-11-23] MEDS: CEFEPIME 2000MG 2,000 MG/20 ML SYR IV STA (15:43)
--- NOTE | 2024-11-23 15:43 | CT Scan Report ---
EXAMINATION: CT of the abdomen and pelvis performed without contrast TECHNIQUE: Helical CT images from the lung bases through the symphysis pubis were obtained without contrast. Coronal and sagittal reformatted images were generated at a workstation for further assessment. Dose reduction techniques were achieved by using automatic exposure control and/or adjustment of mA and/or kV according to patient size and/or use of iterative reconstruction technique. COMPARISON: 10/24/2024 HISTORY: Abdominal pain FINDINGS: Lower chest: No consolidation. No pleural effusion or pneumothorax. Liver: No suspicious liver lesions. Gallbladder: No gallstones. No evidence of acute cholecystitis. Spleen: Normal size. Pancreas: No suspicious pancreatic lesions. The pancreatic duct is not dilated. Adrenal glands: No adrenal nodules. Kidneys: No hydronephrosis or obstructing renal stones. Bladder / Pelvic organs: In the left adnexa is a rounded soft tissue structure measuring 4.2 x 4.1 cm, containing internal foci of air. There is loss of the fat plane between this structure and the adjacent sigmoid colon. There is not appear to be significant inflammatory fat stranding.. Bowel: No bowel obstruction. No abnormal bowel wall thickening. The appendix is unremarkable. There is sigmoid diverticulosis. Lymph nodes: No retroperitoneal, mesenteric, or pelvic lymphadenopathy. Peritoneum / Retroperitoneum: No free fluid or air within the abdomen. Vessels: No infrarenal aortic aneurysm. Bones and soft tissues: No suspicious lesion in the bones. IMPRESSION: A 4.2 cm soft tissue structure is seen in the left adnexa. This appears to contain air, and there is loss of fat plane between this structure in the late large bowel, suggesting bowel communication. This could represent sequelae of prior diverticulitis, and subsequent healing and organization with a patent fistula, sequelae of ovarian vein thrombosis, or possibly an ovarian neoplasm. Further follow-up with pelvic ultrasound may be helpful. Electronically signed by Ariel Larsen 11-23-2024 3:43 PM
[2024-11-23 15:54] LABS: INR 1.1 (0.9-1.1); Partial Thromboplastin Time 35 Seconds (21-31); Prothrombin Time 11.5 Seconds (9.0-12.0)
[2024-11-23 16:36] LABS: Appearance Urine Turbid (Clear); Bacteria Urine Automated 2+ (None Seen); Cast Urine Automated >20 /lpf (0-2); Epithelial Cell Urine Auto >20 /hpf (0-2); Glucose Urine UA Negative (Negative); RBC Urine Automated >20 /hpf (0-2)
[2024-11-23 16:38] LABS: Chlamydia pneumoniae PCR Not Detected (NotDetected); Coronavirus 229E PCR Not Detected (NotDetected); Coronavirus CoV-2 (COVID19)PCR Not Detected (NotDetected); Coronavirus HKU1 PCR Not Detected (NotDetected); Coronavirus NL63 PCR Not Detected (NotDetected); Coronavirus OC43PCR Not Detected (NotDetected); Human Metapneumovirus PCR Not Detected (NotDetected); Parainfluenza Virus 1 PCR Not Detected (NotDetected); Parainfluenza Virus 2 PCR Not Detected (NotDetected); Parainfluenza Virus 3 PCR Not Detected (NotDetected); Parainfluenza Virus 4 PCR Not Detected (NotDetected); Respiratory Syncytial VirusPCR Not Detected (NotDetected); Rhinovirus/Enterovirus PCR Not Detected (NotDetected)
--- NOTE | 2024-11-23 17:04 | History & Physical Report ---
Date of Service November 23, 2024 Assessment & Plan (1) Diverticular disease of intestine with perforation and abscess: Plan: CT a/p on 11/23/2024 showed "4.2 cm soft tissue structure is seen in the left adnexa;" however, given that CT a/p on 10/24/2024 made no mention of ovarian pathology, but had extensive sigmoid diverticulosis, I do not think ovarian issue is as likely. Case was discussed with on-call surgery and placement manager who agree with plan. - Start Unasyn (renal dosing will need to be adjusted likely) - NPO - Consult colorectal surgery and placement manager - Reach out to IR in the morning to consider percutaneous drainage (2) Sepsis: Plan: Severe sepsis as evidenced by elevated lactate and hypotension on arrival. BP responding to fluids and now 100/65. Appears comfortable. Discussed with ICU attending; plan for PCU/telemetry for now. Believe elevated troponin due to sepsis. No complaint of chest pain at present. - Repeat lactate & troponin pending - Continue fluids -> Did not get full 30 mL/kg bolus (only 2 L bolus). Given improvement, defer for now given possible CHF, but could get another 1L bolus before pressors. (3) MARGUERITE (acute kidney injury): Plan: Baseline Cr is 0.6 (eGFR > 90). Cr on admission was 3.26, likely pre-renal. On my exam in ER, she is making good urine output. - Continue IV fluids for now - Monitor Cr - Adjust medications as kidney function improves (4) Severe obstructive sleep apnea: Plan: Compliant with CPAP. - Continue CPAP in hospital - Defer home insomnia meds for now; ordered melatonin PRN (5) Chronic diastolic congestive heart failure: Plan: Followed with [facility], but no further visits since 2022. Per note, severe LVH, diastolic CHF. NOT on Lasix at baseline. - Monitor volume status - Defer full sepsis bolus due to CHF (6) Hypertension: Plan: Baseline SBPs seem to be 120-140. - Hold amlodipine (7) Type 2 diabetes mellitus: Plan: With A1c of 5.7% on 10/22/2024. - Hold semaglutide - Sliding scale (8) Tobacco abuse: Plan: Quit about 1 week ago, but still with cravings. - Nicotine patch Plan FULL CODE - In discussion with patient and sister on admission History of Present Illness Chief Complaint: Abdominal pain, fatigue Primary Care Provider: Arielle Aguilar MD 64yo F w/ hx of diverticulitis/diverticulosis, DM, HTN who presents with sepsis and large diverticular abscess. Patient had fairly non-specific symptoms of fatigue, generalized body aches/pains, and nausea with emesis over last 2 days. On specific questioning, she does note LLQ pain without radiation. She had emesis yesterday that was without coffee ground-type emesis or blood. She reports a normal BM yesterday without blood or melena. She reports some generalized reduction in appetite over the last few days as well. She denies fevers/chills. She notes normal urination with no dysuria or foul smell. She denies AGUSTIN, vision changes, chest pain, shortness of breath, palpitations, or leg swelling. Allergies Allergy/AdvReac Type Severity Reaction Status Date / Time No Known Allergies Allergy Verified 11/11/24 14:29 Home Medications Medication Instructions Recorded Confirmed Type Oxygen Home #1 ea 08/28/19 11/11/24 Rx nebulizers (Compact Compressor #1 ea 08/28/19 11/11/24 Rx Nebulizer) Miscellaneous Pulmonary Supply #1 ea 09/01/19 11/11/24 Rx pen needle, diabetic 32 gauge x #50 ea 08/04/22 11/11/24 Rx 1/4" (Novofine 32) blood sugar diagnostic (Accu-Chek #100 ea 05/08/23 11/11/24 Rx Guide test strips) lancets (Accu-Chek Fastclix Lancet #100 ea 05/08/23 11/11/24 Rx Drum) lancing device (lancing device #1 ea 05/08/23 11/11/24 Rx with lancets) blood-glucose meter (Accu-Chek #1 ea 05/28/23 11/11/24 Rx Guide Glucose Meter) lancing device with lancets kit #1 ea 05/28/23 11/11/24 Rx (Accu-Chek Softclix Lancing Device+Lancets kit) amlodipine 10 mg tablet 10 mg PO DAILY #90 tabs 04/22/24 11/11/24 Rx semaglutide 2 mg/dose (8 mg/3 mL) 2 mg (0.75 mL) subcut Q7D 90 days 07/10/24 11/11/24 Rx subcutaneous pen injector #9.75 mL meloxicam 7.5 mg tablet 7.5 - 15 mg (1 - 2 x 7.5 mg) PO 08/28/24 11/11/24 Rx DAILY PRN pain #180 tabs linaclotide 145 mcg capsule 145 mcg PO DAILY #30 caps 09/22/24 11/11/24 Rx (Linzess) gabapentin 800 mg tablet 800 mg PO TID #270 tabs 10/22/24 11/11/24 Rx rosuvastatin 5 mg tablet 5 mg PO DAILY #90 tabs 10/22/24 11/11/24 Rx tramadol 50 mg tablet 50 mg PO BID PRN pain #60 tabs 10/22/24 11/11/24 Rx cholecalciferol (vitamin D3) 125 125 mcg PO DAILY #30 caps 10/31/24 11/11/24 Rx mcg (5,000 unit) capsule eszopiclone 3 mg tablet (Lunesta) 3 mg PO HS PRN sleep #30 tabs 11/06/24 Rx CPAP Machine #1 ea 11/11/24 11/11/24 Rx Past Med/Surg History Problem List (Updated 11/23/24 @ 17:21 by Tulio Nix MD) MARGUERITE (acute kidney injury) Diverticular disease of intestine with perforation and abscess Sepsis (Acute) Chronic constipation (Chronic) Vitamin D deficiency (Chronic) Insomnia (Chronic) DODD (nonalcoholic steatohepatitis) (Chronic) Circadian rhythm sleep disorder, irregular sleep wake type (Chronic) Severe obstructive sleep apnea (Chronic) CPAP (compliant) Chronic diastolic congestive heart failure (Chronic) 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 Heath @ [facility] Hx of colonoscopy Hx of tooth extraction Hx of carpal tunnel repair Right Hx of hernia repair 2016, 2017 Ventral hernia repair (01/10/18): Grade 2 view, MAC#3, ETT 7.5 at [facility]. No issues noted per post-op anesthesia progress note. Hx of foot surgery Left Family History Mother Family history of diabetes mellitus Arthritis Cancer Other Congestive heart failure FHx: breast cancer FHx: prostate cancer Social History Smoking Status: Current every day smoker Tobacco Type: Cigarettes Age Started Using Tobacco: 16; packs per day: 1; Cigarettes Per Day: 1 pack q3d; Second Hand Exposure: No; Do You Dip or Chew Tobacco: No; Hx Alcohol Use: No Hx Substance Use: No Preferred Language: Yi Communication Ability: Effective Visual Impairment: No Limitations Vp Clinical Research Required: No Beliefs That Will Affect Care: None Current Living Situation: Family Current Living Situation Comment: me and my son Feels Safe at Home: Yes Diet: regular caffeine: No Physical Activity Frequency: Daily Physical Activity Frequency Comment: Walking Seatbelt Use: always Sunscreen Use: No Assistive Devices: CPAP, Denture - Upper, Denture - Lower and Glasses Review of Systems Review of Systems: All systems reviewed & are unremarkable except as noted in HPI & below Physical Exam Physical Exam: GEN: NAD, speaking on phone in bed HEENT: NC/AT CV: RRR, no m/r/g Resp: Normal work of breathing, clear to auscultation GI: Mild tenderness in LLQ. No rebound or guarding. Hypoactive bowel sounds. Neuro: Moves all limbs. No focal neuro deficits noted. MSK: Normal joint exam Psych: Normal affect Skin: No rashes noted Results & Data Results & Data Vital Signs (Past 12 Hours) Vital Signs Temp Pulse Resp BP Pulse Ox O2 Del Method 11/23/24 16:45 80 16 94/66 L 94 Room Air 11/23/24 16:40 96/54 L 11/23/24 16:36 81 22 87/63 L 97 Room Air 11/23/24 16:31 81 20 92/70 L 100 Room Air 11/23/24 16:25 78 16 84/64 L 98 Room Air 11/23/24 16:17 86 25 H 94/61 L 97 Room Air 11/23/24 16:06 88 24 85/53 L 98 Room Air 11/23/24 16:01 86 22 95/52 L 96 Room Air 11/23/24 15:50 97/59 L 11/23/24 15:45 93/63 L 11/23/24 15:40 83 16 89/54 L 93 Room Air 11/23/24 15:35 97/66 L 11/23/24 15:33 81 21 93 Room Air 11/23/24 15:31 82/61 L 11/23/24 15:30 84 18 82/61 L 11/23/24 15:27 79 21 80/43 L 97 Room Air 11/23/24 15:21 81 18 85/39 L 97 Room Air 11/23/24 15:19 82/51 L 11/23/24 15:15 98 Room Air 11/23/24 15:07 20 11/23/24 14:48 89 11/23/24 14:45 89 20 81/59 L 94 Room Air 11/23/24 14:33 36.3 C L 82 16 73/50 L 98 Room Air Code Status & VTE Plan Code Status Full code with discussion PG Care Time/CCT Total # of Minutes Spent Total Time Spent with Patient: Total time spent is greater than 50% in coordination of care (as documented) at patient's floor/unit and/or counseling patient: Coding Level of Care Code 34726 INT INP/OBS CARE MIN Diagnoses Diverticular disease of intestine with perforation and abscess K57.80 Sepsis A41.9; R65.20; N17.9 Acute renal failure type: unspecified Sepsis acute organ dysfunction status: with acute organ dysfunction Sepsis type: sepsis due to unspecified organism Severe sepsis acute organ dysfunction type: acute renal failure Severe sepsis shock status: unspecified MARGUERITE (acute kidney injury) N17.9 Severe obstructive sleep apnea G47.33 Chronic diastolic congestive heart failure I50.32 Essential hypertension I10 Hypertension type: essential hypertension Type 2 diabetes mellitus with diabetic neuropathy, without long-term current use of insulin E11.40 Diabetes mellitus complication detail: with unspecified neuropathy Diabetes mellitus complication status: with neurologic complications Diabetes mellitus buttermaker continuous churn insulin use: without shelter use Tobacco abuse Z72.0 (2) Sepsis Acute renal failure type: unspecified Sepsis acute organ dysfunction status: with acute organ dysfunction Sepsis type: sepsis due to unspecified organism Severe sepsis acute organ dysfunction type: acute renal failure Severe sepsis shock status: unspecified Qualified Code(s): A41.9 - Sepsis, unspecified org anism; R65.20 - Severe sepsis without septic shock; N17.9 - Acute kidney failure, unspecified (6) Hypertension Hypertension type: essential hypertension Qualified Code(s): I10 - Essential (primary) hypertension (7) Type 2 diabetes mellitus Diabetes mellitus complication detail: with unspecified neuropathy Diabetes mellitus complication status: with neurologic complications Diabetes mellitus buttermaker continuous churn insulin use: without buttermaker continuous churn use Qualified Code(s): E11.40 - Type 2 diabetes mellitus with diabetic neuropathy, unspecified
[2024-11-23] MEDS ORDERED: STAT IV Infusion **Titration per Protocol STA (18:57)
[2024-11-23] MEDS ORDERED: GLUCOSE 10 TAB/TUBE PO PRN (19:01)
[2024-11-23] MEDS ORDERED: CARBOHYDRATES FOR HYPOGLYCEMIA PO PRN (19:01)
[2024-11-23] MEDS ORDERED: GLUCOSE 40% GEL 15 GM TUBE PO PRN (19:01)
[2024-11-23] MEDS ORDERED: GLUCAGON FOR INJ 1 MG VIAL SQ PRN (19:01)
[2024-11-23] MEDS ORDERED: DEXTROSE 50% 50 ML SYRINGE IV PRN (19:01)
[2024-11-23] MEDS ORDERED: MELATONIN 3 MG TAB PO PRN (19:01)
[2024-11-23] MEDS ORDERED: AMPICILLIN/SULBACTAM SOD 1,500 MG/100 ML BAG IV SCH (19:01)
[2024-11-23] MEDS: NOREPINEPHRINE/D5W 4 MG/250 ML PLCT IV SCH (19:04)
[2024-11-23] MEDS: 4.5GM X1 IV STA (19:22)
--- NOTE | 2024-11-23 20:23 | Critical Care Consultation ---
Date of Consultation November 23, 2024 Assessment & Plan (1) MARGUERITE (acute kidney injury): (2) Severe obstructive sleep apnea: (3) Chronic diastolic congestive heart failure: (4) Type 2 diabetes mellitus: Plan Reason Critically Ill: 1. Shock, septic 2. Severe KIEL 3. Abnormal urinalysis 4. Diverticulitis with abscess and L adnexal involvement Neuro - [facility] ICU: Negative RASS GOAL 0 Tramadol and Linzess held. Melatonin PRN, can consider restarting home Lunesta Gabapentin held with MARGUERITE APAP PRN pain/fever Cardiac - Continue Levophed for MAP goal > 65mmHg Received 2L IVF bolus, had additional 1L ordered but was not completed by ED, will give 500cc LR now and bolus PRN May require gentle mIVF while NPO if UOP continues to be brisk Hold home antihypertensives Will update TTE (last was 2019, moderate pHTN, LVH) Admit EKG sinus rhythm with PACs, normal QTc Respiratory - No acute concerns SpO2 goal > 92% CPAP QHS GI - General Surgery consult, appreciate recommendations. There is consideration being made for IR drainage of collection Diet: NPO except sips and chips, NPO after 0000 SUP: N/A Bowel regimen: Held overnight Zofran PRN RENAL/LYTES - Repeat BMP tonight, urinating quite well after resuscitation. May start mIVF Replete electrolytes as indicated Peters placed for accurate I/Os in ED, likely remove tomorrow morning Maintain net even to net negative ENDO - No acute concerns BG 140-180 per SCCM guidelines ISS if needed while inpatient Hold GLP-1 HEME/ONC/OTHER - No acute concerns [facility] NURSE PSYCHOTHERAPIST consulted on admission, appreciate recommendations ID - Continue Zosyn pending culture data and speciation UCx pending, BCx x2 pending, procalcitonin > 100, MRSA nares pending LINES/TUBES/DRAINS - PIV x2 Peters (Day #1) Patient amenable to CVC if needed. She is on 0.01mcg/kg/min Levophed so we will hold off. Has 20G IV DVT PROPHYLAXIS - Start tomorrow I have personally spent 35 minutes of critical care time in the direct management of this patient. This is a life/limb threatening event. This includes time spent evaluating patient, direct bedside care, chart review, placing orders, interpretation of diagnostic studies, discussion with consultants, patient, and family members, as well as other required patient management activities. This time is exclusive of all separately billable procedures, and teaching time and separate from and in addition to any other critical care service time. Thank you for allowing us to participate in the care of this patient. Please refer to my attending physician's documentation for any further recommendations. History of Present Illness Reason for Consultation: Shock Requesting Physician: Boyd Attending Physician: Tulio Nix MD History of Present Illness Ms. Tamela Weinberg is a pleasant 64YOF with a history of obesity, insomnia, severe KIEL on CPAP, HTN/HLD, HFpEF, moderate pulmonary hypertension, diverticulosis, DODD, NIDDMII (5.7%) who presented to [facility] ED from home on 11/23/2024 with fatigue/weakness and nausea with emesis for about 2 days. Hypotensive in ED, nontachycardic. Received 2L crystalloid bolus and remained hypotensive. Started on norepinephrine. Labs revealed MARGUERITE, leukocytosis with neutrophil predominance, LA 2.4, troponin 199, procalcitonin > 100, and UA +. CT AP showing likely diverticular abscess with possible involvement of the L adnexa. Could represent sequela of prior diverticulitis with healing and organization with a patient fistula. On CTAP 10/22/24 there was no collection or signs of infection. Patient's provided history does not suggest recent infection beyond her acute presentation. These findings were discussed with [facility] and General Surgery per ED note. Appears consensus is to consult IR in AM for possible drainage. In the interim, she is admitted to ICU with presumed septic shock. Patient seen in ICU 103. She is AAOx3. No acute distress. MAP 80s on 0.05mcg/kg/min Levophed. Saturating well on room air. Per patient, vomiting and abdominal discomfort started this AM. Emesis is clear. Last real meal yesterday. Has been drinking adequate juice and water. Notes urine is darker, but denies dysuria, frequency/urgency. Patient also denies fever, chills, diarrhea, hematemesis, hematochezia, myalgias, visual disturbances, paresthesias, headaches, chest pain, shortness of breath. Allergies Allergy/AdvReac Type Severity Reaction Status Date / Time No Known Allergies Allergy Verified 11/11/24 14:29 Home Medications Medication Instructions Recorded Confirmed Type Oxygen Home #1 ea 08/28/19 11/11/24 Rx nebulizers (Compact Compressor #1 ea 08/28/19 11/11/24 Rx Nebulizer) Miscellaneous Pulmonary Supply #1 ea 09/01/19 11/11/24 Rx pen needle, diabetic 32 gauge x #50 ea 08/04/22 11/11/24 Rx 1/4" (Novofine 32) blood sugar diagnostic (Accu-Chek #100 ea 05/08/23 11/11/24 Rx Guide test strips) lancets (Accu-Chek Fastclix Lancet #100 ea 05/08/23 11/11/24 Rx Drum) lancing device (lancing device #1 ea 05/08/23 11/11/24 Rx with lancets) blood-glucose meter (Accu-Chek #1 ea 05/28/23 11/11/24 Rx Guide Glucose Meter) lancing device with lancets kit #1 ea 05/28/23 11/11/24 Rx (Accu-Chek Softclix Lancing Device+Lancets kit) amlodipine 10 mg tablet 10 mg PO DAILY #90 tabs 04/22/24 11/11/24 Rx semaglutide 2 mg/dose (8 mg/3 mL) 2 mg (0.75 mL) subcut Q7D 90 days 07/10/24 11/11/24 Rx subcutaneous pen injector #9.75 mL meloxicam 7.5 mg tablet 7.5 - 15 mg (1 - 2 x 7.5 mg) PO 08/28/24 11/11/24 Rx DAILY PRN pain #180 tabs linaclotide 145 mcg capsule 145 mcg PO DAILY #30 caps 09/22/24 11/11/24 Rx (Linzess) gabapentin 800 mg tablet 800 mg PO TID #270 tabs 10/22/24 11/11/24 Rx rosuvastatin 5 mg tablet 5 mg PO DAILY #90 tabs 10/22/24 11/11/24 Rx tramadol 50 mg tablet 50 mg PO BID PRN pain #60 tabs 10/22/24 11/11/24 Rx cholecalciferol (vitamin D3) 125 125 mcg PO DAILY #30 caps 10/31/24 11/11/24 Rx mcg (5,000 unit) capsule eszopiclone 3 mg tablet (Lunesta) 3 mg PO HS PRN sleep #30 tabs 11/06/24 11/11/24 Rx CPAP Machine #1 ea 11/11/24 11/11/24 Rx Patient History Medical History History of diverticulitis [facility] Hospitalization History of colon polyps Surgical History Hx of esophagogastroduodenoscopy 06/2023 Status post left knee replacement September 2022 Status post total right knee replacement not using cement 10/26/21 Dr. Heath @ [facility] Hx of colonoscopy Hx of tooth extraction Hx of carpal tunnel repair Right Hx of hernia repair 2015, 2017 Ventral hernia repair (01/10/18): Grade 2 view, MAC#3, ETT 7.5 at [facility]. No issues noted per post-op anesthesia progress note. Hx of foot surgery Left Family History Mother Family history of diabetes mellitus Arthritis Cancer Other Congestive heart failure FHx: breast cancer FHx: prostate cancer Social History Smoking Status: Former smoker Tobacco Type: Cigarettes Age Started Using Tobacco: 16; packs per day: 1; Cigarettes Per Day: 10; Smoking End Date: 11/16/24; Second Hand Exposure: No; Do You Dip or Chew Tobacco: No; Tobacco Cessation Education Requested by Patient: No Hx Alcohol Use: Yes Alcohol type: wine Hx Substance Use: No Preferred Language: Monegasque Communication Ability: Effective Visual Impairment: No Limitations 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 Operator Required: No Beliefs That Will Affect Care: None Current Living Situation: Family Current Living Situation Comment: lives with son Other Information That Helps Us Care for You: No Feels Safe at Home: Yes Safety Concerns: Feels Safe At This Time Diet: regular caffeine: No Physical Activity Frequency: Daily Physical Activity Frequency Comment: Walking Seatbelt Use: always Sunscreen Use: No Assistive Devices: CPAP and Glasses Review of Systems Review of Systems: All systems reviewed & are unremarkable except as noted in Subjective Physical Exam Constitutional: well developed, well nourished and + obese; no acute distress Eyes: PERRL, conjunctivae normal, anicteric sclerae ENMT: external ear and nose normal, oropharynx normal Edentulous Neck: trachea midline, no thyromegaly Respiratory: normal respiratory effort, lungs clear to auscultation Cardiovascular: RRR, no murmur, no edema Chest (Breasts): Additional Comments: cystic structure not infected appearing Gastrointestinal (Abdomen): Inspection/Auscultation: normal bowel sounds and + abdominal surgical scar Percussion/Palpation: abdomen soft; abdomen nontender, no guarding and abdomen not rigid Musculoskeletal: no cyanosis or clubbing, extremities motor strength 5/5 Skin: no rashes, warm and dry Neurologic: PERRL, EOMI, accommodation nl, no face palsy, no dysarthria Genitourinary: Peters in place draining light yellow urine Results & Data Results & Data Vital Signs (Past 12 Hours) Vital Signs Temp Pulse Resp BP BP Pulse Ox O2 Del Method 11/23/24 19:20 81 17 116/82 11/23/24 19:10 78 20 84/57 L 95 11/23/24 19:07 82 22 88/61 L 97 11/23/24 19:00 85 20 83/66 L 98 11/23/24 18:45 83 18 91/62 L 97 11/23/24 18:45 83 16 91/62 L 96 Room Air 11/23/24 18:40 79/42 L 11/23/24 18:32 85 18 94 11/23/24 18:30 36.8 C 11/23/24 18:17 79 21 101/74 91 11/23/24 18:16 80 11/23/24 18:08 78 17 97 11/23/24 18:00 78 18 93/75 L 97 Room Air 11/23/24 17:56 80 22 108/61 94 Room Air 11/23/24 17:50 84 25 H 111/75 11/23/24 17:40 94 H 22 115/84 11/23/24 17:36 112/66 11/23/24 17:25 98/67 L 11/23/24 17:17 79 20 91/68 L 11/23/24 17:11 83 16 84/69 L 11/23/24 17:06 80 18 98/66 L 11/23/24 16:45 80 16 94/66 L 94 Room Air 11/23/24 16:40 96/54 L 11/23/24 16:36 81 22 87/63 L 97 Room Air 11/23/24 16:31 81 20 92/70 L 100 Room Air 11/23/24 16:25 78 16 84/64 L 98 Room Air 11/23/24 16:17 86 25 H 94/61 L 97 Room Air 11/23/24 16:06 88 24 85/53 L 98 Room Air 11/23/24 16:01 86 22 95/52 L 96 Room Air 11/23/24 15:50 97/59 L 11/23/24 15:45 93/63 L 11/23/24 15:40 83 16 89/54 L 93 Room Air 11/23/24 15:35 97/66 L 11/23/24 15:33 81 21 93 Room Air 11/23/24 15:31 82/61 L 11/23/24 15:30 84 18 82/61 L 11/23/24 15:27 79 21 80/43 L 97 Room Air 11/23/24 15:21 81 18 85/39 L 97 Room Air 11/23/24 15:19 82/51 L 11/23/24 15:15 98 Room Air 11/23/24 15:07 20 11/23/24 14:48 89 11/23/24 14:45 89 20 81/59 L 94 Room Air 11/23/24 14:33 36.3 C L 82 16 73/50 L 98 Room Air Laboratory Results Reviewed Diagnostic Findings Reviewed Medications Administered See MAR Coding Level of Care Code 91154 IN/OBS CONSULT LVL 2,35M Diagnoses MARGUERITE (acute kidney injury) N17.9 Severe obstructive sleep apnea G47.33 Chronic diastolic congestive heart failure I50.32 Type 2 diabetes mellitus with diabetic neuropathy, without long-term current use of insulin E11.40 Diabetes mellitus complication detail: with unspecified neuropathy Diabetes mellitus complication status: with neurologic complications Diabetes mellitus termite control representative insulin use: without termite control representative use Time Spent (min) 35 (4) Type 2 diabetes mellitus Diabetes mellitus complication detail: with unspecified neuropathy Diabetes mellitus complication status: with neurologic complications Diabetes mellitus termite control representative insulin use: without termite control representative use Qualified Code(s): E11.40 - Type 2 diabetes mellitus with diabetic neuropathy, unspecified
--- NOTE | 2024-11-23 20:38 | Consultation ---
Date of Consultation November 23, 2024 Assessment & Plan (1) Diverticulitis large intestine: IV antibiotics possible drainage Plan IV antibiotics possible drainage History of Present Illness Requesting Physician: Tulio Nix Reason for Consultation: Diverticulitis with abscess involving left ovary. Attending Physician: Tulio Nix MD History of Present Illness Patient is a 64-year-old black female 2 para 2. History of large fibroids. She had a myomectomy followed by and a section. She then had a partial hysterectomy with preservation of both ovaries. Uterine fibroids were large enough that it required a midline abdominal incision which went part way around the umbilicus. She has been followed by gastroenterology for diverticulosis. Recently developed symptoms of general malaise and left lower quadrant tenderness. She was evaluated with a CT of the abdomen and pelvis. The CT showed a 4.2 x 4.1 cm left sided mass adjacent to the colon with a small amount of air in. Appears to be left ovary involved in a diverticular abscess. Patient was admitted placed on IV antibiotics. Will be evaluated tomorrow for possible drainage. Allergies Allergy/AdvReac Type Severity Reaction Status Date / Time No Known Allergies Allergy Verified 11/11/24 14:29 Home Medications Medication Instructions Recorded Confirmed Type Oxygen Home #1 ea 08/28/19 11/11/24 Rx nebulizers (Compact Compressor #1 ea 08/28/19 11/11/24 Rx Nebulizer) Miscellaneous Pulmonary Supply #1 ea 09/01/19 11/11/24 Rx pen needle, diabetic 32 gauge x #50 ea 08/04/22 11/11/24 Rx 1/4" (Novofine 32) blood sugar diagnostic (Accu-Chek #100 ea 05/08/23 11/11/24 Rx Guide test strips) lancets (Accu-Chek Fastclix Lancet #100 ea 05/08/23 11/11/24 Rx Drum) lancing device (lancing device #1 ea 05/08/23 11/11/24 Rx with lancets) blood-glucose meter (Accu-Chek #1 ea 05/28/23 11/11/24 Rx Guide Glucose Meter) lancing device with lancets kit #1 ea 05/28/23 11/11/24 Rx (Accu-Chek Softclix Lancing Device+Lancets kit) amlodipine 10 mg tablet 10 mg PO DAILY #90 tabs 04/22/24 11/11/24 Rx semaglutide 2 mg/dose (8 mg/3 mL) 2 mg (0.75 mL) subcut Q7D 90 days 07/10/24 11/11/24 Rx subcutaneous pen injector #9.75 mL meloxicam 7.5 mg tablet 7.5 - 15 mg (1 - 2 x 7.5 mg) PO 08/28/24 11/11/24 Rx DAILY PRN pain #180 tabs linaclotide 145 mcg capsule 145 mcg PO DAILY #30 caps 09/22/24 11/11/24 Rx (Linzess) gabapentin 800 mg tablet 800 mg PO TID #270 tabs 10/22/24 11/11/24 Rx rosuvastatin 5 mg tablet 5 mg PO DAILY #90 tabs 10/22/24 11/11/24 Rx tramadol 50 mg tablet 50 mg PO BID PRN pain #60 tabs 10/22/24 11/11/24 Rx cholecalciferol (vitamin D3) 125 125 mcg PO DAILY #30 caps 10/31/24 11/11/24 Rx mcg (5,000 unit) capsule eszopiclone 3 mg tablet (Lunesta) 3 mg PO HS PRN sleep #30 tabs 11/06/24 11/11/24 Rx CPAP Machine #1 ea 11/11/24 11/11/24 Rx Patient History Medical History History of diverticulitis [facility] Hospitalization History of colon polyps Surgical History Hx of esophagogastroduodenoscopy 06/2023 Status post left knee replacement September 2022 Status post total right knee replacement not using cement 10/26/21 Dr. Heath @ [facility] Hx of colonoscopy Hx of tooth extraction Hx of carpal tunnel repair Right Hx of hernia repair 2015, 2017 Ventral hernia repair (01/10/18): Grade 2 view, MAC#3, ETT 7.5 at [facility]. No issues noted per post-op anesthesia progress note. Hx of foot surgery Left Family History Mother Family history of diabetes mellitus Arthritis Cancer Other Congestive heart failure FHx: breast cancer FHx: prostate cancer Social History Smoking Status: Current every day smoker Tobacco Type: Cigarettes Age Started Using Tobacco: 16; packs per day: 1; Cigarettes Per Day: 1 pack q3d; Second Hand Exposure: No; Do You Dip or Chew Tobacco: No; Hx Alcohol Use: No Hx Substance Use: No Preferred Language: Maltese Communication Ability: Effective Visual Impairment: No Limitations Drawer In Plain Loom Required: No Beliefs That Will Affect Care: None Current Living Situation: Family Current Living Situation Comment: me and my son Feels Safe at Home: Yes Diet: regular caffeine: No Physical Activity Frequency: Daily Physical Activity Frequency Comment: Walking Seatbelt Use: always Sunscreen Use: No Assistive Devices: CPAP, Denture - Upper, Denture - Lower and Glasses Physical Exam Physical Exam: Patient appeared to be well-developed well-nourished 64-year-old black female alert oriented x 3 cooperative no acute distress. Heart had a regular rhythm S1 and S2 were normal. Lungs are clear to auscultation and percussion. Trachea was midline there is no cervical adenopathy. Oral exam reveal absence of teeth. Abdomen was tender in the left lower quadrant. There was a midline incision which went partially around the umbilicus on the patient's right side. There are some puckering and scarring of the incision. There is no CVA tenderness but tenderness to the palpation of the left lower quadrant. No calf tenderness. Results & Data Vital Signs (Past 12 Hours) Vital Signs Temp Pulse Resp BP BP Pulse Ox O2 Del Method 11/23/24 19:20 81 17 116/82 11/23/24 19:10 78 20 84/57 L 95 11/23/24 19:07 82 22 88/61 L 97 11/23/24 19:00 85 20 83/66 L 98 11/23/24 18:45 83 18 91/62 L 97 11/23/24 18:45 83 16 91/62 L 96 Room Air 11/23/24 18:40 79/42 L 11/23/24 18:32 85 18 94 11/23/24 18:30 36.8 C 11/23/24 18:17 79 21 101/74 91 11/23/24 18:16 80 11/23/24 18:08 78 17 97 11/23/24 18:00 78 18 93/75 L 97 Room Air 11/23/24 17:56 80 22 108/61 94 Room Air 11/23/24 17:50 84 25 H 111/75 11/23/24 17:40 94 H 22 115/84 11/23/24 17:36 112/66 11/23/24 17:25 98/67 L 11/23/24 17:17 79 20 91/68 L 11/23/24 17:11 83 16 84/69 L 11/23/24 17:06 80 18 98/66 L 11/23/24 16:45 80 16 94/66 L 94 Room Air 11/23/24 16:40 96/54 L 11/23/24 16:36 81 22 87/63 L 97 Room Air 11/23/24 16:31 81 20 92/70 L 100 Room Air 11/23/24 16:25 78 16 84/64 L 98 Room Air 11/23/24 16:17 86 25 H 94/61 L 97 Room Air 11/23/24 16:06 88 24 85/53 L 98 Room Air 11/23/24 16:01 86 22 95/52 L 96 Room Air 11/23/24 15:50 97/59 L 11/23/24 15:45 93/63 L 11/23/24 15:40 83 16 89/54 L 93 Room Air 11/23/24 15:35 97/66 L 11/23/24 15:33 81 21 93 Room Air 11/23/24 15:31 82/61 L 11/23/24 15:30 84 18 82/61 L 11/23/24 15:27 79 21 80/43 L 97 Room Air 11/23/24 15:21 81 18 85/39 L 97 Room Air 11/23/24 15:19 82/51 L 11/23/24 15:15 98 Room Air 11/23/24 15:07 20 11/23/24 14:48 89 11/23/24 14:45 89 20 81/59 L 94 Room Air 11/23/24 14:33 36.3 C L 82 16 73/50 L 98 Room Air Diagnostic Findings CT scan abdomen and pelvis Medications Administered IV antibiotics
[2024-11-23] MEDS ORDERED: GABAPENTIN 300 MG CAP PO SCH (21:00)
[2024-11-23] MEDS: LACTATED RINGER'S 500 ML IV ONE ×2 (21:06→22:56)
[2024-11-23] MEDS: ONDANSETRON INJ 2 MG/ML 2 ML VIAL IV PRN (21:50)
[2024-11-23] MEDS: NICOTINE 14 MG/24 HR PATCH TD SCH (22:07)
[2024-11-23 22:15] LABS: Anion Gap 9.0 (3-11); Blood Urea Nitrogen 26.0 mg/dl (6-23); Calcium 9.1 mg/dl (8.6-10.3); Carbon Dioxide 24.0 mmol/L (21-32); Chloride 103.0 mmol/L (98-107); Creatinine Clr Calc Pharmacy 25.2 ml/min; Glucose 107.0 mg/dl (70-99(Fasting)); Magnesium 1.8 mg/dl (1.7-2.4); Potassium 3.0 mmol/L (3.5-5.1); Sodium 136.0 mmol/L (136-145)
[2024-11-23] MEDS: POTASSIUM CHLORIDE / WTR 10 MEQ/100 ML PLCT IV SCH (22:51)
[2024-11-24] MEDS: ACETAMINOPHEN 325 MG TAB PO PRN (00:16)
[2024-11-24] MEDS: LACTATED RINGER'S 500 ML IV ONE ×2 (01:20→05:33)
[2024-11-24 04:46] LABS: Hematocrit (blood only) 35.6 % (37.0-47.0); Hemoglobin 12.2 g/dl (12.0-16.0); Mean Corpuscular Hemoglobin 28.3 pg (25.0-34.0); Mean Corpuscular Volume 82.6 fL (80.0-100.0); Platelet Count 163 K/uL (130-400); RDW Standard Deviation 42.5 fL (36.4-46.3); Red Blood Count 4.31 M/uL (4.20-5.40); White Blood Count 19.92 K/ul (4.8-10.8)
[2024-11-24 05:10] LABS: Alanine Aminotransferase 44.0 U/L (7-52); Albumin Level 2.7 gm/dl (3.4-5.0); Alkaline Phosphatase 212.0 U/L (34-104); Anion Gap 12.0 (3-11); Bilirubin,Total 2.6 mg/dl (0.2-1.0); Blood Urea Nitrogen 29.0 mg/dl (6-23); Calcium 9.6 mg/dl (8.6-10.3); Carbon Dioxide 22.0 mmol/L (21-32); Chloride 102.0 mmol/L (98-107); Creatinine Clr Calc Pharmacy 26.4 ml/min; Glucose 80.0 mg/dl (70-99(Fasting)); Magnesium 1.6 mg/dl (1.7-2.4); Potassium 3.0 mmol/L (3.5-5.1); Sodium 136.0 mmol/L (136-145); Total Protein 6.7 gm/dl (6.0-8.3)
[2024-11-24] MEDS ORDERED: POTASSIUM PHOS 3 MMOL/1 ML INFUSION IV STA (05:17)
[2024-11-24] MEDS: POTASSIUM PHOSPHATE 21 MMOL in SODIUM CHLORIDE 0.9% 500 ML IV ONE (05:36)
[2024-11-24] MEDS: MAGNESIUM SULFATE / D5W 1 GM/100 ML BAG IV SCH (05:48)
[2024-11-24] MEDS: POTASSIUM CHLORIDE / WTR 10 MEQ/100 ML PLCT IV SCH (05:49)
[2024-11-24] MEDS: LACTATED RINGER'S 1,000 ML IV SCH ×2 (05:50→08:50)
[2024-11-24] MEDS ORDERED: STAT IV Infusion **Titration per Protocol STA (06:17)
[2024-11-24] MEDS: VASOPRESSIN 20 UNITS in SODIUM CHLORIDE 0.9% 100 ML IV SCH (06:34)
--- NOTE | 2024-11-24 07:26 | Surgery Consultation ---
Date of Consultation November 24, 2024 Assessment & Plan (1) Diverticular disease of intestine with perforation and abscess: IV abx IVF resuscitation needs IR drainage of abscess possible exploration if doesn't respond to drainage will discuss with colorectal History of Present Illness Attending Physician: Diego Marquez History of Present Illness This is a 64YO morbidly obese female who came to ED with abdominal pain with nausea and vomiting. She reported body aches and chills. She also had chest pain in her left chest rating to her left arm. She has been hypotensive requ iring pressors and resuscitation. A CT scan shows a diverticular abscess with sigmoid diverticulitis. Allergies Allergy/AdvReac Type Severity Reaction Status Date / Time No Known Allergies Allergy Verified 11/11/24 14:29 Home Medications Medication Instructions Recorded Confirmed Type Oxygen Home #1 ea 08/28/19 11/11/24 Rx nebulizers (Compact Compressor #1 ea 08/28/19 11/11/24 Rx Nebulizer) Miscellaneous Pulmonary Supply #1 ea 09/01/19 11/11/24 Rx pen needle, diabetic 32 gauge x #50 ea 08/04/22 11/11/24 Rx 1/4" (Novofine 32) blood sugar diagnostic (Accu-Chek #100 ea 05/08/23 11/11/24 Rx Guide test strips) lancets (Accu-Chek Fastclix Lancet #100 ea 05/08/23 11/11/24 Rx Drum) lancing device (lancing device #1 ea 05/08/23 11/11/24 Rx with lancets) blood-glucose meter (Accu-Chek #1 ea 05/28/23 11/11/24 Rx Guide Glucose Meter) lancing device with lancets kit #1 ea 05/28/23 11/11/24 Rx (Accu-Chek Softclix Lancing Device+Lancets kit) amlodipine 10 mg tablet 10 mg PO DAILY #90 tabs 04/22/24 11/11/24 Rx semaglutide 2 mg/dose (8 mg/3 mL) 2 mg (0.75 mL) subcut Q7D 90 days 07/10/24 11/11/24 Rx subcutaneous pen injector #9.75 mL meloxicam 7.5 mg tablet 7.5 - 15 mg (1 - 2 x 7.5 mg) PO 08/28/24 11/11/24 Rx DAILY PRN pain #180 tabs linaclotide 145 mcg capsule 145 mcg PO DAILY #30 caps 09/22/24 11/11/24 Rx (Linzess) gabapentin 800 mg tablet 800 mg PO TID #270 tabs 10/22/24 11/11/24 Rx rosuvastatin 5 mg tablet 5 mg PO DAILY #90 tabs 10/22/24 11/11/24 Rx tramadol 50 mg tablet 50 mg PO BID PRN pain #60 tabs 10/22/24 11/11/24 Rx cholecalciferol (vitamin D3) 125 125 mcg PO DAILY #30 caps 10/31/24 11/11/24 Rx mcg (5,000 unit) capsule eszopiclone 3 mg tablet (Lunesta) 3 mg PO HS PRN sleep #30 tabs 11/06/24 11/11/24 Rx CPAP Machine #1 ea 11/11/24 11/11/24 Rx Patient History Medical History History of diverticulitis [facility] Hospitalization History of colon polyps Surgical History Hx of esophagogastroduodenoscopy 06/2023 Status post left knee replacement September 2022 Status post total right knee replacement not using cement 10/26/21 Dr. Heath @ [facility] Hx of colonoscopy Hx of tooth extraction Hx of carpal tunnel repair Right Hx of hernia repair 2015, 2017 Ventral hernia repair (01/10/18): Grade 2 view, MAC#3, ETT 7.5 at [facility]. No issues noted per post-op anesthesia progress note. Hx of foot surgery Left Family History Mother Family history of diabetes mellitus Arthritis Cancer Other Congestive heart failure FHx: breast cancer FHx: prostate cancer Social History Smoking Status: Former smoker Tobacco Type: Cigarettes Age Started Using Tobacco: 16; packs per day: 1; Cigarettes Per Day: 10; Smoking End Date: 11/16/24; Second Hand Exposure: No; Do You Dip or Chew Tobacco: No; Tobacco Cessation Education Requested by Patient: No Hx Alcohol Use: Yes Alcohol type: wine Hx Substance Use: No Preferred Language: Guatemalan Communication Ability: Effective Visual Impairment: No Limitations Block Piler Required: No Beliefs That Will Affect Care: None Current Living Situation: Family Current Living Situation Comment: lives with son Other Information That Helps Us Care for You: No Feels Safe at Home: Yes Safety Concerns: Feels Safe At This Time Diet: regular caffeine: No Physical Activity Frequency: Daily Physical Activity Frequency Comment: Walking Seatbelt Use: always Sunscreen Use: No Assistive Devices: CPAP and Glasses Review of Systems Constitutional: + fever, + chills and + anorexia Eyes: no problem reported Ear, Nose, Mouth, Throat: no problem reported Respiratory: + dyspnea; no cough Cardiovascular: + chest pain Gastrointestinal: + abdominal pain, + nausea and + vomitin g; no change in bowel habits Genitourinary: no dysuria Musculoskeletal: no back pain Neurologic: + generalized weakness; no localized wea kness Psychiatric: no behavioral changes Hematologic / Lymphatic: no easy bleeding and no easy bruising Physical Exam Constitutional: WD/WN, vitals as above + morbidly obese Eyes: no scleral abnormality ENMT: external ear and nose normal, oropharynx normal Respiratory: + labored breathing Cardiovascular: Rate/Rhythm: + tachycardic Gastrointestinal (Abdomen): Inspection/Auscultation: abdomen normal to inspection; abdomen not distended Percussion/Palpation: + abdomen tender and abdomen soft; no guarding Musculoskeletal: Head/Neck/Chest: normocephalic and head atraumatic Skin: no rashes, warm and dry Results & Data Vital Signs (Past 12 Hours) Vital Signs Temp Pulse Pulse Resp BP BP Pulse Ox 11/24/24 05:30 92/53 L 11/24/24 05:21 115 H 28 H 94 11/24/24 05:15 92/54 L 11/24/24 05:15 92/54 L 11/24/24 05:12 115 H 28 H 94 11/24/24 05:09 115 H 25 H 94 11/24/24 05:02 84/61 L 11/24/24 04:57 116 H 30 H 93 11/24/24 04:45 84/62 L 11/24/24 04:45 115 H 31 H 94 11/24/24 04:16 98/48 L 11/24/24 04:06 113 H 23 94 11/24/24 04:00 39.1 C H 11/24/24 03:46 103/51 L 11/24/24 03:46 103/51 L 11/24/24 03:46 103/51 L 11/24/24 03:46 103/51 L 11/24/24 03:42 112 H 29 H 93 11/24/24 03:15 104/62 11/24/24 03:15 109 H 31 H 93 11/24/24 03:12 110 H 33 H 92 11/24/24 03:01 113/67 11/24/24 03:01 113/67 11/24/24 02:42 107 H 24 95 11/24/24 02:33 108/62 11/24/24 02:33 108/62 11/24/24 02:30 109 H 25 H 96 11/24/24 02:15 108 H 29 H 94 11/24/24 02:15 93/50 L 11/24/24 02:15 108 H 24 95 11/24/24 02:06 110 H 28 H 94 11/24/24 02:00 38.7 C H 11/24/24 01:45 116/69 11/24/24 01:45 108 H 26 H 94 11/24/24 01:17 90/58 L 11/24/24 01:17 90/58 L 11/24/24 01:17 90/58 L 11/24/24 01:15 69/53 L 11/24/24 01:15 120 H 28 H 96 11/24/24 01:12 71/43 L 11/24/24 01:12 71/43 L 11/24/24 01:06 118 H 27 H 96 11/24/24 01:01 82/48 L 11/24/24 01:00 119 H 24 94 11/24/24 01:00 39.3 C H 11/24/24 00:51 121 H 33 H 115/72 94 11/24/24 00:36 130 H 24 11/24/24 00:31 157/105 H 11/24/24 00:31 157/105 H 11/24/24 00:31 157/105 H 11/24/24 00:24 147/102 H 11/24/24 00:24 138 H 21 11/24/24 00:03 103 H 23 76 L 11/24/24 00:00 37.8 C H 11/23/24 23:51 82 22 97 11/23/24 23:45 104/61 11/23/24 23:30 91/54 L 11/23/24 23:18 86/51 L 11/23/24 23:15 82/50 L 11/23/24 23:00 79 11/23/24 22:53 93/55 L 11/23/24 22:48 77 16 99 11/23/24 22:45 83 19 97 11/23/24 22:30 84 19 95 11/23/24 22:16 90/55 L 11/23/24 22:15 79 35 H 97 11/23/24 22:12 81 20 93 11/23/24 22:09 77 23 94 11/23/24 22:01 85/58 L 11/23/24 22:01 85/58 L 11/23/24 21:50 95/56 L 11/23/24 21:50 95/56 L 11/23/24 21:50 95/56 L 11/23/24 21:45 78 19 97 11/23/24 21:30 81 22 92 11/23/24 21:30 92/51 L 11/23/24 21:30 92/51 L 11/23/24 21:21 74 18 90 11/23/24 21:15 93/55 L 11/23/24 21:15 93/55 L 11/23/24 21:15 93/55 L 11/23/24 21:12 91/46 L 11/23/24 21:08 81/57 L 11/23/24 21:08 81/57 L 11/23/24 20:57 83 18 98 11/23/24 20:46 98/57 L 11/23/24 20:46 98/57 L 11/23/24 20:46 98/57 L 11/23/24 20:45 80 19 97 11/23/24 20:33 85 18 91 11/23/24 20:31 86/70 L 11/23/24 20:17 109/79 11/23/24 20:15 84 19 96 11/23/24 20:04 127/68 11/23/24 19:45 89 11/23/24 19:45 36.4 C L 89 16 115/63 95 11/23/24 19:40 36.6 C 11/23/24 19:20 81 17 116/82 O2 Del Method 11/24/24 05:30 11/24/24 05:21 11/24/24 05:15 11/24/24 05:15 11/24/24 05:12 11/24/24 05:09 11/24/24 05:02 11/24/24 04:57 11/24/24 04:45 11/24/24 04:45 11/24/24 04:16 11/24/24 04:06 11/24/24 04:00 11/24/24 03:46 11/24/24 03:46 11/24/24 03:46 11/24/24 03:46 11/24/24 03:42 11/24/24 03:15 11/24/24 03:15 11/24/24 03:12 11/24/24 03:01 11/24/24 03:01 11/24/24 02:42 11/24/24 02:33 11/24/24 02:33 11/24/24 02:30 11/24/24 02:15 11/24/24 02:15 11/24/24 02:15 11/24/24 02:06 11/24/24 02:00 11/24/24 01:45 11/24/24 01:45 11/24/24 01:17 11/24/24 01:17 11/24/24 01:17 11/24/24 01:15 11/24/24 01:15 11/24/24 01:12 11/24/24 01:12 11/24/24 01:06 11/24/24 01:01 11/24/24 01:00 11/24/24 01:00 11/24/24 00:51 11/24/24 00:36 11/24/24 00:31 11/24/24 00:31 11/24/24 00:31 11/24/24 00:24 11/24/24 00:24 11/24/24 00:03 11/24/24 00:00 11/23/24 23:51 11/23/24 23:45 11/23/24 23:30 11/23/24 23:18 11/23/24 23:15 11/23/24 23:00 11/23/24 22:53 11/23/24 22:48 CPAP 11/23/24 22:45 11/23/24 22:30 11/23/24 22:16 11/23/24 22:15 11/23/24 22:12 11/23/24 22:09 Room Air 11/23/24 22:01 11/23/24 22:01 11/23/24 21:50 11/23/24 21:50 11/23/24 21:50 11/23/24 21:45 11/23/24 21:30 11/23/24 21:30 11/23/24 21:30 11/23/24 21:21 11/23/24 21:15 11/23/24 21:15 11/23/24 21:15 11/23/24 21:12 11/23/24 21:08 11/23/24 21:08 11/23/24 20:57 Room Air 11/23/24 20:46 11/23/24 20:46 11/23/24 20:46 11/23/24 20:45 11/23/24 20:33 11/23/24 20:31 11/23/24 20:17 11/23/24 20:15 11/23/24 20:04 Room Air 11/23/24 19:45 11/23/24 19:45 Room Air 11/23/24 19:40 11/23/24 19:20 Diagnostic Findings EXAMINATION: CT of the abdomen and pelvis performed without contrast TECHNIQUE: Helical CT images from the lung bases through the symphysis pubis were obtained without contrast. Coronal and sagittal reformatted images were generated at a workstation for further assessment. Dose reduction techniques were achieved by using automatic exposure control and/or adjustment of mA and/or kV according to patient size and/or use of iterative reconstruction technique. COMPARISON: 10/24/2024 HISTORY: Abdominal pain FINDINGS: Lower chest: No consolidation. No pleural effusion or pneumothorax. Liver: No suspicious liver lesions. Gallbladder: No gallstones. No evidence of acute cholecystitis. Spleen: Normal size. Pancreas: No suspicious pancreatic lesions. The pancreatic duct is not dilated. Adrenal glands: No adrenal nodules. Kidneys: No hydronephrosis or obstructing renal stones. Bladder / Pelvic organs: In the left adnexa is a rounded soft tissue structure measuring 4.2 x 4.1 cm, containing internal foci of air. There is loss of the fat plane between this structure and the adjacent sigmoid colon. There is not appear to be significant inflammatory fat stranding.. Bowel: No bowel obstruction. No abnormal bowel wall thickening. The appendix is unremarkable. There is sigmoid diverticulosis. Lymph nodes: No retroperitoneal, mesenteric, or pelvic lymphadenopathy. Peritoneum / Retroperitoneum: No free fluid or air within the abdomen. Vessels: No infrarenal aortic aneurysm. Bones and soft tissues: No suspicious lesion in the bones. IMPRESSION: A 4.2 cm soft tissue structure is seen in the left adnexa. This appears to contain air, and there is loss of fat plane between this structure in the late large bowel, suggesting bowel communication. This could represent sequelae of prior diverticulitis, and subsequent healing and organization with a patent fistula, sequelae of ovarian vein thrombosis, or possibly an ovarian neoplasm. Further follow-up with pelvic ultrasound may be helpful.
--- NOTE | 2024-11-24 08:22 | XRay Report ---
XR chest 1V portable CLINICAL HISTORY: eval right IJ placement COMPARISON STUDY: 11/23/2024 FINDINGS: Right central catheter tip is at the cavoatrial junction. There is no pneumothorax. No cons olidation or pleural effusion. IMPRESSION: No pneumothorax. ACT 112: Negative or not required by law. Electronically signed by: Kristofer Benavidez M.D. 11/24/2024 8:21 AM
--- NOTE | 2024-11-24 08:27 | Electrocardiogram Report ---
Test Reason : Blood Pressure : */* mmHG Vent. Rate : 85 BPM Atrial Rate : 85 BPM P-R Int : 144 ms QRS Dur : 84 ms QT Int : 376 ms P-R-T Axes : 44 6 29 degrees QTcB Int : 447 ms Sinus rhythm with Premature atrial complexes Otherwise normal ECG When compared with ECG of 31-Oct-2022 11:37, Premature atrial complexes are now Present T wave amplitude has increased in Lateral leads Confirmed by Lo Cat (Renzo) on 11/24/2024 8:26:50 AM Referred By: Confirmed By: Lo Cat
[2024-11-24] MEDS: REMOVE NICODERM PATCH SCH (09:46)
--- NOTE | 2024-11-24 09:54 | Ultrasound Report ---
ULTRASOUND RIGHT UPPER QUADRANT ABDOMEN CLINICAL HISTORY: Right upper quadrant abdominal pain.. COMPARISON STUDY: Abdominal CT dated 11/23/2024 TECHNIQUE: Real-time, grayscale, and color flow sonography of the right upper quadrant of the abdomen was performed. Images are reviewed in the transverse and longitudinal planes. FINDINGS: Liver: The liver is enlarged, measuring over 19 cm in length. Echotexture is heterogeneously increase d indicating steatosis. There is morphologic changes of cirrhosis with nodularity of the hepatic surf j carlos contour. There is no intrahepatic biliary ductal dilatation. The main portal vein is patent. Gallbladder: The gallbladder is normal in appearance. No gallstones are identified. There is no gallb ladder wall thickening or pericholecystic fluid. A sonographic Craven's sign is reportedly absent. Th e common bile duct measures up to 0.3 cm in diameter. Pancreas: Visualized portions of the pancreatic head and body are normal in appearance. There is prom inence of the pancreatic duct which measures up to 3 mm. The splenic vein is patent. Right kidney: Survey images of the right kidney demonstrate normal size and echotexture. There is no hydronephrosis. Ascites: None. IMPRESSION: 1. The liver is enlarged, steatotic, and shows morphologic changes of cirrhosis. 2. No gallstones are identified. ACT 112: Negative or not required by law. Electronically signed by: Zoran Blount M.D. 11/24/2024 9:52 AM
[2024-11-24] MEDS: 4.5GM EXT INFUSION IV SCH (09:58)
[2024-11-24] MEDS: HYDROCORTISONE SOD 50 MG in SYRINGE 0 ML IV SCH (09:58)
--- NOTE | 2024-11-24 10:50 | Critical Care Progress Note ---
<Statement entered by Cong Duenas MD - 11/24/24 15:17> I, Cong Duenas MD, supervised and reviewed the physical exam, assessment, plan, and management provided by the Advanced Care Provider, for this patient encounter. I discussed the case with them, confirmed the findings, and I concur with the proposed plan of care. I was available for consultation throughout the encounter and provided guidance as needed. 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 Shock, septic 2. Severe KIEL 3. Abnormal urinalysis 4. Diverticulitis with abscess and L adnexal involvement Neuro - [facility] ICU: Negative RASS GOAL 0 Tramadol and Linzess held. Melatonin PRN. Gabapentin held with MARGUERITE APAP PRN pain/fever Cardiac - Continue vasopressin and Levophed for MAP goal > 65mmHg Received 2L IVF bolus, had additional 1L ordered but was not completed by ED, will give 500cc LR now and bolus PRN May require gentle mIVF while NPO if UOP continues to be brisk Hold home antihypertensives Will update TTE (last was 2019, moderate pHTN, LVH) Admit EKG sinus rhythm with PACs, normal QTc Respiratory - No acute concerns SpO2 goal > 92% CPAP QHS GI - General surgery, AIR TRANSPORTATION PROVIDER no surgical intervention. IR at [facility] and [facility] no safe IR window for drainage. Colorectal to take to the OR. Diet: NPO except sips and chips, NPO after 0000 SUP: N/A Bowel regimen: Held overnight Zofran PRN RENAL/LYTES - Repeat BMP tonight, urinating quite well after resuscitation. May start mIVF Replete electrolytes as indicated Peters placed for accurate I/Os in ED, likely remove tomorrow morning Maintain net even to net negative ENDO - No acute concerns BG 140-180 per SCCM guidelines ISS if needed while inpatient Hold GLP-1 HEME/ONC/OTHER - No acute concerns AIR TRANSPORTATION PROVIDER consulted on admission, appreciate recommendations ID - Continue Zosyn pending culture data and speciation UA negative, BCx x2 pending, procalcitonin > 100, MRSA nares negative CT abd/pelvis showed diverticular abscess abutting the left adnexa. LINES/TUBES/DRAINS - PIV x3 Peters (Day #2) R IJ TLC (Day 1) L Radial AL (Day 1) DVT PROPHYLAXIS - Held this am for possible surgery v. IR drainage. Start pending operative plan. I have personally spent 45 minutes of critical care time in the direct management of this patient. This is a life/limb threatening event. This includes time spent evaluating patient, direct bedside care, chart review, placing orders, interpretation of diagnostic studies, discussion with consultants, patient, and family members, as well as other required patient management activities. This time is exclusive of all separately billable procedures, and teaching time and separate from and in addition to any other critical care service time. Thank you for allowing us to participate in the care of this patient. Please refer to my attending physician's documentation for any further recommendations. Admission and Anticipated Discharge Date Admission Date: November 23, 2024 Subjective Patient increasing pressor requirement this am with levo at 0.11 and Vaso at 0.04. Left art line placed. Right IJ TLC placed. Discussed with surgery this am who recommended KARAN dumont. IR consulted who said no safe window to access left andexa abscess as well as abscess is loculated. Reached out to [facility] IR who also felt that there was no safe window to drain abcess. Colorectal surgery at bedside to eval and will take patient to the OR for surgical intervention. Review of Systems Review of Systems: All systems reviewed & are unremarkable except as noted in HPI & below Physical Exam Physical Exam: VITALS: Reviewed. WEIGHT/BMI reviewed. GEN: ill appearing, well-developed, NAD. PSYCH: Good Judgment. AOx3. Normal memory, mood, and affect. HEENT -Head: NC/AT; -Eyes: PERRL, EOMI. No discharge or redn ess; -Ears: External ears are normal. -Nose: Normal nares. -Mouth and throat: MMM. Normal gums, muc kiel, palate,. Good dentition. NECK: Supple, with no masses. CV: RRR, no m/r/g. LUNGS: CTAB, no w/r/c. ABD: Soft, NT/ND, NBS, no masses or organomegaly. : Peters draining yellow/clear urine. SKIN: Warm, well perfused. No skin rashes or abnormal lesions. MSK: No deformities, Normal gait. EXT: No clubbing, cyanosis, or edema. NEURO: Normal muscle strength and tone. No focal deficits. Results & Data Results & Data Vital Signs (Past 12 Hours) Vital Signs Temp Pulse Resp BP Pulse Ox O2 Del Method O2 Flow Rate 11/24/24 10:06 84 25 H 101/73 96 Nasal Cannula 4 11/24/24 09:48 85 19 98 Nasal Cannula 4 11/24/24 09:33 84 23 98 Nasal Cannula 4 11/24/24 09:00 88 22 95 Nasal Cannula 4 11/24/24 08:48 89 20 98 Nasal Cannula 4 11/24/24 08:42 89 15 96 Nasal Cannula 4 11/24/24 08:00 36.9 C 11/24/24 08:00 Room Air 11/24/24 07:45 97 H 22 98 Nasal Cannula 4 11/24/24 07:39 99 H 22 98 Nasal Cannula 4 11/24/24 07:18 98 H 25 H 116/62 97 Nasal Cannula 4 11/24/24 07:06 101 H 15 97 Nasal Cannula 4 11/24/24 05:30 92/53 L 11/24/24 05:21 115 H 28 H 94 11/24/24 05:15 92/54 L 11/24/24 05:15 92/54 L 11/24/24 05:12 115 H 28 H 94 11/24/24 05:09 115 H 25 H 94 11/24/24 05:02 84/61 L 11/24/24 04:57 116 H 30 H 93 11/24/24 04:45 84/62 L 11/24/24 04:45 115 H 31 H 94 11/24/24 04:16 98/48 L 11/24/24 04:06 113 H 23 94 11/24/24 04:00 39.1 C H 11/24/24 03:46 103/51 L 11/24/24 03:46 103/51 L 11/24/24 03:46 103/51 L 11/24/24 03:46 103/51 L 11/24/24 03:42 112 H 29 H 93 11/24/24 03:15 104/62 11/24/24 03:15 109 H 31 H 93 11/24/24 03:12 110 H 33 H 92 11/24/24 03:01 113/67 11/24/24 03:01 113/67 11/24/24 02:42 107 H 24 95 11/24/24 02:33 108/62 11/24/24 02:33 108/62 11/24/24 02:30 109 H 25 H 96 11/24/24 02:15 108 H 29 H 94 11/24/24 02:15 93/50 L 11/24/24 02:15 108 H 24 95 11/24/24 02:06 110 H 28 H 94 11/24/24 02:00 38.7 C H 11/24/24 01:45 116/69 11/24/24 01:45 108 H 26 H 94 11/24/24 01:17 90/58 L 11/24/24 01:17 90/58 L 11/24/24 01:17 90/58 L 11/24/24 01:15 69/53 L 11/24/24 01:15 120 H 28 H 96 11/24/24 01:12 71/43 L 11/24/24 01:12 71/43 L 11/24/24 01:06 118 H 27 H 96 11/24/24 01:01 82/48 L 11/24/24 01:00 119 H 24 94 11/24/24 01:00 39.3 C H 11/24/24 00:51 121 H 33 H 115/72 94 11/24/24 00:36 130 H 24 11/24/24 00:31 157/105 H 11/24/24 00:31 157/105 H 11/24/24 00:31 157/105 H 11/24/24 00:24 147/102 H 11/24/24 00:24 138 H 21 11/24/24 00:03 103 H 23 76 L 11/24/24 00:00 37.8 C H 11/23/24 23:51 82 22 97 11/23/24 23:45 104/61 11/23/24 23:30 91/54 L 11/23/24 23:18 86/51 L 11/23/24 23:15 82/50 L 11/23/24 23:00 79 11/23/24 22:53 93/55 L 11/23/24 22:48 77 16 99 CPAP 11/23/24 22:45 83 19 97 Critical Care Results & Data Vital Signs (Past 12 Hours) Vital Signs Temp Pulse Resp BP Pulse Ox O2 Del Method O2 Flow Rate 11/24/24 10:06 84 25 H 101/73 96 Nasal Cannula 4 11/24/24 09:48 85 19 98 Nasal Cannula 4 11/24/24 09:33 84 23 98 Nasal Cannula 4 11/24/24 09:00 88 22 95 Nasal Cannula 4 11/24/24 08:48 89 20 98 Nasal Cannula 4 11/24/24 08:42 89 15 96 Nasal Cannula 4 11/24/24 08:00 36.9 C 11/24/24 08:00 Room Air 11/24/24 07:45 97 H 22 98 Nasal Cannula 4 11/24/24 07:39 99 H 22 98 Nasal Cannula 4 11/24/24 07:18 98 H 25 H 116/62 97 Nasal Cannula 4 11/24/24 07:06 101 H 15 97 Nasal Cannula 4 11/24/24 05:30 92/53 L 11/24/24 05:21 115 H 28 H 94 11/24/24 05:15 92/54 L 11/24/24 05:15 92/54 L 11/24/24 05:12 115 H 28 H 94 11/24/24 05:09 115 H 25 H 94 11/24/24 05:02 84/61 L 11/24/24 04:57 116 H 30 H 93 11/24/24 04:45 84/62 L 11/24/24 04:45 115 H 31 H 94 11/24/24 04:16 98/48 L 11/24/24 04:06 113 H 23 94 11/24/24 04:00 39.1 C H 11/24/24 03:46 103/51 L 11/24/24 03:46 103/51 L 11/24/24 03:46 103/51 L 11/24/24 03:46 103/51 L 11/24/24 03:42 112 H 29 H 93 11/24/24 03:15 104/62 11/24/24 03:15 109 H 31 H 93 11/24/24 03:12 110 H 33 H 92 11/24/24 03:01 113/67 11/24/24 03:01 113/67 11/24/24 02:42 107 H 24 95 11/24/24 02:33 108/62 11/24/24 02:33 108/62 11/24/24 02:30 109 H 25 H 96 11/24/24 02:15 108 H 29 H 94 11/24/24 02:15 93/50 L 11/24/24 02:15 108 H 24 95 11/24/24 02:06 110 H 28 H 94 11/24/24 02:00 38.7 C H 11/24/24 01:45 116/69 11/24/24 01:45 108 H 26 H 94 11/24/24 01:17 90/58 L 11/24/24 01:17 90/58 L 11/24/24 01:17 90/58 L 11/24/24 01:15 69/53 L 11/24/24 01:15 120 H 28 H 96 11/24/24 01:12 71/43 L 11/24/24 01:12 71/43 L 11/24/24 01:06 118 H 27 H 96 11/24/24 01:01 82/48 L 11/24/24 01:00 119 H 24 94 11/24/24 01:00 39.3 C H 11/24/24 00:51 121 H 33 H 115/72 94 11/24/24 00:36 130 H 24 11/24/24 00:31 157/105 H 11/24/24 00:31 157/105 H 11/24/24 00:31 157/105 H 11/24/24 00:24 147/102 H 11/24/24 00:24 138 H 21 11/24/24 00:03 103 H 23 76 L 11/24/24 00:00 37.8 C H 11/23/24 23:51 82 22 97 11/23/24 23:45 104/61 11/23/24 23:30 91/54 L 11/23/24 23:18 86/51 L 11/23/24 23:15 82/50 L 11/23/24 23:00 79 11/23/24 22:53 93/55 L Lab & Micro Results (Past 24 Hours) RBC 4.31 M/uL (4.20-5.40) 11/24/24 WBC 19.92 K/ul (4.8-10.8) H 11/24/24 Hgb 12.2 g/dl (12.0-16.0) 11/24/24 Hct 35.6 % (37.0-47.0) L 11/24/24 MCV 82.6 fL (80.0-100.0) 11/24/24 MCH 28.3 pg (25.0-34.0) 11/24/24 MCHC 34.3 g/dL (32.0-36.0) 11/24/24 RDW Standard Deviation 42.5 fL (36.4-46.3) 11/24/24 RDW Coefficient of Variation 14.2 % (11.5-14.5) 11/24/24 Plt Count 163 K/uL (130-400) 11/24/24 MPV 11.2 fL (9.4-12.4) 11/24/24 Neutrophils (%) (Auto) 91.4 % 11/23/24 Lymphocytes (%) (Auto) 4.2 % 11/23/24 Monocytes # (Auto) 0.75 K/uL (0.11-0.59) H 11/23/24 Eosinophils # (Auto) 0.09 K/uL (0.00-0.50) 11/23/24 Immature Granulocyte % (Auto) 0.7 % 11/23/24 Neutrophils # (Auto) 23.33 K/uL (1.40-6.50) H 11/23/24 Lymphocytes # (Auto) 1.07 K/uL (1.20-3.40) L 11/23/24 Monocytes # (Auto) 0.75 K/uL (0.11-0.59) H 11/23/24 Eosinophils # (Auto) 0.09 K/uL (0.00-0.50) 11/23/24 Basophils # (Auto) 0.09 K/uL (0.00-0.20) 11/23/24 Immature Granulocyte # (Auto) 0.19 K/uL (0.01-0.20) 5 Polychromasia 1+ 11/23/24 Na 133 mmol/L (136-145) L 11/24/24 K 3.4 mmol/L (3.5-5.1) L 11/24/24 Cl 100 mmol/L (98-107) 11/24/24 CO2 18 mmol/L (21-32) L 11/24/24 Anion Gap 15 (3-11) H 11/24/24 BUN 31 mg/dl (6-23) H 11/24/24 Creatinine 2.23 mg/dl (0.6-1.2) H 11/24/24 BUN/Creatinine Ratio 13.9 (10-20) 11/24/24 Glu 222 mg/dl (70-99(Fasting)) H 11/24/24 Ca 9.0 mg/dl (8.6-10.3) 11/24/24 Phosphorus Level 1.5 mg/dl (2.5-4.9) L* 11/24/24 Total Bilirubin 2.6 mg/dl (0.2-1.0) H 11/24/24 Direct Bilirubin 1.9 mg/dl (0-0.2) H 11/24/24 AST 109 U/L (13-39) H 11/24/24 ALT 44 U/L (7-52) 11/24/24 Alkaline Phosphatase 212 U/L (34-104) H 11/24/24 TP 6.7 gm/dl (6.0-8.3) 11/24/24 Albumin 2.7 gm/dl (3.4-5.0) L 11/24/24 Mg 1.6 mg/dl (1.7-2.4) L 11/24/24 04:27 Calcium Level 9.0 mg/dl (8.6-10.3) 11/24/24 12:09 Prothromb Time International Ratio 1.1 (0.9-1.1) 11/23/24 14:4 6 Venous Blood pH 7.38 (7.36-7.41) 11/23/24 15:02 Venous Blood Partial Pressure CO2 39 mmHg (38-50) 11/23/24 15:0 2 Venous Blood Partial Pressure O2 51 mmHg 11/23/24 15:02 Venous Blood HCO3 23 mmol/L 11/23/24 15:02 Venous Blood Base Excess -1.8 mEq/L 11/23/24 15:02 Venous Blood Oxygen Saturation 85.1 % 11/23/24 15:02 Diagnostic Findings (Past 24 Hours) Chest X-Ray 11/23/24 14:42 Chest radiograph, one view History: Cough Comparison: None Findings: Single AP view of the chest performed. No focal consolidation or pleural effusion. No pneumothorax. The cardiomediastinal silhouette is within normal limits. Normal pulmonary vascularity. No evidence for lymphadenopathy. No visualized bony or soft tissue abnormality. Impression: Normal chest radiograph Electronically signed by Ariel Larsen 11-23-2024 3:20 PM Abdomen/Pelvis CT 11/23/24 15:02 EXAMINATION: CT of the abdomen and pelvis performed without contrast TECHNIQUE: Helical CT images from the lung bases through the symphysis pubis were obtained without contrast. Coronal and sagittal reformatted images were generated at a workstation for further assessment. Dose reduction techniques were achieved by using automatic exposure control and/or adjustment of mA and/or kV according to patient size and/or use of iterative reconstruction technique. COMPARISON: 10/24/2024 HISTORY: Abdominal pain FINDINGS: Lower chest: No consolidation. No pleural effusion or pneumothorax. Liver: No suspicious liver lesions. Gallbladder: No gallstones. No evidence of acute cholecystitis. Spleen: Normal size. Pancreas: No suspicious pancreatic lesions. The pancreatic duct is not dilated. Adrenal glands: No adrenal nodules. Kidneys: No hydronephrosis or obstructing renal stones. Bladder / Pelvic organs: In the left adnexa is a rounded soft tissue structure measuring 4.2 x 4.1 cm, containing internal foci of air. There is loss of the fat plane between this structure and the adjacent sigmoid colon. There is not appear to be significant inflammatory fat stranding.. Bowel: No bowel obstruction. No abnormal bowel wall thickening. The appendix is unremarkable. There is sigmoid diverticulosis. Lymph nodes: No retroperitoneal, mesenteric, or pelvic lymphadenopathy. Peritoneum / Retroperitoneum: No free fluid or air within the abdomen. Vessels: No infrarenal aortic aneurysm. Bones and soft tissues: No suspicious lesion in the bones. IMPRESSION: A 4.2 cm soft tissue structure is seen in the left adnexa. This appears to contain air, and there is loss of fat plane between this structure in the late large bowel, suggesting bowel communication. This could represent sequelae of prior diverticulitis, and subsequent healing and organization with a patent fistula, sequelae of ovarian vein thrombosis, or possibly an ovarian neoplasm. Further follow-up with pelvic ultrasound may be helpful. Electronically signed by Ariel Larsen 11-23-2024 3:43 PM Liver Ultrasound 11/24/24 05:22 ULTRASOUND RIGHT UPPER QUADRANT ABDOMEN CLINICAL HISTORY: Right upper quadrant abdominal pain.. COMPARISON STUDY: Abdominal CT dated 11/23/2024 TECHNIQUE: Real-time, grayscale, and color flow sonography of the right upper quadrant of the abdomen was performed. Images are reviewed in the transverse and longitudinal planes. FINDINGS: Liver: The liver is enlarged, measuring over 19 cm in length. Echotexture is heterogeneously increased indicating steatosis. There is morphologic changes of cirrhosis with nodularity of the hepatic surface contour. There is no intrahepatic biliary ductal dilatation. The main portal vein is patent. Gallbladder: The gallbladder is normal in appearance. No gallstones are identified. There is no gallbladder wall thickening or pericholecystic fluid. A sonographic Craven's sign is reportedly absent. The common bile duct measures up to 0.3 cm in diameter. Pancreas: Visualized portions of the pancreatic head and body are normal in appearance. There is prominence of the pancreatic duct which measures up to 3 mm. The splenic vein is patent. Right kidney: Survey images of the right kidney demonstrate normal size and echotexture. There is no hydronephrosis. Ascites: None. IMPRESSION: 1. The liver is enlarged, steatotic, and shows morphologic changes of cirrhosis. 2. No gallstones are identified. ACT 112: Negative or not required by law. Electronically signed by: Zoran Blount M.D. 11/24/2024 9:52 AM Chest X-Ray 11/24/24 07:49 XR chest 1V portable CLINICAL HISTORY: eval right IJ placement COMPARISON STUDY: 11/23/2024 FINDINGS: Right central catheter tip is at the cavoatrial junction. There is no pneumothorax. No consolidation or pleural effusion. IMPRESSION: No pneumothorax. ACT 112: Negative or not required by law. Electronically signed by: Kristofer Benavidez M.D. 11/24/2024 8:21 AM I & O Totals 24 Hours 11/23/24 11/24/2411/25/25 06:59 06:59 06:59 Intake Total 6167.673 / 6667.673 959.509 / 959.509 Output Total 4725 / 4725 1450 / 1450 Balance 1442.673 / 1942.673 -490.491 / -490.491 Cumulative 11/23/24 14:31 thru 11/24/24 10:31 Intake Total 7127.182 Output Total 6175 Balance 952.182 RT Ventilator Mngmt (Last Documented) Ventilator Ordered Settings Respiratory Rate 25 11/24/24 10:06 Ventilator - PT Measurements Respiratory Rate 25 Coding Level of Care Code 67454 CRITICAL CARE 1ST 30-74M Diagnoses Diverticulitis large intestine K57.32 MARGUERITE (acute kidney injury) N17.9 Diverticular disease of intestine with perforation and abscess K57.80 Sepsis A41.9; R65.20; N17.9 Acute renal failure type: unspecified Sepsis acute organ dysfunction status: with acute organ dysfunction Sepsis type: sepsis due to unspecified organism Severe sepsis acute organ dysfunction type: acute renal failure Severe sepsis shock status: unspecified Type 2 diabetes mellitus with diabetic neuropathy, without long-term current use of insulin E11.40 Diabetes mellitus complication detail: with unspecified neuropathy Diabetes mellitus complication status: with neurologic complications Diabetes mellitus motorsports technician insulin use: without motorsports technician use Essential hypertension I10 Hypertension type: essential hypertension Mixed restrictive and obstructive lung disease J43.9; J98.4 Chronic diastolic congestive heart failure I50.32 Severe obstructive sleep apnea G47.33 DODD (nonalcoholic steatohepatitis) K75.81 Shock, septic A41.9; R65.21 (4) Sepsis Acute renal failure type: unspecified Sepsis acute organ dysfunction status: with acute organ dysfunction Sepsis type: sepsis due to unspecified organism Severe sepsis acute organ dysfunction type: acute renal failure Severe sepsis shock status: unspecified Qualified Code(s): A41.9 - Sepsis, unspecified organism; R65.20 - Severe sepsis without septic shock; N17.9 - Acute kidney failure, unspecified (5) Type 2 diabetes mellitus Diabetes mellitus complication detail: with unspecified neuropathy Diabetes mellitus complication status: with neurologic complications Diabetes mellitus custodial insulin use: without motorsports technician use Qualified Code(s): E11.40 - Type 2 diabetes mellitus with diabetic neuropathy, unspecified (6) Hypertension Hypertension type: essential hypertension Qualified Code(s): I10 - Essential (primary) hypertension
--- NOTE | 2024-11-24 10:57 | Procedure Note ---
Procedure Note Date of Service November 24, 2024 RIGHT INTERNAL JUGULAR CENTRAL LINE PROCEDURE NOTE: Procedure: Internal Jugular Central Line Placement Attending: Dr. Gillis APC: Tano Hooper Indication: Central Drug Administration, Poor Venous Access, Multiple Lab Draws Necessary, etc. Anesthesia: Lidocaine 1% Consent was signed and placed on the chart prior to procedure. Indication, risks, and benefits were explained at length. A time-out was completed verifying correct patient, procedure, site, positioning, and implants(s) or special equipment if applicable. Patients right Neck was cleansed and draped in the typical sterile fashion using Chloraprep. The Internal Jugular Vein and Carotid Artery were identified using ultrasound. The superficial tissue was anesthetized using 3ml mL of 1% lidocaine without epinephrine under direct visualization with the ultrasound. After adequate anesthetization was achieved, the Internal Jugular vein was cannulated under direct ultrasound guidance using an introducer needle on a syringe. Good venous blood return was maintained prior to removal of syringe from introducer needle. Using Seldinger Technique, a guide wire was advanced through the introducer needle without resistance. The introducer needle was removed and ultrasound images were obtained of the guide wire within the Internal Jugular Vein and saved to the patients medical record. A small incision was made in penetrating fashion at the guide wire insertion site utilizing an 11 blade scalpel. The dilator was advanced to the vessel without resistance. The dilator was exchanged for the triple lumen catheter which was advanced into the vessel without resistance. The guide wire was removed intact from the catheter without issue. Claves were placed on each catheter tip with confirmation of good blood flow from each lumen. Each port was easily flushed with sterile saline. The catheter was placed at 18 cm and sutured in place. BioPatch was applied to the catheter and a sterile Tegaderm dressing was applied over the catheter with careful attention to sterility. Patient tolerated procedure well. No immediate complications were met. Post procedure x-ray was completed, placement was appropriate and no pneumothorax was noted. Images obtained are saved for permanent record Procedural Ultrasound Guidance: Procedure Date: 11/24/2024 Indication: Ultrasound guidance of right IJ placement. Attending: Dr. Gillis APC: CT Epstein Artery AND Vein visualized: Yes Compressible Vein: Yes Guidewire or Short Catheter seen in vein prior to dilation: Yes Line confirmed in Vein with ultrasound: yes Images obtained are saved for permanent record. [facility] [place] Codes (Charges) Tubes, Drains, and Vasc Access Procedure 1: Tubes, Drains, and Vasc Access: [id number] Insertion Of Non-tunneled Catheter Age 3 Yrs> Procedure 2: Tubes, Drains, and Vasc Access: [id number] Ultrasound Guidance For Vascular Coding CPT Codes Tubes, Drains, and Vasc Access - Tubes, Drains, and Vasc Access: [id number] Insertion Of Non-tunneled Catheter Age 3 Yrs> ([id number]) Tubes, Drains, and Vasc Access - Tubes, Drains, and Vasc Access: [id number] Ultrasound Guidance For Vascular ([id number]) Additional Codes Date of Service (PG.SURGERY)
[2024-11-24 12:43] LABS: Anion Gap 15.0 (3-11); Blood Urea Nitrogen 31.0 mg/dl (6-23); Calcium 9.0 mg/dl (8.6-10.3); Carbon Dioxide 18.0 mmol/L (21-32); Chloride 100.0 mmol/L (98-107); Creatinine Clr Calc Pharmacy 25.5 ml/min; Glucose 222.0 mg/dl (70-99(Fasting)); Potassium 3.4 mmol/L (3.5-5.1); Sodium 133.0 mmol/L (136-145)
--- NOTE | 2024-11-24 13:42 | XCELERA ---
[id number]
[2024-11-24] MEDS: POTASSIUM CHLORIDE / WTR 20 MEQ/100 ML PLCT IV SCH (13:59)
[2024-11-24] MEDS: INSULIN ASPART PER UNIT CHARGE SC SCH (14:13)
[2024-11-24] MEDS ORDERED: ETOMIDATE 2 MG/ML 20 ML VIAL IV ONE (14:36)
[2024-11-24] MEDS ORDERED: SUCCINYLCHOLINE CHLORIDE 20 MG/ML 10 ML VIAL IV ONE (14:36)
[2024-11-24] MEDS ORDERED: PROPOFOL IV EMULSION 10 MG/ML 20 ML VIAL IV ONE (14:36)
[2024-11-24] MEDS ORDERED: VASOPRESSIN 20 UNIT/ML VIAL ONE (14:37)
--- NOTE | 2024-11-24 14:37 | History & Physical Bridge Note ---
Date of Service November 24, 2024 History & Physical Bridge Note I have examined the patient, reviewed the History & Physical and in the interval since the performance of the History & Physical I have noted the following changes of clinical significance: Consult reached out to interventional radiology at [facility] in [place]. There was no favorable access to drain due to vascular blockage. Patient continues to remain septic, on pressor support with localized peritoneal signs. Given this, plan will be for exploratory laparotomy and likely Megan's procedure. Plan will also be for urology to perform cystoscopy and placed bilateral ureteral catheters to assist with identifying ureters and any ureteral injury. Risks of procedure were discussed with the patient and they include bleeding, infection, injury to surrounding structures, need for further procedures, wound issues to include wound dehiscence, infection, and hernia, ostomy issues to include ostomy ischemia, prolapse, hernia, and cardiopulmonary events that can occur. Alternatives include no surgery, which the patient declines. Patient wishes to proceed with surgery. All questions were answered.
[2024-11-24] MEDS ORDERED: LIDOCAINE 2% 2 ML VIAL/AMP(20MG/ML) INFIL ONE (14:42)
--- NOTE | 2024-11-24 14:44 | Anesthesiology Consultation ---
Date of Service November 24, 2024 Assessment & Plan Chart Review Chart Review: Acceptable Risk for Surgery and Patient NOT seen in Pre Admission Testing Consults Requested none ASA ASA4 Proposed Anesthesia Anesthesia Type: General Regional Laterality: Right Anesthesia Line Insertion: Arterial line and Central Venous Catheter Risk / Benefits Reviewed With: PT / POA / Parent / Guardian, Accepts Plan and Informed Consent Obtained Additional Comments: 64 y/o F presents with diverticular disease unresponsive to medical management for procedure as above. patient is septic in ICU on 0.12 norepi, recently weaned from vasopressing. she is AAOx3 and maintaining airway adequately. Other medical hx includes DM on ozempic (took 6 days ago), KIEL. No cardiac issues. Smokes 1/2 PPD. Has RIJ as well as PIV x3 and a-line. Plan for GA with RSI induction and use of a-line and central line. ASA4E History Surgery Operation Date: 11/24/24 12:35 Proposed Procedures p Exploratory Laparotomy, Carmona's Procedure - Simon Thorne MD Height/Weight Height: 5 ft Weight: 94.3 kg Allergies Allergy/AdvReac Type Severity Reaction Status Date / Time No Known Allergies Allergy Verified 11/11/24 14:29 Medications Home Medications Medication Instructions Recorded Confirmed Last Taken Oxygen Home #1 ea 08/28/19 11/11/24 Unknown nebulizers (Compact Compressor #1 ea 08/28/19 11/11/24 Unknown Nebulizer) Miscellaneous Pulmonary Supply #1 ea 09/01/19 11/11/24 Unknown pen needle, diabetic 32 gauge x #50 ea 08/04/22 11/11/24 Unknown 1/4" (Novofine 32) blood sugar diagnostic (Accu-Chek #100 ea 05/08/23 11/11/24 Unknown Guide test strips) lancets (Accu-Chek Fastclix Lancet #100 ea 05/08/23 11/11/24 Unknown Drum) lancing device (lancing device #1 ea 05/08/23 11/11/24 Unknown with lancets) blood-glucose meter (Accu-Chek #1 ea 05/28/23 11/11/24 Unknown Guide Glucose Meter) lancing device with lancets kit #1 ea 05/28/23 11/11/24 Unknown (Accu-Chek Softclix Lancing Device+Lancets kit) amlodipine 10 mg tablet 10 mg PO DAILY #90 tabs 04/22/24 11/11/24 Unknown semaglutide 2 mg/dose (8 mg/3 mL) 2 mg (0.75 mL) subcut Q7D 90 days 07/10/24 11/11/24 Unknown subcutaneous pen injector #9.75 mL meloxicam 7.5 mg tablet 7.5 - 15 mg (1 - 2 x 7.5 mg) PO 08/28/24 11/11/24 Unknown DAILY PRN pain #180 tabs linaclotide 145 mcg capsule 145 mcg PO DAILY #30 caps 09/22/24 11/11/24 Unknown (Linzess) gabapentin 800 mg tablet 800 mg PO TID #270 tabs 10/22/24 11/11/24 Unknown rosuvastatin 5 mg tablet 5 mg PO DAILY #90 tabs 10/22/24 11/11/24 Unknown tramadol 50 mg tablet 50 mg PO BID PRN pain #60 tabs 10/22/24 11/11/24 Unknown cholecalciferol (vitamin D3) 125 125 mcg PO DAILY #30 caps 10/31/24 11/11/24 Unknown mcg (5,000 unit) capsule eszopiclone 3 mg tablet (Lunesta) 3 mg PO HS PRN sleep #30 tabs 11/06/24 11/11/24 Unknown CPAP Machine #1 ea 11/11/24 11/11/24 Unknown Active Medications Generic Name Dose Route Start Last Admin Trade Name Freq PRN Reason Stop Dose Admin Acetaminophen 650 mg 11/23/24 19:01 11/24/24 05:47 Acetaminophen 325 Mg Tab PO 12/23/24 19:00 650 mg Q4H PRN Administration Pain or Fever Norepinephrine Bitartrate 4 mg in 250 mls @ 42.57 mls/hr 11/23/24 19:00 11/24/24 14:14 Levophed/D5w IV 12/23/24 18:59 0.12 mcg/kg/min .Q5H53M JUAN PABLO 42.6 mls/hr Administration Protocol 0.12 MCG/KG/MIN Lactated Ringer's 1,000 mls @ 100 mls/hr 11/24/24 05:30 11/24/24 05:50 Lr IV 11/27/24 05:29 100 mls/hr .Q10H JUAN PABLO Administration Vasopressin 20 units/ Sodium 101 mls @ 12.12 mls/hr 11/24/24 06:30 11/24/24 10:49 Chloride IV 12/24/24 06:29 0 unit/min .Q8H20M JUAN PABLO 0 mls/hr Infusion 0.04 UNIT/MIN Piperacillin Sod/Tazobactam Sod 4.5 gm in 100 mls @ 25 mls/hr 11/24/24 10:00 11/24/24 13:23 Zosyn IV 12/04/24 09:59 Infused Q8H JUAN PABLO Infusion Protocol Hydrocortisone Sodium 1 mls @ 4 mls/min 11/24/24 10:00 11/24/24 09:58 Succinate 50 mg/ Syringe IV 12/24/24 09:59 4 mls/min Q6H JUAN PABLO Administration Potassium Chloride 20 meq in 100 mls @ 50 mls/hr 11/24/24 13:45 11/24/24 13:59 K Leander / Wtr IV 11/24/24 19:44 50 mls/hr Q2H JUAN PABLO Administration Insulin Aspart 0 units 11/24/24 14:10 11/24/24 14:13 Insulin Aspart Per Unit Charge SC 12/24/24 14:09 3 units Q6 JUAN PABLO Administration Miscellaneous 1 each 11/24/24 08:59 11/24/24 09:46 Remove Nicoderm Patch N/A 12/24/24 08:58 1 each DAILY@0859 JUAN PABLO Administration Nicotine 1 patch 11/23/24 19:01 11/24/24 11:37 Nicotine 14 Mg/24 Hr Patch TD 12/23/24 19:00 1 patch QAM JUAN PABLO Administration Ondansetron HCl 4 mg 11/23/24 19:01 11/24/24 09:35 Ondansetron Inj 2 Mg/Ml 2 Ml Vial IV 12/23/24 19:00 4 mg Q6H PRN Administration Nausea NPO Date Last Intake of Fluids: 11/23/24 Past Medical History Medical History History of diverticulitis [facility] Hospitalization History of colon polyps Exercise / Class Metabolic Activity III < 4 Walking/Shop/Light housework Past Family History Family History Mother Family history of diabetes mellitus Arthritis Cancer Other Congestive heart failure FHx: breast cancer FHx: prostate cancer Past Surgical History Surgical History Hx of esophagogastroduodenoscopy 06/2023 Status post left knee replacement September 2022 Status post total right knee replacement not using cement 10/26/21 Dr. Heath @ [facility] Hx of colonoscopy Hx of tooth extraction Hx of carpal tunnel repair Right Hx of hernia repair 2015, 2017 Ventral hernia repair (01/10/18): Grade 2 view, MAC#3, ETT 7.5 at [facility]. No issues noted per post-op anesthesia progress note. Hx of foot surgery Left Past Anesthesia History No Hx of Anesthesia Complications and No Family Hx of Anesthesia Complications History of PONV No Hx of PONV and No Hx of Motion Sickness Social History Smoking Status: Former smoker tobacco type: cigarettes Smoking cigarettes per day: 10 Do You Dip or Chew Tobacco: No Smoking End Date: 11/16/24 Hx Alcohol Use: Yes Alcohol type: wine alcohol intake frequency: holidays/special occasions only Hx Substance Use: No substance use type: does not use Review of Systems ROS Unobtainable: All systems reviewed & are unremarkable except as noted in HPI & below Physical Exam Vital Signs Last Vital Signs Temp 38.8 C H 11/24/24 14:33 Pulse 99 H 11/24/24 14:33 Resp 18 11/24/24 14:33 BP 87/51 L 11/24/24 12:00 Pulse Ox 96 11/24/24 14:33 O2 Del Method Room Air 11/24/24 14:33 O2 Flow Rate 4 11/24/24 09:48 ENMT Mouth: no TMJ abnormality Thyromental Distance: > or= 3.5 Finger Breadths Mallampati Class: II Neck normal visual inspection and trachea midline; neck extension not limited Respiratory normal respiratory effort Auscultation: lungs clear to auscultation bilaterally Cardiovascular Rate/Rhythm: regular rate and regular rhythm Heart Sounds: no murmur Musculoskeletal Spine: normal cervical ROM Extremities: full ROM of extremities Neurologic moves all extremities Psychiatric Orientation: alert and oriented x 3 Testing Laboratory Results 11/24/24 04:27 11/24/24 12:09 PT 11.5 Seconds (9.0-12.0) 11/23/24 14:46 INR 1.1 (0.9-1.1) 11/23/24 14:46 APTT 35 Seconds (21-31) H 11/23/24 14:46 Urine Color Dark Yellow 11/23/24 15:40 Urine Appearance Turbid (Clear) A 11/23/24 15:40 Urine pH 5.5 (4.5-7.5) 11/23/24 15:40 Ur Specific [place] 1.016 (1.000-1.030) 11/23/24 15:40 Urine Protein 3+ (Negative) H 11/23/24 15:40 Urine Glucose (UA) Negative (Negative) 11/23/24 15:40 Urine Ketones Trace (Negative) H 11/23/24 15:40 Urine Nitrite Negative (Negative) 11/23/24 15:40 Ur Leukocyte Esterase 1+ (Negative) H 11/23/24 15:40 Urine WBC (Auto) 6-10 /hpf (0-5) H 11/23/24 15:40 Urine RBC (Auto) >20 /hpf (0-2) H 11/23/24 15:40 U Hyaline Cast (Auto) >20 /lpf (0-2) H 11/23/24 15:40 U Epithel Cells (Auto) >20 /hpf (0-2) H 11/23/24 15:40 Urine Bacteria (Auto) 2+ (None Seen) H 11/23/24 15:40 11/24/24 11/24/24 11/24/24 12:34 12:11 07:58 POC Glucose POC Glucose (other) 214 H 219 H 151 H 11/24/24 03:43 POC Glucose 73 POC Glucose (other) Electrocardiogram Date: 11/23/24 Sinus rhythm with Premature atrial complexes Otherwise normal ECG When compared with ECG of 31-Oct-2022 11:37, Premature atrial complexes are now Present T wave amplitude has increased in Lateral leads Echocardiogram Date: 11/24/24 EF: 60-65 LV Function: normal RWMA: + none Valvular Disease: + no significant valvular disease
[2024-11-24] MEDS ORDERED: MIDAZOLAM HCL 1 MG/ML 2ML VIAL ONE (14:49)
--- NOTE | 2024-11-24 14:57 | Urology Consultation ---
Date of Consultation November 24, 2024 Assessment & Plan (1) Diverticular disease of intestine with perforation and abscess: Plan 64-year-old female with perforated diverticulitis who is going to the OR with colorectal surgery. They requested bilateral localizing stents from urology. Consent obtained for cystoscopy and bilateral localizing ureteral stent placement History of Present Illness Attending Physician: Diego Marquez History of Present Illness 64-year-old female with perforated diverticulitis who is going to the OR with colorectal surgery. They requested bilateral localizing stents from urology. Allergies Allergy/AdvReac Type Severity Reaction Status Date / Time No Known Allergies Allergy Verified 11/11/24 14:29 Home Medications Medication Instructions Recorded Confirmed Type Oxygen Home #1 ea 08/28/19 11/11/24 Rx nebulizers (Compact Compressor #1 ea 08/28/19 11/11/24 Rx Nebulizer) Miscellaneous Pulmonary Supply #1 ea 09/01/19 11/11/24 Rx pen needle, diabetic 32 gauge x #50 ea 08/04/22 11/11/24 Rx 1/4" (Novofine 32) blood sugar diagnostic (Accu-Chek #100 ea 05/08/23 11/11/24 Rx Guide test strips) lancets (Accu-Chek Fastclix Lancet #100 ea 05/08/23 11/11/24 Rx Drum) lancing device (lancing device #1 ea 05/08/23 11/11/24 Rx with lancets) blood-glucose meter (Accu-Chek #1 ea 05/28/23 11/11/24 Rx Guide Glucose Meter) lancing device with lancets kit #1 ea 05/28/23 11/11/24 Rx (Accu-Chek Softclix Lancing Device+Lancets kit) amlodipine 10 mg tablet 10 mg PO DAILY #90 tabs 04/22/24 11/11/24 Rx semaglutide 2 mg/dose (8 mg/3 mL) 2 mg (0.75 mL) subcut Q7D 90 days 07/10/24 11/11/24 Rx subcutaneous pen injector #9.75 mL meloxicam 7.5 mg tablet 7.5 - 15 mg (1 - 2 x 7.5 mg) PO 08/28/24 11/11/24 Rx DAILY PRN pain #180 tabs linaclotide 145 mcg capsule 145 mcg PO DAILY #30 caps 09/22/24 11/11/24 Rx (Linzess) gabapentin 800 mg tablet 800 mg PO TID #270 tabs 10/22/24 11/11/24 Rx rosuvastatin 5 mg tablet 5 mg PO DAILY #90 tabs 10/22/24 11/11/24 Rx tramadol 50 mg tablet 50 mg PO BID PRN pain #60 tabs 10/22/24 11/11/24 Rx cholecalciferol (vitamin D3) 125 125 mcg PO DAILY #30 caps 10/31/24 11/11/24 Rx mcg (5,000 unit) capsule eszopiclone 3 mg tablet (Lunesta) 3 mg PO HS PRN sleep #30 tabs 11/06/24 11/11/24 Rx CPAP Machine #1 ea 11/11/24 11/11/24 Rx Patient History Medical History History of diverticulitis [facility] Hospitalization History of colon polyps Surgical History Hx of esophagogastroduodenoscopy 06/2023 Status post left knee replacement September 2022 Status post total right knee replacement not using cement 10/26/21 Dr. Heath @ [facility] Hx of colonoscopy Hx of tooth extraction Hx of carpal tunnel repair Right Hx of hernia repair 2015, 2017 Ventral hernia repair (01/10/18): Grade 2 view, MAC#3, ETT 7.5 at [facility]. No issues noted per post-op anesthesia progress note. Hx of foot surgery Left Family History Mother Family history of diabetes mellitus Arthritis Cancer Other Congestive heart failure FHx: breast cancer FHx: prostate cancer Social History Smoking Status: Former smoker Tobacco Type: Cigarettes Age Started Using Tobacco: 16; packs per day: 1; Cigarettes Per Day: 10; Smoking End Date: 11/16/24; Second Hand Exposure: No; Do You Dip or Chew Tobacco: No; Tobacco Cessation Education Requested by Patient: No Hx Alcohol Use: Yes Alcohol type: wine Hx Substance Use: No Preferred Language: Uzbek Communication Ability: Effective Visual Impairment: No Limitations 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 Street Light Required: No Beliefs That Will Affect Care: None Current Living Situation: Family Current Living Situation Comment: lives with son Other Information That Helps Us Care for You: No Feels Safe at Home: Yes Safety Concerns: Feels Safe At This Time Diet: regular caffeine: No Physical Activity Frequency: Daily Physical Activity Frequency Comment: Walking Seatbelt Use: always Sunscreen Use: No Assistive Devices: CPAP and Walker Physical Exam Physical Exam: General: Alert and oriented, no acute distress HEENT: Normocephalic, mucous membranes moist Pulmonary: Nonlabored respirations Extremities: Moves all 4 spontaneously Neuro: No gross deficits Skin: Warm, dry, no rashes noted Results & Data Vital Signs (Past 12 Hours) Vital Signs Temp Pulse Resp BP Pulse Ox O2 Del Method 11/24/24 13:45 38.4 C H 98 H 15 97 11/24/24 13:33 38.8 C H 98 H 28 H 96 11/24/24 13:15 38.5 C H 96 H 27 H 97 11/24/24 13:03 37.2 C 95 H 25 H 97 11/24/24 12:45 102 H 22 97 Room Air 11/24/24 12:36 100 H 11/24/24 12:24 98 H 23 92 Room Air 11/24/24 12:06 107 H 17 93 Room Air 11/24/24 12:00 87/51 L 11/24/24 11:48 101 H 30 H 95 Room Air 11/24/24 11:30 108 H 25 H 94/54 L 97 Room Air 11/24/24 11:16 140/100 11/24/24 11:16 140/100 11/24/24 11:12 122 H 38 H 99 Room Air 11/24/24 11:06 118 H 37 H 11/24/24 11:02 155/88 H 11/24/24 10:51 105 H 21 146/86 H 11/24/24 10:36 82 29 H 93 Room Air 11/24/24 10:15 85 19 11/24/24 10:06 84 25 H 101/73 96 Room Air 11/24/24 09:48 85 19 98 Room Air 11/24/24 09:33 84 23 98 Room Air 11/24/24 09:00 88 22 95 Room Air 11/24/24 08:48 89 20 98 Room Air 11/24/24 08:42 89 15 96 Room Air 11/24/24 08:00 36.9 C 11/24/24 08:00 Room Air 11/24/24 07:45 97 H 22 98 Room Air 11/24/24 07:39 99 H 22 98 Room Air 11/24/24 07:18 98 H 25 H 116/62 97 Room Air 11/24/24 07:06 101 H 15 97 Room Air 11/24/24 05:30 92/53 L 11/24/24 05:21 115 H 28 H 94 11/24/24 05:15 92/54 L 11/24/24 05:15 92/54 L 11/24/24 05:12 115 H 28 H 94 11/24/24 05:09 115 H 25 H 94 11/24/24 05:02 84/61 L 11/24/24 04:57 116 H 30 H 93 11/24/24 04:45 84/62 L 11/24/24 04:45 115 H 31 H 94 11/24/24 04:16 98/48 L 11/24/24 04:06 113 H 23 94 11/24/24 04:00 39.1 C H 11/24/24 03:46 103/51 L 11/24/24 03:46 103/51 L 11/24/24 03:46 103/51 L 11/24/24 03:46 103/51 L 11/24/24 03:42 112 H 29 H 93 11/24/24 03:15 104/62 11/24/24 03:15 109 H 31 H 93 11/24/24 03:12 110 H 33 H 92 11/24/24 03:01 113/67 11/24/24 03:01 113/67 11/24/24 02:42 107 H 24 95 PG Care Time/CCT Total # of Minutes Spent Total Time Spent with Patient: Total time spent is greater than 50% in coordination of care (as documented) at patient's floor/unit and/or counseling patient: Coding Level of Care Code 13457 INT INP/OBS CARE Diagnoses Diverticular disease of intestine with perforation and abscess K57.80
--- NOTE | 2024-11-24 16:03 | Operative Report ---
[facility] Post Operative Report Pre & Post Diagnosis Perforated diverticulitis Operation Date: 11/24/24 12:35 <No data on this case meets the specified criteria> Perforated diverticulitis I identified the patient and participated in the time-out.: Yes Procedure Operation Date: 11/24/24 12:35 Actual Procedures p Cystoscopy with bilateral localizing stent placement (Not Applicable) - Paulo Byrne MD Surgeon Paulo Byrne MD Phlebotomy Director None Estimated Blood Loss 0 Findings Consistent with Post-Op Diagnosis Specimens None Drains Bilateral 6 Z[place]ian by 24 cm ureteral stents Anesthesia Type General Complications none Indications 64-year-old female with perforated diverticulitis she is going for exploratory laparotomy and Carmona's procedure. Colorectal requested localizing stents Description of Procedure After informed consent was obtained, the patient was transported to the operative suite. General anesthesia was induced. They were placed in dorsal lithotomy position and prepped and draped in sterile fashion. They received preoperative Zosyn. An appropriate surgical timeout was performed. 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 Rigid cystoscope was inserted per urethra to the bladder. There is small amount of erythema in the posterior bladder wall. I turned my attention to the left ureteral orifice and advanced a sensor wire until I met resistance indicating it was in the kidney. Termites into the right ureteral orifice and advanced a sensor wire until I met resistance indicating it was the kidney. Scope was removed over the wires. Using my hand, I deployed a 6 [place]ian by 24 cm left ureteral stent and then a 6 [place] by 24 cm right ureteral stent. Distal ends of the stent were pushed into the bladder using a hemostat. Strings were left in place. 16 [place]ian Peters catheter was inserted and the balloon was inflated with 10 cc of sterile water. Strings were then taped to the catheter using a Tegaderm. This completed the urologic portion of the case. The case was then turned over to colorectal surgery. All counts correct for the end of my portion. I was present scrubbed and actively participated for the entirety of my portion of the procedure. Colorectal can remove stents and catheter at their discretion. I attest to the content of the Intraoperative Record and any orders documented therein. Any exceptions are noted below.
[2024-11-24] MEDS ORDERED: ALBUMIN HUMAN 5% 12.5 GM/250 ML VIAL IV ONE (16:05)
[2024-11-24] MEDS ORDERED: HYDROmorphone INJ 2 MG/ML SYR/VIAL ONE (16:07)
[2024-11-24] MEDS ORDERED: ATROPINE SULFATE 0.1 MG/ML 10ML SYR IV PRN (16:35)
[2024-11-24] MEDS ORDERED: HYDROmorphone INJ 1 MG/ML SYRINGE IV PRN (16:35)
[2024-11-24] MEDS ORDERED: ONDANSETRON INJ 2 MG/ML 2 ML VIAL IV PRN (16:35)
[2024-11-24] MEDS ORDERED: ROCURONIUM BROMIDE 10 MG/ML 5 ML VIAL IV ONE ×2 (16:45→16:46)
[2024-11-24] MEDS ORDERED: ACETAMINOPHEN 1000 MG/100 ML IV IV ONE (16:45)
[2024-11-24] MEDS ORDERED: ONDANSETRON INJ 2 MG/ML 2 ML VIAL ONE (17:17)
[2024-11-24] MEDS ORDERED: SUGAMMADEX SODIUM 200 MG/2 ML VIAL IV ONE (17:46)
[2024-11-24] MEDS: BUPIVACAINE LIPOSOME 1.3% 266 MG/20 ML VIAL ONE (18:39)
--- NOTE | 2024-11-24 19:07 | Procedure Note ---
<Statement entered by Cong Duenas MD - 11/25/24 07:35> I, Cong Duenas MD, was made aware of the indications for the procedure performed by the Advanced Care Provider. I discussed the case with them, confirmed the findings, and I concurred with the proposed plan of care. I was available for assistance and provided guidance as needed. Procedure Note Date of Service November 24, 2024 ARTERIAL LINE PROCEDURE NOTE: Procedure: Arterial Line Placement Attending: Dr. Duenas APC/Proceduralist: Bernarda Ellis PA-C Indication: Monitoring on Pressors/Frequent labs Anesthesia: Lidocaine 1% Consent was signed and placed on the chart prior to procedure. Indication, risks, and benefits were explained at length. A time-out was completed verifying correct patient, procedure, site, positioning, and implant(s) or special equipment if applicable. Allens test was performed to ensure adequate perfusion. Patients L wrist was prepped and draped in the usual sterile fashion. Ultrasound guidance was used to aid needle placement. A 20g Arrow arterial line was introduced into the L radial artery. Catheter was threaded, and the needle was removed with appropriate blood return. Good waveform was observed. The patient tolerated the procedure well. Blood Loss: Minimal Complications: None [facility] Procedure Codes (Charges) Tubes, Drains, and Vasc Access Procedure 1: Tubes, Drains, and Vasc Access: [id number] Arterial Cath/Cannulation Sampling /Monitoring/Transfusion Coding CPT Codes Tubes, Drains, and Vasc Access - Tubes, Drains, and Vasc Access: [id number] Arterial Cath/Cannulation Sampling/Monitoring/Transfusion ([id number]) Additional Codes Date of Service ([email or web address])
--- NOTE | 2024-11-24 19:22 | Operative Report ---
PG Post Operative Report Pre & Post Diagnosis Operation Date: 11/24/24 12:35 Pre-Op Diagnosis: Diverticular disease of intestine with perforation and abscess Post-Op Diagnosis: Diverticular disease of intestine with perforation and abscess, with adhesions, possible fistula and abscess formation involving the left ovary with ovary being thickened and inflamed. Extensive adhesions of small bowel in the pelvis as well as to the anterior abdominal wall, adhesions of the cecum to the anterior abdominal wall and pelvis, prior mesh identified, was incorporated well into the fascia of the abdominal wall I identified the patient and participated in the time-out.: Yes Procedure Operation Date: 11/24/24 12:35 Actual Procedures p Exploratory Laparotomy, Megan's Procedure(Not Applicable), adhesiolysis of small bowel to anterior abdominal wall and and pelvis as well as interloop adhesions, suture repair of serosal tear of small bowel as well as cecum- Simon Thorne MD ([id number]) s Cystoscopy(Bilateral) - Paulo Byrne MD Surgeon Simon Thorne MD Account Support Analyst Pura Masterson PA-C Estimated Blood Loss 100 Findings Consistent with Post-Op Diagnosis Specimens sigmoid colon Drains 19 Spanish Gerhard drain in pelvis Anesthesia Type General Complications none Indications This is a 64-year-old female with a history of abdominal pain and sepsis as well as multiple abdominal surgeries including hysterectomy and abdominal hernia r epair with mesh. Workup reveals perforated diverticulitis with abscess with with possible fistula to the left ovary. Interventional radiology was consulted for IR drainage but they were not able to find an adequate window for IR drainage, even secondary consult for IR drainage at [facility] also reviewed images and cannot find a window for IR drainage. The patient continues to be septic with high white blood cell count, on IV antibiotics and requiring pressor support with localized peritonitis. Given this, plan is for exploratory laparotomy with Carmona's procedure. I had a lengthy discussion with the patient and significant other regarding surgical treatment for this given that it appears that she has failed nonoperative management. Plan will be for laparoscopic, possible open resection of the sigmoid colon with possible anastomosis, possible small bowel resection with anastomosis, possible ostomy if indicated. This will be further assessed in the operating room. Risks of proce dure were discussed with the patient and they include bleeding, infection, injury to surrounding structures, anastomotic leak, ostomy issues to include ostomy retraction, prolapse, and hernia and ischemia, and wound issues to include wound infection, dehiscence, and hernia, need for further procedures, and cardiopulmonary events that can occur. Alternatives include no procedure, which the patient declines. Patient wishes to proceed with surgery. All questions were answered. Plan will also be for urology to perform cystoscopy and placed bilateral ureteral catheters to assist with identifying and protecting the ureters bilaterally. Description of Procedure . Description of Procedure Description of Procedure Informed consent was verified and site of surgery was verified and the patient was brought back to operating room. General anesthesia was administered. She was in the lithotomy position. A nasogastric tube was placed. Urology had come in person and perform cystoscopy and placed bilateral ureteral catheters and Peters catheter. The patient's abdomen and pelvis were prepped and draped in the usual sterile fashion. A surgical timeout was performed and there were no issues. A midline incision was made overlying the patient's prior incision as well as superior to the incision and dissection was carried out and the abdominal cavity was entered sharply with care taken to avoid injury to any structures. There were dense adhesions of the omentum and small bowel to the anterior abdominal wall. These were taken down mostly sharply. Finally, the abdominal cavity was able to be entered safely after taking down adhesions. There again were dense adhesions of the small bowel in the pelvis and these were also very carefully taken down and adhesions of the cecum to the anterior abdominal wall, which was also gently taken down sharply. Next, the sigmoid colon was examined and was seen to be very inflamed and thickened with severe thick adhesions to the left ovary. It was gently mobilized along the white line of Toldt with care taken to avoid injury to any structures including the ureters . After sufficient mobilization, a line of transection was identified at the left colon going into the sigmoid colon. The 80 HOLDEN stapler was used to transect the bowel at this level after creating a window in the mesentery. Further dissection was done posteriorly with the mesentery as well as laterally with care taken to avoid injury to any structures and at the level of the rectum, a window was created in the mesentery where the rectum felt soft and was identified by the splaying of the tinea coli in the sacral premonitory. The contour stapling device was used to transect the rectum at this level. The small bowel and cecum were examined and there were 2 serosal tears that were repaired primarily. The abdomen was copiously irrigated and suctioned and a 19 Spanish Gerhard drain was placed in the pelvis and secured at the left lower quadrant. The ovary on the left side was examined and did not appear to have a mass but is appear to be chronically inflamed and thickened and irritated with ooziness from likely being caught up in the diverticular disease with a fistula to it. It was gently irrigated and suctioned and hemostatic powder was also placed on it. The left colon was further mobilized along the white line of Toldt to the level of the splenic flexure. After it was seen to have sufficient length, a circumferential incision was made in the left mid abdomen and the fascia was divided and the abdominal muscles were and the peritoneum was opened and the ostomy was brought out and secured. Next, the fascia of the midline incision was closed with 0 looped PDS and the skin was closed with skin michoacano. Next, 20 mL of Exparel was injected along the fascia of the midline incision. Next, the ostomy was matured in a Luciana fashion using 3-0 Vicryl suture. Sterile dressing was applied an ostomy appliance was applied and the patient was weaned off anesthesia and transferred to recovery in stable condition. The bilateral ureteral catheters were removed at the end of the case. . I attest to the content of the Intraoperative Record and any orders documented therein. Any exceptions are noted below.
[2024-11-24] MEDS ORDERED: MoRPHine SULFATE 2 MG/ML CARP IV PRN (19:23)
[2024-11-24] MEDS ORDERED: ACETAMINOPHEN 1,000 MG/100 ML VIAL IV PRN (19:23)
[2024-11-24] MEDS ORDERED: DEXTROSE 50% 50 ML SYRINGE IV PRN (19:24)
[2024-11-24] MEDS ORDERED: GLUCOSE 40% GEL 15 GM TUBE PO PRN (19:24)
[2024-11-24] MEDS ORDERED: GLUCAGON FOR INJ 1 MG VIAL SQ PRN (19:24)
[2024-11-24] MEDS ORDERED: CARBOHYDRATES FOR HYPOGLYCEMIA PO PRN (19:24)
[2024-11-24] MEDS ORDERED: GLUCOSE 10 TAB/TUBE PO PRN (19:24)
[2024-11-24] MEDS: SODIUM CHLORIDE 0.9% 1,000 ML IV SCH (19:59)
--- NOTE | 2024-11-24 20:06 | Communication Note ---
<Statement entered by Cong Duenas MD - 11/25/24 07:32> I, Cong Duenas MD, was made aware of the physical exam, assessment, plan, and management as provided by the Advanced Care Provider, for this patient encounter. I discussed the case with them, confirmed the findings, and I concur with the proposed plan of care. I provided guidance as needed. Date of Service: November 24, 2024 Patient seen on return from operating room. She is s/p open sigmoid colon resection w colostomy. Megan's procedure c/b adhered mesh and takedown of small bowel adhesions. Ureteral stent placement s/p removal. EBL 100cc. No perioperative complications. NGT remains in place. Levophed at 0.14mcg/kg/min. IVF running at 125cc/hr. Peters in place draining yellow urine. Patient awakens to voice, able to say her name. Remains quite somnolent. Afebrile. Saturating well with oxymask in place. No episodes of apnea. NSR with PACs on monitor. Ostomy site is dark red, beefy without output. Midline incisional dressing in place, C/D/I. LLQ SAMRA drain with sanguinous drainage and some purulent material. D/w surgery team Pura Masterson PA-C - plan to maintain NGT until return of bowel function. OK to give meds and clamp between. Start vitamin C and Colace (ordered). Monitor drain OP. Continue to wean norepinephrine as able Post-operative labs pending Remainder of plan as ordered Coding Level of Care Code None
[2024-11-24 20:51] LABS: Anion Gap 10.0 (3-11); Blood Urea Nitrogen 28.0 mg/dl (6-23); Calcium 8.7 mg/dl (8.6-10.3); Carbon Dioxide 21.0 mmol/L (21-32); Chloride 104.0 mmol/L (98-107); Creatinine Clr Calc Pharmacy 27.6 ml/min; Glucose 222.0 mg/dl (70-99(Fasting)); Magnesium 2.1 mg/dl (1.7-2.4); Potassium 3.9 mmol/L (3.5-5.1); Sodium 135.0 mmol/L (136-145)
[2024-11-24] MEDS ORDERED: DOCUSATE SODIUM 100 MG CAP PO SCH (21:00)
[2024-11-24] MEDS ORDERED: INSULIN ASPART PER UNIT CHARGE SC SCH (21:00)
[2024-11-24] MEDS ORDERED: Nursing to Pharmacy Communication SCH (21:15)
[2024-11-24 21:17] LABS: Hematocrit (blood only) 32.5 % (37.0-47.0); Hemoglobin 11.1 g/dl (12.0-16.0); Mean Corpuscular Hemoglobin 28.2 pg (25.0-34.0); Mean Corpuscular Volume 82.7 fL (80.0-100.0); Platelet Count 73 K/uL (130-400); RDW Standard Deviation 43.8 fL (36.4-46.3); Red Blood Count 3.93 M/uL (4.20-5.40); White Blood Count 24.29 K/ul (4.8-10.8)
[2024-11-24] MEDS: DOCUSATE SODIUM SYRUP 100 MG/10 ML UDC PO SCH (21:58)
--- NOTE | 2024-11-24 22:06 | Anesthesiology Progress Note ---
Date of Service November 24, 2024 Anesthesia Post Procedure Vital Signs Vital Signs: Temp Pulse Pulse Resp BP BP BP 11/24/24 20:00 11/24/24 19:10 36.8 C 86 14 89/54 L 120/73 11/24/24 19:05 37.2 C 88 24 103/58 L 120/73 11/24/24 18:55 36.9 C 85 26 H 107/57 L 99/56 L 11/24/24 15:03 39.0 C H 100 H 34 H 11/24/24 14:45 38.9 C H 102 H 23 11/24/24 14:33 38.8 C H 99 H 18 11/24/24 14:24 38.7 C H 99 H 21 11/24/24 14:12 38.5 C H 97 H 20 11/24/24 13:57 38.6 C H 102 H 19 11/24/24 13:45 38.4 C H 98 H 15 11/24/24 13:33 38.8 C H 98 H 28 H 11/24/24 13:15 38.5 C H 96 H 27 H 11/24/24 13:03 37.2 C 95 H 25 H 11/24/24 12:45 102 H 22 11/24/24 12:36 100 H 11/24/24 12:24 98 H 23 11/24/24 12:06 107 H 17 11/24/24 12:00 87/51 L 11/24/24 11:48 101 H 30 H 11/24/24 11:30 108 H 25 H 94/54 L 11/24/24 11:16 140/100 11/24/24 11:16 140/100 11/24/24 11:12 122 H 38 H 11/24/24 11:06 118 H 37 H 11/24/24 11:02 155/88 H 11/24/24 10:51 105 H 21 146/86 H 11/24/24 10:36 82 29 H 11/24/24 10:15 85 19 11/24/24 10:06 84 25 H 101/73 11/24/24 09:48 85 19 11/24/24 09:33 84 23 11/24/24 09:00 88 22 11/24/24 08:48 89 11/24/24 08:42 89 11/24/24 08:00 36.9 C 11/24/24 08:00 11/24/24 07:45 97 H 22 11/24/24 07:39 99 H 22 11/24/24 07:18 98 H 25 H 116/62 11/24/24 07:06 101 H 15 11/24/24 05:30 92/53 L 11/24/24 05:21 115 H 28 H 11/24/24 05:15 92/54 L 11/24/24 05:15 92/54 L 11/24/24 05:12 115 H 28 H 11/24/24 05:09 115 H 25 H 11/24/24 05:02 84/61 L 11/24/24 04:57 116 H 30 H 11/24/24 04:45 84/62 L 11/24/24 04:45 115 H 31 H 11/24/24 04:16 98/48 L 11/24/24 04:06 113 H 23 11/24/24 04:00 39.1 C H 11/24/24 03:46 103/51 L 11/24/24 03:46 103/51 L 11/24/24 03:46 103/51 L 11/24/24 03:46 103/51 L 11/24/24 03:42 112 H 29 H 11/24/24 03:15 104/62 11/24/24 03:15 109 H 31 H 11/24/24 03:12 110 H 33 H 11/24/24 03:01 113/67 11/24/24 03:01 113/67 11/24/24 02:42 107 H 24 11/24/24 02:33 108/62 11/24/24 02:33 108/62 11/24/24 02:30 109 H 25 H 11/24/24 02:15 108 H 29 H 11/24/24 02:15 93/50 L 11/24/24 02:15 108 H 24 11/24/24 02:06 110 H 28 H 11/24/24 02:00 38.7 C H 11/24/24 01:45 116/69 11/24/24 01:45 108 H 26 H 11/24/24 01:17 90/58 L 11/24/24 01:17 90/58 L 11/24/24 01:17 90/58 L 11/24/24 01:15 69/53 L 11/24/24 01:15 120 H 28 H 11/24/24 01:12 71/43 L 11/24/24 01:12 71/43 L 11/24/24 01:06 118 H 27 H 11/24/24 01:01 82/48 L 11/24/24 01:00 119 H 24 11/24/24 01:00 39.3 C H 11/24/24 00:51 121 H 33 H 115/72 11/24/24 00:36 130 H 24 11/24/24 00:31 157/105 H 11/24/24 00:31 157/105 H 11/24/24 00:31 157/105 H 11/24/24 00:24 147/102 H 11/24/24 00:24 138 H 21 11/24/24 00:03 103 H 23 11/24/24 00:00 37.8 C H 11/23/24 23:51 82 22 11/23/24 23:45 104/61 11/23/24 23:30 91/54 L 11/23/24 23:18 86/51 L 11/23/24 23:15 82/50 L 11/23/24 23:00 79 11/23/24 22:53 93/55 L 11/23/24 22:48 77 16 11/23/24 22:45 83 19 11/23/24 22:30 84 19 11/23/24 22:16 90/55 L 11/23/24 22:15 79 35 H 11/23/24 22:12 81 20 11/23/24 22:09 77 23 Pulse Ox O2 Del Method O2 Flow Rate 11/24/24 20:00 Oxymask 11/24/24 19:10 96 Oxymask 11/24/24 19:05 95 Oxymask 11/24/24 18:55 93 Oxymask 10 11/24/24 15:03 89 L 11/24/24 14:45 96 11/24/24 14:33 96 Room Air 11/24/24 14:24 95 Room Air 11/24/24 14:12 98 Room Air 11/24/24 13:57 96 Room Air 11/24/24 13:45 97 11/24/24 13:33 96 11/24/24 13:15 97 11/24/24 13:03 97 11/24/24 12:45 97 Room Air 11/24/24 12:36 11/24/24 12:24 92 Room Air 11/24/24 12:06 93 Room Air 11/24/24 12:00 11/24/24 11:48 95 Room Air 11/24/24 11:30 97 Room Air 11/24/24 11:16 11/24/24 11:16 11/24/24 11:12 99 Room Air 11/24/24 11:06 11/24/24 11:02 11/24/24 10:51 11/24/24 10:36 93 Room Air 11/24/24 10:15 11/24/24 10:06 96 Room Air 11/24/24 09:48 98 Room Air 11/24/24 09:33 98 Room Air 11/24/24 09:00 95 Room Air 11/24/24 08:48 98 Room Air 11/24/24 08:42 96 Room Air 11/24/24 08:00 11/24/24 08:00 Room Air 11/24/24 07:45 98 Room Air 11/24/24 07:39 98 Room Air 11/24/24 07:18 97 Room Air 11/24/24 07:06 97 Room Air 11/24/24 05:30 11/24/24 05:21 94 11/24/24 05:15 11/24/24 05:15 11/24/24 05:12 94 11/24/24 05:09 94 11/24/24 05:02 11/24/24 04:57 93 11/24/24 04:45 11/24/24 04:45 94 11/24/24 04:16 11/24/24 04:06 94 11/24/24 04:00 11/24/24 03:46 11/24/24 03:46 11/24/24 03:46 11/24/24 03:46 11/24/24 03:42 93 11/24/24 03:15 11/24/24 03:15 93 11/24/24 03:12 92 11/24/24 03:01 11/24/24 03:01 11/24/24 02:42 95 11/24/24 02:33 11/24/24 02:33 11/24/24 02:30 96 11/24/24 02:15 94 11/24/24 02:15 11/24/24 02:15 95 11/24/24 02:06 94 11/24/24 02:00 11/24/24 01:45 11/24/24 01:45 94 11/24/24 01:17 11/24/24 01:17 11/24/24 01:17 11/24/24 01:15 11/24/24 01:15 96 11/24/24 01:12 11/24/24 01:12 11/24/24 01:06 96 11/24/24 01:01 11/24/24 01:00 94 11/24/24 01:00 11/24/24 00:51 94 11/24/24 00:36 11/24/24 00:31 11/24/24 00:31 11/24/24 00:31 11/24/24 00:24 11/24/24 00:24 11/24/24 00:03 76 L 11/24/24 00:00 11/23/24 23:51 97 11/23/24 23:45 11/23/24 23:30 11/23/24 23:18 11/23/24 23:15 11/23/24 23:00 11/23/24 22:53 11/23/24 22:48 99 CPAP 11/23/24 22:45 97 11/23/24 22:30 95 11/23/24 22:16 11/23/24 22:15 97 11/23/24 22:12 93 11/23/24 22:09 94 Room Air Pain Intensity Generalized: Pain Intensity: 9 Transfer of Care Handoff Completed per policy Notes Mental Status: alert / awake / arousable and participated in evaluation Patient Amnestic to Procedure: Yes Nausea / Vomiting: adequately controlled Pain: adequately controlled Airway Patency, RR, SpO2: stable & adequate BP & HR: stable & adequate Hydration State: stable & adequate Anesthetic Complications: no major complications apparent and Pt Satisfied with anesthetic care
--- NOTE | 2024-11-24 22:49 | Hospitalist Progress Note ---
Date of Service November 24, 2024 Assessment & Plan (1) Diverticular disease of intestine with perforation and abscess: Plan: CT a/p on 11/23/2024 showed "4.2 cm soft tissue structure is seen in the left adnexa;" however, given that CT a/p on 10/24/2024 made no mention of ovarian pathology, but had extensive sigmoid diverticulosis, I do not think ovarian issue is as likely. Case was discussed with on-call surgery and dining car server who agree with plan. - Transitioned to zosyn/placed on levophed shortly after admission and transferred to the ICU. - NPO - Consult colorectal surgery -IR unable to reach abscess, Transfer to outside facility not accepted, -Gen Surgery agreeable to operate on patient, - Reach out to IR in the morning to consider percutaneous drainage (2) Sepsis: Plan: Severe sepsis as evidenced by elevated lactate and hypotension on arrival. BP responding to fluids and now 100/65. Appears comfortable. Discussed with ICU attending; plan for PCU/telemetry for now. Believe elevated troponin due to sepsis. No complaint of chest pain at present. - Repeat lactate & troponin pending - Continue fluids -> Did not get full 30 mL/kg bolus (only 2 L bolus). Given improvement, defer for now given possible CHF, but could get another 1L bolus before pressors. (3) MARGUERITE (acute kidney injury): Plan: Baseline Cr is 0.6 (eGFR > 90). Cr on admission was 3.26, likely pre-renal. On my exam in ER, she is making good urine output. - Continue IV fluids for now - Monitor Cr - Adjust medications as kidney function improves (4) Severe obstructive sleep apnea: Plan: Compliant with CPAP. - Continue CPAP in hospital - Defer home insomnia meds for now; ordered melatonin PRN (5) Chronic diastolic congestive heart failure: Plan: Followed with [facility], but no further visits since 2022. Per note, severe LVH, diastolic CHF. NOT on Lasix at baseline. - Monitor volume status - Defer full sepsis bolus due to CHF (6) Hypertension: Plan: Baseline SBPs seem to be 120-140. - Hold amlodipine (7) Type 2 diabetes mellitus: Plan: With A1c of 5.7% on 10/22/2024. - Hold semaglutide - Sliding scale (8) Tobacco abuse: Plan: Quit about 1 week ago, but still with cravings. - Nicotine patch Plan FULL CODE - In discussion with patient and sister on admission Admission and Anticipated Discharge Date Admission Date: November 23, 2024 Subjective Patient reports no new symptoms. She is excited to have surgery at the hospital and not needing to go to an outside facility. Physical Exam Physical Exam: GEN: NAD, speaking on phone in bed HEENT: NC/AT CV: RRR, no m/r/g Resp: Normal work of breathing, clear to auscultation GI: Mild tenderness in LLQ. No rebound or guarding. Neuro: Moves all limbs. No focal neuro deficits noted. MSK: Normal joint exam Psych: Normal affect Skin: No rashes noted Results & Data Results & Data Vital Signs (Past 12 Hours) Vital Signs Temp Pulse Pulse Resp BP BP BP 11/24/24 22:00 36.3 C L 80 20 106/55 L 11/24/24 20:00 11/24/24 19:10 36.8 C 86 14 89/54 L 120/73 11/24/24 19:05 37.2 C 88 24 103/58 L 120/73 11/24/24 18:55 36.9 C 85 26 H 107/57 L 99/56 L 11/24/24 15:03 39.0 C H 100 H 34 H 11/24/24 14:45 38.9 C H 102 H 11/24/24 14:33 38.8 C H 99 H 18 11/24/24 14:24 38.7 C H 99 H 21 11/24/24 14:12 38.5 C H 97 H 20 11/24/24 13:57 38.6 C H 102 H 19 11/24/24 13:45 38.4 C H 98 H 15 11/24/24 13:33 38.8 C H 98 H 28 H 11/24/24 13:15 38.5 C H 96 H 27 H 11/24/24 13:03 37.2 C 95 H 25 H 11/24/24 12:45 102 H 22 11/24/24 12:36 100 H 11/24/24 12:24 98 H 23 11/24/24 12:06 107 H 17 11/24/24 12:00 87/51 L 11/24/24 11:48 101 H 30 H 11/24/24 11:30 108 H 25 H 94/54 L 11/24/24 11:16 140/100 11/24/24 11:16 140/100 11/24/24 11:12 122 H 38 H 11/24/24 11:06 118 H 37 H 11/24/24 11:02 155/88 H 11/24/24 10:51 105 H 21 146/86 H Pulse Ox O2 Del Method O2 Flow Rate 11/24/24 22:00 98 Nasal Cannula 4 11/24/24 20:00 Oxymask 10 11/24/24 19:10 96 Oxymask 10 11/24/24 19:05 95 Oxymask 10 11/24/24 18:55 93 Oxymask 10 11/24/24 15:03 89 L 11/24/24 14:45 96 11/24/24 14:33 96 Room Air 11/24/24 14:24 95 Room Air 11/24/24 14:12 98 Room Air 11/24/24 13:57 96 Room Air 11/24/24 13:45 97 11/24/24 13:33 96 11/24/24 13:15 97 11/24/24 13:03 97 11/24/24 12:45 97 Room Air 11/24/24 12:36 11/24/24 12:24 92 Room Air 11/24/24 12:06 93 Room Air 11/24/24 12:00 11/24/24 11:48 95 Room Air 11/24/24 11:30 97 Room Air 11/24/24 11:16 11/24/24 11:16 11/24/24 11:12 99 Room Air 11/24/24 11:06 11/24/24 11:02 11/24/24 10:51 PG Care Time/CCT Total # of Minutes Spent Total Time Spent with Patient: Total time spent is greater than 50% in coordination of care (as documented) at patient's floor/unit and/or counseling patient: Coding Level of Care Code 10487 SUB INP/OBS CARE 3/50MIN Diagnoses Diverticular disease of intestine with perforation and abscess K57.80 Sepsis A41.9; R65.20; N17.9 Acute renal failure type: unspecified Sepsis acute organ dysfunction status: with acute organ dysfunction Sepsis type: sepsis due to unspecified organism Severe sepsis acute organ dysfunction type: acute renal failure Severe sepsis shock status: unspecified MARGUERITE (acute kidney injury) N17.9 Severe obstructive sleep apnea G47.33 Chronic diastolic congestive heart failure I50.32 Essential hypertension I10 Hypertension type: essential hypertension Type 2 diabetes mellitus with diabetic neuropathy, without long-term current use of insulin E11.40 Diabetes mellitus penitentiary insulin use: without penitentiary use Diabetes mellitus complication status: with neurologic complications Diabetes mellitus complication detail: with unspecified neuropathy Tobacco abuse Z72.0 (2) Sepsis Acute renal failure type: unspecified Sepsis acute organ dysfunction status: with acute organ dysfunction Sepsis type: sepsis due to unspecified organism Severe sepsis acute organ dysfunction type: acute renal failure Severe sepsis shock status: unspecified Qualified Code(s): A41.9 - Sepsis, unspecified o rganism; R65.20 - Severe sepsis without septic shock; N17.9 - Acute kidney failure, unspecified (6) Hypertension Hypertension type: essential hypertension Qualified Code(s): I10 - Essential (primary) hypertension (7) Type 2 diabetes mellitus Diabetes mellitus penitentiary insulin use: without penitentiary use Diabetes mellitus complication status: with neurologic complications Diabetes mellitus complication detail: with unspecified neuropathy Qualified Code(s): E11.40 - Type 2 diabetes mellitus with diabetic neuropathy, unspecified
[2024-11-24] MEDS: Nursing to Pharmacy Communication SCH (23:04)
[2024-11-25] MEDS ORDERED: PHARMACY GLYCEMIC MGMT CONSULT PRN (00:11)
[2024-11-25] MEDS: MoRPHine SULFATE 4 MG/ML 1 ML CARP\\VIAL IV PRN (00:18)
[2024-11-25] MEDS: HYDROCORTISONE SOD 50 MG in SYRINGE 0 ML IV SCH (01:03)
[2024-11-25 05:09] LABS: Hematocrit (blood only) 31.7 % (37.0-47.0); Hemoglobin 10.7 g/dl (12.0-16.0); Mean Corpuscular Hemoglobin 28.1 pg (25.0-34.0); Mean Corpuscular Volume 83.2 fL (80.0-100.0); Platelet Count 54 K/uL (130-400); RDW Standard Deviation 43.8 fL (36.4-46.3); Red Blood Count 3.81 M/uL (4.20-5.40); White Blood Count 19.79 K/ul (4.8-10.8)
[2024-11-25 06:15] LABS: Alanine Aminotransferase 42.0 U/L (7-52); Albumin Level 3.0 gm/dl (3.4-5.0); Alkaline Phosphatase 125.0 U/L (34-104); Anion Gap 6.0 (3-11); Bilirubin,Total 3.1 mg/dl (0.2-1.0); Blood Urea Nitrogen 25.0 mg/dl (6-23); Calcium 9.0 mg/dl (8.6-10.3); Carbon Dioxide 26.0 mmol/L (21-32); Chloride 106.0 mmol/L (98-107); Creatinine Clr Calc Pharmacy 30.7 ml/min; Glucose 171.0 mg/dl (70-99(Fasting)); Magnesium 2.3 mg/dl (1.7-2.4); Potassium 3.4 mmol/L (3.5-5.1); Sodium 138.0 mmol/L (136-145); Total Protein 6.5 gm/dl (6.0-8.3)
[2024-11-25] MEDS ORDERED: POTASSIUM PHOS 3 MMOL/1 ML INFUSION IV STA (06:21)
[2024-11-25] MEDS: POTASSIUM CHLORIDE / WTR 20 MEQ/100 ML PLCT IV SCH (07:03)
[2024-11-25] MEDS: POTASSIUM PHOSPHATE 9 MMOL in SODIUM CHLORIDE 0.9% 250 ML IV ONE (07:03)
[2024-11-25 07:15] LABS: Dohle Bodies 1+; Toxic Vacuolation 2+
[2024-11-25] MEDS: ASCORBIC ACID 500 MG TAB PO SCH (08:44)
[2024-11-25] MEDS ORDERED: HYDROmorphone INJ 0.5 MG/0.5 ML SYR IV PRN (10:09)
[2024-11-25] MEDS: HYDROmorphone INJ 0.5 MG/0.5 ML SYR IV PRN (10:13)
--- NOTE | 2024-11-25 10:50 | Pharmacy Report ---
Pharmacy Glycemic Short Note 2 - Date of Service November 25, 2024 - Glycemic Short BSG Results (Last 24 hours): 11/24/24 11/24/24 11/24/24 12:09 12:11 12:34 Glucose 222 H POC Glucose (other) 219 H 214 H 11/24/24 11/24/24 11/25/24 19:19 20:10 00:08 Glucose 222 H POC Glucose (other) 198 H 247 H 11/25/24 11/25/24 04:41 04:48 Glucose 171 H POC Glucose (other) 173 H OUTPATIENT ANTIDIABETIC REGIMEN: * semaglutide 2 mg SQ weekly * 5.7% 10/22/24 ASSESSMENT: * Patient admitted to the ICU with sepsis secondary to diverticular disease of the intestine with perforation and abscess likely experiencing some stress induced hyperglycemia. * Patient is currently receiving norepinephrine and hydrocortisone. PN under consideration. * Will continue with novolog coverage for now with slight adjustments to goal range. PLAN FOR INPATIENT GLYCEMIC CONTROL: * Hold outpatient oral diabetes medications * Basal insulin * None * Bolus insulin * NovoLog per scale ACHS or Q6hrs while NPO * Goal Range: Low 120 mg/dL - High 160 mg/dL * Correction Factor: 15 mg/dL/unit * Nutritional / Prandial insulin per carb ratio of 1 unit per 8 grams CHO consumed
[2024-11-25 11:09] LABS: INR 1.2 (0.9-1.1); Partial Thromboplastin Time 34 Seconds (21-31); Prothrombin Time 12.4 Seconds (9.0-12.0)
--- NOTE | 2024-11-25 11:09 | Surgery Progress Note ---
Date of Service November 25, 2024 Assessment & Plan (1) Diverticulitis large intestine: (2) Sepsis: Plan Patient is postop day 1 from exploratory laparotomy and Megan's procedure with extensive adhesiolysis. Her surgery was yesterday evening, she is not 24 hours out from surgery yet. 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 Her white blood cell count is improving, she is slowly being weaned off pressors. She does have low platelets, this is being worked up, most likely due to her sepsis. She can get out of bed to chair today once she wakes up more, continue with NG tube for now, can start TPN. Admission and Anticipated Discharge Date Admission Date: November 23, 2024 Subjective Patient appears to be sleepy, complaining of some pain in her abdomen. Pressors are being weaned off. Review of Systems Review of Systems: 12 point review of systems is negative e xcept as mentioned above Physical Exam Constitutional: WD/WN, vitals as above Respiratory: Normal respiratory effort Gastrointestinal (Abdomen): Soft, dressing and abdominal binder in place, colostomy viable but bruised with a small amount of stool on it Psychiatric: Sleepy but complaining of pain, unable to have patient answer questions much but does appear to understand where she is and that she had surgery Results & Data Vital Signs (Past 12 Hours) Vital Signs Temp Pulse Pulse Resp BP BP Pulse Ox 11/25/24 10:44 37.1 C 78 25 H 113/64 93 11/25/24 09:28 37.0 C 82 27 H 113/57 L 95 11/25/24 07:42 36.9 C 80 28 H 109/54 L 95 11/25/24 07:30 11/25/24 06:30 101/51 L 11/25/24 06:15 96/50 L 11/25/24 06:00 36.9 C 80 24 103/52 L 94 11/25/24 05:45 117/56 L 11/25/24 05:30 96/49 L 11/25/24 05:15 95/49 L 11/25/24 05:15 102/53 L 11/25/24 05:00 36.7 C 86 24 102/53 L 95 11/25/24 05:00 36.7 C 81 26 H 104/53 L 95 11/25/24 04:45 105/54 L 11/25/24 04:30 116/60 11/25/24 04:15 110/57 L 11/25/24 04:00 36.6 C 82 22 112/60 95 11/25/24 03:56 117/81 11/25/24 03:45 115/62 11/25/24 03:30 108/58 L 11/25/24 03:15 104/56 L 11/25/24 03:00 36.6 C 76 21 102/60 94 11/25/24 02:45 104/56 L 11/25/24 02:30 116/60 11/25/24 02:15 100/57 L 11/25/24 02:00 36.5 C 77 23 104/58 L 95 11/25/24 01:45 123/72 11/25/24 01:30 99/54 L 11/25/24 01:15 97/53 L 11/25/24 01:00 36.3 C L 82 23 97/53 L 95 11/25/24 00:45 104/55 L 11/25/24 00:30 96/51 L 11/25/24 00:15 105/55 L 11/25/24 00:00 36.3 C L 83 23 109/59 L 97 11/25/24 00:00 101/54 L 11/24/24 23:45 111/60 11/24/24 23:30 110/58 L 11/24/24 23:15 103/59 L O2 Del Method O2 Flow Rate 11/25/24 10:44 Room Air 11/25/24 09:28 Room Air 11/25/24 07:42 Room Air 11/25/24 07:30 Room Air 11/25/24 06:30 11/25/24 06:15 11/25/24 06:00 Room Air 11/25/24 05:45 11/25/24 05:30 11/25/24 05:15 11/25/24 05:15 11/25/24 05:00 Room Air 11/25/24 05:00 Room Air 11/25/24 04:45 11/25/24 04:30 11/25/24 04:15 11/25/24 04:00 Room Air 11/25/24 03:56 11/25/24 03:45 11/25/24 03:30 11/25/24 03:15 11/25/24 03:00 Room Air 11/25/24 02:45 11/25/24 02:30 11/25/24 02:15 11/25/24 02:00 Room Air 11/25/24 01:45 11/25/24 01:30 11/25/24 01:15 11/25/24 01:00 Room Air 11/25/24 00:45 11/25/24 00:30 11/25/24 00:15 11/25/24 00:00 Nasal Cannula 1 11/25/24 00:00 11/24/24 23:45 11/24/24 23:30 11/24/24 23:15 Laboratory Results Laboratory Results - last 24 hr 11/23/24 11/24/24 11/24/24 14:46 12:09 12:11 WBC RBC Hgb Hct MCV MCH MCHC RDW Std Deviation RDW Coeff of Hiral Plt Count MPV Toxic Vacuolation 2+ Dohle Bodies 1+ Platelet Estimate PT INR APTT PTT Ratio Fibrinogen Sodium 133 L Potassium 3.4 L Chloride 100 Carbon Dioxide 18 L Anion Gap 15 H BUN 31 H Creatinine 2.23 H Est Cr Clr Drug Dosing 25.5 eGFR 23.73 BUN/Creatinine Ratio 13.9 Glucose 222 H POC Glucose (other) 219 H Lactate Calcium 9.0 Phosphorus Magnesium Total Bilirubin Direct Bilirubin AST ALT Alkaline Phosphatase C-Reactive Protein Total Protein Albumin Serotonin Release Assay Heparin Depend Plt Ab Blood Type Antibody Screen 11/24/24 11/24/24 11/24/24 12:34 14:40 19:19 WBC RBC Hgb Hct MCV MCH MCHC RDW Std Deviation RDW Coeff of Hiral Plt Count MPV Toxic Vacuolation Dohle Bodies Platelet Estimate PT INR APTT PTT Ratio Fibrinogen Sodium Potassium Chloride Carbon Dioxide Anion Gap BUN Creatinine Est Cr Clr Drug Dosing eGFR BUN/Creatinine Ratio Glucose POC Glucose (other) 214 H 198 H Lactate Calcium Phosphorus Magnesium Total Bilirubin Direct Bilirubin AST ALT Alkaline Phosphatase C-Reactive Protein Total Protein Albumin Serotonin Release Assay Heparin Depend Plt Ab Blood Type O Positive Antibody Screen NEGATIVE 11/24/24 11/25/24 11/25/24 20:10 00:08 04:41 WBC 24.29 H 19.79 H RBC 3.93 L 3.81 L Hgb 11.1 L 10.7 L Hct 32.5 L 31.7 L MCV 82.7 83.2 MCH 28.2 28.1 MCHC 34.2 33.8 RDW Std Deviation 43.8 43.8 RDW Coeff of Hiral 14.3 14.5 Plt Count 73 L D 54 L MPV 13.0 H 12.8 H Toxic Vacuolation Dohle Bodies Platelet Estimate Decreased L PT INR APTT PTT Ratio Fibrinogen Sodium 135 L 138 Potassium 3.9 3.4 L Chloride 104 106 Carbon Dioxide 21 26 Anion Gap 10 6 BUN 28 H 25 H Creatinine 2.06 H 1.85 H Est Cr Clr Drug Dosing 27.6 30.7 eGFR 26.10 29.70 BUN/Creatinine Ratio 13.6 13.5 Glucose 222 H 171 H POC Glucose (other) 247 H Lactate 3.0 H* Calcium 8.7 9.0 Phosphorus 3.9 D 2.7 D Magnesium 2.1 2.3 Total Bilirubin 3.1 H Direct Bilirubin 2.2 H AST 66 H ALT 42 Alkaline Phosphatase 125 H C-Reactive Protein 28.89 H Total Protein 6.5 Albumin 3.0 L Serotonin Release Assay Heparin Depend Plt Ab Blood Type Antibody Screen 11/25/24 11/25/24 11/25/24 04:48 10:20 10:25 WBC RBC Hgb Hct MCV MCH MCHC RDW Std Deviation RDW Coeff of Hiral Plt Count MPV Toxic Vacuolation Dohle Bodies Platelet Estimate PT Pending INR Pending APTT Pending PTT Ratio Pending Fibrinogen Pending Sodium Potassium Chloride Carbon Dioxide Anion Gap BUN Creatinine Est Cr Clr Drug Dosing eGFR BUN/Creatinine Ratio Glucose POC Glucose (other) 173 H Lactate 1.4 Calcium Phosphorus Magnesium Total Bilirubin Direct Bilirubin AST ALT Alkaline Phosphatase C-Reactive Protein Total Protein Albumin Serotonin Release Assay Pending Heparin Depend Plt Ab Pending Blood Type Antibody Screen PG Care Time/CCT Total # of Minutes Spent Total Time Spent with Patient: Total time spent is greater than 50% in coordination of care (as documented) at patient's floor/unit and/or counseling patient: Coding Level of Care Code 41717 Post Operative Follow-Up Diagnoses Diverticulitis of large intestine with perforation and abscess without bleeding K57.20 Diverticulitis complication: with perforation and abscess Sepsis A41.9; R65.20; N17.9 Acute renal failure type: unspecified Sepsis acute organ dysfunction status: with acute organ dysfunction Sepsis type: sepsis due to unspecified organism Severe sepsis acute organ dysfunction type: acute renal failure Severe sepsis shock status: unspecified (1) Diverticulitis large intestine Diverticulitis complication: with perforation and abscess Qualified Code(s): K57.20 - Diverticulitis of large intestine with perforation and abscess without bleeding (2) Sepsis Acute renal failure type: unspecified Sepsis acute organ dysfunction status: with acute organ dysfunction Sepsis type: sepsis due to unspecified organism Severe sepsis acute organ dysfunction type: acute renal failure Severe sepsis shock status: unspecified Qualified Code(s): A41.9 - Sepsis, unspecified organism; R65.20 - Severe sepsis without septic shock; N17.9 - Acute kidney failure, unspecified
--- NOTE | 2024-11-25 11:17 | Critical Care Progress Note ---
<Statement entered by Cong Duenas MD - 11/25/24 15:54> I, Cong Duenas MD, supervised and reviewed the physical exam, assessment, plan, and management provided by the medical pathology teacher, for this patient encounter. I discussed the case with them, confirmed the findings, and I concur with the proposed plan of care. I was available for consultation throughout the encounter and provided guidance as needed. This is a life/limb threatening event. This includes time spent evaluating patient, direct bedside care, chart review, placing orders, interpretation of diagnostic studies, discussion with consultants, patient, and/or family members regarding treatment decisions, as well as other required patient management activities. Total Critical Care Time was: 65 minutes. This time is exclusive of all separately billable procedures, and teaching time and separate from and in addition to any other critical care service time. Will continue titration of vasopressors to keep MAP 65-70 mmHg. Will check VLADISLAV panel and monitor platelet-count off of any anticoagulation. Continue Zosyn for the time being, but will consider other antibiotics/combinations if thrombocytopenia worsens. Will continue trending Lactate. Will defer feeding to General Surgery. If enteral feeding will be delayed then consideration will be given for TPN, accordingly. 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 vasopressin has been discontinued Continue Nacl @125ml/hr Hold home antihypertensives TTE on 11/24 shows normal left ventricular systolic function, no regional wall motion abnormalities, mild concentric left ventricular hypertrophy, Normal EF, and no significant valvular abnormalities Admit EKG sinus rhythm with PACs, normal QTc Respiratory - No acute concerns SpO2 goal > 92% CPAP QHS GI - General surgery, p Exploratory Laparotomy, Megan's Procedure(Not Applicable), adhesiolysis of small bowel to anterior abdominal wall and and pelvis as well as interloop adhesions, suture repair of serosal tear of small bowel as well as cecum Diet: NPO . Will advance as recommended by Surgery SUP: N/A Bowel regimen: Held overnight Zofran PRN RENAL/LYTES - Repeat BMP tonight, urinating quite well after resuscitation. Lactate has been normalised Replete electrolytes as indicated Peters placed for accurate I/Os in ED, likely remove tomorrow morning Maintain net even to net negative ENDO - No acute concerns BG 140-180 per [facility] guidelines ISS if needed while inpatient Hold GLP-1 HEME/ONC/OTHER - Platelete 73>54. Will Obtain HIT Panel CROP PRODUCTION ADVISOR consulted on admission, appreciate recommendations ID - Continue Zosyn UA negative, BCx x2 negative procalcitonin > 100, MRSA nares negative LINES/TUBES/DRAINS - PIV x4 Peters removed R IJ TLC (Day 2) L Radial AL (Day 2) DVT PROPHYLAXIS - Hold in setting of thrombocytopenia Admission and Anticipated Discharge Date Admission Date: November 23, 2024 Subjective Patient was sleeping with no any acute distress. Review of Systems Review of Systems: All systems reviewed & are unremarkable except as noted in HPI & below Physical Exam Physical Exam: Constitutional: Well appearing, No acute distress, PILCCOD: Negative HEENT: Atraumatic, Normocephalic, No conjunctival injection CVS: S1 S2 no murmur, Regular Rhythm, no LE edema Respiratory: BL equal air entry with NVBS. No rhonchi, wheezes, or crackles. No increased work of breathing GI: Tenderness consistent with post operative; passage of blood as expected from the tube on operation site, no passage of gas MSK: No gross deformities noted Skin: Warm, Dry, No rashes Neuro: Couldn't be assessed as patient was sleeping Psych: Couldn't be assessed as patient was sleeping Results & Data Results & Data Vital Signs (Past 12 Hours) Vital Signs Temp Pulse Pulse Pulse Resp BP BP 11/25/24 10:44 37.1 C 78 25 H 113/64 11/25/24 09:28 37.0 C 82 27 H 113/57 L 11/25/24 07:42 36.9 C 80 28 H 109/54 L 11/25/24 07:30 11/25/24 06:30 101/51 L 11/25/24 06:15 96/50 L 11/25/24 06:00 36.9 C 80 24 103/52 L 11/25/24 05:45 117/56 L 11/25/24 05:30 96/49 L 11/25/24 05:15 95/49 L 11/25/24 05:15 102/53 L 11/25/24 05:00 36.7 C 86 24 102/53 L 11/25/24 05:00 36.7 C 81 26 H 104/53 L 11/25/24 04:45 105/54 L 11/25/24 04:30 116/60 11/25/24 04:15 110/57 L 11/25/24 04:00 36.6 C 82 22 112/60 11/25/24 03:56 117/81 11/25/24 03:45 115/62 11/25/24 03:30 108/58 L 11/25/24 03:15 104/56 L 11/25/24 03:00 36.6 C 76 21 102/60 11/25/24 02:45 104/56 L 11/25/24 02:30 116/60 11/25/24 02:15 100/57 L 11/25/24 02:00 36.5 C 77 23 104/58 L 11/25/24 01:45 123/72 11/25/24 01:30 99/54 L 11/25/24 01:15 97/53 L 11/25/24 01:00 36.3 C L 82 23 97/53 L 11/25/24 00:45 104/55 L 11/25/24 00:30 96/51 L 11/25/24 00:15 105/55 L 11/25/24 00:00 36.3 C L 83 23 109/59 L 11/25/24 00:00 101/54 L 11/24/24 23:45 111/60 11/24/24 23:30 110/58 L 11/24/24 23:15 103/59 L 11/24/24 23:00 36.3 C L 83 20 110/64 09/22/25 23:00 78 Pulse Ox O2 Del Method O2 Flow Rate 11/25/24 10:44 93 Room Air 11/25/24 09:28 95 Room Air 11/25/24 07:42 95 Room Air 11/25/24 07:30 Room Air 11/25/24 06:30 11/25/24 06:15 11/25/24 06:00 94 Room Air 11/25/24 05:45 11/25/24 05:30 11/25/24 05:15 11/25/24 05:15 11/25/24 05:00 95 Room Air 11/25/24 05:00 95 Room Air 11/25/24 04:45 11/25/24 04:30 11/25/24 04:15 11/25/24 04:00 95 Room Air 11/25/24 03:56 11/25/24 03:45 11/25/24 03:30 11/25/24 03:15 11/25/24 03:00 94 Room Air 11/25/24 02:45 11/25/24 02:30 11/25/24 02:15 11/25/24 02:00 95 Room Air 11/25/24 01:45 11/25/24 01:30 11/25/24 01:15 11/25/24 01:00 95 Room Air 11/25/24 00:45 11/25/24 00:30 11/25/24 00:15 11/25/24 00:00 97 Nasal Cannula 1 11/25/24 00:00 11/24/24 23:45 11/24/24 23:30 11/24/24 23:15 11/24/24 23:00 98 Nasal Cannula 2 11/24/24 23:00 Coding Level of Care Code 00729 CRITICAL CARE 1ST 30-74M Diagnoses Shock, septic A41.9; R65.21 Diverticulitis large intestine K57.32 MARGUERITE (acute kidney injury) N17.9 Diverticular disease of intestine with perforation and abscess K57.80 Sepsis A41.9; R65.20; N17.9 Acute renal failure type: unspecified Sepsis acute organ dysfunction status: with acute organ dysfunction Sepsis type: sepsis due to unspecified organism Severe sepsis acute organ dysfunction type: acute renal failure Severe sepsis shock status: unspecified Chronic constipation K59.09 Vitamin D deficiency E55.9 Insomnia G47.00 DODD (nonalcoholic steatohepatitis) K75.81 Circadian rhythm sleep disorder, irregular sleep wake type G47.23 Severe obstructive sleep apnea G47.33 Chronic diastolic congestive heart failure I50.32 Mixed restrictive and obstructive lung disease J43.9; J98.4 Diabetic neuropathy E11.40 Essential hypertension I10 Hypertension type: essential hypertension Type 2 diabetes mellitus with diabetic neuropathy, without long-term current use of insulin E11.40 Diabetes mellitus complication detail: with unspecified neuropathy Diabetes mellitus complication status: with neurologic complications Diabetes mellitus remote computer terminal operator insulin use: without residential use Glaucoma H40.9 Osteoarthritis M19.90 Resident Activity Tracking Resident Involvement: Resident Care Provided Care Provided: Adult Hospital Medicine (5) Sepsis Acute renal failure type: unspecified Sepsis acute organ dysfunction status: with acute organ dysfunction Sepsis type: sepsis due to unspecified organism Severe sepsis acute organ dysfunction type: acute renal failure Severe sepsis shock status: unspecified Qualified Code(s): A41.9 - Sepsis, unspecified organism; R65.20 - Severe sepsis without septic shock; N17.9 - Acute kidney failure, unspecified (15) Hypertension Hypertension type: essential hypertension Qualified Code(s): I10 - Essential (primary) hypertension (16) Type 2 diabetes mellitus Diabetes mellitus complication detail: with unspecified neuropathy Diabetes mellitus complication status: with neurologic complications Diabetes mellitus residential insulin use: without residential use Qualified Code(s): E11.40 - Type 2 diabetes mellitus with diabetic neuropathy, unspecified
[2024-11-25 11:21] LABS: Fibrinogen 740 mg/dl (184-400)
--- NOTE | 2024-11-25 23:05 | Hospitalist Progress Note ---
Date of Service November 25, 2024 Assessment & Plan (1) Diverticular disease of intestine with perforation and abscess: Plan: CT a/p on 11/23/2024 showed "4.2 cm soft tissue structure is seen in the left adnexa;" however, given that CT a/p on 10/24/2024 made no mention of ovarian pathology, but had extensive sigmoid diverticulosis, I do not think ovarian issue is as likely. Case was discussed with on-call surgery and back order clerk who agree with plan. - Transitioned to zosyn/placed on levophed shortly after admission and transferred to the ICU. - NPO - Consult colorectal surgery -IR unable to reach abscess, Transfer to outside facility not accepted, -[facility] Surgery agreeable to operate on patient, -surgery completed on 11/24 diverticular disease with fistula near ovary.. continue antibiotics, off pressors in PM of 11/25 Given timing, will start TPN in afternoon of 11/26 (2) Sepsis: Plan: Septic shock as evidenced by elevated lactate and requirement of vasopressors Believe elevated troponin due to sepsis. No complaint of chest pain at present. -titrating off pressors; was successfully stopped in the afternoon. (3) MARGUERITE (acute kidney injury): Plan: Baseline Cr is 0.6 (eGFR > 90). Cr on admission was 3.26, likely pre-renal. On my exam in ER, she is making good urine output. - Continue IV fluids for now - Monitor Cr - Adjust medications as kidney function improves Improving. (4) Severe obstructive sleep apnea: Plan: Compliant with CPAP. - Continue CPAP in hospital - Defer home insomnia meds for now; ordered melatonin PRN (5) Chronic diastolic congestive heart failure: Plan: Followed with [facility], but no further visits since 2022. Per note, severe LVH, diastolic CHF. NOT on Lasix at baseline. - Monitor volume status (6) Hypertension: Plan: Baseline SBPs seem to be 120-140. - Hold amlodipine (7) Type 2 diabetes mellitus: Plan: With A1c of 5.7% on 10/22/2024. - Hold semaglutide - Sliding scale (8) Tobacco abuse: Plan: Quit about 1 week ago, but still with cravings. - Nicotine patch Plan Thrombocytopenia Will monitor for now plan to keep platelets over 50 Likely secondary to liver disease and sepsis FULL CODE Admission and Anticipated Discharge Date Admission Date: November 23, 2024 Subjective Patient reports feeling better from yesterday, but states she is very weak. She is anticipating rehab. Physical Exam Physical Exam: GEN: NAD, speaking on phone in bed HEENT: NC/AT CV: RRR, no m/r/g Resp: Normal work of breathing, clear to auscultation GI: Mild tenderness in LLQ. No rebound or guarding. Neuro: Moves all limbs. No focal neuro deficits noted. MSK: Normal joint exam Psych: Normal affect Skin: No rashes noted Results & Data Results & Data Vital Signs (Past 12 Hours) Vital Signs Temp Pulse Pulse Pulse Resp BP BP 11/25/24 22:00 37 C 71 71 23 134/60 11/25/24 21:00 37 C 73 73 20 109/68 11/25/24 20:00 11/25/24 20:00 37.1 C 75 75 18 150/70 H 11/25/24 20:00 145/69 H 11/25/24 17:41 36.9 C 76 25 H 137/62 11/25/24 16:00 129/57 L 11/25/24 15:41 37.1 C 78 22 126/57 L 11/25/24 13:26 36.8 C 81 22 116/55 L 11/25/24 12:15 36.9 C 80 22 114/55 L 11/25/24 12:00 77 111/52 L 11/25/24 11:27 36.9 C 79 17 114/55 L BP Pulse Ox O2 Del Method 11/25/24 22:00 134/60 96 Room Air 11/25/24 21:00 109/68 Room Air 11/25/24 20:00 Room Air 11/25/24 20:00 150/70 H 95 Room Air 11/25/24 20:00 11/25/24 17:41 94 Room Air 11/25/24 16:00 11/25/24 15:41 95 Room Air 11/25/24 13:26 94 Room Air 11/25/24 12:15 96 Room Air 11/25/24 12:00 11/25/24 11:27 95 Room Air PG Care Time/CCT Total # of Minutes Spent Total Time Spent with Patient: Total time spent is greater than 50% in coordination of care (as documented) at patient's floor/unit and/or counseling patient: Coding Level of Care Code 57490 SUB INP/OBS CARE MIN Diagnoses Diverticular disease of intestine with perforation and abscess K57.80 Sepsis A41.9; R65.20; N17.9 Acute renal failure type: unspecified Sepsis acute organ dysfunction status: with acute organ dysfunction Sepsis type: sepsis due to unspecified organism Severe sepsis acute organ dysfunction type: acute renal failure Severe sepsis shock status: unspecified MARGUERITE (acute kidney injury) N17.9 Severe obstructive sleep apnea G47.33 Chronic diastolic congestive heart failure I50.32 Essential hypertension I10 Hypertension type: essential hypertension Type 2 diabetes mellitus with diabetic neuropathy, without long-term current use of insulin E11.40 Diabetes mellitus complication detail: with unspecified neuropathy Diabetes mellitus complication status: with neurologic complications Diabetes mellitus fdc insulin use: without fdc use Tobacco abuse Z72.0 (2) Sepsis Acute renal failure type: unspecified Sepsis acute organ dysfunction status: with acute organ dysfunction Sepsis type: sepsis due to unspecified organism Severe sepsis acute organ dysfunction type: acute renal failure Severe sepsis shock status: unspecified Qualified Code(s): A41.9 - Sepsis, unspecified organism; R65.20 - Severe sepsis without septic shock; N17.9 - Acute kidney failure, unspecified (6) Hypertension Hypertension type: essential hypertension Qualified Code(s): I10 - Essential (primary) hypertension (7) Type 2 diabetes mellitus Diabetes mellitus complication detail: with unspecified neuropathy Diabetes mellitus complication status: with neurologic complications Diabetes mellitus assistant terminal manager insulin use: without assistant terminal manager use Qualified Code(s): E11.40 - Type 2 diabetes mellitus with diabetic neuropathy, unspecified
[2024-11-26 05:15] LABS: Hematocrit (blood only) 30.0 % (37.0-47.0); Hemoglobin 10.0 g/dl (12.0-16.0); Mean Corpuscular Hemoglobin 27.9 pg (25.0-34.0); Mean Corpuscular Volume 83.6 fL (80.0-100.0); Platelet Count 47 K/uL (130-400); RDW Standard Deviation 44.3 fL (36.4-46.3); Red Blood Count 3.59 M/uL (4.20-5.40); White Blood Count 18.04 K/ul (4.8-10.8)
[2024-11-26 05:28] LABS: Alanine Aminotransferase 35.0 U/L (7-52); Albumin Level 2.7 gm/dl (3.4-5.0); Alkaline Phosphatase 125.0 U/L (34-104); Anion Gap 6.0 (3-11); Bilirubin,Total 2.4 mg/dl (0.2-1.0); Blood Urea Nitrogen 29.0 mg/dl (6-23); Calcium 9.0 mg/dl (8.6-10.3); Carbon Dioxide 26.0 mmol/L (21-32); Chloride 109.0 mmol/L (98-107); Creatinine Clr Calc Pharmacy 37.6 ml/min; Glucose 127.0 mg/dl (70-99(Fasting)); Magnesium 2.2 mg/dl (1.7-2.4); Potassium 3.3 mmol/L (3.5-5.1); Sodium 141.0 mmol/L (136-145); Total Protein 5.9 gm/dl (6.0-8.3); Triglycerides 233.0 mg/dl (0-150)
[2024-11-26] MEDS ORDERED: POTASSIUM PHOS 3 MMOL/1 ML INFUSION IV STA (05:59)
[2024-11-26] MEDS: POTASSIUM CHLORIDE / WTR 20 MEQ/100 ML PLCT IV SCH (06:23)
[2024-11-26] MEDS: POTASSIUM PHOSPHATE 15 MMOL in SODIUM CHLORIDE 0.9% 250 ML IV ONE (06:34)
--- NOTE | 2024-11-26 07:09 | Hospitalist Progress Note ---
Date of Service November 25, 2024 Assessment & Plan (1) Diverticular disease of intestine with perforation and abscess: Plan: CT a/p on 11/23/2024 showed "4.2 cm soft tissue structure is seen in the left adnexa;" however, given that CT a/p on 10/24/2024 made no mention of ovarian pathology, but had extensive sigmoid diverticulosis, I do not think ovarian issue is as likely. Case was discussed with on-call surgery and prototype engineer who agree with plan. - Transitioned to zosyn/placed on levophed shortly after admission and transferred to the ICU. - NPO - Consult colorectal surgery -IR unable to reach abscess, Transfer to outside facility not accepted, -[facility] Surgery agreeable to operate on patient, -surgery completed on 11/24 diverticular disease with fistula near ovary.. continue antibiotics, off pressors in PM of 11/25 Given timing, will start TPN in afternoon of 11/26 (2) Sepsis: Plan: Septic shock as evidenced by elevated lactate and requirement of vasopressors Believe elevated troponin due to sepsis. No complaint of chest pain at present. -titrating off pressors; was successfully stopped in the afternoon. (3) MARGUERITE (acute kidney injury): Plan: Baseline Cr is 0.6 (eGFR > 90). Cr on admission was 3.26, likely pre-renal. On my exam in ER, she is making good urine output. - Continue IV fluids for now - Monitor Cr - Adjust medications as kidney function improves Improving. (4) Severe obstructive sleep apnea: Plan: Compliant with CPAP. - Continue CPAP in hospital - Defer home insomnia meds for now; ordered melatonin PRN (5) Chronic diastolic congestive heart failure: Plan: Followed with OR Cardiology, but no further visits since 2022. Per note, severe LVH, diastolic CHF. NOT on Lasix at baseline. - Monitor volume status (6) Hypertension: Plan: Baseline SBPs seem to be 120-140. - Hold amlodipine (7) Type 2 diabetes mellitus: Plan: With A1c of 5.7% on 10/22/2024. - Hold semaglutide - Sliding scale (8) Tobacco abuse: Plan: Quit about 1 week ago, but still with cravings. - Nicotine patch Plan Thrombocytopenia Will monitor for now plan to keep platelets over 50 Likely secondary to liver disease and sepsis *Myocardial infarction type 2 due to demand ischemia/sepsis Presents with elevated troponin of 301/199/283. EKG shows T wave abnormalities. Risk Factor(s): Severe sepsis w/septic shock Treatment: Serial troponin, EKG, echo, telemetry FULL CODE Admission and Anticipated Discharge Date Admission Date: November 23, 2024 Results & Data Results & Data Vital Signs (Past 12 Hours) Vital Signs Temp Pulse Pulse Resp BP BP BP 11/26/24 05:45 36.7 C 67 67 25 H 138/65 138/65 11/26/24 04:00 36.6 C 66 66 20 128/79 128/79 11/26/24 04:00 141/65 H 11/26/24 02:00 36.8 C 72 72 23 141/66 H 11/26/24 01:08 36.8 C 75 75 24 157/91 H 157/91 H 11/26/24 00:00 135/62 11/25/24 22:00 37 C 71 71 23 134/60 134/60 11/25/24 21:00 37 C 73 73 20 109/68 109/68 11/25/24 20:00 11/25/24 20:00 37.1 C 75 75 18 150/70 H 150/70 H 11/25/24 20:00 145/69 H Pulse Ox O2 Del Method 11/26/24 05:45 93 Room Air 11/26/24 04:00 95 Room Air 11/26/24 04:00 11/26/24 02:00 Room Air 11/26/24 01:08 96 Room Air 11/26/24 00:00 11/25/24 22:00 96 Room Air 11/25/24 21:00 Room Air 11/25/24 20:00 Room Air 11/25/24 20:00 95 Room Air 11/25/24 20:00 PG Care Time/CCT Total # of Minutes Spent Total Time Spent with Patient: Total time spent is greater than 50% in coordination of care (as documented) at patient's floor/unit and/or counseling patient: Coding Level of Care Code None Diagnoses Diverticular disease of intestine with perforation and abscess K57.80 Sepsis A41.9; R65.20; N17.9 Acute renal failure type: unspecified Sepsis acute organ dysfunction status: with acute organ dysfunction Sepsis type: sepsis due to unspecified organism Severe sepsis acute organ dysfunction type: acute renal failure Severe sepsis shock status: unspecified MARGUERITE (acute kidney injury) N17.9 Severe obstructive sleep apnea G47.33 Chronic diastolic congestive heart failure I50.32 Essential hypertension I10 Hypertension type: essential hypertension Type 2 diabetes mellitus with diabetic neuropathy, without long-term current use of insulin E11.40 Diabetes mellitus snf insulin use: without intermediate teacher use Diabetes mellitus complication status: with neurologic complications Diabetes mellitus complication detail: with unspecified neuropathy Tobacco abuse Z72.0 (2) Sepsis Acute renal failure type: unspecified Sepsis acute organ dysfunction status: with acute organ dysfunction Sepsis type: sepsis due to unspecified organism Severe sepsis acute organ dysfunction type: acute renal failure Severe sepsis shock status: unspecified Qualified Code(s): A41.9 - Sepsis, unspecified organism; R65.20 - Severe sepsis without septic shock; N17.9 - Acute kidney failure, unspecified (6) Hypertension Hypertension type: essential hypertension Qualified Code(s): I10 - Essential (primary) hypertension (7) Type 2 diabetes mellitus Diabetes mellitus snf insulin use: without snf use Diabetes mellitus complication status: with neurologic complications Diabetes mellitus complication detail: with unspecified neuropathy Qualified Code(s): E11.40 - Type 2 diabetes mellitus with diabetic neuropathy, unspecified
[2024-11-26] MEDS ORDERED: TPN/PPN CONSULT PHARMACY PRN (07:17)
--- NOTE | 2024-11-26 07:23 | Pharmacy Report ---
Pharmacy Glycemic Short Note 2 - Date of Service November 26, 2024 - Glycemic Short BSG Results (Last 24 hours): 11/25/24 11/25/24 11/25/24 11:21 17:20 23:55 Glucose POC Glucose 122 H POC Glucose (other) 150 H 132 H 11/26/24 04:30 Glucose 127 H POC Glucose POC Glucose (other) OUTPATIENT ANTIDIABETIC REGIMEN: * semaglutide 2 mg SQ weekly * 5.7% 10/22/24 ASSESSMENT: * Patient admitted to the ICU with sepsis secondary to diverticular disease of the intestine with perforation and abscess likely experiencing some stress induced hyperglycemia. * Patient is currently receiving norepinephrine and hydrocortisone. PN under consideration. * Will continue with novolog coverage for now with slight adjustments to goal range. 11/26/24 * BSGs well controlled over the past 24 hours [phone] mg/dL and 127 mg/dL this morning. Patient has required no insulin. Will monitor if TPN initiation, but if BSGs remain stable, will sign off. PLAN FOR INPATIENT GLYCEMIC CONTROL: * Hold outpatient oral diabetes medications * Basal insulin * None * Bolus insulin * NovoLog per scale ACHS or Q6hrs while NPO * Goal Range: Low 120 mg/dL - High 160 mg/dL * Correction Factor: 15 mg/dL/unit
[2024-11-26] MEDS ORDERED: SODIUM CHLORIDE 0.9% 100 ML IV PRN (07:24)
--- NOTE | 2024-11-26 08:00 | Surgery Progress Note ---
Date of Service November 26, 2024 Assessment & Plan (1) Diverticulitis large intestine: Plan: POD#2 ex lap with hartmanns WBC 18 (19), Hbg 10, Plt 47, K 3.3. LFTs downtrending. patient's vitals are stable and she is off pressors at this time NGT in place 250cc documented. there is a small amount of thin liquid in ostomy bag. would leave NGT in for now She is going to start TPN today for nutrition Platelets to be transfused for plt 47 Changed to IV dilaudid from morphine for pain control Can start daily dressing changes to midline. Continue SAMRA drain. serologist on board for ostomy education/care Encourage OOB as able, pulmonary toilet. Holding on anticoagulation for now given plt count Admission and Anticipated Discharge Date Admission Date: November 23, 2024 Subjective Patient doing okay. Denies nausea/vomiting. Sore at abdomen. Physical Exam Physical Exam: awake/alert Respiratory: normal respiratory effort Gastrointestinal (Abdomen): Inspection/Auscultation: + abdominal surgical incision (midline with [place]; no signs of infection) Percussion/Palpation: + abdomen tender (karin incisional discomfort) and abdomen soft + ostomy with small amount of thin liqui d in bag. SAMRA drain a thin bloody output Results & Data Vital Signs (Past 12 Hours) Vital Signs Temp Pulse Pulse Resp BP BP BP 11/26/24 05:45 98.1 F 67 67 25 H 138/65 138/65 11/26/24 04:00 97.9 F 66 66 20 128/79 128/79 11/26/24 04:00 141/65 H 11/26/24 02:00 98.2 F 72 72 23 141/66 H 11/26/24 01:08 98.2 F 75 75 24 157/91 H 157/91 H 11/26/24 00:00 135/62 11/25/24 22:00 98.6 F 71 71 23 134/60 134/60 11/25/24 21:00 98.6 F 73 73 20 109/68 109/68 11/25/24 20:00 11/25/24 20:00 98.8 F 75 75 18 150/70 H 150/70 H 11/25/24 20:00 145/69 H Pulse Ox O2 Del Method 11/26/24 05:45 93 Room Air 11/26/24 04:00 95 Room Air 11/26/24 04:00 11/26/24 02:00 Room Air 11/26/24 01:08 96 Room Air 11/26/24 00:00 11/25/24 22:00 96 Room Air 11/25/24 21:00 Room Air 11/25/24 20:00 Room Air 11/25/24 20:00 95 Room Air 11/25/24 20:00 PG Care Time/CCT Total # of Minutes Spent Total Time Spent with Patient: Total time spent is greater than 50% in coordination of care (as documented) at patient's floor/unit and/or counseling patient: Coding Level of Care Code 71383 Post Operative Follow-Up Diagnoses Diverticulitis large intestine K57.32
[2024-11-26] MEDS: HYDROCORTISONE SOD 50 MG in SYRINGE 0 ML IV SCH (08:06)
[2024-11-26] MEDS ORDERED: DEXTROSE 10% 1,000 ML IV PRN (12:29)
[2024-11-26 13:20] LABS: Triglycerides 244.0 mg/dl (0-150)
--- NOTE | 2024-11-26 13:42 | Critical Care Progress Note ---
<Statement entered by Cong Duenas MD - 11/26/24 16:09> I, Cong Duenas MD, supervised and reviewed the physical exam, assessment, plan, and management as documented by the Advanced Care Provider for this patient encounter. I discussed the case with them, confirmed the findings, and I concur with the proposed plan of care. I was available for consultation througho ut the encounter and provided guidance as needed. 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 MAP goal goal > 65mmHg. vasopressin has been discontinued Hydrocortisone weaned to 50mg q12h. Continue Nacl @125ml/hr Hold home antihypertensives TTE on 11/24 shows normal left ventricular systolic function, no regional wall motion abnormalities, mild concentric left ventricular hypertrophy, Normal EF, and no significant valvular abnormalities Admit EKG sinus rhythm with PACs, normal QTc Respiratory - No acute concerns SpO2 goal > 92% CPAP QHS GI - General surgery, p Exploratory Laparotomy, Megan's Procedure(Not Applicable), adhesiolysis of small bowel to anterior abdominal wall and and pelvis as well as interloop adhesions, suture repair of serosal tear of small bowel as well as cecum Diet: NPO . Will advance as recommended by Surgery. TPN orders placed. SUP: N/A Bowel regimen: Held overnight. Ostomy with small amoutn of output. Zofran PRN RENAL/LYTES - Repeat BMP tonight, urinating quite well after resuscitation. Lactate has been normalised Replete electrolytes as indicated Peters placed for accurate I/Os in ED, likely remove tomorrow morning Maintain net even to net negative ENDO - No acute concerns BG 140-180 per [facility] guidelines ISS if needed while inpatient Hold GLP-1 HEME/ONC/OTHER - Platelete 47 this am. HIT panel pending. DIC workup appears negative. ABX changed if this is drug induced. 1 unit of platelets transfused. CONCRETER consulted on admission, appreciate recommendations ID - Zosyn changed to Cipro and Flagyl. UA negative, BCx x2 negative procalcitonin > 100, MRSA nares negative LINES/TUBES/DRAINS - PIV x4 Peters removed R IJ TLC (Day 3) L Radial AL (Day 3) DVT PROPHYLAXIS - Hold in setting of thrombocytopenia SCD 40 minutes is the time reviewing the chart, obtaining history, performing the physial exam, coordinating with care team, and updating patient and bedside nurse. Thank you for allowing us to participate in the care of this patient. Please refer to my attending physician's documentation for any further recommendations. Admission and Anticipated Discharge Date Admission Date: November 23, 2024 Subjective Patient complaining of moderate abdominal pain controlled with Dilaudid. Patient off vasopressors. Hydrocortisone weaned to 50mg q12h. TPN ordered. Ostomy having a small amount of output. Transfused 1 unit of platelets for plt count f 47. DIC labs negative and HIT panel pending. Antibiotics changed to Cipro and Flagyl if Zosyn os the underlying cause of thrombocytopenia. Review of Systems Review of Systems: All systems reviewed & are unremarkable except as noted in HPI & below Physical Exam Physical Exam: VITALS: Reviewed. WEIGHT/BMI reviewed. GEN: ill appearing, well-developed, NAD. PSYCH: Good Judgment. AOx3. Normal memory, mood, and affect. HEENT -Head: NC/AT; -Eyes: PERRL, EOMI. No discharge or redn ess; -Ears: External ears are normal. -Nose: Normal nares. -Mouth and throat: MMM. Normal gums, muc arely, palate,. Good dentition. NECK: Supple, with no masses. CV: RRR, no m/r/g. LUNGS: CTAB, no w/r/c. ABD: Soft, NT/ND, NBS, no masses or organomegaly. : Peters draining yellow/clear urine. SKIN: Warm, well perfused. No skin rashes or abnormal lesions. MSK: No deformities, Normal gait. EXT: No clubbing, cyanosis, or edema. NEURO: Normal muscle strength and tone. No focal deficits. Results & Data Results & Data Vital Signs (Past 12 Hours) Vital Signs Temp Pulse Pulse Pulse Resp BP BP 11/26/24 09:51 36.6 C 68 20 142/85 H 11/26/24 09:14 36.6 C 73 16 140/81 11/26/24 08:44 36.6 C 70 16 11/26/24 08:29 36.6 C 72 16 141/81 H 11/26/24 08:10 36.6 C 73 16 134/84 11/26/24 08:00 11/26/24 08:00 36.6 C 71 18 11/26/24 05:45 36.7 C 67 67 25 H 138/65 11/26/24 04:00 36.6 C 66 66 20 128/79 11/26/24 04:00 141/65 H 11/26/24 02:00 36.8 C 72 72 23 141/66 H BP Pulse Ox O2 Del Method 11/26/24 09:51 97 11/26/24 09:14 94 11/26/24 08:44 96 11/26/24 08:29 97 11/26/24 08:10 97 11/26/24 08:00 Room Air 11/26/24 08:00 139/85 98 Room Air 11/26/24 05:45 138/65 93 Room Air 11/26/24 04:00 128/79 95 Room Air 11/26/24 04:00 11/26/24 02:00 Room Air Critical Care Results & Data Vital Signs (Past 12 Hours) Vital Signs Temp Pulse Pulse Pulse Resp BP BP 11/26/24 09:51 36.6 C 68 20 142/85 H 11/26/24 09:14 36.6 C 73 16 140/81 11/26/24 08:44 36.6 C 70 16 11/26/24 08:29 36.6 C 72 16 141/81 H 11/26/24 08:10 36.6 C 73 16 134/84 11/26/24 08:00 11/26/24 08:00 36.6 C 71 18 11/26/24 05:45 36.7 C 67 67 25 H 138/65 11/26/24 04:00 36.6 C 66 66 20 128/79 11/26/24 04:00 141/65 H 11/26/24 02:00 36.8 C 72 72 23 141/66 H BP Pulse Ox O2 Del Method 11/26/24 09:51 97 11/26/24 09:14 94 11/26/24 08:44 96 11/26/24 08:29 97 11/26/24 08:10 97 11/26/24 08:00 Room Air 11/26/24 08:00 139/85 98 Room Air 11/26/24 05:45 138/65 93 Room Air 11/26/24 04:00 128/79 95 Room Air 11/26/24 04:00 11/26/24 02:00 Room Air Lab & Micro Results (Past 24 Hours) RBC 3.59 M/uL (4.20-5.40) L 11/26/24 WBC 18.04 K/ul (4.8-10.8) H 11/26/24 Hgb 10.0 g/dl (12.0-16.0) L 11/26/24 Hct 30.0 % (37.0-47.0) L 11/26/24 MCV 83.6 fL (80.0-100.0) 11/26/24 MCH 27.9 pg (25.0-34.0) 11/26/24 MCHC 33.3 g/dL (32.0-36.0) 11/26/24 RDW Standard Deviation 44.3 fL (36.4-46.3) 11/26/24 RDW Coefficient of Variation 14.4 % (11.5-14.5) 11/26/24 Plt Count 47 K/uL (130-400) L 11/26/24 MPV 14.1 fL (9.4-12.4) H 11/26/24 Na 141 mmol/L (136-145) 11/26/24 K 3.3 mmol/L (3.5-5.1) L 11/26/24 Cl 109 mmol/L (98-107) H 11/26/24 CO2 26 mmol/L (21-32) 11/26/24 Anion Gap 6 (3-11) 11/26/24 BUN 29 mg/dl (6-23) H 11/26/24 Creatinine 1.52 mg/dl (0.6-1.2) H 11/26/24 BUN/Creatinine Ratio 19.1 (10-20) 11/26/24 Glu 127 mg/dl (70-99(Fasting)) H 11/26/24 Ca 9.0 mg/dl (8.6-10.3) 11/26/24 Phosphorus Level 2.7 mg/dl (2.5-4.9) 11/26/24 Total Bilirubin 2.4 mg/dl (0.2-1.0) H 11/26/24 Direct Bilirubin 1.7 mg/dl (0-0.2) H 11/26/24 AST 47 U/L (13-39) H 11/26/24 ALT 35 U/L (7-52) 11/26/24 Alkaline Phosphatase 125 U/L (34-104) H 11/26/24 TP 5.9 gm/dl (6.0-8.3) L 11/26/24 Albumin 2.7 gm/dl (3.4-5.0) L 11/26/24 Mg 2.2 mg/dl (1.7-2.4) 11/26/24 04:30 Calcium Level 9.0 mg/dl (8.6-10.3) 11/26/24 04:30 Microbiology 11/23/24 14:46 Aerobic Blood Culture - Preliminary Blood No growth in Aerobic bottle after 48 hours. Anaerobic Blood Culture - Preliminary No growth in Anaerobic bottle after 48 hours. 11/23/24 15:24 Aerobic Blood Culture - Preliminary Blood No growth in Aerobic bottle after 48 hours. Anaerobic Blood Culture - Preliminary No growth in Anaerobic bottle after 48 hours. I & O Totals 24 Hours 11/25/24 11/26/24 11/27/24 06:59 06:59 06:59 Intake Total 4730.854 / 4730.854 3732.283 / 3732.283 880.266 / 880.266 Output Total 6620 / 6620 2875 / 2875 950 / 950 Balance -1889.146 / -1889.146 857.283 / 857.283 -69.734 / -69.734 Cumulative 11/23/24 14:31 thru 11/26/24 12:04 Intake Total 64491.076 Output Total 15518 Balance 341.076 RT Ventilator Mngmt (Last Documented) Ventilator Ordered Settings Respiratory Rate 20 11/26/24 09:51 Ventilator - PT Measurements Respiratory Rate 20 Coding Level of Care Code 02459 SUB INP/OBS CARE 2/35MIN Diagnoses Shock, septic A41.9; R65.21 Diverticulitis large intestine K57.32 MARGUERITE (acute kidney injury) N17.9 Diverticular disease of intestine with perforation and abscess K57.80 Sepsis A41.9; R65.20; N17.9 Acute renal failure type: unspecified Sepsis acute organ dysfunction status: with acute organ dysfunction Sepsis type: sepsis due to unspecified organism Severe sepsis acute organ dysfunction type: acute renal failure Severe sepsis shock status: unspecified Chronic constipation K59.09 Vitamin D deficiency E55.9 Insomnia G47.00 DODD (nonalcoholic steatohepatitis) K75.81 Circadian rhythm sleep disorder, irregular sleep wake type G47.23 Severe obstructive sleep apnea G47.33 Chronic diastolic congestive heart failure I50.32 Mixed restrictive and obstructive lung disease J43.9; J98.4 Diabetic neuropathy E11.40 Essential hypertension I10 Hypertension type: essential hypertension Type 2 diabetes mellitus with diabetic neuropathy, without long-term current use of insulin E11.40 Diabetes mellitus complication detail: with unspecified neuropathy Diabetes mellitus complication status: with neurologic complications 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: without fdc use Glaucoma H40.9 Osteoarthritis M19.90 (5) Sepsis Acute renal failure type: unspecified Sepsis acute organ dysfunction status: with acute organ dysfunction Sepsis type: sepsis due to unspecified organism Severe sepsis acute organ dysfunction type: acute renal failure Severe sepsis shock status: unspecified Qualified Code(s): A41.9 - Sepsis, unspecified organism; R65.20 - Severe sepsis without septic shock; N17.9 - Acute kidney failure, unspecified (15) Hypertension Hypertension type: essential hypertension Qualified Code(s): I10 - Essential (primary) hypertension (16) Type 2 diabetes mellitus Diabetes mellitus complication detail: with unspecified neuropathy Diabetes mellitus complication status: with neurologic complications Diabetes mellitus fdc insulin use: without fdc use Qualified Code(s): E11.40 - Type 2 diabetes mellitus with diabetic neuropathy, unspecified
[2024-11-26] MEDS: metroNIDAZOLE 500 MG/100 ML BAG IV SCH (14:35)
[2024-11-26] MEDS: CIPROFLOXACIN / D5W 400 MG/200 ML BAG IV SCH (14:36)
--- NOTE | 2024-11-26 15:03 | Pharmacy Report ---
Pharmacy Initial PN Consult Nt - Date of Service November 26, 2024 - Scope Pharmacy has been consulted on this date to manage parenteral nutrition orders and order appropriate labs. As part of the Nutrition Support Team Guidelines, pharmacy will work in conjunction with dietary when determining the patients caloric needs. - Subjective * The patient is a 64 year old Female admitted on 11/23/24 for DIVERTICULAR ABSCESS. * Patient is to receive parenteral nutrition for prolonged NPO and awaiting return of bowel function s/p Hartmanns procedure . * Pertinent PMHx:Patient had fairly non-specific symptoms of fatigue, generalized body aches/pains, and nausea with emesis 2 days prior to admission. Note patient was on semaglutide as an outpatient. - Objective Vascular Access: * Patient currently has a central line. Height & Weight (Last Documented) Height 5 ft Weight 94.1 kg Diet Order(s) 11/23/24 19:01 NPO Intake & Ouput (24hrs) 11/25/24 11/26/24 11/27/24 06:59 06:59 06:59 Intake Total 4730.854 / 4730.854 3732.283 / 3732.283 1980.266 / 1980.266 Output Total 6620 / 6620 2875 / 2875 950 / 950 Balance -1889.146 / -1889.146 857.283 / 854.961 2292.266 / 1030.266 Selected Laboratory Results 11/26/24 11/26/24 04:30 12:46 Sodium 141 Potassium 3.3 L Chloride 109 H Carbon Dioxide 26 Anion Gap 6 BUN 29 H Creatinine 1.52 H D BUN/Creatinine Ratio 19.1 Glucose 127 H Calcium 9.0 Phosphorus 2.5 2.7 Magnesium 2.2 Total Bilirubin 2.4 H AST 47 H ALT 35 Alkaline Phosphatase 125 H Triglycerides [address] - Follow Up Nutrition Assessment Start: 11/24/24 10:40 Freq: Status: Active Protocol: Document 11/26/24 11:35 WN (Rec: 11/26/24 11:43 WN [email or web address]) RD - Initial Nutrition Assessment Start: 11/24/24 10:31 Freq: Status: Active Protocol: Document 11/24/24 10:31 WN (Rec: 11/24/24 10:35 WN [email or web address]) - Assessment & Plan Assessment: * Appreciate dietitians recommendations for macronutrients. Patient continues on abx for diverticular abscess with source control. Patient's platelets continue to trend down, 47 today. Will start macronutrients below goal as per discussion with multidisciplinary team. Anticipate can reach goal quickly if TPN continued. There is some output from the ostomy, will monitor day to day. Plan: * For Day #1 of TPN administration, the following will be ordered: * Macronutrients: * Amino Acids: 67 grams/day * Dextrose: 118 grams/day * Lipids: 50 grams/day * Micronutrients: * Sodium chloride: 60 mEq/day * Potassium phosphate: 15 mMol/day * Potassium acetate: 40 mEq/day * Calcium gluconate: 4.65 mEq/day * Multivitamins: 10 mL/day * Thiamine: 100 mg/day * Total volume of 910 mL will be infused over 24 hours and will provide 1169 kcal/day * Labs will be ordered per PN protocol. * Pharmacy will follow and adjust PN orders on a daily basis. Thank you!
[2024-11-26] MEDS: CLINOLIPID 20% IV FAT EMULSION 250 ML IV SCH (15:52)
[2024-11-26] MEDS: [UNRECOGNIZED DRUG - OTHER] IV SCH (15:52)
[2024-11-26] MEDS: CENTRAL TPN IV SCH (15:52)
--- NOTE | 2024-11-26 16:44 | Hospitalist Progress Note ---
Date of Service November 26, 2024 Assessment & Plan (1) Diverticular disease of intestine with perforation and abscess: Plan: POD#2 - s/p Exploratory Laparotomy, Megan's Procedure, adhesiolysis of small bowel to anterior abdominal wall and pelvis as well as interloop adhesions, suture repair of serosal tear of small bowel as well as cecum, colostomy creation - by Dr Simon Thorne Findings in the OR: "Diverticular disease of intestine with perforation and abscess, with adhesions, possible fistula and abscess formation involving the left ovary with ovary being thickened and inflamed. Extensive adhesions of small bowel in the pelvis as well as to the anterior abdominal wall, adhesions of the cecum to the anterior abdominal wall and pelvis, prior mesh identified, was incorporated well into the fascia of the abdominal wall" Complicated diverticulitis led to septic shock requiring ICU care, pressors, etc. Improved today Off pressors TPN started Cont NG tube To tx out of ICU today appreciate railroad track repair supervisor & surgery assistance will need PT/OT (2) Shock, septic: Plan: 2nd to perforated/complicated diverticulitis did require pressors, IV fluids, and stress dose steroids in ICU off pressors for 20+ hours (weaned on 11/25 afternoon) BPs stable (3) Sepsis: (4) MARGUERITE (acute kidney injury): Plan: sepsis associated ATN Cr on admission was 3.26 Cr improved to 1.5 today cont supportive care BMP am (5) Severe obstructive sleep apnea: Plan: cont CPAP as tolerated not sure if that will be possible, however, with NG tube in place (6) Chronic diastolic congestive heart failure: Plan: compensated at this time (7) Hypertension: Plan: anti-hypertensive meds on hold (8) Type 2 diabetes mellitus: Plan: A1c of 5.7% on 10/22/2024. Hold semaglutide Novolog Sliding scale (9) Tobacco abuse: Plan: cont Nicotine patch (10) Thrombocytopenia: Plan: 2nd to medication side effect (antibiotics)? sepsis induced? hepatic related? no intervention needed simply observe CBC in am (11) Morbid obesity with BMI of 40.0-44.9, adult: Plan: BMI 41 (12) Acute metabolic encephalopathy: Plan: "ICU psychosis" toxic effects from pain meds etc all to blame supportive care should improve with time (13) Type 2 NH (myocardial infarction): Plan: peak troponin 301 myocardial demand ischemia in setting of septic shock (14) S/P Megan procedure: (15) Colostomy status: Plan to transfer out of ICU to PCU today Admission and Anticipated Discharge Date Admission Date: November 23, 2024 Subjective saw patient while in ICU sitting in chair sore in abdomen NG tube in place a little confused at times passing some serosanguinous fluid and gas in her ostomy Review of Systems Review of Systems: pulm - no dyspnea CV - no chest pain Physical Exam Physical Exam: gen = sitting in chair, morbidly obese, NAD, slightly confused neck - no obvious JVD mouth - MMM nose - NG tube in place heart - RRR, s1 s2, no murmur lungs - mildly decreased BS bases b/l, otherwise CTA b/l; no wheeze abd - mildly distended, BS+ but very low pitched, ostomy in place, stoma clean, drain in place (SAMRA), incisional tenderness ext - no edema, pulses b/l feet 2+ Results & Data Results & Data Vital Signs (Past 12 Hours) Vital Signs Temp Pulse Pulse Pulse Resp BP BP 11/26/24 09:51 36.6 C 68 20 142/85 H 11/26/24 09:14 36.6 C 73 16 140/81 11/26/24 08:44 36.6 C 70 16 11/26/24 08:29 36.6 C 72 16 141/81 H 11/26/24 08:10 36.6 C 73 16 134/84 11/26/24 08:00 11/26/24 08:00 36.6 C 71 18 11/26/24 05:45 36.7 C 67 67 25 H 138/65 BP Pulse Ox O2 Del Method 11/26/24 09:51 97 11/26/24 09:14 94 11/26/24 08:44 96 11/26/24 08:29 97 11/26/24 08:10 97 11/26/24 08:00 Room Air 11/26/24 08:00 139/85 98 Room Air 11/26/24 05:45 138/65 93 Room Air Laboratory Results Laboratory Results - last 48 hr 11/24/24 11/25/24 11/25/24 14:40 10:20 17:20 WBC RBC Hgb Hct MCV MCH MCHC RDW Std Deviation RDW Coeff of Hiral Plt Count MPV Absolute Nucleated RBC Nucleated RBC % (auto) Sodium Potassium Chloride Carbon Dioxide Anion Gap BUN Creatinine Est Cr Clr Drug Dosing eGFR BUN/Creatinine Ratio Glucose POC Glucose POC Glucose (other) 132 H Calcium Phosphorus Magnesium Total Bilirubin Direct Bilirubin AST ALT Alkaline Phosphatase C-Reactive Protein Total Protein Albumin Triglycerides Serotonin Release Assay TNP Heparin Depend Plt Ab See Scanned Report Blood Type O Positive Antibody Screen NEGATIVE 11/25/24 11/26/24 11/26/24 23:55 04:30 11:30 WBC 18.04 H RBC 3.59 L Hgb 10.0 L Hct 30.0 L MCV 83.6 MCH 27.9 MCHC 33.3 RDW Std Deviation 44.3 RDW Coeff of Hiral 14.4 Plt Count 47 L MPV 14.1 H Absolute Nucleated RBC Nucleated RBC % (auto) Sodium 141 Potassium 3.3 L Chloride 109 H Carbon Dioxide 26 Anion Gap 6 BUN 29 H Creatinine 1.52 H D Est Cr Clr Drug Dosing 37.6 eGFR 37.59 BUN/Creatinine Ratio 19.1 Glucose 127 H POC Glucose 122 H 115 H POC Glucose (other) Calcium 9.0 Phosphorus 2.5 Magnesium 2.2 Total Bilirubin 2.4 H Direct Bilirubin 1.7 H AST 47 H ALT 35 Alkaline Phosphatase 125 H C-Reactive Protein 16.84 H Total Protein 5.9 L Albumin 2.7 L Triglycerides 233 H Serotonin Release Assay Heparin Depend Plt Ab Blood Type Antibody Screen 11/26/24 12:46 WBC RBC Hgb Hct MCV MCH MCHC RDW Std Deviation RDW Coeff of Hiral Plt Count MPV Absolute Nucleated RBC Nucleated RBC % (auto) Sodium Potassium Chloride Carbon Dioxide Anion Gap BUN Creatinine Est Cr Clr Drug Dosing eGFR BUN/Creatinine Ratio Glucose POC Glucose POC Glucose (other) Calcium Phosphorus 2.7 Magnesium Total Bilirubin Direct Bilirubin AST ALT Alkaline Phosphatase C-Reactive Protein Total Protein Albumin Triglycerides 244 H Serotonin Release Assay Heparin Depend Plt Ab Blood Type Antibody Screen PG Care Time/CCT Total # of Minutes Spent Total Time Spent with Patient: Total time spent is greater than 50% in coordination of care (as documented) at patient's floor/unit and/or counseling patient: Coding Level of Care Code 11395 SUB INP/OBS CARE MIN Diagnoses Diverticular disease of intestine with perforation and abscess K57.80 Shock, septic A41.9; R65.21 Sepsis A41.9; R65.20; N17.9 Acute renal failure type: unspecified Sepsis acute organ dysfunction status: with acute organ dysfunction Sepsis type: sepsis due to unspecified organism Severe sepsis acute organ dysfunction type: acute renal failure Severe sepsis shock status: unspecified MARGUERITE (acute kidney injury) N17.9 Severe obstructive sleep apnea G47.33 Chronic diastolic congestive heart failure I50.32 Essential hypertension I10 Hypertension type: essential hypertension Type 2 diabetes mellitus with diabetic neuropathy, without long-term current use of insulin E11.40 Diabetes mellitus complication detail: with unspecified neuropathy Diabetes mellitus complication status: with neurologic complications Diabetes mellitus alf insulin use: without alf use Tobacco abuse Z72.0 Thrombocytopenia D69.6 Morbid obesity with BMI of 40.0-44.9, adult E66.01; Z68.41 Acute metabolic encephalopathy G93.41 Type 2 NH (myocardial infarction) I21.A1 S/P Megan procedure Z93.3 Colostomy status Z93.3 (3) Sepsis Acute renal failure type: unspecified Sepsis acute organ dysfunction status: with acute organ dysfunction Sepsis type: sepsis due to unspecified organism Severe sepsis acute organ dysfunction type: acute renal failure Severe sepsis shock status: unspecified Qualified Code(s): A41.9 - Sepsis, unspecified organism; R65.20 - Severe sepsis without septic shock; N17.9 - Acute kidney failure, unspecified (7) Hypertension Hypertension type: essential hypertension Qualified Code(s): I10 - Essential (primary) hypertension (8) Type 2 diabetes mellitus Diabetes mellitus complication detail: with unspecified neuropathy Diabetes mellitus complication status: with neurologic complications 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
[2024-11-27] MEDS ORDERED: 4.5GM EXT INFUSION IV SCH (04:00)
[2024-11-27] MEDS: STOP CLINOLIPID SCH (04:00)
[2024-11-27 06:29] LABS: Hematocrit (blood only) 30.6 % (37.0-47.0); Hemoglobin 10.4 g/dl (12.0-16.0); Mean Corpuscular Hemoglobin 27.8 pg (25.0-34.0); Mean Corpuscular Volume 81.8 fL (80.0-100.0); Platelet Count 57 K/uL (130-400); RDW Standard Deviation 42.5 fL (36.4-46.3); Red Blood Count 3.74 M/uL (4.20-5.40); White Blood Count 18.48 K/ul (4.8-10.8)
[2024-11-27 07:15] LABS: Alanine Aminotransferase 31.0 U/L (7-52); Albumin Level 2.7 gm/dl (3.4-5.0); Alkaline Phosphatase 135.0 U/L (34-104); Anion Gap 7.0 (3-11); Bilirubin,Total 1.3 mg/dl (0.2-1.0); Blood Urea Nitrogen 26.0 mg/dl (6-23); Calcium 9.2 mg/dl (8.6-10.3); Carbon Dioxide 28.0 mmol/L (21-32); Chloride 107.0 mmol/L (98-107); Creatinine Clr Calc Pharmacy 60.7 ml/min; Glucose 135.0 mg/dl (70-99(Fasting)); Magnesium 1.6 mg/dl (1.7-2.4); Potassium 3.0 mmol/L (3.5-5.1); Sodium 142.0 mmol/L (136-145); Total Protein 6.2 gm/dl (6.0-8.3)
--- NOTE | 2024-11-27 08:32 | Surgery Progress Note ---
Date of Service November 27, 2024 Assessment & Plan (1) Diverticulitis large intestine: Plan: POD#3 ex lap with hartmanns WBC 18 (18), Hbg 10, K 3, Plt 57. Vitals are stable and she is afebrile NGT in place. there is a small amount of thin liquid stool in bag and some flatus noted Will trial NGT removal and start of clears, if develops worsening pain or nausea back to NPO. She is on TPN for nutrition in the meantime until taking in meaningful PO Will also d/c gunn catheter Continue IV abx Can start daily dressing changes to midline. Continue SAMRA drain. glass mold repairer on board for ostomy education/care Encourage OOB & pulmonary toilet. Admission and Anticipated Discharge Date Admission Date: November 23, 2024 Subjective Patient feeling okay. Abdomen a little sore but says a little better than yesterday. denies nausea. Says she was out of bed a couple times yesterday. Feels hungry for some jello. some discomfort with NGT. Physical Exam Physical Exam: awake/alert Respiratory: normal respiratory effort Gastrointestinal (Abdomen): wearing abdominal binder. dressins in place to midline wound. ostomy with some gas and small amount of thin liquid in bag. SAMRA drain serosang Results & Data Vital Signs (Past 12 Hours) Vital Signs Temp Pulse Pulse Resp BP Pulse Ox O2 Del Method 11/27/24 04:02 97.7 F 83 20 119/75 96 Room Air 11/27/24 00:00 82 11/26/24 22:44 98.2 F 85 18 123/69 95 Room Air PG Care Time/CCT Total # of Minutes Spent Total Time Spent with Patient: Total time spent is greater than 50% in coordination of care (as documented) at patient's floor/unit and/or counseling patient: Coding Level of Care Code 01060 Post Operative Follow-Up Diagnoses Diverticulitis large intestine K57.32
[2024-11-27] MEDS ORDERED: POTASSIUM PHOS 3 MMOL/1 ML INFUSION IV STA (11:08)
[2024-11-27] MEDS: POTASSIUM PHOSPHATE 30 MMOL in SODIUM CHLORIDE 0.9% 500 ML IV ONE (11:45)
[2024-11-27] MEDS: POTASSIUM CHLORIDE / WTR 10 MEQ/100 ML PLCT IV SCH (12:24)
--- NOTE | 2024-11-27 12:29 | Hospitalist Progress Note ---
Date of Service November 27, 2024 Assessment & Plan (1) Diverticular disease of intestine with perforation and abscess: Plan: POD#3 - s/p Exploratory Laparotomy, Megan's Procedure, adhesiolysis of small bowel to anterior abdominal wall and pelvis as well as interloop adhesions, suture repair of serosal tear of small bowel as well as cecum, colostomy creation - by Dr Simon Thorne Findings in the OR: "Diverticular disease of intestine with perforation and abscess, with adhesions, possible fistula and abscess formation involving the left ovary with ovary being thickened and inflamed. Extensive adhesions of small bowel in the pelvis as well as to the anterior abdominal wall, adhesions of the cecum to the anterior abdominal wall and pelvis, prior mesh identified, was incorporated well into the fascia of the abdominal wall" Complicated diverticulitis led to septic shock requiring ICU care, pressors, etc. Continues to improve each day Remains on TPN NG tube d/c today Clears started appreciate fiction and nonfiction writer prose & surgery assistance cont IV abx in the form of cipro/flagyl (2) Shock, septic: Plan: 2nd to perforated/complicated diverticulitis did require pressors, IV fluids, and stress dose steroids in ICU off pressors for 20+ hours (weaned on 11/25 afternoon) BPs stable wean hydrocortisone from 50mg BID to 25mg BID (3) Sepsis: Plan: 2nd to #1 above resolved (4) Paroxysmal atrial fibrillation: Plan: new onset - developed such 11/26 low K, low mag, stress of illness, etc - all likely culprits for developing such rates relatively controlled CHADS-VASc score is 5 (age, female, HTN, DM) - 5-6% change of CVA/year would add low-dose BB sent [place] message to gen surg - ok to start anticoagulation recent echo - preserved EF, normal valves recent TSH 3.8 in October (5) MARGUERITE (acute kidney injury): Plan: sepsis associated ATN Cr on admission was 3.26 Cr improved to <1 today cont supportive care BMP am (6) Severe obstructive sleep apnea: Plan: cont CPAP as tolerated (7) Chronic diastolic congestive heart failure: Plan: may have mild decompensation at this time in the setting of copious IV fluids since admission, new onset a.fib, stress of illness, etc. TPN likely to be d/c next 24 hours consider lasix IV (8) Hypertension: Plan: will start metoprolol 25mg BID since now taking PO and in light of a.fib hold amlodipine (9) Type 2 diabetes mellitus: Plan: A1c of 5.7% on 10/22/2024. Hold semaglutide Novolog Sliding scale (10) Tobacco abuse: Plan: cont Nicotine patch (11) Thrombocytopenia: Plan: 2nd to medication side effect (antibiotics)? sepsis induced? hepatic related? no intervention needed simply observe counts slowly improving HIT assay NEGATIVE CBC in am (12) Morbid obesity with BMI of 40.0-44.9, adult: Plan: BMI 41 (13) Acute metabolic encephalopathy: Plan: "ICU psychosis" toxic effects from pain meds etc likely all to blame resolved (14) Type 2 AK (myocardial infarction): Plan: peak troponin 301 myocardial demand ischemia in setting of septic shock (15) S/P Megan procedure: Plan: as above in #1 (16) Colostomy status: Plan: as above in #1 (17) Hypokalemia: Plan: replace IV repeat BMP am (18) Hypomagnesemia: Plan: replace IV repeat level am (19) Hypophosphatemia: Plan: replace IV repeat level am Plan PT/OT shruti appreciated needs rehab Admission and Anticipated Discharge Date Admission Date: November 23, 2024 Subjective tele - yesterday afternoon converted to a.fib most rates <100, some low 100s is rhythm unaware - no palpitations she does have a mild "wheeze" and cough - started while here but states she did not have dyspnea on exertion when working with PT denies chest pain still with abd pain but no nausea/emesis after NG tube removal tolerated clear liquids very thankful to have NG tube out Review of Systems Review of Systems: gen - no fevers cv - no chest pain pulm - wheeze, cough - but no dyspnea or DAVIS GI - abd pain/bloating from recent surgery Physical Exam Physical Exam: gen - sitting in chair, morbidly obese, NAD, confusion improved, looks good today neck - no obvious JVD mouth - MMM, no lesions heart - irregularly irregular, rate about 100, s1 s2, no murmur lungs - mildly decreased BS bases b/l with mild rales; hint of end-exp wheeze abd - mildly distended, BS+, ostomy in place with liquid in bag, stoma clean, drain in place (SAMRA), mildly tendern to palpation ext - no edema, pulses b/l feet 2+ psych - a/o x 3 Results & Data Results & Data Vital Signs (Past 12 Hours) Vital Signs Temp Pulse Pulse Resp BP Pulse Ox O2 Del Method 11/27/24 11:43 36.4 C L 101 H 17 145/91 H 92 Room Air 11/27/24 09:11 85 11/27/24 08:33 36.6 C 78 16 125/77 95 Room Air 11/27/24 04:02 36.5 C 83 20 119/75 96 Room Air Laboratory Results Laboratory Results - last 24 hr 11/25/24 11/26/24 11/26/24 10:20 12:46 17:36 WBC RBC Hgb Hct MCV MCH MCHC RDW Std Deviation RDW Coeff of Hiral Plt Count MPV Absolute Nucleated RBC Nucleated RBC % (auto) Sodium Potassium Chloride Carbon Dioxide Anion Gap BUN Creatinine Est Cr Clr Drug Dosing eGFR BUN/Creatinine Ratio Glucose POC Glucose 146 H Calcium Phosphorus 2.7 Magnesium Total Bilirubin Direct Bilirubin AST ALT Alkaline Phosphatase C-Reactive Protein Total Protein Albumin Triglycerides 244 H Serotonin Release Assay TNP Heparin Depend Plt Ab See Scanned Report 11/27/24 11/27/24 11/27/24 00:13 05:49 05:50 WBC 18.48 H RBC 3.74 L Hgb 10.4 L Hct 30.6 L MCV 81.8 MCH 27.8 MCHC 34.0 RDW Std Deviation 42.5 RDW Coeff of Hiral 14.2 Plt Count 57 L MPV 12.5 H Absolute Nucleated RBC 0.05 Nucleated RBC % (auto) 0.3 Sodium 142 Potassium 3.0 L Chloride 107 Carbon Dioxide 28 Anion Gap 7 BUN 26 H Creatinine 0.95 D Est Cr Clr Drug Dosing 60.7 eGFR 66.08 BUN/Creatinine Ratio 27.4 H Glucose 135 H POC Glucose 160 H 132 H Calcium 9.2 Phosphorus 1.6 L D Magnesium 1.6 L Total Bilirubin 1.3 H Direct Bilirubin 0.6 H AST 30 ALT 31 Alkaline Phosphatase 135 H C-Reactive Protein 6.90 H Total Protein 6.2 Albumin 2.7 L Triglycerides Serotonin Release Assay Heparin Depend Plt Ab PG Care Time/CCT Total # of Minutes Spent Total Time Spent with Patient: Total time spent is greater than 50% in coordination of care (as documented) at patient's floor/unit and/or counseling patient: Coding Level of Care Code 64758 SUB INP/OBS CARE 50MIN Diagnoses Diverticular disease of intestine with perforation and abscess K57.80 Shock, septic A41.9; R65.21 Sepsis A41.9; R65.20; N17.9 Acute renal failure type: unspecified Sepsis acute organ dysfunction status: with acute organ dysfunction Sepsis type: sepsis due to unspecified organism Severe sepsis acute organ dysfunction type: acute renal failure Severe sepsis shock status: unspecified Paroxysmal atrial fibrillation I48.0 MARGUERITE (acute kidney injury) N17.9 Severe obstructive sleep apnea G47.33 Chronic diastolic congestive heart failure I50.32 Essential hypertension I10 Hypertension type: essential hypertension Type 2 diabetes mellitus with diabetic neuropathy, without long-term current use of insulin E11.40 Diabetes mellitus complication detail: with unspecified neuropathy Diabetes mellitus complication status: with neurologic complications Diabetes mellitus mcc insulin use: without mcc use Tobacco abuse Z72.0 Thrombocytopenia D69.6 Morbid obesity with BMI of 40.0-44.9, adult E66.01; Z68.41 Acute metabolic encephalopathy G93.41 Type 2 AK (myocardial infarction) I21.A1 S/P Megan procedure Z93.3 Colostomy status Z93.3 Hypokalemia E87.6 Hypomagnesemia E83.42 Hypophosphatemia E83.39 (3) Sepsis Acute renal failure type: unspecified Sepsis acute organ dysfunction status: with acute organ dysfunction Sepsis type: sepsis due to unspecified organism Severe sepsis acute organ dysfunction type: acute renal failure Severe sepsis shock status: unspecified Qualified Code(s): A41.9 - Sepsis, unspecified organism; R65.20 - Severe sepsis without septic shock; N17.9 - Acute kidney failure, unspecified (8) Hypertension Hypertension type: essential hypertension Qualified Code(s): I10 - Essential (primary) hypertension (9) Type 2 diabetes mellitus Diabetes mellitus complication detail: with unspecified neuropathy Diabetes mellitus complication status: with neurologic complications Diabetes mellitus mcc insulin use: without security control center operator use Qualified Code(s): E11.40 - Type 2 diabetes mellitus with diabetic neuropathy, unspecified
--- NOTE | 2024-11-27 13:00 | XRay Report ---
XR chest 1V portable CLINICAL HISTORY: cough, ?pulm edema COMPARISON STUDY: 11/24/2024 FINDINGS: Stable right central catheter. Stable cardiomegaly with mild pulmonary vascular congestion. No consolidation or pleural effusion seen. No pneumothorax. IMPRESSION: Mild CHF. ACT 112: Negative or not required by law. Electronically signed by: Kristofer Benavidez M.D. 11/27/2024 12:59 PM
[2024-11-27] MEDS: MAGNESIUM SULFATE / D5W 1 GM/100 ML BAG IV SCH (14:13)
[2024-11-27] MEDS: GABAPENTIN 300 MG CAP PO SCH (14:26)
[2024-11-27] MEDS: [UNRECOGNIZED DRUG - OTHER] IV SCH (17:46)
[2024-11-27] MEDS: CENTRAL TPN IV SCH (17:46)
[2024-11-27] MEDS: CLINOLIPID 20% IV FAT EMULSION 250 ML IV SCH (17:47)
[2024-11-27] MEDS: HYDROCORTISONE SOD 25 MG in SYRINGE 0 ML IV SCH (20:00)
[2024-11-28 06:59] LABS: Hematocrit (blood only) 29.2 % (37.0-47.0); Hemoglobin 10.4 g/dl (12.0-16.0); Mean Corpuscular Hemoglobin 29.1 pg (25.0-34.0); Mean Corpuscular Volume 81.8 fL (80.0-100.0); Platelet Count 73 K/uL (130-400); RDW Standard Deviation 41.2 fL (36.4-46.3); Red Blood Count 3.57 M/uL (4.20-5.40); White Blood Count 27.45 K/ul (4.8-10.8)
[2024-11-28 07:09] LABS: Immature Granulocytes # (auto) 1.88 K/uL (0.01-0.20); Immature Granulocytes % (auto) 6.8 %
[2024-11-28] MEDS: METOPROLOL TARTRATE 25 MG TAB PO SCH (08:26)
[2024-11-28 09:02] LABS: Anion Gap 7.0 (3-11); Blood Urea Nitrogen 27.0 mg/dl (6-23); Calcium 8.9 mg/dl (8.6-10.3); Carbon Dioxide 26.0 mmol/L (21-32); Chloride 104.0 mmol/L (98-107); Creatinine Clr Calc Pharmacy 67.9 ml/min; Glucose 138.0 mg/dl (70-99(Fasting)); Magnesium 1.7 mg/dl (1.7-2.4); Potassium 3.3 mmol/L (3.5-5.1); Sodium 137.0 mmol/L (136-145)
[2024-11-28] MEDS: POTASSIUM CHLORIDE CRTAB 20 MEQ TABCR PO SCH (09:31)
[2024-11-28] MEDS: MAGNESIUM SULFATE / D5W 1 GM/100 ML BAG IV ONE (09:31)
--- NOTE | 2024-11-28 13:53 | Surgery Progress Note ---
Date of Service November 28, 2024 Assessment & Plan (1) Diverticulitis large intestine: Plan: POD#4 s/p ex lap with Carmona's by Dr. Thorne -WBC 27 from 18, however VSS and she is afebrile. Continue IV abx. Will continue to closely monitor WBC and temps however this could be secondary to steriod use. -NGT removed yesterday, tolerating clears, ostomy has started to have good stool output overnight and today. She is tolerating clears and talked about advancing to fulls however patient doesn't feel she is ready yet. Can continue TPN for nutrition in the meantime until diet is advanced. -Continue daily dressing changes to midline. SAMRA drain to remain in place. senior etl developer on board for ostomy education/care -Encourage OOB & pulmonary toileting Admission and Anticipated Discharge Date Admission Date: November 23, 2024 Subjective Patient seen and examined this afternoon NGT was removed yesterday and patient tolerating clears without any issues. Denies N/V Ostomy functioning VSS Patient's WBC 27 today, she is afebrile, however is on steriods Physical Exam Constitutional: WD/WN, vitals as above Respiratory: normal respiratory effort, lungs clear to auscultation Cardiovascular: Rate/Rhythm: regular rate Gastrointestinal (Abdomen): Abdomen soft, nondistended, appropriate TTP over surgical site +Dressing in place to midline wound. C/D /I without any overlying signs of infection +Ostomy with liquid stool in bag. SAMRA drain serosang Results & Data Vital Signs (Past 12 Hours) Vital Signs Temp Pulse Pulse Pulse Resp BP Pulse Ox 11/28/24 12:14 36.7 C 66 16 130/77 94 11/28/24 08:00 74 11/28/24 08:00 36.6 C 77 18 133/82 95 11/28/24 04:50 84 11/28/24 03:22 36.7 C 83 18 154/83 H 98 O2 Del Method 11/28/24 12:14 Room Air 11/28/24 08:00 11/28/24 08:00 Room Air 11/28/24 04:50 11/28/24 03:22 Room Air PG Care Time/CCT Total # of Minutes Spent Total Time Spent with Patient: Total time spent is greater than 50% in coordination of care (as documented) at patient's floor/unit and/or counseling patient: [place] [address] Post Operative Follow-Up Patient Type Established History Problem Focused Exam Problem Focused Medical Decision Making Straight Forward Diagnoses Diverticulitis large intestine K57.32
--- NOTE | 2024-11-28 15:20 | Pharmacy Report ---
Pharmacy Glycemic Short Note 2 - Date of Service November 28, 2024 - Glycemic Short BSG Results (Last 24 hours): 11/27/24 11/27/24 11/28/24 16:58 20:29 00:11 Glucose POC Glucose 107 H 130 H 127 H 11/28/24 11/28/24 11/28/24 05:42 05:46 08:23 Glucose 138 H POC Glucose 153 H 112 H 11/28/24 12:30 Glucose POC Glucose 114 H OUTPATIENT ANTIDIABETIC REGIMEN: * semaglutide 2 mg SQ weekly * 5.7% 10/22/24 ASSESSMENT: 11/28 * Tamela has not required much insulin since the steroids were discontinued. Even while receiving TPN her BSG stayed mostly within the goal range. * She reportedly has been tolerating her diet so the TPN is stopping this afternoon. * Will continue to follow her BSG for another day to be sure her BSGs remain stable. 11/26 * Patient admitted to the ICU with sepsis secondary to diverticular disease of the intestine with perforation and abscess likely experiencing some stress induced hyperglycemia. * Patient is currently receiving norepinephrine and hydrocortisone. PN under consideration. * Will continue with novolog coverage for now with slight adjustments to goal range. 11/26/24 * BSGs well controlled over the past 24 hours [phone] mg/dL and 127 mg/dL this morning. Patient has required no insulin. Will monitor if TPN initiation, but if BSGs remain stable, will sign off. PLAN FOR INPATIENT GLYCEMIC CONTROL: * Hold outpatient diabetes medications * Basal insulin * None * Bolus insulin * NovoLog per scale ACHS or Q6hrs while NPO * Goal Range: Low 120 mg/dL - High 160 mg/dL * Correction Factor: 15 mg/dL/unit
[2024-11-28] MEDS ORDERED: Nursing to Pharmacy Communication SCH (15:30)
--- NOTE | 2024-11-28 15:34 | Hospitalist Progress Note ---
Date of Service November 28, 2024 Assessment & Plan (1) Diverticular disease of intestine with perforation and abscess: Plan: POD#4 - s/p Exploratory Laparotomy, Megan's Procedure, adhesiolysis of small bowel to anterior abdominal wall and pelvis as well as interloop adhesions, suture repair of serosal tear of small bowel as well as cecum, colostomy creation - by Dr Simon Thorne Findings in the OR: "Diverticular disease of intestine with perforation and abscess, with adhesions, possible fistula and abscess formation involving the left ovary with ovary being thickened and inflamed. Extensive adhesions of small bowel in the pelvis as well as to the anterior abdominal wall, adhesions of the cecum to the anterior abdominal wall and pelvis, prior mesh identified, was incorporated well into the fascia of the abdominal wall" Complicated diverticulitis led to septic shock requiring ICU care, pressors, etc. Continues to improve each day Remains on TPN but plans are to stop it today NG tube d/c on 11/27 Clears started on 11/27 - tolerating such; full liquids offered by surgery but patient wanted to stay with clears for now appreciate program analyst & surgery assistance cont IV abx in the form of cipro/flagyl plan 10 days in total with day #1 being hospital day #1 (2) Shock, septic: Plan: 2nd to perforated/complicated diverticulitis did require pressors, IV fluids, and stress dose steroids in ICU off pressors for 20+ hours (weaned on 11/25 afternoon) BPs stable wean hydrocortisone to 20mg BID (3) Sepsis: Plan: 2nd to #1 above resolved (4) Paroxysmal atrial fibrillation: Plan: new onset - developed such 11/26, resolved 11/27 (had such for ~24 hours) low K, low mag, stress of illness, etc - all likely culprits for developing such CHADS-VASc score is 5 (age, female, HTN, DM) - 5-6% change of CVA/year would add low-dose BB in the form of meto tartrate 25mg BID starting today ok to start anticoagulation per gen surg will investigate cost of Eliquis recent echo - preserved EF, normal valves recent TSH 3.8 in October (5) MARGUERITE (acute kidney injury): Plan: sepsis associated ATN Cr on admission was 3.26 ATN resolved now in "postATN diuretic phase" cont supportive care BMP am (6) Severe obstructive sleep apnea: Plan: cont CPAP as tolerated (7) Chronic diastolic congestive heart failure: Plan: looks compensated today is auto-diuresing in the setting of resolved ATN (8) Hypertension: Plan: will start metoprolol 25mg BID since now taking PO and in light of giovani hold amlodipine (9) Type 2 diabetes mellitus: Plan: A1c of 5.7% on 10/22/2024. Hold semaglutide Novolog Sliding scale controlled (10) Tobacco abuse: Plan: cont Nicotine patch (11) Thrombocytopenia: Plan: 2nd to medication side effect (antibiotics)? sepsis induced? hepatic related? regardless of etiology platelets are improving nicely HIT assay NEGATIVE CBC in am (12) Morbid obesity with BMI of 40.0-44.9, adult: Plan: BMI 41/42 (13) Acute metabolic encephalopathy: Plan: "ICU psychosis" toxic effects from pain meds etc likely all to blame resolved (14) Type 2 CO (myocardial infarction): Plan: peak troponin 301 myocardial demand ischemia in setting of septic shock (15) S/P Megan procedure: Plan: as above in #1 (16) Colostomy status: Plan: as above in #1 (17) Hypokalemia: Plan: replace with PO supplementation repeat BMP am (18) Hypomagnesemia: Plan: replaced/resolved (19) Hypophosphatemia: Plan: replaced/resolved Plan PT/OT shruti appreciated needs rehab - patient willing to go pt's sister updated at bedside today d/c right IJ central line today Admission and Anticipated Discharge Date Admission Date: November 23, 2024 Subjective giovani broke yesterday afternoon has been NSR since that time feels good walked in hallway with PT; no dyspnea or DAVIS with such tolerating clears without pain/nausea/emesis the "wheeze"/cough feeling in her throat/upper chest she had yesterday is gone only complaint is mild incisional pain from her surgery ostomy functioning well with plenty of stool Review of Systems Review of Systems: gen - no fevers or chills cv - no chest pain GI - incisional pain only; no vomiting; no nausea Physical Exam Physical Exam: gen - laying in bed comfortably, morbidly obese, NAD neck - no obvious JVD mouth - MMM, no lesions heart - RRR, s1 s2, no murmur lungs - mildly decreased BS bases b/l but no rales or wheeze today abd - distension improved, BS+, ostomy in place with brown stool in bag, stoma clean, drain in place (SAMRA), minimally tender to palpation ext - no edema, pulses b/l feet 2+ psych - a/o x 3 ; good spirits today Results & Data Results & Data Vital Signs (Past 12 Hours) Vital Signs Temp Pulse Pulse Resp BP Pulse Ox O2 Del Method 11/28/24 14:21 71 11/28/24 12:14 36.7 C 66 16 130/77 94 Room Air 11/28/24 08:00 74 11/28/24 08:00 36.6 C 77 18 133/82 95 Room Air 11/28/24 04:50 84 Laboratory Results Laboratory Results - last 24 hr 11/27/24 11/27/24 11/28/24 16:58 20:29 00:11 WBC RBC Hgb Hct MCV MCH MCHC RDW Std Deviation RDW Coeff of Hiral Plt Count Immature Gran % (Auto) Neut % (Auto) Lymph % (Auto) [place] % (Auto) Eos % (Auto) Baso % (Auto) Neut # (Auto) Lymph # (Auto) [place] # (Auto) Eos # (Auto) Baso # (Auto) Immature Gran # (Auto) Absolute Nucleated RBC Nucleated RBC % (auto) Sodium Potassium Chloride Carbon Dioxide Anion Gap BUN Creatinine Est Cr Clr Drug Dosing eGFR BUN/Creatinine Ratio Glucose POC Glucose 107 H 130 H 127 H Calcium Phosphorus Magnesium C-Reactive Protein 11/28/24 11/28/24 11/28/24 05:42 05:46 08:23 WBC 27.45 H RBC 3.57 L Hgb 10.4 L Hct 29.2 L MCV 81.8 MCH 29.1 MCHC 35.6 RDW Std Deviation 41.2 RDW Coeff of Hiral 13.9 Plt Count 73 L Immature Gran % (Auto) 6.8 Neut % (Auto) 70.2 Lymph % (Auto) 16.9 [place] % (Auto) 5.4 Eos % (Auto) 0.3 Baso % (Auto) 0.4 Neut # (Auto) 19.25 H Lymph # (Auto) 4.65 H [place] # (Auto) 1.48 H Eos # (Auto) 0.09 Baso # (Auto) 0.10 Immature Gran # (Auto) 1.88 H Absolute Nucleated RBC 0.07 Nucleated RBC % (auto) 0.3 Sodium 137 Potassium 3.3 L Chloride 104 Carbon Dioxide 26 Anion Gap 7 BUN 27 H Creatinine 0.85 Est Cr Clr Drug Dosing 67.9 eGFR 75.51 BUN/Creatinine Ratio 31.8 H Glucose 138 H POC Glucose 153 H 112 H Calcium 8.9 Phosphorus 2.6 D Magnesium 1.7 C-Reactive Protein 3.44 H 11/28/24 12:30 WBC RBC Hgb Hct MCV MCH MCHC RDW Std Deviation RDW Coeff of Hiral Plt Count Immature Gran % (Auto) Neut % (Auto) Lymph % (Auto) [place] % (Auto) Eos % (Auto) Baso % (Auto) Neut # (Auto) Lymph # (Auto) [place] # (Auto) Eos # (Auto) Baso # (Auto) Immature Gran # (Auto) Absolute Nucleated RBC Nucleated RBC % (auto) Sodium Potassium Chloride Carbon Dioxide Anion Gap BUN Creatinine Est Cr Clr Drug Dosing eGFR BUN/Creatinine Ratio Glucose POC Glucose 114 H Calcium Phosphorus Magnesium C-Reactive Protein PG Care Time/CCT Total # of Minutes Spent Total Time Spent with Patient: Total time spent is greater than 50% in coordination of care (as documented) at patient's floor/unit and/or counseling patient: Coding Level of Care Code 61704 SUB INP/OBS CARE 350MIN Diagnoses Diverticular disease of intestine with perforation and abscess K57.80 Shock, septic A41.9; R65.21 Sepsis A41.9; R65.20; N17.9 Acute renal failure type: unspecified Sepsis acute organ dysfunction status: with acute organ dysfunction Sepsis type: sepsis due to unspecified organism Severe sepsis acute organ dysfunction type: acute renal failure Severe sepsis shock status: unspecified Paroxysmal atrial fibrillation I48.0 MARGUERITE (acute kidney injury) N17.9 Severe obstructive sleep apnea G47.33 Chronic diastolic congestive heart failure I50.32 Essential hypertension I10 Hypertension type: essential hypertension Type 2 diabetes mellitus with diabetic neuropathy, without long-term current use of insulin E11.40 Diabetes mellitus complication detail: with unspecified neuropathy Diabetes mellitus complication status: with neurologic complications Diabetes mellitus chcf insulin use: without computer terminal operator use Tobacco abuse Z72.0 Thrombocytopenia D69.6 Morbid obesity with BMI of 40.0-44.9, adult E66.01; Z68.41 Acute metabolic encephalopathy G93.41 Type 2 CO (myocardial infarction) I21.A1 S/P Megan procedure Z93.3 Colostomy status Z93.3 Hypokalemia E87.6 Hypomagnesemia E83.42 Hypophosphatemia E83.39 (3) Sepsis Acute renal failure type: unspecified Sepsis acute organ dysfunction status: with acute organ dysfunction Sepsis type: sepsis due to unspecified organism Severe sepsis acute organ dysfunction type: acute renal failure Severe sepsis shock status: unspecified Qualified Code(s): A41.9 - Sepsis, unspecified organism; R65.20 - Severe sepsis without septic shock; N17.9 - Acute kidney failure, unspecified (8) Hypertension Hypertension type: essential hypertension Qualified Code(s): I10 - Essential (primary) hypertension (9) Type 2 diabetes mellitus Diabetes mellitus complication detail: with unspecified neuropathy Diabetes mellitus complication status: with neurologic complications Diabetes mellitus chcf insulin use: without computer terminal operator use Qualified Code(s): E11.40 - Type 2 diabetes mellitus with diabetic neuropathy, unspecified
[2024-11-28] MEDS: ENOXAPARIN INJ 40 MG/0.4 ML SYR SQ SCH (16:30)
[2024-11-28] MEDS: INSULIN ASPART PER UNIT CHARGE SC SCH (17:09)
[2024-11-28] MEDS: HYDROCORTISONE 10 MG TAB PO SCH (20:24)
--- NOTE | 2024-11-29 05:07 | Surgery Progress Note ---
Date of Service November 29, 2024 Assessment & Plan (1) Diverticulitis large intestine: Plan: Status post Megan procedure on 11/24/2024 (postop day #7) Patient noted to have leukocytosis of 27,000 on yesterday's labs; labs this morning are pending and will check when available (leukocytosis may be from Cortef the patient is receiving, but if this persists or if patient develops any fevers consideration may be given to pursuing alternate cause of leukocytosis) Continue clear liquids for the present time with consideration of advancing diet further if leukocytosis is improved and patient continues to have ostomy output Continue antibiotics in the form of Cipro and Flagyl Continue to encourage ambulation Lovenox is in place for DVT prevention Admission and Anticipated Discharge Date Admission Date: November 23, 2024 Supervising Physician Co-Signing Physician Notes I have seen and examined this patient. Her leukocytosis has continued to increase but pt without signs or symptoms of infection. She is on Cortef. States her ostomy continues to function. If she remains without signs or symptoms of infection, will attribute her leukocytosis to her steroid treatment Advance diet as tolerated Ambulate with assistance Subjective Patient is currently resting comfortably in bed. Patient says that she is tolerating liquid diet without any exacerbation of abdominal pain. She denies any nausea or vomiting. She notes that she is urinating without difficulty. She denies cough or shortness of breath. Patient says that she has been able to ambulate short distances in the hallway. She notes that her pain is well- controlled. I discussed with the nurse attending the patient they report the patient has had an uneventful evening. No fevers reported. Physical Exam Gastrointestinal (Abdomen): Abdomen is soft without distention. There is minimal pain noted with palpation. Midline incision is clean, dry, and intact with [place]. Ostomy appears pink and viable and has brown stool in the collection bag. Results & Data Vital Signs (Past 12 Hours) Vital Signs Temp Pulse Pulse Resp BP Pulse Ox O2 Del Method 11/29/24 00:00 36.6 C 65 20 123/81 95 Room Air 11/28/24 23:06 61 26 H 94 11/28/24 22:04 67 11/28/24 20:45 36.5 C 73 20 144/88 H 95 Room Air FiO2 11/29/24 00:00 11/28/24 23:06 21 11/28/24 22:04 11/28/24 20:45 PG Care Time/CCT Total # of Minutes Spent Total Time Spent with Patient: Total time spent is greater than 50% in coordination of care (as documented) at patient's floor/unit and/or counseling patient: Coding Level of Care Code 36479 Post Operative Follow-Up Diagnoses Diverticulitis large intestine K57.32
[2024-11-29 06:08] LABS: Hematocrit (blood only) 28.9 % (37.0-47.0); Hemoglobin 10.2 g/dl (12.0-16.0); Mean Corpuscular Hemoglobin 29.1 pg (25.0-34.0); Mean Corpuscular Volume 82.6 fL (80.0-100.0); Platelet Count 113 K/uL (130-400); RDW Standard Deviation 42.0 fL (36.4-46.3); Red Blood Count 3.50 M/uL (4.20-5.40); White Blood Count 30.76 K/ul (4.8-10.8)
[2024-11-29 06:25] LABS: Anion Gap 4.0 (3-11); Blood Urea Nitrogen 21.0 mg/dl (6-23); Calcium 9.0 mg/dl (8.6-10.3); Carbon Dioxide 28.0 mmol/L (21-32); Chloride 105.0 mmol/L (98-107); Creatinine Clr Calc Pharmacy 74.0 ml/min; Glucose 94.0 mg/dl (70-99(Fasting)); Potassium 4.0 mmol/L (3.5-5.1); Sodium 137.0 mmol/L (136-145)
[2024-11-29 06:46] LABS: Immature Granulocytes # (auto) 2.17 K/uL (0.01-0.20); Immature Granulocytes % (auto) 7.1 %; Polychromasia 1+
--- NOTE | 2024-11-29 07:10 | Electrocardiogram Report ---
Test Reason : Blood Pressure : */* mmHG Vent. Rate : 77 BPM Atrial Rate : * BPM P-R Int : * ms QRS Dur : 92 ms QT Int : 386 ms P-R-T Axes : * -1 19 degrees QTcB Int : 436 ms Atrial fibrillation Abnormal ECG When compared with ECG of 23-Nov-2024 14:43, Atrial fibrillation has replaced Sinus rhythm Confirmed by Jeff Antoine ([id number]) on 11/29/2024 7:10:38 AM Referred By: REFERRED SELF Confirmed By: Jeff Antoine
--- NOTE | 2024-11-29 18:48 | Hospitalist Progress Note ---
Date of Service November 29, 2024 Assessment & Plan (1) Diverticular disease of intestine with perforation and abscess: Plan: POD#5 - s/p Exploratory Laparotomy, Megan's Procedure, adhesiolysis of small bowel to anterior abdominal wall and pelvis as well as interloop adhesions, suture repair of serosal tear of small bowel as well as cecum, colostomy creation - by Dr Simon Thorne Findings in the OR: "Diverticular disease of intestine with perforation and abscess, with adhesions, possible fistula and abscess formation involving the left ovary with ovary being thickened and inflamed. Extensive adhesions of small bowel in the pelvis as well as to the anterior abdominal wall, adhesions of the cecum to the anterior abdominal wall and pelvis, prior mesh identified, was incorporated well into the fascia of the abdominal wall" Complicated diverticulitis led to septic shock requiring ICU care, pressors, etc. Continues to improve each day clinically TPN started while still in ICU but d/c on 11/28 NG tube d/c on 11/27 Clears started on 11/27 - tolerating such without N/V/abd pain cont IV abx in the form of cipro/flagyl plan 10 days in total with day #1 being hospital day #1 severe leukocytosis -- hopefully this is due to high-dose steroids since HD #1 with ongoing taper but certainly could be due to an intra-abdominal process plan repeat CBC w/ diff, crp, and procal in am tomorrow cont steroid wean check ua and urine cx (2) Shock, septic: Plan: 2nd to perforated/complicated diverticulitis did require pressors, IV fluids, and stress dose steroids in ICU off pressors for 20+ hours (weaned on 11/25 afternoon) BPs stable wean hydrocortisone to 15mg BID (3) Sepsis: Plan: 2nd to #1 above resolved (4) Paroxysmal atrial fibrillation: Plan: new onset - developed such 11/26, resolved 11/27 (had such for ~24 hours) low K, low mag, stress of illness, etc - all likely culprits for developing such CHADS-VASc score is 5 (age, female, HTN, DM) - 5-6% change of CVA/year would add low-dose BB in the form of meto tartrate 25mg BID starting today ok to start anticoagulation per gen surg Eliquis - $0 dollar copay recent echo - preserved EF, normal valves recent TSH 3.8 in October will hold off on Eliquis today until we know that WBC count is improving and there is nothing surgical going on (5) MARGUERITE (acute kidney injury): Plan: sepsis associated ATN Cr on admission was 3.26 ATN resolved now in "postATN diuretic phase" cont supportive care BMP am (6) Severe obstructive sleep apnea: Plan: cont CPAP as tolerated (7) Chronic diastolic congestive heart failure: Plan: compensated is auto-diuresing in the setting of resolved ATN (8) Hypertension: Plan: cont metoprolol 25mg BID hold amlodipine (9) Type 2 diabetes mellitus: Plan: A1c of 5.7% on 10/22/2024. Hold semaglutide Novolog Sliding scale controlled (10) Tobacco abuse: Plan: cont Nicotine patch (11) Thrombocytopenia: Plan: 2nd to medication side effect (antibiotics)? sepsis induced? hepatic related? regardless of etiology platelets are improving nicely - now 113 HIT assay NEGATIVE CBC in am again (12) Morbid obesity with BMI of 40.0-44.9, adult: Plan: BMI 41/42 (13) Acute metabolic encephalopathy: Plan: "ICU psychosis" toxic effects from pain meds etc likely all to blame resolved (14) Type 2 ND (myocardial infarction): Plan: peak troponin 301 myocardial demand ischemia in setting of septic shock (15) S/P Megan procedure: Plan: as above in #1 (16) Colostomy status: Plan: as above in #1 (17) Hypokalemia: Plan: repleted/resolved (18) Hypomagnesemia: Plan: replaced/resolved (19) Hypophosphatemia: Plan: replaced/resolved Plan PT/OT shruti appreciated needs rehab - patient willing to go pt's sister updated at bedside again today Admission and Anticipated Discharge Date Admission Date: November 23, 2024 Subjective patient tired today but did do some walking and did sit in chair today continues to have episodes of her ostomy leaking has had LLQ abd pain intermittently today - not any worse than prior days she reports mild pain in the suprapubic region and mild dysuria as well tolerating clears; clears do NOT make her symptoms worse no vomiting no nausea she is overall happy with how she is doing Review of Systems Review of Systems: gen - no fevers or chills cv - no chest pain pulm - no dyspnea or DAVIS; cough/wheeze resolved GI - see HPI Physical Exam Physical Exam: gen - laying in bed comfortably, morbidly obese, NAD, very pleasant; NON-TOXIC neck - no JVD mouth - MMM, no lesions heart - RRR, s1 s2, no murmur lungs - mildly decreased BS bases b/l but no rales abd - soft, BS+, ostomy in place with brown stool in bag, stoma clean, drain in place (SAMRA), minimally tender to palpation LLQ; staple line intact midline ext - no edema, pulses b/l feet 2+ psych - a/o x 3 Results & Data Results & Data Vital Signs (Past 12 Hours) Vital Signs Temp Pulse Pulse Resp BP Pulse Ox O2 Del Method 11/29/24 16:08 69 11/29/24 16:07 37 C 62 21 136/78 100 Room Air 11/29/24 10:47 36.4 C L 70 17 121/89 96 Room Air 11/29/24 08:08 70 11/29/24 07:32 36.9 C 74 21 125/77 94 Room Air Laboratory Results Laboratory Results 11/28/24 11/28/24 11/28/24 12:30 16:40 20:38 WBC RBC Hgb Hct MCV MCH MCHC RDW Std Deviation RDW Coeff of Hiral Plt Count MPV Immature Gran % (Auto) Neut % (Auto) Lymph % (Auto) [place] % (Auto) Eos % (Auto) Baso % (Auto) Neut # (Auto) Lymph # (Auto) [place] # (Auto) Eos # (Auto) Baso # (Auto) Immature Gran # (Auto) Absolute Nucleated RBC Nucleated RBC % (auto) Polychromasia Sodium Potassium Chloride Carbon Dioxide Anion Gap BUN Creatinine Est Cr Clr Drug Dosing eGFR BUN/Creatinine Ratio Glucose POC Glucose 114 H 87 80 Calcium C-Reactive Protein Procalcitonin Urine Color Urine Appearance Urine pH Ur Specific [place] Urine Protein Urine Glucose (UA) Urine Ketones Urine Blood Urine Nitrite Urine Bilirubin Urine Urobilinogen Ur Leukocyte Esterase Urine WBC (Auto) Urine RBC (Auto) U Hyaline Cast (Auto) U Epithel Cells (Auto) Urine Bacteria (Auto) 11/29/24 11/29/24 11/29/24 05:31 08:00 12:26 WBC 30.76 H* RBC 3.50 L Hgb 10.2 L Hct 28.9 L MCV 82.6 MCH 29.1 MCHC 35.3 RDW Std Deviation 42.0 RDW Coeff of Hiarl 14.2 Plt Count 113 L D MPV 13.1 H Immature Gran % (Auto) 7.1 Neut % (Auto) 70.4 Lymph % (Auto) 16.0 [place] % (Auto) 5.6 Eos % (Auto) 0.5 Baso % (Auto) 0.4 Neut # (Auto) 21.67 H Lymph # (Auto) 4.93 H [place] # (Auto) 1.71 H Eos # (Auto) 0.15 Baso # (Auto) 0.13 Immature Gran # (Auto) 2.17 H Absolute Nucleated RBC 0.04 Nucleated RBC % (auto) 0.1 Polychromasia 1+ Sodium 137 Potassium 4.0 D Chloride 105 Carbon Dioxide 28 Anion Gap 4 BUN 21 Creatinine 0.78 Est Cr Clr Drug Dosing 74.0 eGFR 83.72 BUN/Creatinine Ratio 26.9 H Glucose 94 POC Glucose 80 103 H Calcium 9.0 C-Reactive Protein Procalcitonin Urine Color Urine Appearance Urine pH Ur Specific [place] Urine Protein Urine Glucose (UA) Urine Ketones Urine Blood Urine Nitrite Urine Bilirubin Urine Urobilinogen Ur Leukocyte Esterase Urine WBC (Auto) Urine RBC (Auto) U Hyaline Cast (Auto) U Epithel Cells (Auto) Urine Bacteria (Auto) blood cx's negative PG Care Time/CCT Total # of Minutes Spent Total Time Spent with Patient: Total time spent is greater than 50% in coordination of care (as documented) at patient's floor/unit and/or counseling patient: Coding Level of Care Code 01931 SUB INP/OBS CARE 3/50MIN Diagnoses Diverticular disease of intestine with perforation and abscess K57.80 Shock, septic A41.9; R65.21 Sepsis A41.9; R65.20; N17.9 Acute renal failure type: unspecified Sepsis acute organ dysfunction status: with acute organ dysfunction Sepsis type: sepsis due to unspecified organism Severe sepsis acute organ dysfunction type: acute renal failure Severe sepsis shock status: unspecified Paroxysmal atrial fibrillation I48.0 MARGUERITE (acute kidney injury) N17.9 Severe obstructive sleep apnea G47.33 Chronic diastolic congestive heart failure I50.32 Essential hypertension I10 Hypertension type: essential hypertension Type 2 diabetes mellitus with diabetic neuropathy, without long-term current use of insulin E11.40 Diabetes mellitus complication detail: with unspecified neuropathy Diabetes mellitus complication status: with neurologic complications Diabetes mellitus ocean transportation intermediary insulin use: without ocean transportation intermediary use Tobacco abuse Z72.0 Thrombocytopenia D69.6 Morbid obesity with BMI of 40.0-44.9, adult E66.01; Z68.41 Acute metabolic encephalopathy G93.41 Type 2 ND (myocardial infarction) I21.A1 S/P Megan procedure Z93.3 Colostomy status Z93.3 Hypokalemia E87.6 Hypomagnesemia E83.42 Hypophosphatemia E83.39 (3) Sepsis Acute renal failure type: unspecified Sepsis acute organ dysfunction status: with acute organ dysfunction Sepsis type: sepsis due to unspecified organism Severe sepsis acute organ dysfunction type: acute renal failure Severe sepsis shock status: unspecified Qualified Code(s): A41.9 - Sepsis, unspecified organism; R65.20 - Severe sepsis without septic shock; N17.9 - Acute kidney failure, unspecified (8) Hypertension Hypertension type: essential hypertension Qualified Code(s): I10 - Essential (primary) hypertension (9) Type 2 diabetes mellitus Diabetes mellitus complication detail: with unspecified neuropathy Diabetes mellitus complication status: with neurologic complications Diabetes mellitus longterm insulin use: without longterm use Qualified Code(s): E11.40 - Type 2 diabetes mellitus with diabetic neuropathy, unspecified
[2024-11-29] MEDS: MELATONIN 3 MG TAB PO PRN (20:45)
[2024-11-29] MEDS: HYDROCORTISONE 10 MG TAB PO SCH (20:45)
[2024-11-29] MEDS: GABAPENTIN 600 MG TAB PO SCH (20:47)
[2024-11-29 21:24] LABS: Appearance Urine Clear (Clear); Bacteria Urine Automated None Seen (None Seen); Cast Urine Automated 0-2 /lpf (0-2); Epithelial Cell Urine Auto 0-2 /hpf (0-2); Glucose Urine UA Negative (Negative); RBC Urine Automated 0-2 /hpf (0-2); WBC Urine Automated 0-5 /hpf (0-5)
--- NOTE | 2024-11-30 04:49 | Surgery Progress Note ---
Date of Service November 30, 2024 Assessment & Plan (1) Diverticulitis large intestine: Plan: Status post Megan procedure on 11/24/2024 (postop day #8) Persistent leukocytosis is notedwas noted to be 30,000 on yesterday's labs. The cause of her elevated white blood cell count may be related to steroid use. However, a repeat urinalysis was performed yesterday which only showed trace leukocyte esterase without overt urinary tract infection. A culture has been sent and is pending. If white blood cell count remains elevated again this morning we will consider performing CT scan of the abdomen pelvis to search for other causes of her leukocytosis Continue clear liquids for the present timewill not advance further until we have a.m. labs back and the determination is made of whether or not patient will require CT scan of the abdomen pelvis today. Continue antibiotics in the form of Cipro and Flagyl (RN noted that these medications were inadvertently discontinued last evening. Original plan was for patient to receive 10 days of these medications so we will resume these medications for the present time) Continue to encourage ambulation Check a.m. labs when available as noted above Lovenox is in place for DVT prevention Admission and Anticipated Discharge Date Admission Date: November 23, 2024 Supervising Physician Co-Signing Physician Notes I have seen and examined pt this am She continues to not offer up any complaints Denies fevers, states her ostomy continues to function, pain controlled Leukocytosis remains stable, likely secondary to Cortef She is being planned for discharge to rehab and the medical service may decide on a repeat CT prior Surgery will follow for now Subjective Patient is resting comfortably in bed. She notes some mild discomfort at her surgical incision. She says she is tolerating clears which does not exacerbate her abdominal pain. She denies any nausea or vomiting. She says she is urinating without difficulty. She denies any fevers, shakes, or chills. I discussed with the nurse attending the patient and she verified the above information and notes that the patient has been afebrile over the night and has had no acute issues. Physical Exam Gastrointestinal (Abdomen): Abdomen is soft without distention. Patient surgical incision is intact with michaocano. The patient has expected tenderness near her surgical incision. A SAMRA drain is in place draining serosanguineous fluid. Patient's ostomy appears viable and there is stool in the collection bag. Results & Data Vital Signs (Past 12 Hours) Vital Signs Temp Pulse Pulse Pulse Resp BP BP 11/30/24 03:30 67 24 11/30/24 03:19 36.7 C 71 16 143/78 H 11/29/24 23:58 36.7 C 71 20 122/71 11/29/24 22:17 70 26 H 11/29/24 21:45 71 11/29/24 19:32 36.7 C 68 20 148/80 H Pulse Ox O2 Del Method 11/30/24 03:30 95 11/30/24 03:19 97 CPAP 11/29/24 23:58 94 CPAP 11/29/24 22:17 95 11/29/24 21:45 11/29/24 19:32 97 Room Air PG Care Time/CCT Total # of Minutes Spent Total Time Spent with Patient: Total time spent is greater than 50% in coordination of care (as documented) at patient's floor/unit and/or counseling patient: Coding Level of Care Code 69756 Post Operative Follow-Up Diagnoses Diverticulitis large intestine K57.32
[2024-11-30 05:57] LABS: Hematocrit (blood only) 29.8 % (37.0-47.0); Hemoglobin 10.3 g/dl (12.0-16.0); Mean Corpuscular Hemoglobin 28.9 pg (25.0-34.0); Mean Corpuscular Volume 83.5 fL (80.0-100.0); Platelet Count 169 K/uL (130-400); RDW Standard Deviation 42.7 fL (36.4-46.3); Red Blood Count 3.57 M/uL (4.20-5.40); White Blood Count 29.90 K/ul (4.8-10.8)
[2024-11-30 06:02] LABS: Anion Gap 5.0 (3-11); Blood Urea Nitrogen 15.0 mg/dl (6-23); Calcium 9.2 mg/dl (8.6-10.3); Carbon Dioxide 28.0 mmol/L (21-32); Chloride 103.0 mmol/L (98-107); Creatinine Clr Calc Pharmacy 77.8 ml/min; Glucose 122.0 mg/dl (70-99(Fasting)); Potassium 4.1 mmol/L (3.5-5.1); Sodium 136.0 mmol/L (136-145)
[2024-11-30 06:26] LABS: Immature Granulocytes # (auto) 2.19 K/uL (0.01-0.20); Immature Granulocytes % (auto) 7.3 %
[2024-11-30] MEDS: CIPROFLOXACIN / D5W 400 MG/200 ML BAG IV SCH (06:26)
[2024-11-30] MEDS: metroNIDAZOLE 500 MG/100 ML BAG IV SCH (06:26)
[2024-11-30] MEDS ORDERED: Nursing to Pharmacy Communication SCH (08:15)
--- NOTE | 2024-11-30 11:53 | Hospitalist Progress Note ---
Date of Service November 30, 2024 Assessment & Plan (1) Diverticular disease of intestine with perforation and abscess: Plan: POD#6 - s/p Exploratory Laparotomy, Megan's Procedure, adhesiolysis of small bowel to anterior abdominal wall and pelvis as well as interloop adhesions, suture repair of serosal tear of small bowel as well as cecum, colostomy creation - by Dr Simon Thorne Findings in the OR: "Diverticular disease of intestine with perforation and abscess, with adhesions, possible fistula and abscess formation involving the left ovary with ovary being thickened and inflamed. Extensive adhesions of small bowel in the pelvis as well as to the anterior abdominal wall, adhesions of the cecum to the anterior abdominal wall and pelvis, prior mesh identified, was incorporated well into the fascia of the abdominal wall" Complicated diverticulitis led to septic shock requiring ICU care, pressors, etc. Continues to improve each day clinically TPN started while still in ICU but d/c on 11/28 NG tube d/c on 11/27 Clears started on 11/27 - tolerating such without N/V/abd pain cont IV abx in the form of cipro/flagyl plan 10 days in total with day #1 being hospital day #1 ---> thus, day #8 of IV abx therapy severe leukocytosis -- hopefully this is due to high-dose steroids since HD #1 with ongoing taper but certainly could be due to an intra-abdominal process discussed w/ Dr Upton from gen surg -- to be on safe side will obtain CT a/p with IV contrast, r/o new pathology, infectious process in abdomen, etc. CRP slightly higher than prior CRP procal down SIGNIFICANTLY since admission u/a not suggestive of UTI urine cx negative (2) Shock, septic: Plan: 2nd to perforated/complicated diverticulitis did require pressors, IV fluids, and stress dose steroids in ICU off pressors for 20+ hours (weaned on 11/25 afternoon) BPs stable stop all stress dose steroids today (3) Sepsis: Plan: 2nd to #1 above resolved (4) Paroxysmal atrial fibrillation: Plan: new onset - developed such 11/26, resolved 11/27 (had such for ~24 hours) low K, low mag, stress of illness, etc - all likely culprits for developing such CHADS-VASc score is 5 (age, female, HTN, DM) - 5-6% change of CVA/year would add low-dose BB in the form of meto tartrate 25mg BID starting today ok to start anticoagulation per gen surg Eliquis - $0 dollar copay recent echo - preserved EF, normal valves recent TSH 3.8 in October will hold off on Eliquis today until we know results of CT abd/pelvis (5) MARGUERITE (acute kidney injury): Plan: sepsis associated ATN Cr on admission was 3.26 ATN resolved BMP am (6) Severe obstructive sleep apnea: Plan: cont CPAP as tolerated (7) Chronic diastolic congestive heart failure: Plan: compensated is auto-diuresing in the setting of resolved ATN (8) Hypertension: Plan: cont metoprolol 25mg BID hold amlodipine (9) Type 2 diabetes mellitus: Plan: A1c of 5.7% on 10/22/2024. Hold semaglutide Novolog Sliding scale controlled (10) Tobacco abuse: Plan: cont Nicotine patch (11) Thrombocytopenia: Plan: 2nd to medication side effect (antibiotics)? sepsis induced? hepatic related? regardless of etiology platelets now normal HIT assay NEGATIVE (12) Morbid obesity with BMI of 40.0-44.9, adult: Plan: BMI 41/42 (13) Acute metabolic encephalopathy: Plan: "ICU psychosis" toxic effects from pain meds etc likely all to blame either way fully resolved (14) Type 2 ME (myocardial infarction): Plan: peak troponin 301 myocardial demand ischemia in setting of septic shock (15) S/P Megan procedure: Plan: as above in #1 (16) Colostomy status: Plan: as above in #1 (17) Hypokalemia: Plan: repleted/resolved (18) Hypomagnesemia: Plan: replaced/resolved (19) Hypophosphatemia: Plan: replaced/resolved Plan PT/OT evals appreciated needs rehab -- referrals made pt's sister updated at bedside yesterday progressing very nicely Admission and Anticipated Discharge Date Admission Date: November 23, 2024 Subjective no events overnight tele wnl - no a.fib she feels good has mild LLQ pain but not any more severe than previous tolerating clears no N/V no new areas of abd pain she is tired today, but [id number] walking the hallways, walking to bathroom, etc. Review of Systems Review of Systems: gen - no fevers or chills cv - no cp, no orthopnea, no edema pulm - no cough or wheeze GI - no blood per ostomy Physical Exam Physical Exam: gen - laying in bed comfortably, morbidly obese, NAD, very pleasant; looks well neck - no JVD mouth - MMM, no lesions heart - RRR, s1 s2, no murmur lungs - CTA b/l, normal airation abd - soft, BS+, ostomy in place with brown stool in bag, stoma clean, SAMRA drain with serosanguinous fluids, minimally tender to palpation LLQ; staple line intact midline ext - no edema, pulses b/l feet 2+ psych - a/o x 3 Results & Data Results & Data Vital Signs (Past 12 Hours) Vital Signs Temp Pulse Pulse Pulse Resp BP BP 11/30/24 11:21 36.4 C L 66 19 113/71 11/30/24 07:34 36.3 C L 68 18 135/81 11/30/24 07:01 65 11/30/24 03:30 67 24 11/30/24 03:19 36.7 C 71 16 143/78 H 11/29/24 23:58 36.7 C 71 20 122/71 Pulse Ox O2 Del Method 11/30/24 11:21 98 Room Air 11/30/24 07:34 97 Room Air 11/30/24 07:01 11/30/24 03:30 95 11/30/24 03:19 97 CPAP 11/29/24 23:58 94 CPAP Laboratory Results Laboratory Results - last 24 hr 11/29/24 11/29/24 11/29/24 12:26 16:56 20:40 WBC RBC Hgb Hct MCV MCH MCHC RDW Std Deviation RDW Coeff of Hiral Plt Count MPV Immature Gran % (Auto) Neut % (Auto) Lymph % (Auto) [place] % (Auto) Eos % (Auto) Baso % (Auto) Neut # (Auto) Lymph # (Auto) [place] # (Auto) Eos # (Auto) Baso # (Auto) Immature Gran # (Auto) Absolute Nucleated RBC Nucleated RBC % (auto) Sodium Potassium Chloride Carbon Dioxide Anion Gap BUN Creatinine Est Cr Clr Drug Dosing eGFR BUN/Creatinine Ratio Glucose POC Glucose 103 H 93 92 Calcium C-Reactive Protein Procalcitonin Urine Color Urine Appearance Urine pH Ur Specific [place] Urine Protein Urine Glucose (UA) Urine Ketones Urine Blood Urine Nitrite Urine Bilirubin Urine Urobilinogen Ur Leukocyte Esterase Urine WBC (Auto) Urine RBC (Auto) U Hyaline Cast (Auto) U Epithel Cells (Auto) Urine Bacteria (Auto) 11/29/24 11/30/24 11/30/24 21:01 05:07 08:09 WBC 29.90 H RBC 3.57 L Hgb 10.3 L Hct 29.8 L MCV 83.5 MCH 28.9 MCHC 34.6 RDW Std Deviation 42.7 RDW Coeff of Hiral 14.1 Plt Count 169 MPV 13.5 H Immature Gran % (Auto) 7.3 Neut % (Auto) 71.5 Lymph % (Auto) 14.6 [place] % (Auto) 5.9 Eos % (Auto) 0.3 Baso % (Auto) 0.4 Neut # (Auto) 21.36 H Lymph # (Auto) 4.38 H [place] # (Auto) 1.77 H Eos # (Auto) 0.08 Baso # (Auto) 0.12 Immature Gran # (Auto) 2.19 H Absolute Nucleated RBC 0.02 Nucleated RBC % (auto) 0.1 Sodium 136 Potassium 4.1 Chloride 103 Carbon Dioxide 28 Anion Gap 5 BUN 15 Creatinine 0.74 Est Cr Clr Drug Dosing 77.8 eGFR 89.18 BUN/Creatinine Ratio 20.3 H Glucose 122 H POC Glucose 121 H Calcium 9.2 C-Reactive Protein 4.25 H Procalcitonin 2.82 H Urine Color Yellow Urine Appearance Clear Urine pH 6.0 Ur Specific [place] 1.005 Urine Protein Negative Urine Glucose (UA) Negative Urine Ketones Negative Urine Blood Negative Urine Nitrite Negative Urine Bilirubin Negative Urine Urobilinogen Negative Ur Leukocyte Esterase Trace H Urine WBC (Auto) 0-5 Urine RBC (Auto) 0-2 U Hyaline Cast (Auto) 0-2 U Epithel Cells (Auto) 0-2 Urine Bacteria (Auto) None Seen PG Care Time/CCT Total # of Minutes Spent Total Time Spent with Patient: Total time spent is greater than 50% in coordination of care (as documented) at patient's floor/unit and/or counseling patient: Coding Level of Care Code 89264 SUB INP/OBS CARE 3/50MIN Diagnoses Diverticular disease of intestine with perforation and abscess K57.80 Shock, septic A41.9; R65.21 Sepsis A41.9; R65.20; N17.9 Acute renal failure type: unspecified Sepsis acute organ dysfunction status: with acute organ dysfunction Sepsis type: sepsis due to unspecified organism Severe sepsis acute organ dysfunction type: acute renal failure Severe sepsis shock status: unspecified Paroxysmal atrial fibrillation I48.0 MARGUERITE (acute kidney injury) N17.9 Severe obstructive sleep apnea G47.33 Chronic diastolic congestive heart failure I50.32 Essential hypertension I10 Hypertension type: essential hypertension Type 2 diabetes mellitus with diabetic neuropathy, without long-term current use of insulin E11.40 Diabetes mellitus complication detail: with unspecified neuropathy Diabetes mellitus complication status: with neurologic complications Diabetes mellitus mcc insulin use: 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 Tobacco abuse Z72.0 Thrombocytopenia D69.6 Morbid obesity with BMI of 40.0-44.9, adult E66.01; Z68.41 Acute metabolic encephalopathy G93.41 Type 2 ME (myocardial infarction) I21.A1 S/P Megan procedure Z93.3 Colostomy status Z93.3 Hypokalemia E87.6 Hypomagnesemia E83.42 Hypophosphatemia E83.39 (3) Sepsis Acute renal failure type: unspecified Sepsis acute organ dysfunction status: with acute organ dysfunction Sepsis type: sepsis due to unspecified organism Severe sepsis acute organ dysfunction type: acute renal failure Severe sepsis shock status: unspecified Qualified Code(s): A41.9 - Sepsis, unspecified organism; R65.20 - Severe sepsis without septic shock; N17.9 - Acute kidney failure, unspecified (8) Hypertension Hypertension type: essential hypertension Qualified Code(s): I10 - Essential (primary) hypertension (9) Type 2 diabetes mellitus Diabetes mellitus complication detail: with unspecified neuropathy Diabetes mellitus complication status: with neurologic complications Diabetes mellitus mcc insulin use: without mcc use Qualified Code(s): E11.40 - Type 2 diabetes mellitus with diabetic neuropathy, unspecified
--- NOTE | 2024-11-30 14:18 | Pharmacy Report ---
Pharmacy Glycemic Sign Off Nt - Date of Service November 30, 2024 - Assessment & Plan ASSESSMENT: * Pharmacy was consulted by Xin Ellis on 11/25/24 for glycemic control and to write orders per [facility] inpatient glycemic control protocol. * No major changes made by pharmacy to antidiabetic regimen * Patient has been requiring 0-1 units of insulin per day for adequate glycemic control. No basal insulin. * BSGs ranging 80-121 mg/dl over the past 48 hours * Do not anticipate further changes in patient status that would quickly deteriorate glycemic control (i.e. patient to be NPO for upcoming procedure, steroids tapering, starting tube feedings, etc). PLAN FOR INPATIENT GLYCEMIC CONTROL: * Continue NovoLog per scale ACHS/Q6hrs while NPO * Goal range = 120 - 160 mg/dl * CF = 25 mg/dl/unit * CR = none * Pharmacy is signing off of glycemic consult and will no longer be making adjustments to inpatient regimen. Please feel free to re-consult if needed. Thank you.
[2024-11-30] MEDS: OPTIRAY 320 100ml IV ONE (15:10)
--- NOTE | 2024-11-30 16:18 | CT Scan Report ---
EXAM: CT Abdomen and Pelvis With Intravenous Contrast INDICATION: Persistent leukocytosis. Left lower quadrant pain. TECHNIQUE: Axial computed tomography images of the abdomen and pelvis with intravenous contrast. Sagittal and coronal reformatted images were created and reviewed. This CT exam was performed using one or more of the following dose reduction techniques: automated exposure control, adjustment of the mA and/or kV according to patient size, and/or use of iterative reconstruction technique. CONTRAST: 90 ml of Optiray 320 was administered intravenously. COMPARISON: 11/23/2024 and 09/11/2023 FINDINGS: Limitations: None. Lung bases: No abnormality noted. Pleural space: No visualized pleural effusion or pneumothorax. Heart: No abnormality noted. Mediastinum: No abnormality noted. ABDOMEN: Liver: No abnormality noted. Gallbladder and bile ducts: No calcified stones or surrounding fluid. No ductal dilation. Pancreas: Homogeneous enhancement. No mass, inflammation or ductal dilation. Spleen: No significant abnormality noted. Adrenals: Stable bilateral nonspecific adrenal nodules. Kidneys and ureters: Normal enhancement. No mass, hydronephrosis or visualized stone. Stomach and bowel: Interval left lower quadrant colostomy. There is mild prominent small bowel layering fluid. Air and stool in the rectum. Suspect interval sigmoidectomy. Scattered diverticula of the more proximal colon. PELVIS: Appendix: No findings to suggest acute appendicitis. Bladder: No filling defects to suggest mass or large stone. No inflammation. Reproductive: No abnormalities noted. ABDOMEN and PELVIS: Intraperitoneal space: No free air. No significant fluid collection. Bones/joints: No acute changes. Soft tissues: Ventral hernia repair changes with increased inflammation of the anterior abdominal wall. There is a small fluid collection above the mesh with a bubble of air in the preperitoneal fat measuring 2.3 x 1.8 x 1.3 cm. There is a small amount of fluid in the midline inferior to the mesh measuring approximately 2.6 cm transverse by 0.7 cm AP by 3.2 cm long. There is been interval laparotomy with skin michoacano now present. Vasculature: No abdominal aortic aneurysm. Lymph nodes: No pathologically enlarged lymph nodes. Tubes, lines and devices: There is a peritoneal drain looped upon itself in the right pelvis. No fluid collection along the tube. IMPRESSION: 1. Interval sigmoidectomy with left lower quadrant colostomy. There is ileus. 2. There has been interval laparotomy. There is edema and a small amount of fluid and minimal gas in the preperitoneal fat which may reflect cellulitis and developing abscess along the mesh. 3. There is a peritoneal drain in the pelvis. ACT 112: N/A Electronically signed by Rosi Miner 11-30-2024 4:13 PM
[2024-12-01 05:48] LABS: Hematocrit (blood only) 28.5 % (37.0-47.0); Hemoglobin 9.7 g/dl (12.0-16.0); Mean Corpuscular Hemoglobin 28.9 pg (25.0-34.0); Mean Corpuscular Volume 84.8 fL (80.0-100.0); Platelet Count 211 K/uL (130-400); RDW Standard Deviation 44.2 fL (36.4-46.3); Red Blood Count 3.36 M/uL (4.20-5.40); White Blood Count 20.12 K/ul (4.8-10.8)
[2024-12-01 06:02] LABS: Anion Gap 3.0 (3-11); Blood Urea Nitrogen 9.0 mg/dl (6-23); Calcium 9.0 mg/dl (8.6-10.3); Carbon Dioxide 30.0 mmol/L (21-32); Chloride 103.0 mmol/L (98-107); Creatinine Clr Calc Pharmacy 91.4 ml/min; Glucose 104.0 mg/dl (70-99(Fasting)); Potassium 3.5 mmol/L (3.5-5.1); Sodium 136.0 mmol/L (136-145)
[2024-12-01 07:14] LABS: Acanthocytes 1+; Immature Granulocytes # (auto) 1.32 K/uL (0.01-0.20); Immature Granulocytes % (auto) 6.6 %; Polychromasia 2+
--- NOTE | 2024-12-01 08:54 | Surgery Progress Note ---
Date of Service December 01, 2024 Assessment & Plan (1) Diverticular disease of intestine with perforation and abscess: Plan: Status post Megan procedure on 11/24/2024 (postop day #9) WBC 20 (29). Her vitals are stable and she is without fever Pt feels well. Abdominal pain controlled. No n/v. She reports + ostomy function CT scan yesterday showed some edema and a small amount of fluid and minimal gas in the preperitoneal fat which may reflect cellulitis and developing abscess along the mesh. Would continue IV cipro/flagyl for now Will advance to low fiber and see how she fairs Continue to encourage OOB/ambulation. PT/OR on board, currently recommending rehab Ongoing ostomy care and education recommended Admission and Anticipated Discharge Date Admission Date: November 23, 2024 Subjective Patient feels well. Abdominal pain managed. Tolerating clears. no n/v. Ostomy is functioning, apparently bag leaked yesterday and needed replaced. Physical Exam Physical Exam: awake/alert, no distress Respiratory: normal respiratory effort Gastrointestinal (Abdomen): Inspection/Auscultation: + abdominal surgical incision (midline incision w/ michoacano, no infection, c/d/i) and + abdominal surgical drain present (serosang); abdomen not distended + ostomy viable , bubbling gas while im in the room Results & Data Vital Signs (Past 12 Hours) Vital Signs Temp Pulse Pulse Resp BP Pulse Ox O2 Del Method 12/01/24 07:22 97.9 F 72 19 128/74 100 Room Air 12/01/24 03:00 98.2 F 75 18 132/73 92 Room Air 11/30/24 23:00 98.4 F 75 18 112/70 94 Room Air 11/30/24 22:36 78 PG Care Time/CCT Total # of Minutes Spent Total Time Spent with Patient: Total time spent is greater than 50% in coordination of care (as documented) at patient's floor/unit and/or counseling patient: Coding Level of Care Code 32264 Post Operative Follow-Up Diagnoses Diverticular disease of intestine with perforation and abscess K57.80
[2024-12-01 12:55] LABS: Toxic Vacuolation 2+
--- NOTE | 2024-12-01 18:53 | Hospitalist Progress Note ---
Date of Service December 01, 2024 Assessment & Plan (1) Diverticular disease of intestine with perforation and abscess: Plan: POD#7 - s/p Exploratory Laparotomy, Megan's Procedure, adhesiolysis of small bowel to anterior abdominal wall and pelvis as well as interloop adhesions, suture repair of serosal tear of small bowel as well as cecum, colostomy creation - by Dr Simon Thorne Findings in the OR: "Diverticular disease of intestine with perforation and abscess, with adhesions, possible fistula and abscess formation involving the left ovary with ovary being thickened and inflamed. Extensive adhesions of small bowel in the pelvis as well as to the anterior abdominal wall, adhesions of the cecum to the anterior abdominal wall and pelvis, prior mesh identified, was incorporated well into the fascia of the abdominal wall" Complicated diverticulitis led to septic shock requiring ICU care, pressors, etc. Continues to improve each day clinically TPN started while still in ICU but d/c on 11/28 NG tube d/c on 11/27 Clears started on 11/27 Advanced to regular diet today, 12/01 cont IV abx in the form of cipro/flagyl plan 10 days in total with day #1 being hospital day #1 ---> thus, day #9 of IV abx therapy severe leukocytosis -- improved today went from [address] a/p yesterday with findings noted -- gen surg aware; they advise ongoing IV antibiotics no plans at this time for intervention of the possible fluid collection pre- peritoneal repeat CBC with CRP in am tomorrow (2) Shock, septic: Plan: 2nd to perforated/complicated diverticulitis did require pressors, IV fluids, and stress dose steroids in ICU off pressors for 20+ hours (weaned on 11/25 afternoon) BPs stable stopped all stress dose steroids on 11/30 (3) Sepsis: Plan: 2nd to #1 above resolved (4) Paroxysmal atrial fibrillation: Plan: developed such 11/26, resolved 11/27 (had such for ~24 hours) low K, low mag, stress of illness, etc - all likely culprits for developing such CHADS-VASc score is 5 (age, female, HTN, DM) - 5-6% change of CVA/year would add low-dose BB in the form of meto tartrate 25mg BID starting today ok to start anticoagulation per gen surg Eliquis - $0 dollar copay recent echo - preserved EF, normal valves recent TSH 3.8 in October will hold off on Eliquis until we know she won't need any interventions on the fluid collection seen on CT yesterday (5) MARGUERITE (acute kidney injury): Plan: sepsis associated ATN Cr on admission was 3.26 ATN resolved Cr remains <1 BMP am (6) Severe obstructive sleep apnea: Plan: cont CPAP (7) Chronic diastolic congestive heart failure: Plan: compensated (8) Hypertension: Plan: cont metoprolol 25mg BID hold amlodipine BPs controlled (9) Type 2 diabetes mellitus: Plan: A1c of 5.7% on 10/22/2024 Hold semaglutide Novolog Sliding scale controlled (10) Tobacco abuse: Plan: cont Nicotine patch (11) Thrombocytopenia: Plan: resolved 2nd to medication side effect (antibiotics)? sepsis induced? hepatic related? regardless of etiology platelets now normal HIT assay -- NEGATIVE (12) Morbid obesity with BMI of 40.0-44.9, adult: Plan: BMI 41/42 (13) Acute metabolic encephalopathy: Plan: "ICU psychosis" toxic effects from pain meds etc likely all to blame either way fully resolved (14) Type 2 HI (myocardial infarction): Plan: peak troponin 301 myocardial demand ischemia in setting of septic shock (15) S/P Megan procedure: Plan: as above in #1 (16) Colostomy status: Plan: as above in #1 (17) Hypokalemia: Plan: repleted/resolved (18) Hypomagnesemia: Plan: replaced/resolved (19) Hypophosphatemia: Plan: replaced/resolved Plan PT/OT shruti appreciated needs rehab -- referrals made pt's sister updated at bedside this weekend multiple times Admission and Anticipated Discharge Date Admission Date: November 23, 2024 Subjective tele overnight wnl; no PAF feels good had regular food today and tolerated such without nausea, emesis or worsening abd pain continues to have issues with her ostomy coming loose and leaking stool ambulating well denies dyspnea she is very happy with her progress Review of Systems Review of Systems: CV - no cp, no edema, no orthopnea, no PND pulm - no dyspnea or DAVIS GI - mild post-op LLQ abd pain - no change from prior days Physical Exam Physical Exam: gen - laying in bed comfortably, morbidly obese, NAD, very pleasant; looks great today; in good spirits neck - no JVD mouth - MMM, no lesions heart - RRR, s1 s2, no murmur lungs - CTA b/l, normal airation abd - soft, BS+, ostomy in place with brown stool in bag, stoma clean, SAMRA drain with serosanguinous fluid, scant tenderness to palpation LLQ; staple line intact midline with no erythema ext - no edema, pulses b/l feet 2+ psych - a/o x 3 Results & Data Results & Data Vital Signs (Past 12 Hours) Vital Signs Temp Pulse Resp BP Pulse Ox O2 Del Method 12/01/24 16:06 37.6 C H 75 23 122/72 99 Room Air 12/01/24 11:16 37.3 C 76 18 112/65 96 Room Air 12/01/24 07:22 36.6 C 72 19 128/74 100 Room Air Laboratory Results Laboratory Results 12/01/24 05:29 WBC 20.12 H RBC 3.36 L Hgb 9.7 L Hct 28.5 L MCV 84.8 MCH 28.9 MCHC 34.0 RDW Std Deviation 44.2 RDW Coeff of Hiral 14.6 H Plt Count 211 MPV 12.3 Immature Gran % (Auto) 6.6 Neut % (Auto) 62.1 Lymph % (Auto) 22.4 [place] % (Auto) 7.5 Eos % (Auto) 1.1 Baso % (Auto) 0.3 Neut # (Auto) 12.51 H Lymph # (Auto) 4.51 H [place] # (Auto) 1.50 H Eos # (Auto) 0.22 Baso # (Auto) 0.06 Immature Gran # (Auto) 1.32 H Toxic Vacuolation 2+ Polychromasia 2+ Acanthocytes (Spur) 1+ Sodium 136 Potassium 3.5 Chloride 103 Carbon Dioxide 30 Anion Gap 3 BUN 9 Creatinine 0.63 Est Cr Clr Drug Dosing 91.4 eGFR 97.78 BUN/Creatinine Ratio 14.3 Glucose 104 H Calcium 9.0 Microbiology 11/29/24 21:01 Urine,Clean Catch Urine Culture - Final No growth - less than 1,000 colonies/mL. 11/23/24 14:46 Blood Aerobic Blood Culture - Final No growth in Aerobic bottle after 5 days. 11/23/24 14:46 Blood Anaerobic Blood Culture - Final No growth in Anaerobic bottle after 5 days. 11/23/24 15:24 Blood Aerobic Blood Culture - Final No growth in Aerobic bottle after 5 days. 11/23/24 15:24 Blood Anaerobic Blood Culture - Final No growth in Anaerobic bottle after 5 days. Diagnostic Findings Abdomen/Pelvis CT 11/30/24 14:39 EXAM: CT Abdomen and Pelvis With Intravenous Contrast INDICATION: Persistent leukocytosis. Left lower quadrant pain. TECHNIQUE: Axial computed tomography images of the abdomen and pelvis with intravenous contrast. Sagittal and coronal reformatted images were created and reviewed. This CT exam was performed using one or more of the following dose reduction techniques: automated exposure control, adjustment of the mA and/or kV according to patient size, and/or use of iterative reconstruction technique. CONTRAST: 90 ml of Optiray 320 was administered intravenously. COMPARISON: 11/23/2024 and 09/11/2023 FINDINGS: Limitations: None. Lung bases: No abnormality noted. Pleural space: No visualized pleural effusion or pneumothorax. Heart: No abnormality noted. Mediastinum: No abnormality noted. ABDOMEN: Liver: No abnormality noted. Gallbladder and bile ducts: No calcified stones or surrounding fluid. No ductal dilation. Pancreas: Homogeneous enhancement. No mass, inflammation or ductal dilation. Spleen: No significant abnormality noted. Adrenals: Stable bilateral nonspecific adrenal nodules. Kidneys and ureters: Normal enhancement. No mass, hydronephrosis or visualized stone. Stomach and bowel: Interval left lower quadrant colostomy. There is mild prominent small bowel layering fluid. Air and stool in the rectum. Suspect interval sigmoidectomy. Scattered diverticula of the more proximal colon. PELVIS: Appendix: No findings to suggest acute appendicitis. Bladder: No filling defects to suggest mass or large stone. No inflammation. Reproductive: No abnormalities noted. ABDOMEN and PELVIS: Intraperitoneal space: No free air. No significant fluid collection. Bones/joints: No acute changes. Soft tissues: Ventral hernia repair changes with increased inflammation of the anterior abdominal wall. There is a small fluid collection above the mesh with a bubble of air in the preperitoneal fat measuring 2.3 x 1.8 x 1.3 cm. There is a small amount of fluid in the midline inferior to the mesh measuring approximately 2.6 cm transverse by 0.7 cm AP by 3.2 cm long. There is been interval laparotomy with skin [place] now present. Vasculature: No abdominal aortic aneurysm. Lymph nodes: No pathologically enlarged lymph nodes. Tubes, lines and devices: There is a peritoneal drain looped upon itself in the right pelvis. No fluid collection along the tube. IMPRESSION: 1. Interval sigmoidectomy with left lower quadrant colostomy. There is ileus. 2. There has been interval laparotomy. There is edema and a small amount of fluid and minimal gas in the preperitoneal fat which may reflect cellulitis and developing abscess along the mesh. 3. There is a peritoneal drain in the pelvis. ACT 112: N/A Electronically signed by Rosi Miner 11-30-2024 4:13 PM PG Care Time/CCT Total # of Minutes Spent Total Time Spent with Patient: Total time spent is greater than 50% in coordination of care (as documented) at patient's floor/unit and/or counseling patient: Coding Level of Care Code 19426 SUB INP/OBS CARE 2/35MIN Diagnoses Diverticular disease of intestine with perforation and abscess K57.80 Shock, septic A41.9; R65.21 Sepsis A41.9; R65.20; N17.9 Acute renal failure type: unspecified Sepsis acute organ dysfunction status: with acute organ dysfunction Sepsis type: sepsis due to unspecified organism Severe sepsis acute organ dysfunction type: acute renal failure Severe sepsis shock status: unspecified Paroxysmal atrial fibrillation I48.0 MARGUERITE (acute kidney injury) N17.9 Severe obstructive sleep apnea G47.33 Chronic diastolic congestive heart failure I50.32 Essential hypertension I10 Hypertension type: essential hypertension Type 2 diabetes mellitus with diabetic neuropathy, without long-term current use of insulin E11.40 Diabetes mellitus complication detail: with unspecified neuropathy Diabetes mellitus complication status: with neurologic complications Diabetes mellitus penitentiary insulin use: without penitentiary use Tobacco abuse Z72.0 Thrombocytopenia D69.6 Morbid obesity with BMI of 40.0-44.9, adult E66.01; Z68.41 Acute metabolic encephalopathy G93.41 Type 2 HI (myocardial infarction) I21.A1 S/P Megan procedure Z93.3 Colostomy status Z93.3 Hypokalemia E87.6 Hypomagnesemia E83.42 Hypophosphatemia E83.39 (3) Sepsis Acute renal failure type: unspecified Sepsis acute organ dysfunction status: with acute organ dysfunction Sepsis type: sepsis due to unspecified organism Severe sepsis acute organ dysfunction type: acute renal failure Severe sepsis shock status: unspecified Qualified Code(s): A41.9 - Sepsis, unspecified organism; R65.20 - Severe sepsis without septic shock; N17.9 - Acute kidney failure, unspecified (8) Hypertension Hypertension type: essential hypertension Qualified Code(s): I10 - Essential (primary) hypertension (9) Type 2 diabetes mellitus Diabetes mellitus complication detail: with unspecified neuropathy Diabetes mellitus complication status: with neurologic complications 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
[2024-12-02 06:42] LABS: Hematocrit (blood only) 27.4 % (37.0-47.0); Hemoglobin 9.5 g/dl (12.0-16.0); Immature Granulocytes # (auto) 0.72 K/uL (0.01-0.20); Immature Granulocytes % (auto) 3.5 %; Mean Corpuscular Hemoglobin 29.3 pg (25.0-34.0); Mean Corpuscular Volume 84.6 fL (80.0-100.0); Platelet Count 273 K/uL (130-400); RDW Standard Deviation 44.6 fL (36.4-46.3); Red Blood Count 3.24 M/uL (4.20-5.40); White Blood Count 20.34 K/ul (4.8-10.8)
[2024-12-02 07:09] LABS: Anion Gap 4.0 (3-11); Blood Urea Nitrogen 8.0 mg/dl (6-23); Calcium 9.1 mg/dl (8.6-10.3); Carbon Dioxide 29.0 mmol/L (21-32); Chloride 103.0 mmol/L (98-107); Creatinine Clr Calc Pharmacy 88.0 ml/min; Glucose 103.0 mg/dl (70-99(Fasting)); Potassium 3.8 mmol/L (3.5-5.1); Sodium 136.0 mmol/L (136-145)
--- NOTE | 2024-12-02 11:09 | Surgery Progress Note ---
Date of Service December 02, 2024 Assessment & Plan (1) S/P Megan procedure: Plan: For perforated complicated diverticulitis with Coloovarian fistula and abscess. Clinically she appears to be doing well but her white blood cell count is still elevated. She does have a history of previous abdominal surgeries with mesh in her abdomen. Will broaden coverage today for antibiotics. Can remove drain. Discharge planning. Admission and Anticipated Discharge Date Admission Date: November 23, 2024 Subjective Patient reports she feels well, tolerating oral intake well. Review of Systems Review of Systems: All systems reviewed & are unremarkable except as noted in HPI & below Physical Exam Constitutional: WD/WN, vitals as above Eyes: PERRL, conjunctivae normal, anicteric sclerae Gastrointestinal (Abdomen): Soft, nondistended, colostomy viable and functional, incision appears to be healing well, no erythema or swelling SAMRA with serosanguineous fluid Results & Data Vital Signs (Past 12 Hours) Vital Signs Temp Pulse Pulse Pulse Resp BP Pulse Ox 12/02/24 08:21 37.1 C 77 19 110/71 97 12/02/24 07:30 71 12/02/24 03:03 37.0 C 74 18 114/69 96 12/01/24 23:26 37.1 C 84 18 115/71 98 O2 Del Method 12/02/24 08:21 Room Air 12/02/24 07:30 12/02/24 03:03 Room Air 12/01/24 23:26 Room Air PG Care Time/CCT Total # of Minutes Spent Total Time Spent with Patient: Total time spent is greater than 50% in coordination of care (as documented) at patient's floor/unit and/or counseling patient: Coding Level of Care Code 54126 Post Operative Follow-Up Diagnoses S/P Megan procedure Z93.3
[2024-12-02] MEDS: PIPERACILLIN/TAZOBACTAM 4.5 GM/100 ML BAG IV ONE (11:37)
[2024-12-02] MEDS: GABAPENTIN 800 MG TAB PO SCH (13:33)
[2024-12-02] MEDS: PIPERACILLIN/TAZOBACTAM 4.5 GM/100 ML BAG IV SCH (17:03)
--- NOTE | 2024-12-02 18:45 | Hospitalist Progress Note ---
Date of Service December 02, 2024 Assessment & Plan (1) Diverticular disease of intestine with perforation and abscess: Plan: POD#8 - s/p Exploratory Laparotomy, Megan's Procedure, adhesiolysis of small bowel to anterior abdominal wall and pelvis as well as interloop adhesions, suture repair of serosal tear of small bowel as well as cecum, colostomy creation - by Dr Simon Thorne Findings in the OR: "Diverticular disease of intestine with perforation and abscess, with adhesions, possible fistula and abscess formation involving the left ovary with ovary being thickened and inflamed. Extensive adhesions of small bowel in the pelvis as well as to the anterior abdominal wall, adhesions of the cecum to the anterior abdominal wall and pelvis, prior mesh identified, was incorporated well into the fascia of the abdominal wall" Complicated diverticulitis led to septic shock requiring ICU care, pressors, etc. TPN started while still in ICU but d/c on 11/28 NG tube d/c on 11/27 Clears started on 11/27 Advanced to regular diet 12/01 remains on IV abx today is day #10 of IV cipro/flagyl although severe leukocytosis had improved from 30 to 20 on 12/01, the wbc count today is again 20, and CRP is trending up again CT a/p 11/30/24 --> Soft tissues: Ventral hernia repair changes with increased inflammation of the anterior abdominal wall. There is a small fluid collection above the mesh with a bubble of air in the preperitoneal fat measuring 2.3 x 1.8 x 1.3 cm. There is a small amount of fluid in the midline inferior to the mesh measuring approximately 2.6 cm transverse by 0.7 cm AP by 3.2 cm long. There is been interval laparotomy with skin michoacano now present. In light of persistent leukocytosis, trending up CRP, low-grade temps last pm (Tm 37.7), etc ---> Dr Thorne d/c cipro/flagyl, changed to IV zosyn today -I agree with that change will recheck CBC and CRP in am (2) Shock, septic: Plan: 2nd to perforated/complicated diverticulitis did require pressors, IV fluids, and stress dose steroids in ICU off pressors for 20+ hours (weaned on 11/25 afternoon) BPs stable stopped all stress dose steroids on 11/30 (3) Sepsis: Plan: 2nd to #1 above resolved (4) Paroxysmal atrial fibrillation: Plan: developed such 11/26, resolved 11/27 (had such for ~24 hours) low K, low mag, stress of illness, etc - all likely culprits for developing such CHADS-VASc score is 5 (age, female, HTN, DM) - 5-6% change of CVA/year would add low-dose BB in the form of meto tartrate 25mg BID starting today ok to start anticoagulation per gen surg Eliquis - $0 dollar copay recent echo - preserved EF, normal valves recent TSH 3.8 in October will hold off on Eliquis until we know she won't need any interventions on the fluid collection seen on CT 11/30 (5) MARGUERITE (acute kidney injury): Plan: sepsis associated ATN --> resolved Cr on admission was 3.26 Cr remains <1 BMP am (6) Severe obstructive sleep apnea: Plan: cont CPAP (7) Chronic diastolic congestive heart failure: Plan: compensated on exam (8) Hypertension: Plan: controlled with metoprolol 25mg BID which was started late last week cont to hold amlodipine for now (9) Type 2 diabetes mellitus: Plan: A1c of 5.7% on 10/22/2024 Holding semaglutide Novolog Sliding scale with scant use of such BSGs well-controlled (10) Tobacco abuse: Plan: cont Nicotine patch (11) Thrombocytopenia: Plan: resolved 2nd to medication side effect (antibiotics)? sepsis induced? hepatic related? regardless of etiology platelets now normal HIT assay -- NEGATIVE (12) Morbid obesity with BMI of 40.0-44.9, adult: Plan: BMI 40-42 (13) Acute metabolic encephalopathy: Plan: "ICU psychosis" toxic effects from pain meds etc likely all to blame either way fully resolved (14) Type 2 NH (myocardial infarction): Plan: peak troponin 301 myocardial demand ischemia in setting of septic shock (15) S/P Megan procedure: Plan: as above in #1 (16) Colostomy status: Plan: as above in #1 (17) Hypokalemia: Plan: repleted/resolved (18) Hypomagnesemia: Plan: replaced/resolved (19) Hypophosphatemia: Plan: replaced/resolved (20) Hyperlipidemia: Plan: resume crestor Plan DVT proph -- lovenox 40mg BID due to BMI PT/OT shruti appreciated needs rehab -- referrals made pt's sister updated at bedside this past weekend multiple times care d/w colorectal surgery Dr Thorne Admission and Anticipated Discharge Date Admission Date: November 23, 2024 Subjective tele - no a.fib, no a.flutter; NSR only patient sitting in chair during the visit Shanta Sinha from wound care came to evaluate her ostomy and has recommended a different type of ostomy to prevent falling off and leaking Ms Weinberg continues with mild LLQ abd pain but NO worse than prior no nausea/emesis tolerating full diet without worsening of her pain ostomy functioning well denies any dyspnea or DAVIS SAMRA drain removed today Review of Systems 2 Review of Systems: gen - has felt warm yesterday/today but no rigors and endorses fatigue but generally feeling better day to day cv - no cp, no edema of legs pulm - no cough/dyspnea/wheeze GI - no new areas of abd pain Physical Exam 2 Physical Exam: gen - sitting in chair, looks well, NAD, very pleasant; obese neck - no JVD mouth - MMM, no lesions heart - RRR, s1 s2, no murmur lungs - CTA b/l, normal airation abd - soft, BS+, ostomy in place with brown stool in bag, stoma clean, SAMRA drain has been removed, minimal tenderness to palpation LLQ; vertical staple line intact midline with no erythema ext - no edema, pulses b/l feet 2+ psych - a/o x 3 Results & Data Results & Data Vital Signs (Past 12 Hours) Vital Signs Temp Pulse Pulse Resp BP Pulse Ox O2 Del Method 12/02/24 16:27 84 12/02/24 15:43 37.6 C H 78 20 110/73 100 Room Air 12/02/24 12:32 37.2 C 82 19 104/69 99 Room Air 12/02/24 08:21 37.1 C 77 19 110/71 97 Room Air 12/02/24 07:30 71 Laboratory Results Laboratory Results - last 24 hr 12/01/24 12/02/24 12/02/24 20:58 05:49 07:39 WBC 20.34 H RBC 3.24 L Hgb 9.5 L Hct 27.4 L MCV 84.6 MCH 29.3 MCHC 34.7 RDW Std Deviation 44.6 RDW Coeff of Hiral 14.9 H Plt Count 273 MPV 12.2 Immature Gran % (Auto) 3.5 Neut % (Auto) 65.9 Lymph % (Auto) 20.9 [place] % (Auto) 8.3 Eos % (Auto) 1.2 Baso % (Auto) 0.2 Neut # (Auto) 13.41 H Lymph # (Auto) 4.25 H [place] # (Auto) 1.68 H Eos # (Auto) 0.24 Baso # (Auto) 0.04 Immature Gran # (Auto) 0.72 H Sodium 136 Potassium 3.8 Chloride 103 Carbon Dioxide 29 Anion Gap 4 BUN 8 Creatinine 0.65 Est Cr Clr Drug Dosing 88.0 eGFR 97.04 BUN/Creatinine Ratio 12.3 Glucose 103 H POC Glucose 119 H 116 H Calcium 9.1 C-Reactive Protein 5.97 H 12/02/24 12/02/24 11:29 17:00 WBC RBC Hgb Hct MCV MCH MCHC RDW Std Deviation RDW Coeff of Hiral Plt Count MPV Immature Gran % (Auto) Neut % (Auto) Lymph % (Auto) [place] % (Auto) Eos % (Auto) Baso % (Auto) Neut # (Auto) Lymph # (Auto) [place] # (Auto) Eos # (Auto) Baso # (Auto) Immature Gran # (Auto) Sodium Potassium Chloride Carbon Dioxide Anion Gap BUN Creatinine Est Cr Clr Drug Dosing eGFR BUN/Creatinine Ratio Glucose POC Glucose 126 H 122 H Calcium C-Reactive Protein PG Care Time/CCT Total # of Minutes Spent Total Time Spent with Patient: Total time spent is greater than 50% in coordination of care (as documented) at patient's floor/unit and/or counseling patient: Coding Level of Care Code 63519 SUB INP/OBS CARE MIN Diagnoses Diverticular disease of intestine with perforation and abscess K57.80 Shock, septic A41.9; R65.21 Sepsis A41.9; R65.20; N17.9 Acute renal failure type: unspecified Sepsis acute organ dysfunction status: with acute organ dysfunction Sepsis type: sepsis due to unspecified organism Severe sepsis acute organ dysfunction type: acute renal failure Severe sepsis shock status: unspecified Paroxysmal atrial fibrillation I48.0 MARGUERITE (acute kidney injury) N17.9 Severe obstructive sleep apnea G47.33 Chronic diastolic congestive heart failure I50.32 Essential hypertension I10 Hypertension type: essential hypertension Type 2 diabetes mellitus with diabetic neuropathy, without long-term current use of insulin E11.40 Diabetes mellitus complication detail: with unspecified neuropathy Diabetes mellitus complication status: with neurologic complications Diabetes mellitus group home insulin use: without middle or intermediate school principal use Tobacco abuse Z72.0 Thrombocytopenia D69.6 Morbid obesity with BMI of 40.0-44.9, adult E66.01; Z68.41 Acute metabolic encephalopathy G93.41 Type 2 NH (myocardial infarction) I21.A1 S/P Megan procedure Z93.3 Colostomy status Z93.3 Hypokalemia E87.6 Hypomagnesemia E83.42 Hypophosphatemia E83.39 Hyperlipidemia E78.5 (3) Sepsis Acute renal failure type: unspecified Sepsis acute organ dysfunction status: with acute organ dysfunction Sepsis type: sepsis due to unspecified organism S evere sepsis acute organ dysfunction type: acute renal failure Severe sepsis shock status: unspecified Qualified Code(s): A41.9 - Sepsis, unspecified organism; R65.20 - Severe sepsis without septic shock; N17.9 - Acute kidney failure, unspecified (8) Hypertension Hypertension type: essential hypertension Qualified Code(s): I10 - Essential (primary) hypertension (9) Type 2 diabetes mellitus Diabetes mellitus complication detail: with unspecified neuropathy Diabetes mellitus complication status: with neurologic complications Diabetes mellitus group home insulin use: without group home use Qualified Code(s): E11.40 - Type 2 diabetes mellitus with diabetic neuropathy, unspecified
[2024-12-03 06:04] LABS: Hematocrit (blood only) 26.4 % (37.0-47.0); Hemoglobin 8.9 g/dl (12.0-16.0); Mean Corpuscular Hemoglobin 28.6 pg (25.0-34.0); Mean Corpuscular Volume 84.9 fL (80.0-100.0); Platelet Count 315 K/uL (130-400); RDW Standard Deviation 45.5 fL (36.4-46.3); Red Blood Count 3.11 M/uL (4.20-5.40); White Blood Count 14.89 K/ul (4.8-10.8)
[2024-12-03 06:14] LABS: Anion Gap 3.0 (3-11); Blood Urea Nitrogen 9.0 mg/dl (6-23); Calcium 9.0 mg/dl (8.6-10.3); Carbon Dioxide 29.0 mmol/L (21-32); Chloride 104.0 mmol/L (98-107); Creatinine Clr Calc Pharmacy 67.9 ml/min; Glucose 129.0 mg/dl (70-99(Fasting)); Potassium 3.6 mmol/L (3.5-5.1); Sodium 136.0 mmol/L (136-145)
[2024-12-03] MEDS: ROSUVASTATIN CALCIUM 5 MG TAB PO SCH (08:35)
[2024-12-03] MEDS: ENOXAPARIN INJ 40 MG/0.4 ML SYR SQ SCH (08:36)
--- NOTE | 2024-12-03 10:09 | Surgery Progress Note ---
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 Clinically she appears to be doing well and her white blood cell count is improving after changing antibiotics to Zosyn. Recommend continued this for a few more days, possibly remove michoacano before her discharge. She does have a history of previous abdominal surgeries with mesh in her abdomen. Will broaden coverage today for antibiotics. Can remove drain. Discharge planning. Admission and Anticipated Discharge Date Admission Date: November 23, 2024 Subjective Patient feels well, no complaints. Tolerating solid diet Review of Systems Review of Systems: All systems reviewed & are unremarkable except as noted in HPI & below Physical Exam Constitutional: WD/WN, vitals as above Respiratory: Normal respiratory effort Gastrointestinal (Abdomen): Abdomen soft, nondistended, incision healing well, colostomy viable and functional with output Results & Data Vital Signs (Past 12 Hours) Vital Signs Temp Pulse Pulse Pulse Resp BP Pulse Ox 12/03/24 08:12 36.4 C L 72 18 110/69 98 12/03/24 07:25 12/03/24 02:42 36.9 C 76 18 114/70 96 12/02/24 23:27 85 12/02/24 23:03 37.1 C 77 16 114/70 97 O2 Del Method 12/03/24 08:12 Room Air 12/03/24 07:25 Room Air 12/03/24 02:42 Room Air 12/02/24 23:27 12/02/24 23:03 Room Air Laboratory Results Labs noted for improved white blood cell count PG Care Time/CCT Total # of Minutes Spent Total Time Spent with Patient: Total time spent is greater than 50% in coordination of care (as documented) at patient's floor/unit and/or counseling patient: Coding Level of Care Code 58320 Post Operative Follow-Up Diagnoses S/P Megan procedure Z93.3
--- NOTE | 2024-12-03 10:13 | Operative Report ---
PG Post Operative Report Pre & Post Diagnosis Note in error Operation Date: 11/24/24 12:35 Pre-Op Diagnosis: Diverticular disease of intestine with perforation and abscess Post-Op Diagnosis: Diverticular disease of intestine with perforation and abscess I identified the patient and participated in the time-out.: Yes Procedure Operation Date: 11/24/24 12:35 Actual Procedures p Exploratory Laparotomy, Carmona's Procedure(Not Applicable) - Simon Thorne MD s Cystoscopy(Bilateral) - Paulo Byrne MD Surgeon Simon Thorne MD Scalloper Pura Masterson PA-C Estimated Blood Loss 100 Findings Consistent with Post-Op Diagnosis Specimens Note in error Anesthesia Type General Complications none Description of Procedure Note in error I attest to the content of the Intraoperative Record and any orders documented therein. Any exceptions are noted below.
--- NOTE | 2024-12-03 22:51 | Hospitalist Progress Note ---
Date of Service December 03, 2024 Assessment & Plan (1) Diverticular disease of intestine with perforation and abscess: Plan: POD#8 - s/p Exploratory Laparotomy, Megan's Procedure, adhesiolysis of small bowel to anterior abdominal wall and pelvis as well as interloop adhesions, suture repair of serosal tear of small bowel as well as cecum, colostomy creation - by Dr Simon Thorne Findings in the OR: "Diverticular disease of intestine with perforation and abscess, with adhesions, possible fistula and abscess formation involving the left ovary with ovary being thickened and inflamed. Extensive adhesions of small bowel in the pelvis as well as to the anterior abdominal wall, adhesions of the cecum to the anterior abdominal wall and pelvis, prior mesh identified, was incorporated well into the fascia of the abdominal wall" Complicated diverticulitis led to septic shock requiring ICU care, pressors, etc. TPN started while still in ICU but d/c on 11/28 NG tube d/c on 11/27 Clears started on 11/27 Advanced to regular diet 12/01 remains on IV abx today is day #10 of IV cipro/flagyl although severe leukocytosis had improved from 30 to 20 on 12/01, the wbc count today is again 20, and CRP is trending up again CT a/p 11/30/24 --> Soft tissues: Ventral hernia repair changes with increased inflammation of the anterior abdominal wall. There is a small fluid collection above the mesh with a bubble of air in the preperitoneal fat measuring 2.3 x 1.8 x 1.3 cm. There is a small amount of fluid in the midline inferior to the mesh measuring approximately 2.6 cm transverse by 0.7 cm AP by 3.2 cm long. There is been interval laparotomy with skin michoacano now present. In light of persistent leukocytosis, trending up CRP, low-grade temps last pm (Tm 37.7), etc ---> Dr Thorne d/c cipro/flagyl, changed to IV zosyn today -I agree with that change Finally no fever for past 24 hours. (2) Shock, septic: Plan: 2nd to perforated/complicated diverticulitis did require pressors, IV fluids, and stress dose steroids in ICU off pressors for 20+ hours (weaned on 11/25 afternoon) BPs stable stopped all stress dose steroids on 11/30 (3) Sepsis: Plan: 2nd to #1 above resolved (4) Paroxysmal atrial fibrillation: Plan: developed such 11/26, resolved 11/27 (had such for ~24 hours) low K, low mag, stress of illness, etc - all likely culprits for developing such CHADS-VASc score is 5 (age, female, HTN, DM) - 5-6% change of CVA/year would add low-dose BB in the form of meto tartrate 25mg BID starting today ok to start anticoagulation per gen surg Eliquis - $0 dollar copay recent echo - preserved EF, normal valves recent TSH 3.8 in October will hold off on Eliquis until we know she won't need any interventions on the fluid collection seen on CT 11/30 (5) MARGUERITE (acute kidney injury): Plan: sepsis associated ATN --> resolved Cr on admission was 3.26 Cr remains <1 BMP am (6) Severe obstructive sleep apnea: Plan: cont CPAP (7) Chronic diastolic congestive heart failure: Plan: compensated on exam (8) Hypertension: Plan: controlled with metoprolol 25mg BID which was started late last week cont to hold amlodipine for now (9) Type 2 diabetes mellitus: Plan: A1c of 5.7% on 10/22/2024 Holding semaglutide Novolog Sliding scale with scant use of such BSGs well-controlled (10) Tobacco abuse: Plan: cont Nicotine patch (11) Thrombocytopenia: Plan: resolved 2nd to medication side effect (antibiotics)? sepsis induced? hepatic related? regardless of etiology platelets now normal HIT assay -- NEGATIVE (12) Morbid obesity with BMI of 40.0-44.9, adult: Plan: BMI 40-42 (13) Acute metabolic encephalopathy: Plan: "ICU psychosis" toxic effects from pain meds etc likely all to blame either way fully resolved (14) Type 2 IL (myocardial infarction): Plan: peak troponin 301 myocardial demand ischemia in setting of septic shock (15) S/P Megan procedure: Plan: as above in #1 (16) Colostomy status: Plan: as above in #1 (17) Hypokalemia: Plan: repleted/resolved (18) Hypomagnesemia: Plan: replaced/resolved (19) Hypophosphatemia: Plan: replaced/resolved (20) Hyperlipidemia: Plan: resume crestor Plan DVT proph -- lovenox 40mg BID due to BMI PT/OT shruti appreciated needs rehab -- referrals made pt's sister updated at bedside this past weekend multiple times care d/w colorectal surgery Dr Thorne Admission and Anticipated Discharge Date Admission Date: November 23, 2024 Subjective Patient reports feeling much better. Physical Exam 2 Physical Exam: GEN: NAD, speaking on phone in bed HEENT: NC/AT CV: RRR, no m/r/g Resp: Normal work of breathing, clear to auscultation GI: Mild tenderness in LLQ. No rebound or guarding. Neuro: Moves all limbs. No focal neuro deficits noted. MSK: Normal joint exam Psych: Normal affect Skin: No rashes noted Results & Data Results & Data Vital Signs (Past 12 Hours) Vital Signs Temp Pulse Pulse Resp BP Pulse Ox O2 Del Method 12/03/24 22:48 36.4 C L 75 18 111/68 98 Room Air 12/03/24 19:32 36.6 C 88 20 136/80 97 Room Air 12/03/24 19:25 37.1 C 103 H 18 111/76 95 Room Air 12/03/24 17:49 85 12/03/24 15:44 36.6 C 74 17 100/64 97 Room Air 12/03/24 12:26 37.1 C 77 18 120/59 L 91 Room Air PG Care Time/CCT Total # of Minutes Spent Total Time Spent with Patient: Total time spent is greater than 50% in coordination of care (as documented) at patient's floor/unit and/or counseling patient: Coding Level of Care Code 20387 SUB INP/OBS CARE 3/50MIN Diagnoses Diverticular disease of intestine with perforation and abscess K57.80 Shock, septic A41.9; R65.21 Sepsis A41.9; R65.20; N17.9 Acute renal failure type: unspecified Sepsis acute organ dysfunction status: with acute organ dysfunction Sepsis type: sepsis due to unspecified organism Severe sepsis acute organ dysfunction type: acute renal failure Severe sepsis shock status: unspecified Paroxysmal atrial fibrillation I48.0 MARGUERITE (acute kidney injury) N17.9 Severe obstructive sleep apnea G47.33 Chronic diastolic congestive heart failure I50.32 Essential hypertension I10 Hypertension type: essential hypertension Type 2 diabetes mellitus with diabetic neuropathy, without long-term current use of insulin E11.40 Diabetes mellitus complication detail: with unspecified neuropathy Diabetes mellitus complication status: with neurologic complications Diabetes mellitus terminal operator insulin use: without terminal operator use Tobacco abuse Z72.0 Thrombocytopenia D69.6 Morbid obesity with BMI of 40.0-44.9, adult E66.01; Z68.41 Acute metabolic encephalopathy G93.41 Type 2 IL (myocardial infarction) I21.A1 S/P Megan procedure Z93.3 Colostomy status Z93.3 Hypokalemia E87.6 Hypomagnesemia E83.42 Hypophosphatemia E83.39 Hyperlipidemia E78.5 Time Spent (min) 50 Comment chart review (3) Sepsis Acute renal failure type: unspecified Sepsis acute organ dysfunction status: with acute organ dysfunction Sepsis type: sepsis due to unspecified organism S evere sepsis acute organ dysfunction type: acute renal failure Severe sepsis shock status: unspecified Qualified Code(s): A41.9 - Sepsis, unspecified organism; R65.20 - Severe sepsis without septic shock; N17.9 - Acute kidney failure, unspecified (8) Hypertension Hypertension type: essential hypertension Qualified Code(s): I10 - Essential (primary) hypertension (9) Type 2 diabetes mellitus Diabetes mellitus complication detail: with unspecified neuropathy Diabetes mellitus complication status: with neurologic complications Diabetes mellitus terminal operator insulin use: without assisted use Qualified Code(s): E11.40 - Type 2 diabetes mellitus with diabetic neuropathy, unspecified
--- NOTE | 2024-12-04 07:48 | Surgery Progress Note ---
Date of Service December 04, 2024 Assessment & Plan (1) S/P Megan procedure: Plan: Patient is s/p open Megan procedure on 11/24/2024 -Doing well overall from a surgical perspective, pain controlled, tolerating diet and has good ostomy output -VSS, afebrile, continues on Zosyn at this time -Continue to encourage OOB and ambulation, PT/OT Admission and Anticipated Discharge Date Admission Date: November 23, 2024 Subjective Patient seen and evaluated this morning, doing well, no complaints Tolerating diet, good ostomy output Afebrile, VSS Physical Exam Constitutional: WD/WN, vitals as above Respiratory: normal respiratory effort, lungs clear to auscultation Cardiovascular: Rate/Rhythm: regular rate Gastrointestinal (Abdomen): Abdomen soft, nondistended, nontender to palpation +midline incision with michoacano in place, c/d/i without any signs of infection Viable ostomy with liquid output in bag Results & Data Vital Signs (Past 12 Hours) Vital Signs Temp Pulse Pulse Resp BP Pulse Ox O2 Del Method 12/04/24 07:26 36.4 C L 65 18 111/72 95 Room Air 12/04/24 06:50 Room Air 12/04/24 03:05 36.6 C 71 20 120/71 99 Room Air 12/03/24 23:00 77 12/03/24 22:48 36.4 C L 75 18 111/68 98 Room Air PG Care Time/CCT Total # of Minutes Spent Total Time Spent with Patient: Total time spent is greater than 50% in coordination of care (as documented) at patient's floor/unit and/or counseling patient: Coding [place] [address] Post Operative Follow-Up Patient Type Established History Problem Focused Exam Problem Focused Medical Decision Making Straight Forward Diagnoses S/P Megan procedure Z93.3
--- NOTE | 2024-12-04 22:13 | Hospitalist Progress Note ---
Date of Service December 04, 2024 Assessment & Plan (1) Diverticular disease of intestine with perforation and abscess: Plan: POD#8 - s/p Exploratory Laparotomy, Megan's Procedure, adhesiolysis of small bowel to anterior abdominal wall and pelvis as well as interloop adhesions, suture repair of serosal tear of small bowel as well as cecum, colostomy creation - by Dr Simon Thorne Findings in the OR: "Diverticular disease of intestine with perforation and abscess, with adhesions, possible fistula and abscess formation involving the left ovary with ovary being thickened and inflamed. Extensive adhesions of small bowel in the pelvis as well as to the anterior abdominal wall, adhesions of the cecum to the anterior abdominal wall and pelvis, prior mesh identified, was incorporated well into the fascia of the abdominal wall" Complicated diverticulitis led to septic shock requiring ICU care, pressors, etc. TPN started while still in ICU but d/c on 11/28 NG tube d/c on 11/27 Clears started on 11/27 Advanced to regular diet 12/01 remains on IV abx today is day #10 of IV cipro/flagyl although severe leukocytosis had improved from 30 to 20 on 12/01, the wbc count today is again 20, and CRP is trending up again CT a/p 11/30/24 --> Soft tissues: Ventral hernia repair changes with increased inflammation of the anterior abdominal wall. There is a small fluid collection above the mesh with a bubble of air in the preperitoneal fat measuring 2.3 x 1.8 x 1.3 cm. There is a small amount of fluid in the midline inferior to the mesh measuring approximately 2.6 cm transverse by 0.7 cm AP by 3.2 cm long. There is been interval laparotomy with skin michoacano now present. In light of persistent leukocytosis, trending up CRP, low-grade temps last pm (Tm 37.7), etc ---> Dr Thorne d/c cipro/flagyl, changed to IV zosyn today -I agree with that change Finally no fever for past 48 hours. Patient is able to be discharged, pending placement. WIll reach out to surgery to let them know she had some serosanguineous drainage from her wound. (2) Shock, septic: Plan: 2nd to perforated/complicated diverticulitis did require pressors, IV fluids, and stress dose steroids in ICU off pressors for 20+ hours (weaned on 11/25 afternoon) BPs stable stopped all stress dose steroids on 11/30 (3) Sepsis: Plan: 2nd to #1 above resolved (4) Paroxysmal atrial fibrillation: Plan: developed such 11/26, resolved 11/27 (had such for ~24 hours) low K, low mag, stress of illness, etc - all likely culprits for developing such CHADS-VASc score is 5 (age, female, HTN, DM) - 5-6% change of CVA/year would add low-dose BB in the form of meto tartrate 25mg BID starting today ok to start anticoagulation per gen surg Eliquis - $0 dollar copay recent echo - preserved EF, normal valves recent TSH 3.8 in October will hold off on Eliquis until we know she won't need any interventions on the fluid collection seen on CT 11/30 (5) MARGUERITE (acute kidney injury): Plan: sepsis associated ATN --> resolved Cr on admission was 3.26 Cr remains <1 BMP am (6) Severe obstructive sleep apnea: Plan: cont CPAP (7) Chronic diastolic congestive heart failure: Plan: compensated on exam (8) Hypertension: Plan: controlled with metoprolol 25mg BID which was started late last week cont to hold amlodipine for now (9) Type 2 diabetes mellitus: Plan: A1c of 5.7% on 10/22/2024 Holding semaglutide Novolog Sliding scale with scant use of such BSGs well-controlled (10) Tobacco abuse: Plan: cont Nicotine patch (11) Thrombocytopenia: Plan: resolved 2nd to medication side effect (antibiotics)? sepsis induced? hepatic related? regardless of etiology platelets now normal HIT assay -- NEGATIVE (12) Morbid obesity with BMI of 40.0-44.9, adult: Plan: BMI 40-42 (13) Acute metabolic encephalopathy: Plan: "ICU psychosis" toxic effects from pain meds etc likely all to blame either way fully resolved (14) Type 2 [place] (myocardial infarction): Plan: peak troponin 301 myocardial demand ischemia in setting of septic shock (15) S/P Megan procedure: Plan: as above in #1 (16) Colostomy status: Plan: as above in #1 (17) Hypokalemia: Plan: repleted/resolved (18) Hypomagnesemia: Plan: replaced/resolved (19) Hypophosphatemia: Plan: replaced/resolved (20) Hyperlipidemia: Plan: resume crestor Plan DVT proph -- lovenox 40mg BID due to BMI PT/OT shruti appreciated needs rehab -- referrals made pt's sister updated at bedside this past weekend multiple times care d/w colorectal surgery Dr Thorne Admission and Anticipated Discharge Date Admission Date: November 23, 2024 Subjective 64 yo female reports no new symptoms.. She did notice that she was draining some serosanguineous fluid from her abdomen when she was walking Physical Exam 2 Physical Exam: GEN: NAD, speaking on phone in bed HEENT: NC/AT CV: RRR, no m/r/g Resp: Normal work of breathing, clear to auscultation GI: Mild tenderness in LLQ. No rebound or guarding. Neuro: Moves all limbs. No focal neuro deficits noted. MSK: Normal joint exam Psych: Normal affect Skin: No rashes noted Results & Data Results & Data Vital Signs (Past 12 Hours) Vital Signs Temp Pulse Pulse Resp BP Pulse Ox O2 Del Method 12/04/24 20:13 36.9 C 94 H 18 117/73 96 Room Air 12/04/24 16:02 36.8 C 62 18 109/66 97 Room Air 12/04/24 14:23 73 12/04/24 11:28 36.7 C 73 19 110/68 96 Room Air PG Care Time/CCT Total # of Minutes Spent Total Time Spent with Patient: Total time spent is greater than 50% in coordination of care (as documented) at patient's floor/unit and/or counseling patient: Coding Level of Care Code 63128 SUB INP/OBS CARE 235MIN Diagnoses Diverticular disease of intestine with perforation and abscess K57.80 Shock, septic A41.9; R65.21 Sepsis A41.9; R65.20; N17.9 Acute renal failure type: unspecified Sepsis acute organ dysfunction status: with acute organ dysfunction Sepsis type: sepsis due to unspecified organism Severe sepsis acute organ dysfunction type: acute renal failure Severe sepsis shock status: unspecified Paroxysmal atrial fibrillation I48.0 MARGUERITE (acute kidney injury) N17.9 Severe obstructive sleep apnea G47.33 Chronic diastolic congestive heart failure I50.32 Essential hypertension I10 Hypertension type: essential hypertension Type 2 diabetes mellitus with diabetic neuropathy, without long-term current use of insulin E11.40 Diabetes mellitus complication detail: with unspecified neuropathy Diabetes mellitus complication status: with neurologic complications Diabetes mellitus long term care phlebotomist insulin use: without long term care phlebotomist use Tobacco abuse Z72.0 Thrombocytopenia D69.6 Morbid obesity with BMI of 40.0-44.9, adult E66.01; Z68.41 Acute metabolic encephalopathy G93.41 Type 2 MO (myocardial infarction) I21.A1 S/P Megan procedure Z93.3 Colostomy status Z93.3 Hypokalemia E87.6 Hypomagnesemia E83.42 Hypophosphatemia E83.39 Hyperlipidemia E78.5 (3) Sepsis Acute renal failure type: unspecified Sepsis acute organ dysfunction status: with acute organ dysfunction Sepsis type: sepsis due to unspecified organism S evere sepsis acute organ dysfunction type: acute renal failure Severe sepsis shock status: unspecified Qualified Code(s): A41.9 - Sepsis, unspecified organism; R65.20 - Severe sepsis without septic shock; N17.9 - Acute kidney failure, unspecified (8) Hypertension Hypertension type: essential hypertension Qualified Code(s): I10 - Essential (primary) hypertension (9) Type 2 diabetes mellitus Diabetes mellitus complication detail: with unspecified neuropathy Diabetes mellitus complication status: with neurologic complications Diabetes mellitus nursing home insulin use: without nursing home use Qualified Code(s): E11.40 - Type 2 diabetes mellitus with diabetic neuropathy, unspecified
[2024-12-05 06:35] LABS: Anion Gap 4.0 (3-11); Blood Urea Nitrogen 7.0 mg/dl (6-23); Calcium 9.4 mg/dl (8.6-10.3); Carbon Dioxide 28.0 mmol/L (21-32); Chloride 104.0 mmol/L (98-107); Creatinine Clr Calc Pharmacy 90.3 ml/min; Glucose 131.0 mg/dl (70-99(Fasting)); Potassium 3.8 mmol/L (3.5-5.1); Sodium 136.0 mmol/L (136-145)
--- NOTE | 2024-12-05 10:15 | Surgery Progress Note ---
Date of Service December 05, 2024 Assessment & Plan (1) S/P Megan procedure: Plan: Patient is s/p open Megan procedure on 11/24/2024 -Patient with some abdominal discomfort/pain this morning during my evaluation, however shortly after this did resolve. -Continue diet as tolerated. -Appreciate wound care input for ostomy care -VSS, afebrile, and patient continues on Zosyn at this time -Will plan to d/c every other midline staple today, the remaining of her michoacano can be removed Sunday. -Continue to encourage OOB and ambulation, PT/OT Admission and Anticipated Discharge Date Admission Date: November 23, 2024 Subjective Patient seen and evaluated this morning, states she overall feels well however did develop some abdominal pain/discomfort during my evaluation. Tolerating low fiber diet without any issues of nausea or vomiting Ostomy functioning well Afebrile and continues on IV abx Physical Exam Constitutional: WD/WN, vitals as above Respiratory: normal respiratory effort, lungs clear to auscultation Cardiovascular: Rate/Rhythm: regular rate Gastrointestinal (Abdomen): Abdomen soft, nondistended, nontender to palpation +midline incision with michoacano in place, c/d/i without any signs of infection Viable ostomy with liquid stool output in bag Results & Data Vital Signs (Past 12 Hours) Vital Signs Temp Pulse Resp BP Pulse Ox O2 Del Method 12/05/24 09:06 37.1 C 77 18 124/71 99 Room Air 12/05/24 04:00 36.6 C 73 18 120/74 94 Room Air 12/04/24 23:14 37.0 C 77 18 132/78 96 Room Air PG Care Time/CCT Total # of Minutes Spent Total Time Spent with Patient: Total time spent is greater than 50% in coordination of care (as documented) at patient's floor/unit and/or counseling patient: Coding [place] [address] Post Operative Follow-Up Patient Type Established History Problem Focused Exam Problem Focused Medical Decision Making Straight Forward Diagnoses S/P Megan procedure Z93.3
[2024-12-05 15:34] LABS: Hematocrit (blood only) 28.7 % (37.0-47.0); Hemoglobin 9.3 g/dl (12.0-16.0); Mean Corpuscular Hemoglobin 28.2 pg (25.0-34.0); Mean Corpuscular Volume 87.0 fL (80.0-100.0); Platelet Count 441 K/uL (130-400); RDW Standard Deviation 47.4 fL (36.4-46.3); Red Blood Count 3.30 M/uL (4.20-5.40); White Blood Count 13.08 K/ul (4.8-10.8)
--- NOTE | 2024-12-05 19:02 | Hospitalist Progress Note ---
Date of Service December 05, 2024 Assessment & Plan (1) Diverticular disease of intestine with perforation and abscess: Plan: POD#8 - s/p Exploratory Laparotomy, Megan's Procedure, adhesiolysis of small bowel to anterior abdominal wall and pelvis as well as interloop adhesions, suture repair of serosal tear of small bowel as well as cecum, colostomy creation - by Dr Simon Thorne Findings in the OR: "Diverticular disease of intestine with perforation and abscess, with adhesions, possible fistula and abscess formation involving the left ovary with ovary being thickened and inflamed. Extensive adhesions of small bowel in the pelvis as well as to the anterior abdominal wall, adhesions of the cecum to the anterior abdominal wall and pelvis, prior mesh identified, was incorporated well into the fascia of the abdominal wall" Complicated diverticulitis led to septic shock requiring ICU care, pressors, etc. TPN started while still in ICU but d/c on 11/28 NG tube d/c on 11/27 Clears started on 11/27 Advanced to regular diet 12/01 remains on IV abx today is day #10 of IV cipro/flagyl although severe leukocytosis had improved from 30 to 20 on 12/01, the wbc count today is again 20, and CRP is trending up again CT a/p 11/30/24 --> Soft tissues: Ventral hernia repair changes with increased inflammation of the anterior abdominal wall. There is a small fluid collection above the mesh with a bubble of air in the preperitoneal fat measuring 2.3 x 1.8 x 1.3 cm. There is a small amount of fluid in the midline inferior to the mesh measuring approximately 2.6 cm transverse by 0.7 cm AP by 3.2 cm long. There is been interval laparotomy with skin micho[place]ano now present. In light of persistent leukocytosis, trending up CRP, low-grade temps last pm (Tm 37.7), etc ---> Dr Thorne d/c cipro/flagyl, changed to IV zosyn today -I agree with that change Finally no fever for past 48 hours. Patient is able to be discharged, pending placement. (2) Shock, septic: Plan: 2nd to perforated/complicated diverticulitis did require pressors, IV fluids, and stress dose steroids in ICU off pressors for 20+ hours (weaned on 11/25 afternoon) BPs stable stopped all stress dose steroids on 11/30 (3) Sepsis: Plan: 2nd to #1 above resolved (4) Paroxysmal atrial fibrillation: Plan: developed such 11/26, resolved 11/27 (had such for ~24 hours) low K, low mag, stress of illness, etc - all likely culprits for developing such CHADS-VASc score is 5 (age, female, HTN, DM) - 5-6% change of CVA/year would add low-dose BB in the form of meto tartrate 25mg BID starting today ok to start anticoagulation per gen surg Eliquis - $0 dollar copay recent echo - preserved EF, normal valves recent TSH 3.8 in October will hold off on Eliquis until we know she won't need any interventions on the fluid collection seen on CT 11/30 (5) MARGUERITE (acute kidney injury): Plan: sepsis associated ATN --> resolved Cr on admission was 3.26 Cr remains <1 BMP am (6) Severe obstructive sleep apnea: Plan: cont CPAP (7) Chronic diastolic congestive heart failure: Plan: compensated on exam (8) Hypertension: Plan: controlled with metoprolol 25mg BID which was started late last week cont to hold amlodipine for now (9) Type 2 diabetes mellitus: Plan: A1c of 5.7% on 10/22/2024 Holding semaglutide Novolog Sliding scale with scant use of such BSGs well-controlled (10) Tobacco abuse: Plan: cont Nicotine patch (11) Thrombocytopenia: Plan: resolved 2nd to medication side effect (antibiotics)? sepsis induced? hepatic related? regardless of etiology platelets now normal HIT assay -- NEGATIVE (12) Morbid obesity with BMI of 40.0-44.9, adult: Plan: BMI 40-42 (13) Acute metabolic encephalopathy: Plan: "ICU psychosis" toxic effects from pain meds etc likely all to blame either way fully resolved (14) Type 2 IA (myocardial infarction): Plan: peak troponin 301 myocardial demand ischemia in setting of septic shock (15) S/P Megan procedure: Plan: as above in #1 (16) Colostomy status: Plan: as above in #1 (17) Hypokalemia: Plan: repleted/resolved (18) Hypomagnesemia: Plan: replaced/resolved (19) Hypophosphatemia: Plan: replaced/resolved (20) Hyperlipidemia: Plan: resume crestor Plan DVT proph -- lovenox 40mg BID due to BMI PT/OT shruti appreciated needs rehab -- referrals made pt's sister updated at bedside this past weekend multiple times care d/w colorectal surgery Dr Thorne Admission and Anticipated Discharge Date Admission Date: November 23, 2024 Subjective Patient reports no new symptoms. Physical Exam 2 Physical Exam: GEN: NAD, speaking on phone in bed HEENT: NC/AT CV: RRR, no m/r/g Resp: Normal work of breathing, clear to auscultation GI: Mild tenderness in LLQ. No rebound or guarding. Neuro: Moves all limbs. No focal neuro deficits noted. MSK: Normal joint exam Psych: Normal affect Skin: No rashes noted Results & Data Results & Data Vital Signs (Past 12 Hours) Vital Signs Temp Pulse Pulse Resp BP Pulse Ox O2 Del Method 12/05/24 16:00 37.7 C H 78 18 150/70 H 93 Room Air 12/05/24 14:38 75 12/05/24 11:26 36.7 C 73 20 114/69 96 Room Air 12/05/24 09:06 37.1 C 77 18 124/71 99 Room Air PG Care Time/CCT Total # of Minutes Spent Total Time Spent with Patient: Total time spent is greater than 50% in coordination of care (as documented) at patient's floor/unit and/or counseling patient: Coding Level of Care Code 88564 SUB INP/OBS CARE 2/35MIN Diagnoses Diverticular disease of intestine with perforation and abscess K57.80 Shock, septic A41.9; R65.21 Sepsis A41.9; R65.20; N17.9 Acute renal failure type: unspecified Sepsis acute organ dysfunction status: with acute organ dysfunction Sepsis type: sepsis due to unspecified organism Severe sepsis acute organ dysfunction type: acute renal failure Severe sepsis shock status: unspecified Paroxysmal atrial fibrillation I48.0 MARGUERITE (acute kidney injury) N17.9 Severe obstructive sleep apnea G47.33 Chronic diastolic congestive heart failure I50.32 Essential hypertension I10 Hypertension type: essential hypertension Type 2 diabetes mellitus with diabetic neuropathy, without long-term current use of insulin E11.40 Diabetes mellitus complication detail: with unspecified neuropathy Diabetes mellitus complication status: with neurologic complications Diabetes mellitus terminal carman insulin use: without skilled nursing use Tobacco abuse Z72.0 Thrombocytopenia D69.6 Morbid obesity with BMI of 40.0-44.9, adult E66.01; Z68.41 Acute metabolic encephalopathy G93.41 Type 2 IA (myocardial infarction) I21.A1 S/P Megan procedure Z93.3 Colostomy status Z93.3 Hypokalemia E87.6 Hypomagnesemia E83.42 Hypophosphatemia E83.39 Hyperlipidemia E78.5 (3) Sepsis Acute renal failure type: unspecified Sepsis acute organ dysfunction status: with acute organ dysfunction Sepsis type: sepsis due to unspecified organism S evere sepsis acute organ dysfunction type: acute renal failure Severe sepsis shock status: unspecified Qualified Code(s): A41.9 - Sepsis, unspecified organism; R65.20 - Severe sepsis without septic shock; N17.9 - Acute kidney failure, unspecified (8) Hypertension Hypertension type: essential hypertension Qualified Code(s): I10 - Essential (primary) hypertension (9) Type 2 diabetes mellitus Diabetes mellitus complication detail: with unspecified neuropathy Diabetes mellitus complication status: with neurologic complications Diabetes mellitus terminal carman insulin use: without terminal carman use Qualified Code(s): E11.40 - Type 2 diabetes mellitus with diabetic neuropathy, unspecified
[2024-12-06 06:10] LABS: Hematocrit (blood only) 26.9 % (37.0-47.0); Hemoglobin 8.6 g/dl (12.0-16.0); Mean Corpuscular Hemoglobin 27.8 pg (25.0-34.0); Mean Corpuscular Volume 87.1 fL (80.0-100.0); Platelet Count 476 K/uL (130-400); RDW Standard Deviation 48.3 fL (36.4-46.3); Red Blood Count 3.09 M/uL (4.20-5.40); White Blood Count 10.65 K/ul (4.8-10.8)
[2024-12-06 06:32] LABS: Anion Gap 4.0 (3-11); Blood Urea Nitrogen 5.0 mg/dl (6-23); Calcium 9.6 mg/dl (8.6-10.3); Carbon Dioxide 28.0 mmol/L (21-32); Chloride 105.0 mmol/L (98-107); Creatinine Clr Calc Pharmacy 93.1 ml/min; Glucose 113.0 mg/dl (70-99(Fasting)); Potassium 3.8 mmol/L (3.5-5.1); Sodium 137.0 mmol/L (136-145)
--- NOTE | 2024-12-06 09:46 | Surgery Progress Note ---
Date of Service December 06, 2024 Assessment & Plan (1) Diverticular disease of intestine with perforation and abscess: Plan 64F s/p [facility] for perforated diverticulitis awaiting rehab placement is progressing very well. HD stable, afebrile and previous leukocytosis is resolve d. Continue low fiber diet Planned for removal of remaining [place] on Sunday Pt will continue to ambulate She is on Lovenox 40mg BID for DVT ppx, continue Surgery will follow continue to follow Admission and Anticipated Discharge Date Admission Date: November 23, 2024 Subjective I have seen and examined this patient this am. She is without complaints states she is doing great. Tolerates her solid low fiber diet and states she has been up and out of bed, ambulating well. No further leakage from her ostomy appliance since wound care adjustments. Physical Exam Constitutional: healthy appearing; not ill appearing, not in distress and not diaphoretic Respiratory: normal respiratory effort; no respiratory distress, no labored breathing and does not use accessory muscles Gastrointestinal (Abdomen): Midline incision remains intact with intermittent [place] There is no drainage, the incision is coapted Stoma is viable and stable in appearance, fully functioning with both flatus and stool in the bag Results & Data Vital Signs (Past 12 Hours) Vital Signs Temp Pulse Pulse Pulse Resp BP BP 12/06/24 07:34 36.8 C 74 23 136/77 12/06/24 02:57 37.2 C 70 18 106/69 12/05/24 22:48 85 12/05/24 22:40 36.4 C L 73 18 108/65 Pulse Ox O2 Del Method 12/06/24 07:34 98 Room Air 12/06/24 02:57 98 Room Air 12/05/24 22:48 12/05/24 22:40 97 Room Air PG Care Time/CCT Total # of Minutes Spent Total Time Spent with Patient: Total time spent is greater than 50% in coordination of care (as documented) at patient's floor/unit and/or counseling patient: Coding Level of Care Code 88233 Post Operative Follow-Up Diagnoses Diverticular disease of intestine with perforation and abscess K57.80
--- NOTE | 2024-12-06 18:46 | Hospitalist Progress Note ---
Date of Service December 06, 2024 Assessment & Plan (1) Diverticular disease of intestine with perforation and abscess: Plan: POD#8 - s/p Exploratory Laparotomy, Megan's Procedure, adhesiolysis of small bowel to anterior abdominal wall and pelvis as well as interloop adhesions, suture repair of serosal tear of small bowel as well as cecum, colostomy creation - by Dr Simon Thorne Findings in the OR: "Diverticular disease of intestine with perforation and abscess, with adhesions, possible fistula and abscess formation involving the left ovary with ovary being thickened and inflamed. Extensive adhesions of small bowel in the pelvis as well as to the anterior abdominal wall, adhesions of the cecum to the anterior abdominal wall and pelvis, prior mesh identified, was incorporated well into the fascia of the abdominal wall" Complicated diverticulitis led to septic shock requiring ICU care, pressors, etc. TPN started while still in ICU but d/c on 11/28 NG tube d/c on 11/27 Clears started on 11/27 Advanced to regular diet 12/01 remains on IV abx today is day #10 of IV cipro/flagyl although severe leukocytosis had improved from 30 to 20 on 12/01, the wbc count today is again 20, and CRP is trending up again CT a/p 11/30/24 --> Soft tissues: Ventral hernia repair changes with increased inflammation of the anterior abdominal wall. There is a small fluid collection above the mesh with a bubble of air in the preperitoneal fat measuring 2.3 x 1.8 x 1.3 cm. There is a small amount of fluid in the midline inferior to the mesh measuring approximately 2.6 cm transverse by 0.7 cm AP by 3.2 cm long. There is been interval laparotomy with skin micho[place] now present. In light of persistent leukocytosis, trending up CRP, low-grade temps last pm (Tm 37.7), etc ---> Dr Thorne d/c cipro/flagyl, changed to IV zosyn today -I agree with that change Patient is able to be discharged, pending placement. Patient remains fever free. (2) Shock, septic: Plan: 2nd to perforated/complicated diverticulitis did require pressors, IV fluids, and stress dose steroids in ICU off pressors for 20+ hours (weaned on 11/25 afternoon) BPs stable stopped all stress dose steroids on 11/30 (3) Sepsis: Plan: 2nd to #1 above resolved (4) Paroxysmal atrial fibrillation: Plan: developed such 11/26, resolved 11/27 (had such for ~24 hours) low K, low mag, stress of illness, etc - all likely culprits for developing such CHADS-VASc score is 5 (age, female, HTN, DM) - 5-6% change of CVA/year would add low-dose BB in the form of meto tartrate 25mg BID starting today ok to start anticoagulation per gen surg Eliquis - $0 dollar copay recent echo - preserved EF, normal valves recent TSH 3.8 in October will hold off on Eliquis until we know she won't need any interventions on the fluid collection seen on CT 11/30 (5) MARGUERITE (acute kidney injury): Plan: sepsis associated ATN --> resolved Cr on admission was 3.26 Cr remains <1 BMP am (6) Severe obstructive sleep apnea: Plan: cont CPAP (7) Chronic diastolic congestive heart failure: Plan: compensated on exam (8) Hypertension: Plan: controlled with metoprolol 25mg BID which was started late last week cont to hold amlodipine for now (9) Type 2 diabetes mellitus: Plan: A1c of 5.7% on 10/22/2024 Holding semaglutide Novolog Sliding scale with scant use of such BSGs well-controlled (10) Tobacco abuse: Plan: cont Nicotine patch (11) Thrombocytopenia: Plan: resolved 2nd to medication side effect (antibiotics)? sepsis induced? hepatic related? regardless of etiology platelets now normal HIT assay -- NEGATIVE (12) Morbid obesity with BMI of 40.0-44.9, adult: Plan: BMI 40-42 (13) Acute metabolic encephalopathy: Plan: "ICU psychosis" toxic effects from pain meds etc likely all to blame either way fully resolved (14) Type 2 MO (myocardial infarction): Plan: peak troponin 301 myocardial demand ischemia in setting of septic shock (15) S/P Megan procedure: Plan: as above in #1 (16) Colostomy status: Plan: as above in #1 (17) Hypokalemia: Plan: repleted/resolved (18) Hypomagnesemia: Plan: replaced/resolved (19) Hypophosphatemia: Plan: replaced/resolved (20) Hyperlipidemia: Plan: resume crestor Plan DVT proph -- lovenox 40mg BID due to BMI PT/OT evals appreciated needs rehab -- referrals made pt's sister updated at bedside this past weekend multiple times care d/w colorectal surgery Dr Thorne Admission and Anticipated Discharge Date Admission Date: November 23, 2024 Subjective Patient reports no new symptoms Physical Exam 2 Physical Exam: GEN: NAD, speaking on phone in bed HEENT: NC/AT CV: RRR, no m/r/g Resp: Normal work of breathing, clear to auscultation GI: Mild tenderness in LLQ. No rebound or guarding. Neuro: Moves all limbs. No focal neuro deficits noted. MSK: Normal joint exam Psych: Normal affect Skin: No rashes noted Results & Data Results & Data Vital Signs (Past 12 Hours) Vital Signs Temp Pulse Pulse Resp BP BP Pulse Ox 12/06/24 16:20 36.4 C L 77 21 117/70 99 12/06/24 14:52 66 12/06/24 11:54 36.6 C 67 22 119/73 97 12/06/24 10:57 82 12/06/24 07:34 36.8 C 74 23 136/77 98 O2 Del Method 12/06/24 16:20 Room Air 12/06/24 14:52 12/06/24 11:54 Room Air 12/06/24 10:57 12/06/24 07:34 Room Air PG Care Time/CCT Total # of Minutes Spent Total Time Spent with Patient: Total time spent is greater than 50% in coordination of care (as documented) at patient's floor/unit and/or counseling patient: Coding Level of Care Code 36329 SUB INP/OBS CARE MIN Diagnoses Diverticular disease of intestine with perforation and abscess K57.80 Shock, septic A41.9; R65.21 Sepsis A41.9; R65.20; N17.9 Acute renal failure type: unspecified Sepsis acute organ dysfunction status: with acute organ dysfunction Sepsis type: sepsis due to unspecified organism Severe sepsis acute organ dysfunction type: acute renal failure Severe sepsis shock status: unspecified Paroxysmal atrial fibrillation I48.0 MARGUERITE (acute kidney injury) N17.9 Severe obstructive sleep apnea G47.33 Chronic diastolic congestive heart failure I50.32 Essential hypertension I10 Hypertension type: essential hypertension Type 2 diabetes mellitus with diabetic neuropathy, without long-term current use of insulin E11.40 Diabetes mellitus complication detail: with unspecified neuropathy Diabetes mellitus complication status: with neurologic complications Diabetes mellitus lead network architect insulin use: without skilled nursing use Tobacco abuse Z72.0 Thrombocytopenia D69.6 Morbid obesity with BMI of 40.0-44.9, adult E66.01; Z68.41 Acute metabolic encephalopathy G93.41 Type 2 MO (myocardial infarction) I21.A1 S/P Megan procedure Z93.3 Colostomy status Z93.3 Hypokalemia E87.6 Hypomagnesemia E83.42 Hypophosphatemia E83.39 Hyperlipidemia E78.5 (3) Sepsis Acute renal failure type: unspecified Sepsis acute organ dysfunction status: with acute organ dysfunction Sepsis type: sepsis due to unspecified organism S evere sepsis acute organ dysfunction type: acute renal failure Severe sepsis shock status: unspecified Qualified Code(s): A41.9 - Sepsis, unspecified organism; R65.20 - Severe sepsis without septic shock; N17.9 - Acute kidney failure, unspecified (8) Hypertension Hypertension type: essential hypertension Qualified Code(s): I10 - Essential (primary) hypertension (9) Type 2 diabetes mellitus Diabetes mellitus complication detail: with unspecified neuropathy Diabetes mellitus complication status: with neurologic complications Diabetes mellitus lead network architect insulin use: without lead network architect use Qualified Code(s): E11.40 - Type 2 diabetes mellitus with diabetic neuropathy, unspecified
[2024-12-07 06:16] LABS: Hematocrit (blood only) 28.2 % (37.0-47.0); Hemoglobin 9.0 g/dl (12.0-16.0); Mean Corpuscular Hemoglobin 27.6 pg (25.0-34.0); Mean Corpuscular Volume 86.5 fL (80.0-100.0); Platelet Count 526 K/uL (130-400); RDW Standard Deviation 47.9 fL (36.4-46.3); Red Blood Count 3.26 M/uL (4.20-5.40); White Blood Count 10.36 K/ul (4.8-10.8)
[2024-12-07 06:41] LABS: Anion Gap 3.0 (3-11); Blood Urea Nitrogen 6.0 mg/dl (6-23); Calcium 9.8 mg/dl (8.6-10.3); Carbon Dioxide 30.0 mmol/L (21-32); Chloride 105.0 mmol/L (98-107); Creatinine Clr Calc Pharmacy 90.3 ml/min; Glucose 96.0 mg/dl (70-99(Fasting)); Potassium 4.0 mmol/L (3.5-5.1); Sodium 138.0 mmol/L (136-145)
--- NOTE | 2024-12-07 10:40 | Surgery Progress Note ---
<Statement entered by Alie Queen DO - 12/07/24 11:29> I have seen and examined this patient with the surgical PA. I agree with this plan Date of Service December 07, 2024 Assessment & Plan (1) Diverticular disease of intestine with perforation and abscess: Plan: Patient is s/p open Megan procedure on 11/24/2024 WBC 10, Hbg 9. Vitals stable No complaints. pain controlled. denies n/v. ostomy functioning. diet tolerated there is some superficial wound separation from the inferior portion of her incision, will order for daily 1/4" plain nu-gauze packing-4x4 gauze, and medipore tape Continue low fiber diet Wound care on board for assistance with ostomy Continue to encourage OOB and ambulation, PT/OT Admission and Anticipated Discharge Date Admission Date: November 23, 2024 Subjective Patient feeling well. Reported it's her mothers 3 year anniversary of passing, so a little emotional due to that. Ostomy bag leaked overnight. In place this AM. No other complaints. Physical Exam Physical Exam: awake/alert Respiratory: normal respiratory effort Gastrointestinal (Abdomen): Percussion/Palpation: abdomen soft; abdomen nontender abdomen soft. midline incision with [place], every other removed. There is some superficial separation of the inferior portion of incision, - will pack. ostomy viable w/ some stool in bag Results & Data Vital Signs (Past 12 Hours) Vital Signs Temp Pulse Pulse Pulse Resp BP Pulse Ox 12/07/24 07:26 98.2 F 74 22 110/68 93 12/07/24 03:08 97.9 F 73 20 107/68 97 12/06/24 23:00 80 12/06/24 22:57 98.2 F 79 18 115/58 L 97 O2 Del Method 12/07/24 07:26 Room Air 12/07/24 03:08 Room Air 12/06/24 23:00 12/06/24 22:57 Room Air PG Care Time/CCT Total # of Minutes Spent Total Time Spent with Patient: Total time spent is greater than 50% in coordination of care (as documented) at patient's floor/unit and/or counseling patient: Coding Level of Care Code 88024 Post Operative Follow-Up Diagnoses Diverticular disease of intestine with perforation and abscess K57.80
--- NOTE | 2024-12-07 22:56 | Hospitalist Progress Note ---
Date of Service December 07, 2024 Assessment & Plan (1) Diverticular disease of intestine with perforation and abscess: Plan: POD#8 - s/p Exploratory Laparotomy, Megan's Procedure, adhesiolysis of small bowel to anterior abdominal wall and pelvis as well as interloop adhesions, suture repair of serosal tear of small bowel as well as cecum, colostomy creation - by Dr Simon Thorne Findings in the OR: "Diverticular disease of intestine with perforation and abscess, with adhesions, possible fistula and abscess formation involving the left ovary with ovary being thickened and inflamed. Extensive adhesions of small bowel in the pelvis as well as to the anterior abdominal wall, adhesions of the cecum to the anterior abdominal wall and pelvis, prior mesh identified, was incorporated well into the fascia of the abdominal wall" Complicated diverticulitis led to septic shock requiring ICU care, pressors, etc. TPN started while still in ICU but d/c on 11/28 NG tube d/c on 11/27 Clears started on 11/27 Advanced to regular diet 12/01 remains on IV abx today is day #10 of IV cipro/flagyl although severe leukocytosis had improved from 30 to 20 on 12/01, the wbc count today is again 20, and CRP is trending up again CT a/p 11/30/24 --> Soft tissues: Ventral hernia repair changes with increased inflammation of the anterior abdominal wall. There is a small fluid collection above the mesh with a bubble of air in the preperitoneal fat measuring 2.3 x 1.8 x 1.3 cm. There is a small amount of fluid in the midline inferior to the mesh measuring approximately 2.6 cm transverse by 0.7 cm AP by 3.2 cm long. There is been interval laparotomy with skin michoacano now present. In light of persistent leukocytosis, trending up CRP, low-grade temps last pm (Tm 37.7), etc ---> Dr Thorne d/c cipro/flagyl, changed to IV zosyn today -I agree with that change Patient is able to be discharged, pending placement. Patient remains fever free. Nurse was concerned over drainage around ostomy, when I reviewed it, it appeared normal. will have nursing reach out to surgeon. (2) Shock, septic: Plan: 2nd to perforated/complicated diverticulitis did require pressors, IV fluids, and stress dose steroids in ICU off pressors for 20+ hours (weaned on 11/25 afternoon) BPs stable stopped all stress dose steroids on 11/30 (3) Sepsis: Plan: 2nd to #1 above resolved (4) Paroxysmal atrial fibrillation: Plan: developed such 11/26, resolved 11/27 (had such for ~24 hours) low K, low mag, stress of illness, etc - all likely culprits for developing such CHADS-VASc score is 5 (age, female, HTN, DM) - 5-6% change of CVA/year would add low-dose BB in the form of meto tartrate 25mg BID starting today ok to start anticoagulation per gen surg Eliquis - $0 dollar copay recent echo - preserved EF, normal valves recent TSH 3.8 in October will hold off on Eliquis until we know she won't need any interventions on the fluid collection seen on CT 11/30 (5) MARGUERITE (acute kidney injury): Plan: sepsis associated ATN --> resolved Cr on admission was 3.26 Cr remains <1 BMP am (6) Severe obstructive sleep apnea: Plan: cont CPAP (7) Chronic diastolic congestive heart failure: Plan: compensated on exam (8) Hypertension: Plan: controlled with metoprolol 25mg BID which was started late last week cont to hold amlodipine for now (9) Type 2 diabetes mellitus: Plan: A1c of 5.7% on 10/22/2024 Holding semaglutide Novolog Sliding scale with scant use of such BSGs well-controlled (10) Tobacco abuse: Plan: cont Nicotine patch (11) Thrombocytopenia: Plan: resolved 2nd to medication side effect (antibiotics)? sepsis induced? hepatic related? regardless of etiology platelets now normal HIT assay -- NEGATIVE (12) Morbid obesity with BMI of 40.0-44.9, adult: Plan: BMI 40-42 (13) Acute metabolic encephalopathy: Plan: "ICU psychosis" toxic effects from pain meds etc likely all to blame either way fully resolved (14) Type 2 ND (myocardial infarction): Plan: peak troponin 301 myocardial demand ischemia in setting of septic shock (15) S/P Megan procedure: Plan: as above in #1 (16) Colostomy status: Plan: as above in #1 (17) Hypokalemia: Plan: repleted/resolved (18) Hypomagnesemia: Plan: replaced/resolved (19) Hypophosphatemia: Plan: replaced/resolved (20) Hyperlipidemia: Plan: resume crestor Plan DVT proph -- lovenox 40mg BID due to BMI PT/OT evals appreciated needs rehab -- referrals made pt's sister updated at bedside this past weekend multiple times care d/w colorectal surgery Dr Thorne Admission and Anticipated Discharge Date Admission Date: November 23, 2024 Subjective 64 yo female reports no new symptoms. Physical Exam 2 Physical Exam: GEN: NAD, speaking on phone in bed HEENT: NC/AT CV: RRR, no m/r/g Resp: Normal work of breathing, clear to auscultation GI: Mild tenderness in LLQ. No rebound or guarding. Neuro: Moves all limbs. No focal neuro deficits noted. MSK: Normal joint exam Psych: Normal affect Skin: No rashes noted Results & Data Results & Data Vital Signs (Past 12 Hours) Vital Signs Temp Pulse Pulse Pulse Resp BP BP 12/07/24 22:28 36.9 C 81 18 109/61 12/07/24 19:18 37.3 C 81 18 109/66 12/07/24 16:14 36.6 C 72 21 123/72 12/07/24 15:52 72 12/07/24 11:49 36.8 C 72 18 109/69 Pulse Ox O2 Del Method 12/07/24 22:28 98 Room Air 12/07/24 19:18 98 Room Air 12/07/24 16:14 97 Room Air 12/07/24 15:52 12/07/24 11:49 94 Room Air PG Care Time/CCT Total # of Minutes Spent Total Time Spent with Patient: Total time spent is greater than 50% in coordination of care (as documented) at patient's floor/unit and/or counseling patient: Coding Level of Care Code 44108 SUB INP/OBS CARE 2/35MIN Diagnoses Diverticular disease of intestine with perforation and abscess K57.80 Shock, septic A41.9; R65.21 Sepsis A41.9; R65.20; N17.9 Acute renal failure type: unspecified Sepsis acute organ dysfunction status: with acute organ dysfunction Sepsis type: sepsis due to unspecified organism Severe sepsis acute organ dysfunction type: acute renal failure Severe sepsis shock status: unspecified Paroxysmal atrial fibrillation I48.0 MARGUERITE (acute kidney injury) N17.9 Severe obstructive sleep apnea G47.33 Chronic diastolic congestive heart failure I50.32 Essential hypertension I10 Hypertension type: essential hypertension Type 2 diabetes mellitus with diabetic neuropathy, without long-term current use of insulin E11.40 Diabetes mellitus complication detail: with unspecified neuropathy Diabetes mellitus complication status: with neurologic complications Diabetes mellitus group home insulin use: without group home use Tobacco abuse Z72.0 Thrombocytopenia D69.6 Morbid obesity with BMI of 40.0-44.9, adult E66.01; Z68.41 Acute metabolic encephalopathy G93.41 Type 2 ND (myocardial infarction) I21.A1 S/P Megan procedure Z93.3 Colostomy status Z93.3 Hypokalemia E87.6 Hypomagnesemia E83.42 Hypophosphatemia E83.39 Hyperlipidemia E78.5 (3) Sepsis Acute renal failure type: unspecified Sepsis acute organ dysfunction status: with acute organ dysfunction Sepsis type: sepsis due to unspecified organism S evere sepsis acute organ dysfunction type: acute renal failure Severe sepsis shock status: unspecified Qualified Code(s): A41.9 - Sepsis, unspecified organism; R65.20 - Severe sepsis without septic shock; N17.9 - Acute kidney failure, unspecified (8) Hypertension Hypertension type: essential hypertension Qualified Code(s): I10 - Essential (primary) hypertension (9) Type 2 diabetes mellitus Diabetes mellitus complication detail: with unspecified neuropathy Diabetes mellitus complication status: with neurologic complications Diabetes mellitus group home insulin use: without group home use Qualified Code(s): E11.40 - Type 2 diabetes mellitus with diabetic neuropathy, unspecified
[2024-12-08 06:41] LABS: Hematocrit (blood only) 27.5 % (37.0-47.0); Hemoglobin 8.8 g/dl (12.0-16.0); Mean Corpuscular Hemoglobin 27.8 pg (25.0-34.0); Mean Corpuscular Volume 87.0 fL (80.0-100.0); Platelet Count 555 K/uL (130-400); RDW Standard Deviation 48.4 fL (36.4-46.3); Red Blood Count 3.16 M/uL (4.20-5.40); White Blood Count 8.87 K/ul (4.8-10.8)
[2024-12-08 07:01] LABS: Anion Gap 4.0 (3-11); Blood Urea Nitrogen 5.0 mg/dl (6-23); Calcium 9.6 mg/dl (8.6-10.3); Carbon Dioxide 29.0 mmol/L (21-32); Chloride 105.0 mmol/L (98-107); Creatinine Clr Calc Pharmacy 95.4 ml/min; Glucose 98.0 mg/dl (70-99(Fasting)); Potassium 3.9 mmol/L (3.5-5.1); Sodium 138.0 mmol/L (136-145)
--- NOTE | 2024-12-08 09:12 | Surgery Progress Note ---
Date of Service December 08, 2024 Assessment & Plan (1) Diverticular disease of intestine with perforation and abscess: Plan: Patient is s/p open Megan procedure on 11/24/2024 Doing well, stable from surgery standpoint for discharge to home with visiting nursing care versus rehab. Will remove the rest of the michoacano today. Admission and Anticipated Discharge Date Admission Date: November 23, 2024 Subjective Patient doing well, colostomy bag did leak, otherwise no complaints. Review of Systems Review of Systems: All systems reviewed & are unremarkable except as noted in HPI & below Physical Exam Constitutional: WD/WN, vitals as above Respiratory: Normal respiratory effort Gastrointestinal (Abdomen): Abdomen is soft and nondistended, colostomy viable and healthy, with output Results & Data Vital Signs (Past 12 Hours) Vital Signs Temp Pulse Pulse Resp BP BP Pulse Ox 12/08/24 08:13 36.8 C 70 18 104/63 98 12/08/24 03:26 36.8 C 71 18 108/65 97 12/07/24 22:28 36.9 C 81 18 109/61 98 12/07/24 21:45 86 O2 Del Method 12/08/24 08:13 Room Air 12/08/24 03:26 Room Air 12/07/24 22:28 Room Air 12/07/24 21:45 PG Care Time/CCT Total # of Minutes Spent Total Time Spent with Patient: Total time spent is greater than 50% in coordination of care (as documented) at patient's floor/unit and/or counseling patient: Coding Level of Care Code 27623 Post Operative Follow-Up Diagnoses Diverticular disease of intestine with perforation and abscess K57.80
[2024-12-08 11:42] VITALS: RESP 19; TEMP 98.6; O2SAT 96
--- NOTE | 2024-12-08 15:30 | Discharge Summary ---
Discharge Summary Date of Service December 08, 2024 Principal Dx & Hospital Course #1 = Principal Diagnosis (1) Diverticular disease of intestine with perforation and abscess: POD#8 - s/p Exploratory Laparotomy, Megan's Procedure, adhesiolysis of small bowel to anterior abdominal wall and pelvis as well as interloop adhesions, suture repair of serosal tear of small bowel as well as cecum, colostomy creation - by Dr Simon Thorne Findings in the OR: "Diverticular disease of intestine with perforation and abscess, with adhesions, possible fistula and abscess formation involving the left ovary with ovary being thickened and inflamed. Extensive adhesions of small bowel in the pelvis as well as to the anterior abdominal wall, adhesions of the cecum to the anterior abdominal wall and pelvis, prior mesh identified, was incorporated well into the fascia of the abdominal wall" Complicated diverticulitis led to septic shock requiring ICU care, pressors, etc. TPN started while still in ICU but d/c on 11/28 NG tube d/c on 11/27 Clears started on 11/27 Advanced to regular diet 12/01 remains on IV abx today is day #10 of IV cipro/flagyl although severe leukocytosis had improved from 30 to 20 on 12/01, the wbc count today is again 20, and CRP is trending up again CT a/p 11/30/24 --> Soft tissues: Ventral hernia repair changes with increased inflammation of the anterior abdominal wall. There is a small fluid collection above the mesh with a bubble of air in the preperitoneal fat measuring 2.3 x 1.8 x 1.3 cm. There is a small amount of fluid in the midline inferior to the mesh measuring approximately 2.6 cm transverse by 0.7 cm AP by 3.2 cm long. There is been interval laparotomy with skin michoacano now present. In light of persistent leukocytosis, trending up CRP, low-grade temps last pm (Tm 37.7), etc ---> Dr Thorne d/c cipro/flagyl, changed to IV zosyn today -I agree with that change Patient is able to be discharged, pending placement. Patient remains fever free. Nurse was concerned over drainage around ostomy, when I reviewed it, it appeared normal. will have nursing reach out to surgeon. (2) Shock, septic: 2nd to perforated/complicated diverticulitis did require pressors, IV fluids, and stress dose steroids in ICU off pressors for 20+ hours (weaned on 11/25 afternoon) BPs stable stopped all stress dose steroids on 11/30 (3) Sepsis: 2nd to #1 above resolved (4) Paroxysmal atrial fibrillation: developed such 11/26, resolved 11/27 (had such for ~24 hours) low K, low mag, stress of illness, etc - all likely culprits for developing such CHADS-VASc score is 5 (age, female, HTN, DM) - 5-6% change of CVA/year would add low-dose BB in the form of meto tartrate 25mg BID starting today ok to start anticoagulation per gen surg Eliquis - $0 dollar copay recent echo - preserved EF, normal valves recent TSH 3.8 in October will hold off on Eliquis until we know she won't need any interventions on the fluid collection seen on CT 11/30 (5) MARGUERITE (acute kidney injury): sepsis associated ATN --> resolved Cr on admission was 3.26 Cr remains <1 BMP am (6) Severe obstructive sleep apnea: cont CPAP (7) Chronic diastolic congestive heart failure: compensated on exam (8) Hypertension: controlled with metoprolol 25mg BID which was started late last week cont to hold amlodipine for now (9) Type 2 diabetes mellitus: A1c of 5.7% on 10/22/2024 Holding semaglutide Novolog Sliding scale with scant use of such BSGs well-controlled (10) Tobacco abuse: cont Nicotine patch (11) Thrombocytopenia: resolved 2nd to medication side effect (antibiotics)? sepsis induced? hepatic related? regardless of etiology platelets now normal HIT assay -- NEGATIVE (12) Morbid obesity with BMI of 40.0-44.9, adult: BMI 40-42 (13) Acute metabolic encephalopathy: "ICU psychosis" toxic effects from pain meds etc likely all to blame either way fully resolved (14) Type 2 VA (myocardial infarction): peak troponin 301 myocardial demand ischemia in setting of septic shock (15) S/P Megan procedure: as above in #1 (16) Colostomy status: as above in #1 (17) Hypokalemia: repleted/resolved (18) Hypomagnesemia: replaced/resolved (19) Hypophosphatemia: replaced/resolved (20) Hyperlipidemia: resume crestor Plan DVT proph -- lovenox 40mg BID due to BMI PT/OT shruti appreciated needs rehab -- referrals made pt's sister updated at bedside this past weekend multiple times care d/w colorectal surgery Dr Thorne Admission HPI Per Admitting Provider 64yo F w/ hx of diverticulitis/diverticulosis, DM, HTN who presents with sepsis and large diverticular abscess. Patient had fairly non-specific symptoms of fatigue, generalized body aches/pains, and nausea with emesis over last 2 days. On specific questioning, she does note LLQ pain without radiation. She had emesis yesterday that was without coffee ground-type emesis or blood. She reports a normal BM yesterday without blood or melena. She reports some generalized reduction in appetite over the last few days as well. She denies fevers/chills. She notes normal urination with no dysuria or foul smell. She denies AGUSTIN, vision changes, chest pain, shortness of breath, palpitations, or leg swelling. Discharge Plan Discharge Items Patient Disposition: Transfer Inpatient Rehab Fac Reason For Visit: DIVERTICULAR ABSCESS Discharge Diagnosis: hartmans procedure Condition on Discharge: Serious Activity: Per Instructions section Lifting: No more than 10 pounds Bathing Comment: may shower; no soaking in tubs/pools x 2 weeks Exercise/Sports: Wait until after follow-up appointment Driving/Machine Use: no driving while on narcotic for pain Non-emergency contact: Primary Care Provider and Surgeon Call non-emergency contact if: you have any medication questions, your symptoms worsen, your pain is worsening, you have a fever, your temperature is above 101.5, your wound has increased redness, your wound has increased drainage and your wound pain has increased Follow-up/Referrals: Arielle Aguilar MD [Primary Care Provider] - Simon Thorne MD [Surgeon] - (please call to schedule follow up in the office in 1-2 weeks) Diet: Low Fiber Addtl Attending Provider Instructions: SPECIAL CARE INSTRUCTIONS: * place a 1/4" inch of plain gauze wick in the inferior portion of incision, cover with dry 4x4 gauze and medipore tape. change daily * care for ostomy as you have been educated by the wound care nurse in the hospital * You may shower.. NO soaking in pools or baths for 2 weeks * No lifting greater than 10lbs. No strenuous exercise until cleared by surgeon. Light walking is accepted. * No driving while taking narcotic pain medication; wait at least 3 days * No drinking alcohol while taking narcotic pain medication * May use Ibuprofen/Tylenol over the counter for pain as tolerated. Do not exceed 3grams of Tylenol per 24 hours * Expect some swelling and bruising. * Diet- low fiber Call your doctor if: * Temperature above 101 degrees, nausea/vomiting, fever/chills * Pain not relieved by pain medicine ordered * There is increased drainage or redness from any incision * You have any unanswered questions or concerns [phone]. FOLLOW UP VISIT: If not already scheduled, please call the office for a follow-up visit. Office Recommend followup in 7 days Pending Studies at Discharge: Yes Studies:: surgical pathology Stand-Alone Forms: My [facility] Skilled Items Patient informed of condition?: No DNR: Yes Discharge Level of Care: Acute rehab Communicable Disease: No Discharge Prognosis: Stable Lines: None Urinary Catheter: No Medications and DC Order Prescriptions: New Eliquis 5 mg tablet 5 mg PO BID Qty: 60 5RF metoprolol succinate 50 mg tablet extended release 24 hr 50 mg PO HS Qty: 30 0RF docusate sodium 60 mg/15 mL Syrup 100 mg PO BID PRN (Reason: constipation) Qty: 1 0RF nicotine 7 mg/24 hr Patch 24 Hour 1 patch transdermal QAM Qty: 0 0RF oxycodone 5 mg Tablet 10 mg PO Q4H PRNQty: 0 0RF oxycodone 5 mg Tablet 5 mg PO Q4H PRNQty: 0 0RF Continued (DME) Oxygen Home Liters Per Minute See Rx Instructions .ROUTE .MEDSUPPLY Qty: 1 0RF Rx Instructions: Use 2L with activity (DME) Miscellaneous Pulmonary Supply Misc See Rx Instructions .ROUTE .MEDSUPPLY Qty: 1 0RF Rx Instructions: OXYGEN CONSERVING DEVICE FOR A OXYLITE TANK (DME) pen needle, diabetic [Novofine 32] 32 gauge x 1/4" needle See Rx Instructions .Route Qty: 50 0RF Rx Instructions: As directed, use weekly with Ozempic (DME) blood-glucose meter [Accu-Chek Guide Glucose Meter] Misc See Rx Instructions .Route Qty: 1 0RF Rx Instructions: As directed (DME) lancing device with lancets [Accu-Chek Soft Dev Lancets] Kit See Rx Instructions .Route Qty: 1 0RF Rx Instructions: As directed semaglutide 2 mg/dose (8 mg/3 mL) pen injector 2 mg subcut Q7D 90 Days Qty: 9.75 2RF Rx Instructions: Sunday meloxicam 7.5 mg tablet 7.5 - 15 mg PO DAILY PRN (Reason: pain) Qty: 180 0RF Hold Instructions: Home Medication placed on hold at Doctor's office Rx Instructions: 1-2 tabs PO daily PRN; cholecalciferol (vitamin D3) 125 mcg (5,000 unit) capsule 125 mcg PO DAILY Qty: 30 0RF eszopiclone [Lunesta] 3 mg tablet 3 mg PO HS PRN (Reason: sleep) Qty: 30 0RF (DME) Compact Compressor Nebulizer [facility] [place] Instructions .ROUTE .MEDSUPPLY Qty: 1 0RF Rx Instructions: As directed (DME) CPAP Machine Mis See Rx Instructions .Route Qty: 1 0RF Rx Instructions: ResMed auto CPAP 5-20 cm water pressure with heated humidificaiton, tubing, and supplies. Frances: 99+ years. (DME) Accu-Chek Guide test strips Strip See Rx Instructions .Route Qty: 100 3RF Rx Instructions: Check blood sugars once daily (DME) lancets [Accu-Chek Fastclix Lancet Drum] [facility] [place] Rx Instructions .Route Qty: 100 3RF Rx Instructions: Check blood sugars once daily (DME) lancing device [lancing device with lancets] [facility] [place] Rx Instructions .Route Qty: 1 0RF Rx Instructions: Check blood sugar once a day gabapentin 800 mg tablet 800 mg PO TID Qty: 270 3RF rosuvastatin 5 mg tablet 5 mg PO DAILY Qty: 90 3RF Linzess 145 mcg capsule 145 mcg PO DAILY Qty: 30 2RF Held tramadol 50 mg tablet 50 mg PO BID PRN (Reason: pain) Qty: 60 1RF Hold Instructions: Provider's Order Discontinued amlodipine 10 mg tablet 10 mg PO DAILY Qty: 90 3RF Discharge Orders: Discharge Order (Routine); Ordered 12/08/24 Ordered By: Diego Scott/Other Patient Handouts: Low-Fiber Diet Admission Data Admit Date/Time: 11/23/24 18:23 Attending Provider: Diego Marquez Admit Provider: Tulio Nix Primary Care Provider: Arielle Aguilar Other Providers: [facility]; Tulio Nix; Simon Thorne; Callum Dubose; Casey Hearn; Eileen Jung [facility] Stay Data Consultations 11/23/24 16:01 ED Decision to Admit Stat 11/23/24 17:00 Consult General Surgery Routine 11/23/24 17:27 Consult Gynecology Routine 11/23/24 18:55 Consult [employer] Worker Routine Procedures Performed Operation Date: 11/24/24 12:35 Actual Procedures p Exploratory Laparotomy, Carmona's Procedure(Not Applicable) - Simon Thorne MD s Cystoscopy(Bilateral) - Paulo Byrne MD Diagnostic Imagining Performed 11/23/24 15:02 CT abd pelvis wo con Stat 11/24/24 05:22 US RUQ [US liver] Urgent 11/24/24 07:11 US point of care ultrasound Stat 11/30/24 14:39 CT Abd and Pelvis [CT abd pelvis IV con only] Urgent Pending Results Patient Have Any Pending Studies at Discharge: Yes Discharge Instructions Given to Patient (Per Discharging Provider) SPECIAL CARE INSTRUCTIONS: * place a 1/4" inch of plain gauze wick in the inferior portion of incision, cover with dry 4x4 gauze and medipore tape. change daily * care for ostomy as you have been educated by the wound care nurse in the hospital * You may shower.. NO soaking in pools or baths for 2 weeks * No lifting greater than 10lbs. No strenuous exercise until cleared by surgeon. Light walking is accepted. * No driving while taking narcotic pain medication; wait at least 3 days * No drinking alcohol while taking narcotic pain medication * May use Ibuprofen/Tylenol over the counter for pain as tolerated. Do not exceed 3grams of Tylenol per 24 hours * Expect some swelling and bruising. * Diet- low fiber Call your doctor if: * Temperature above 101 degrees, nausea/vomiting, fever/chills * Pain not relieved by pain medicine ordered * There is increased drainage or redness from any incision * You have any unanswered questions or concerns [phone]. FOLLOW UP VISIT: If not already scheduled, please call the office for a follow-up visit. Office Recommend followup in 7 days Coding Diagnoses Diverticular disease of intestine with perforation and abscess K57.80 Shock, septic A41.9; R65.21 Sepsis A41.9; R65.20; N17.9 Acute renal failure type: unspecified Sepsis acute organ dysfunction status: with acute organ dysfunction Sepsis type: sepsis due to unspecified organism Severe sepsis acute organ dysfunction type: acute renal failure Severe sepsis shock status: unspecified Paroxysmal atrial fibrillation I48.0 MARGUERITE (acute kidney injury) N17.9 Severe obstructive sleep apnea G47.33 Chronic diastolic congestive heart failure I50.32 Essential hypertension I10 Hypertension type: essential hypertension Type 2 diabetes mellitus with diabetic neuropathy, without long-term current use of insulin E11.40 Diabetes mellitus adjunct faculty for medical terminology insulin use: without adjunct faculty for medical terminology use Diabetes mellitus complication status: with neurologic complications Diabetes mellitus complication detail: with unspecified neuropathy Tobacco abuse Z72.0 Thrombocytopenia D69.6 Morbid obesity with BMI of 40.0-44.9, adult E66.01; Z68.41 Acute metabolic encephalopathy G93.41 Type 2 VA (myocardial infarction) I21.A1 S/P Megan procedure Z93.3 Colostomy status Z93.3 Hypokalemia E87.6 Hypomagnesemia E83.42 Hypophosphatemia E83.39 Hyperlipidemia E78.5
[2024-12-08 15:36] VITALS: BP 104/63; PULSE 72
== END 2024-12-08 16:00 | DRG 853 ==
LOC: ED 14:31 → EDINP 18:23 → SUATTDRO 18:23 → 1E 19:31 → 4W 11-26 18:54